=== PATIENT | female | born 1940 | race American Indian/Alaskan Native ===

== ENCOUNTER 2017-04-12 10:16 | Inpatient (IN) | payer MEDICARE, OTHER ==
[2017-04-12 10:16] VITALS: BMI 30.4
--- NOTE | 2017-04-12 10:47 | ED PDOC ---
Arrival/HPI - General Historian: Patient - General Chief Complaint: Abnormal Skin Integrity Time Seen by Provider: 04/12/17 10:29 - History of Present Illness Narrative History of Present Illness (Text): 04/12/17 10:42 77yo female with PMHx of hypertension, hyperlipdemia and Psoriasis who present with worsening left lower leg pain. She notes that her psoriasis has been worse over the past few weeks. Notes purulent discharge from the wound. States pain is throbbing in nature. she denies fever, chills, any other complaint. she is currently under a care of a General Studies Program Chair and applies topical cream to the area. (Janet Dugan A) Past Medical History - Provider Review Nursing Documentation Reviewed: Yes - Infectious Disease Hx of Infectious Diseases: None - Cardiac Hx Cardiac Disorders: Yes Hx Hypertension: Yes - Pulmonary Hx Respiratory Disorders: No - Neurological Hx Neurological Disorder: No - HEENT Hx HEENT Disorder: No - Renal Hx Renal Disorder: No - Endocrine/Metabolic Hx Endocrine Disorders: No - Hematological/Oncological Hx Blood Disorders: No - Integumentary Hx Dermatological Disorder: Yes Hx Psoriasis: Yes - Musculoskeletal/Rheumatological Hx Musculoskeletal Disorders: No Hx Falls: No - Gastrointestinal Hx Gastrointestinal Disorders: Yes Hx Gastroesophageal Reflux: Yes - Genitourinary/Gynecological Hx Genitourinary Disorders: No - Psychiatric Hx Psychophysiologic Disorder: No Hx Substance Use: No - Surgical History Hx Cardiac Catheterization: Yes (x1 with insertion of 1 stint) Hx Cholecystectomy: Yes - Anesthesia Hx Anesthesia Reactions: No Hx Malignant Hyperthermia: No Family/Social History - Physician Review Nursing Documentation Reviewed: Yes Family/Social History: Unknown Family HX Smoking Status: Former Smoker Hx Alcohol Use: Yes (beer occassionally) Hx Substance Use: No Allergies/Home Meds Allergies/Adverse Reactions: Allergies No Known Allergies Allergy (Verified 04/12/17 10:36) Home Medications: Home Meds Medication Instructions Recorded Confirmed Clotrimazole/Betamethasone 1 applic TOP BID 04/23/16 04/12/17 [Lotrisone] Budesonide/Formoterol Fumarate 1 aer IH DAILY 04/12/17 04/12/17 [Symbicort] Tiotropium [place] Inhaler 0 inhaler 04/12/17 [Spiriva Inhalation Handihaler Device] Review of Systems - Physician Review All systems were reviewed & negative as marked: Yes - Review of Systems Constitutional: Normal Eyes: Normal ENT: Normal Respiratory: Normal Cardiovascular: Normal Gastrointestinal: Normal Genitourinary Female: Normal Musculoskeletal: Arthralgias (Left leg pain) Skin: Normal Neurological: Normal Endocrine: Normal Hemo/Lymphatic: Normal Psychiatric: Normal Physical Exam Vital Signs Reviewed: Yes Temperature: Afebrile Blood Pressure: Normal Pulse: Regular Respiratory Rate: Normal Appearance: Positive for: Well-Appearing, Non-Toxic, Comfortable Pain Distress: None Mental Status: Positive for: Alert and Oriented X 3 - Systems Exam Head: Present: Atraumatic, Normocephalic Pupils: Present: PERRL Extroacular Muscles: Present: EOMI Conjunctiva: Present: Normal Mouth: Present: Moist Mucous Membranes Neck: Present: Normal Range of Motion Respiratory/Chest: Present: Clear to Auscultation, Good Air Exchange. No: Respiratory Distress, Accessory Muscle Use Cardiovascular: Present: Regular Rate and Rhythm, Normal S1, S2. No: Murmurs Abdomen: Present: Normal Bowel Sounds. No: Tenderness, Distention, Peritoneal Signs Back: Present: Normal Inspection Upper Extremity: Present: Normal Inspection. No: Cyanosis, Edema Lower Extremity: Present: Normal Inspection, NORMAL PULSES, Tenderness (Left lower leg), Swelling (Left lower leg), Erythema (Bright red beefy erythema of left lower anterior leg with overlaying scabs noted), Temperature Abnormalties ( Warm to touch), Neurovascularly Intact. No: Edema, CALF TENDERNESS Neurological: Present: GCS=15, CN II-XII Intact, Speech Normal Skin: Present: Warm, Dry, Normal Color. No: Rashes Psychiatric: Present: Alert, Oriented x 3, Normal Insight, Normal Concentration Vital Signs Temp Pulse Resp BP Pulse Ox 04/12/17 11:34 98 H 18 144/84 98 04/12/17 10:31 98.6 F 106 H 20 144/84 100 Medical Decision Making ED Course and Treatment: I was available for consultation during PA evaluation. The chart was reviewed by me, and I agree with disposition. The documented history was done by the physician tree trimmer. The documented physical exam was done by the physician tree trimmer. The documented procedures were done by the physician tree trimmer. (Hemal Singh) 04/12/17 11:21 PT with multiple comorbitiies in ED for worsening left lower leg wound. She was afebrile in ED and have no leukocytosis. Wound however appeared beefy red with scabs. Purulent discharge was also noted from her umbilicus. She definitely needs admission for IV abx. PT was also seen in ED by Dr. Harris and he agrees with the plan. Plan was DW the pt and she agreed. Vanco and Rocephin ordered. (Ritchie,Happiness A) - Medication Orders Current Medication Orders: Sodium Chloride (Sodium Chloride 0.45%) 1,000 mls @ 30 mls/hr IV .Q24H [facility] Ceftriaxone Sodium (Rocephin 1 Gram Ivpb) 1 gm in 100 mls @ 200 mls/hr IVPB STAT STA PRN Reason: Protocol Stop: 04/12/17 12:10 Vancomycin HCl (Vancomycin 1gm) 1 gm in 250 mls @ 167 mls/hr IVPB STAT STA PRN Reason: Protocol Stop: 04/12/17 13:09 Tiotropium [place] (Spiriva) 18 mcg IH DAILY HEBER Disposition/Present on Arrival - Present on Arrival Any Indicators Present on Arrival: No History of DVT/PE: No History of Uncontrolled Diabetes: No Urinary Catheter: No History of Decub. Ulcer: No History Surgical Site Infection Following: None - Disposition Have Diagnosis and Disposition been Completed?: Yes Disposition Time: 11:25 - Disposition Diagnosis: Cellulitis Disposition: HOSPITALIZED Patient Problems: Current Active Problems Problem Status Onset Cellulitis Acute Condition: FAIR
--- NOTE | 2017-04-12 11:33 | CP.PCM.HP ---
History of Present Illness - History of Present Illness History of Present Illness: 77 y/o aaf w/ hx of worsening skin redness on both lower extrmities and belly button w/ oozing and w/ an odor and outpatient meds not helping and getting worse Present on Admission - Present on Admission Any Indicators Present on Admission: Yes History of DVT/PE: No History of Uncontrolled Diabetes: No Urinary Catheter: No Decubitus Ulcer Present: Yes Decubitus Ulcer Stage: II Review of Systems - Integumentary Integumentary: Erythema, New Lesions, Rash, Skin Ulcer, Wounds Additional comments: severe psoriasis into a cellulitis w/ ulcers and oozing and odor Past Patient History - Infectious Disease Hx of Infectious Diseases: None - Past Social History Smoking Status: Former Smoker - CARDIAC Hx Cardiac Disorders: Yes Hx Hypertension: Yes - PULMONARY Hx Respiratory Disorders: No - NEUROLOGICAL Hx Neurological Disorder: No - HEENT Hx HEENT Problems: No - RENAL Hx Chronic Kidney Disease: No - ENDOCRINE/METABOLIC Hx Endocrine Disorders: No - HEMATOLOGICAL/ONCOLOGICAL Hx Blood Disorders: No - INTEGUMENTARY Hx Dermatological Problems: Yes Hx Psoriasis: Yes Other/Comment: psoriais - MUSCULOSKELETAL/RHEUMATOLOGICAL Hx Musculoskeletal Disorders: No Hx Falls: No - GASTROINTESTINAL Hx Gastrointestinal Disorders: Yes Hx Gastroesophageal Reflux: Yes - GENITOURINARY/GYNECOLOGICAL Hx Genitourinary Disorders: No - PSYCHIATRIC Hx Psychophysiologic Disorder: No Hx Substance Use: No - SURGICAL HISTORY Hx Cardiac Catheterization: Yes (x1 with insertion of 1 stint) Hx Cholecystectomy: Yes - ANESTHESIA Hx Anesthesia Reactions: No Hx Malignant Hyperthermia: No Meds Allergies/Adverse Reactions: Allergies Allergy/AdvReac Type Severity Reaction Status Date / Time No Known Allergies Allergy Verified 04/12/17 10:36 Physical Exam - Constitutional Appears: No Acute Distress, Chronically Ill - Head Exam Head Exam: ATRAUMATIC, NORMAL INSPECTION, NORMOCEPHALIC - Eye Exam Eye Exam: EOMI - ENT Exam ENT Exam: Mucous Membranes Moist - Neck Exam Neck exam: Positive for: Normal Inspection - Respiratory Exam Respiratory Exam: Clear to Auscultation Bilateral, NORMAL BREATHING PATTERN - Cardiovascular Exam Cardiovascular Exam: REGULAR RHYTHM - GI/Abdominal Exam GI & Abdominal Exam: Normal Bowel Sounds, Soft - Extremities Exam Extremities exam: Positive for: pedal edema - Back Exam Back exam: NORMAL INSPECTION - Neurological Exam Neurological exam: Alert, CN II-XII Intact, Oriented x3 - Psychiatric Exam Psychiatric exam: Normal Affect, Normal Mood - Skin Additional comments: severe psoriasis w/ ulcers cellulitis oozing and odor Results - Vital Signs Recent Vital Signs: Last Vital Signs Temp 98.6 F 04/12/17 10:31 Pulse 106 H 04/12/17 10:31 Resp 20 04/12/17 10:31 BP 144/84 04/12/17 10:31 Pulse Ox 100 04/12/17 10:31 Assessment & Plan - Assessment and Plan (Free Text) Assessment: acute cellulitis legs umbilicus oozing odor severe psoriasis Plan: iv abs skin care id eval pod eval surgery eval iv fluids checking labs - Date & Time Date: 04/12/17 Time: 11:00
[2017-04-12 11:37] LABS: BASO # 0.01 K/mm3 (0.0-2.0); BASO % 0.1 % (0.0-3.0); EOS % 0.4 % (1.5-5.0); GRAN % 77.9 % (50.0-68.0); HEMOGLOBIN 13.7 gm/dL (12.0-16.0); LYMPH # 1.3 (1.2-3.4); LYMPH % 13.9 % (22.0-35.0); MEAN CELL VOLUME 89.8 fL (80.0-105.0); MEAN CORPUSCULAR HEMOGLOBIN 30.4 pg (25.0-35.0); MEAN CORPUSCULAR HGB CONC 33.8 g/dl (31.0-37.0); MEAN PLATELET VOLUME 9.4 fl (7.0-11.0); MONO # 0.7 (0.1-0.6); MONO % 7.7 % (1.0-6.0); PLATELET COUNT 321 10^3/uL (120.0-450.0); RBC 4.51 10^6/uL (3.5-6.1); RED CELL DISTRIBUTION WIDTH 14.3 % (11.5-14.5); WHITE BLOOD COUNT 9.3 10^3/ul (4.5-11.0)
[2017-04-12] MEDS ORDERED: Vancomycin 1gm in NS 250ml 1 GM/250 ML BAG IVPB STA (11:40)
[2017-04-12] MEDS ORDERED: cefTRIAXone 1 gm 1 GM/100 ML BAG IVPB STA (11:41)
[2017-04-12] MEDS: Sodium Chloride 0.45% 1,000 ML IV SCH (11:50)
[2017-04-12 12:00] LABS: ALB/GLOB RATIO 0.9 (1.1-1.8); ALBUMIN 4.4 g/dL (3.0-4.8); ALT/SGPT 29 U/L (7-56); AST/SGOT 28 U/L (15-39); BLOOD UREA NITROGEN 14 mg/dL (7-21); CALCIUM 10.1 mg/dL (8.4-10.5); GFR AFRICAN-AMERICAN > 60; GFR NON-AFRICAN AMERICAN 54
[2017-04-12] MEDS ORDERED: Silver Sulfadiazine 1% Cream (20 gm) TOP STA (12:10)
--- NOTE | 2017-04-12 15:35 | CP.PCM.CON ---
History of Present Illness - History of Present Illness History of Present Illness: 77 F with a h/o psoriasis, presents to ED for worsening of skin redness on lower extremities. and drainage from umbilicus, which occurred a couple of days prior to presenting to the ED. Patient states the drainage coming from her left leg started over the weekend and she decided to come to the ED because it had gotten worse. Patient admits to scratching her umbilical region prior to the formation of drainage which had stopped prior to arrive to ED. Review of Systems - Constitutional Constitutional: As Per HPI - Cardiovascular Cardiovascular: As Per HPI, Leg Edema. absent: Leg Ulcers Additional comments: excoriations on legs bilaterally on examination. psoriatic plaques visualized up to the knees bilaterally - Integumentary Integumentary: Lesions, New Lesions, Pruritus, Skin Pain, Wounds Additional comments: tenderness to palpation Past Patient History - Infectious Disease Hx of Infectious Diseases: None - Past Medical History & Family History Past Medical History?: Yes Past Family History: Reviewed and not pertinent - Past Social History Smoking Status: Former Smoker - CARDIAC Hx Cardiac Disorders: Yes Hx Hypertension: Yes - PULMONARY Hx Respiratory Disorders: No - NEUROLOGICAL Hx Neurological Disorder: No - HEENT Hx HEENT Problems: No - RENAL Hx Chronic Kidney Disease: No - ENDOCRINE/METABOLIC Hx Endocrine Disorders: No - HEMATOLOGICAL/ONCOLOGICAL Hx Blood Disorders: No - INTEGUMENTARY Hx Dermatological Problems: Yes Hx Psoriasis: Yes - MUSCULOSKELETAL/RHEUMATOLOGICAL Hx Musculoskeletal Disorders: No Hx Falls: No - GASTROINTESTINAL Hx Gastrointestinal Disorders: Yes Hx Gastroesophageal Reflux: Yes - GENITOURINARY/GYNECOLOGICAL Hx Genitourinary Disorders: No - PSYCHIATRIC Hx Psychophysiologic Disorder: No Hx Substance Use: No - SURGICAL HISTORY Hx Cardiac Catheterization: Yes (x1 with insertion of 1 stint) Hx Cholecystectomy: Yes - ANESTHESIA Hx Anesthesia Reactions: No Hx Malignant Hyperthermia: No Meds Allergies/Adverse Reactions: Allergies Allergy/AdvReac Type Severity Reaction Status Date / Time No Known Allergies Allergy Verified 04/12/17 14:52 - Medications Medications: Current Medications Sodium Chloride (Sodium Chloride 0.45%) 1,000 mls @ 30 mls/hr IV .Q24H [facility] Last Admin: 04/12/17 11:50 Dose: 30 mls/hr Ceftaroline Fosamil 400 mg/ (Sodium Chloride) 100 mls @ 100 mls/hr IVPB Q12 [facility]BER PRN Reason: Protocol Stop: 04/19/17 22:01 Tiotropium [place] (Spiriva) 18 mcg IH DAILY HEBER Physical Exam - Head Exam Head Exam: NORMAL INSPECTION - Eye Exam Eye Exam: EOMI, Normal appearance - ENT Exam ENT Exam: Mucous Membranes Moist - Neck Exam Neck exam: Positive for: Full Rom, Normal Inspection - Cardiovascular Exam Cardiovascular Exam: REGULAR RHYTHM. absent: Bradycardia, Tachycardia - GI/Abdominal Exam GI & Abdominal Exam: Distended. absent: Firm, Guarding, Mass, Pulsatile Mass - Extremities Exam Extremities exam: Positive for: normal capillary refill, tenderness, pedal pulses present. Negative for: normal inspection Additional comments: tenderness to palpation - Skin Skin Exam: Dry, Intact, Normal Color, Warm Results - Vital Signs Recent Vital Signs: Last Vital Signs Temp 98 F 04/12/17 13:00 Pulse 75 04/12/17 13:00 Resp 20 04/12/17 13:00 BP 130/76 04/12/17 13:00 Pulse Ox 98 04/12/17 13:00 - Labs Result Diagrams: 04/12/17 11:25 04/12/17 11:25 Labs: Laboratory Results - last 24 hr 04/12/17 04/12/17 04/12/17 11:25 11:25 12:20 WBC 9.3 D RBC 4.51 Hgb 13.7 Hct 40.5 MCV 89.8 MCH 30.4 MCHC 33.8 RDW 14.3 Plt Count 321 MPV 9.4 Gran % 77.9 H Lymph % (Auto) 13.9 L Lamar % (Auto) 7.7 H Eos % (Auto) 0.4 L Baso % (Auto) 0.1 Gran # 7.20 H Lymph # 1.3 Lamar # 0.7 H Eos # 0.0 Baso # 0.01 ESR 13 Sodium 139 Potassium 4.6 Chloride 103 Carbon Dioxide 24 Anion Gap 17 BUN 14 Creatinine 1.0 Est GFR ( Amer) > 60 Est GFR (Non-Af Amer) 54 Random Glucose 106 Calcium 10.1 Total Bilirubin 1.0 AST 28 ALT 29 Alkaline Phosphatase 90 C-React Prot High Sens Total Protein 9.1 H Albumin 4.4 Globulin 4.7 Albumin/Globulin Ratio 0.9 L 04/12/17 12:20 WBC RBC Hgb Hct MCV MCH MCHC RDW Plt Count MPV Gran % Lymph % (Auto) Lamar % (Auto) Eos % (Auto) Baso % (Auto) Gran # Lymph # Lamar # Eos # Baso # ESR Sodium Potassium Chloride Carbon Dioxide Anion Gap BUN Creatinine Est GFR ( Amer) Est GFR (Non-Af Amer) Random Glucose Calcium Total Bilirubin AST ALT Alkaline Phosphatase C-React Prot High Sens > 15.00 H Total Protein Albumin Globulin Albumin/Globulin Ratio
[2017-04-12] MEDS ORDERED: Pneumococcal 23-Valent Vaccine IM ONE (16:57)
[2017-04-13] MEDS ORDERED: Oxycodone/Acetaminophen 10/325 mg Tab PO STA (00:16)
--- NOTE | 2017-04-13 00:17 | CP.PCM.PN ---
Subjective - Date & Time of Evaluation Date of Evaluation: 04/13/17 Time of Evaluation: 00:17 - Subjective Subjective: S: Patient was seen at bedside for leg pains. Has no other complaints. Pertinent medical record was reviewed. O: Last Vital Signs 3 Temp 98 F 04/12/17 16:25 Pulse 75 04/12/17 16:25 Resp 20 04/12/17 16:25 BP 130/76 04/12/17 16:25 Pulse Ox 100 04/12/17 16:00 Awake, alert , not in distress. LUNGS: Normal breathing pattern. EXT: Both lower extremities red, swollen, tender. A:Legs cellulitis. P:Percocet 10/325 i po stat/ Objective - Vital Signs/Intake and Output Vital Signs (last 24 hours): Temp Pulse Resp BP Pulse Ox 98 F 75 20 130/76 100 04/12/17 16:25 04/12/17 16:25 04/12/17 16:25 04/12/17 16:25 04/12/17 16:00 Intake and Output: 04/12/17 04/13/17 18:59 06:59 Intake Total 240 Balance 240 - Medications Medications: Current Medications Sodium Chloride (Sodium Chloride 0.45%) 1,000 mls @ 30 mls/hr IV .Q24H HEBER Last Admin: 04/12/17 11:50 Dose: 30 mls/hr Ceftaroline Fosamil 400 mg/ (Sodium Chloride) 100 mls @ 100 mls/hr IVPB Q12 HEBER PRN Reason: Protocol Stop: 04/19/17 22:01 Last Admin: 04/12/17 21:18 Dose: 100 mls/hr Tiotropium [place] (Spiriva) 18 mcg IH DAILY HEBER - Labs Labs: 04/12/17 11:25 04/12/17 11:25
[2017-04-13 07:26] LABS: ALBUMIN 3.6 g/dL (3.0-4.8); ALT/SGPT 30 U/L (7-56); AST/SGOT 33 U/L (15-39); BLOOD UREA NITROGEN 14 mg/dL (7-21); GFR AFRICAN-AMERICAN > 60; GFR NON-AFRICAN AMERICAN > 60
--- NOTE | 2017-04-13 08:47 | CP.PCM.PN ---
Subjective - Date & Time of Evaluation Date of Evaluation: 04/13/17 Time of Evaluation: 08:39 - Subjective Subjective: General Surgery PGY [address] Montes Patient seen and examined at bedside this morning. No acute events over night. Patient states that she is still scratching and is now feeling itchy around her chest in addition to her legs b/l. She noticed a rash beginning to form on her chest upon waking this morning. Objective - Vital Signs/Intake and Output Vital Signs (last 24 hours): Temp Pulse Resp BP Pulse Ox 98 F 75 20 130/76 100 04/12/17 16:25 04/12/17 16:25 04/12/17 16:25 04/12/17 16:25 04/12/17 16:00 Intake and Output: 04/13/17 04/13/17 06:59 18:59 Intake Total 240 Balance 240 - Medications Medications: Current Medications Sodium Chloride (Sodium Chloride 0.45%) 1,000 mls @ 30 mls/hr IV .Q24H HEBER Last Admin: 04/12/17 11:50 Dose: 30 mls/hr Ceftaroline Fosamil 400 mg/ (Sodium Chloride) 100 mls @ 100 mls/hr IVPB Q12 HEBER PRN Reason: Protocol Stop: 04/19/17 22:01 Last Admin: 04/12/17 21:18 Dose: 100 mls/hr Tiotropium [place] (Spiriva) 18 mcg IH DAILY HEBER - Labs Labs: 04/12/17 11:25 04/13/17 06:50 - Constitutional Appears: No Acute Distress - Head Exam Head Exam: ATRAUMATIC, NORMOCEPHALIC - Eye Exam Eye Exam: EOMI - ENT Exam ENT Exam: Mucous Membranes Moist - Respiratory Exam Respiratory Exam: NORMAL BREATHING PATTERN. absent: Respiratory Distress - Extremities Exam Extremities Exam: Pedal Edema Additional comments: Psoriasis plaques present on LE b/l. Excoriations are present throughout. - Neurological Exam Neurological Exam: Alert, Awake - Skin Skin Exam: Rash Additional comments: Psoriasis plaques with excoriations present on LE b/l. Rash beginning to form on chest. Redness present, consistent with patient scratching. Assessment and Plan - Assessment and Plan (Free Text) Assessment: 77 year old F with Psoriasis plaques and RLE wound. Plan: Continue Silvadene Cream application to RLE wound. Monitor for signs of infection, cellulitis and/or drainage Will give Benadryl to help with pruritus and rash formation on chest. Alexx Katz PGY 1
[2017-04-13 09:05] LABS: HEMOGLOBIN 12.2 gm/dL (12.0-16.0); MEAN CELL VOLUME 89.9 fL (80.0-105.0); MEAN CORPUSCULAR HEMOGLOBIN 29.3 pg (25.0-35.0); MEAN CORPUSCULAR HGB CONC 32.5 g/dl (31.0-37.0); RBC 4.17 10^6/uL (3.5-6.1); WHITE BLOOD COUNT 6.4 10^3/ul (4.5-11.0)
[2017-04-13 09:06] LABS: MEAN PLATELET VOLUME 9.4 fl (7.0-11.0); RED CELL DISTRIBUTION WIDTH 14.7 % (11.5-14.5)
--- NOTE | 2017-04-13 09:17 | CP.PCM.PN ---
Subjective - Date & Time of Evaluation Date of Evaluation: 04/13/17 Time of Evaluation: 08:00 - Subjective Subjective: seen in bed occ discomfort but improving less aggressive red less amount and starting to feel a bit better eats ok comfortable at this time Objective - Vital Signs/Intake and Output Vital Signs (last 24 hours): Temp Pulse Resp BP Pulse Ox 98 F 75 20 130/76 100 04/12/17 16:25 04/12/17 16:25 04/12/17 16:25 04/12/17 16:25 04/12/17 16:00 Intake and Output: 04/13/17 04/13/17 06:59 18:59 Intake Total 240 Balance 240 - Medications Medications: Current Medications Sodium Chloride (Sodium Chloride 0.45%) 1,000 mls @ 30 mls/hr IV .Q24H HEBER Last Admin: 04/12/17 11:50 Dose: 30 mls/hr Ceftaroline Fosamil 400 mg/ (Sodium Chloride) 100 mls @ 100 mls/hr IVPB Q12 HEBER PRN Reason: Protocol Stop: 04/19/17 22:01 Last Admin: 04/12/17 21:18 Dose: 100 mls/hr Tiotropium [place] (Spiriva) 18 mcg IH DAILY HEBER - Labs Labs: 04/13/17 08:30 04/13/17 06:50 - Constitutional Appears: No Acute Distress - Head Exam Head Exam: ATRAUMATIC, NORMAL INSPECTION, NORMOCEPHALIC - Eye Exam Eye Exam: Normal appearance - ENT Exam ENT Exam: Mucous Membranes Moist - Respiratory Exam Respiratory Exam: Clear to Ausculation Bilateral, NORMAL BREATHING PATTERN - Cardiovascular Exam Cardiovascular Exam: REGULAR RHYTHM - GI/Abdominal Exam GI & Abdominal Exam: Soft, Normal Bowel Sounds - Extremities Exam Extremities Exam: Normal Inspection - Neurological Exam Neurological Exam: Alert, CN II-XII Intact, Oriented x3 - Psychiatric Exam Psychiatric exam: Normal Affect - Skin Skin Exam: Warm Additional comments: severe redness cellulitis psoriasis all over body starting to be less aggressive w/ mild fading of severe red to a lesser aggressive red color Assessment and Plan - Assessment and Plan (Free Text) Assessment: severe cellulitesmild start w/ improving psoriasis htn hi chol feet ulcer Plan: cont w/ iv abs starting to improve checking labs as per id surgery and pod
[2017-04-13] MEDS: Tiotropium 18 mcg Cap For Inhalation IH SCH (10:53)
--- NOTE | 2017-04-13 11:54 | CP.PCM.CON ---
History of Present Illness - History of Present Illness History of Present Illness: 77 year old female with PMH of psoriasis, HTN, CAD S/P PCI, S/P cholecystectomy , GERD was brought in to [facility] because of worsening lower extremity swelling as well as a draining lesion on the umiblicus associated with psoriasis plaques. The patient states it started out itchy then started scratching it. She denies fever or chills, no animal contacts, no insect bites, no headache or dizziness, no chest pain, no SOB, no abdominal pain, no diarrhea , no dysuria. Infectious Diseases consult is requested to further evaluate and manage. Review of Systems - Review of Systems All systems: reviewed and no additional remarkable complaints except (as per HPI ) Past Patient History - Infectious Disease Hx of Infectious Diseases: None - Past Medical History & Family History Past Medical History?: Yes Past Family History: Reviewed and not pertinent - Past Social History Smoking Status: Current Some Days Smoker - CARDIAC Hx Cardiac Disorders: Yes Hx Hypertension: Yes - PULMONARY Hx Respiratory Disorders: Yes (smoked cigarettes) - NEUROLOGICAL Hx Neurological Disorder: No - HEENT Hx HEENT Problems: No - RENAL Hx Chronic Kidney Disease: No - ENDOCRINE/METABOLIC Hx Endocrine Disorders: No - HEMATOLOGICAL/ONCOLOGICAL Hx Blood Disorders: No - INTEGUMENTARY Hx Dermatological Problems: Yes Hx Psoriasis: Yes - MUSCULOSKELETAL/RHEUMATOLOGICAL Hx Musculoskeletal Disorders: No Hx Falls: No - GASTROINTESTINAL Hx Gastrointestinal Disorders: Yes Hx Gastroesophageal Reflux: Yes - GENITOURINARY/GYNECOLOGICAL Hx Genitourinary Disorders: No - PSYCHIATRIC Hx Psychophysiologic Disorder: No Hx Substance Use: No - SURGICAL HISTORY Hx Surgeries: Yes (cardiac stent x 1) Hx Cardiac Catheterization: Yes (x1 with insertion of 1 stent) Hx Cholecystectomy: Yes - ANESTHESIA Hx Anesthesia Reactions: No Hx Malignant Hyperthermia: No Meds Allergies/Adverse Reactions: Allergies Allergy/AdvReac Type Severity Reaction Status Date / Time No Known Allergies Allergy Verified 04/12/17 14:52 - Medications Medications: Current Medications Diphenhydramine HCl (Benadryl) 25 mg PO Q8H PRN PRN Reason: Itching / Pruritus Sodium Chloride (Sodium Chloride 0.45%) 1,000 mls @ 30 mls/hr IV .Q24H HEBER Last Admin: 04/12/17 11:50 Dose: 30 mls/hr Ceftaroline Fosamil 400 mg/ (Sodium Chloride) 100 mls @ 100 mls/hr IVPB Q12 HEBER PRN Reason: Protocol Stop: 04/19/17 22:01 Last Admin: 04/13/17 10:52 Dose: 100 mls/hr Mupirocin (Bactroban Ointment) 0 gm TOP BID HEBER Tiotropium [place] (Spiriva) 18 mcg IH DAILY HEBER Last Admin: 04/13/17 10:53 Dose: 18 mcg Physical Exam - Constitutional Appears: Non-toxic, No Acute Distress - Head Exam Head Exam: NORMAL INSPECTION - Neck Exam Neck exam: Negative for: Meningismus - Respiratory Exam Respiratory Exam: Decreased Breath Sounds - Cardiovascular Exam Cardiovascular Exam: +S1, +S2 - GI/Abdominal Exam GI & Abdominal Exam: Soft. absent: Tenderness - Extremities Exam Additional comments: psoriasis plaques all over the anterior and posterior trunk and plaque noted on the umbilicus area with some crusting noted Results - Vital Signs Recent Vital Signs: Last Vital Signs Temp 98 F 04/12/17 16:25 Pulse 75 04/12/17 16:25 Resp 20 04/12/17 16:25 BP 130/76 04/12/17 16:25 Pulse Ox 100 04/12/17 16:00 - Labs Result Diagrams: 04/13/17 08:30 04/13/17 06:50 Labs: Laboratory Results - last 24 hr 04/12/17 04/12/17 04/12/17 11:25 12:20 12:20 WBC RBC Hgb Hct MCV MCH MCHC RDW Plt Count MPV ESR 13 Sodium 139 Potassium 4.6 Chloride 103 Carbon Dioxide 24 Anion Gap 17 BUN 14 Creatinine 1.0 Est GFR ( Amer) > 60 Est GFR (Non-Af Amer) 54 Random Glucose 106 Calcium 10.1 Total Bilirubin 1.0 AST 28 ALT 29 Alkaline Phosphatase 90 C-React Prot High Sens > 15.00 H Total Protein 9.1 H Albumin 4.4 Globulin 4.7 Albumin/Globulin Ratio 0.9 L 04/13/17 04/13/17 06:50 08:30 WBC 6.4 D RBC 4.17 Hgb 12.2 Hct 37.5 MCV 89.9 MCH 29.3 MCHC 32.5 RDW 14.7 H Plt Count 288 MPV 9.4 ESR Sodium 134 Potassium 4.2 Chloride 105 Carbon Dioxide 25 Anion Gap 8 L BUN 14 Creatinine 0.9 Est GFR ( Amer) > 60 Est GFR (Non-Af Amer) > 60 Random Glucose 93 Calcium 9.0 Total Bilirubin 0.7 AST 33 ALT 30 Alkaline Phosphatase 71 C-React Prot High Sens Total Protein 7.3 Albumin 3.6 Globulin 3.7 Albumin/Globulin Ratio 1.0 L Assessment & Plan - Assessment and Plan (Free Text) Plan: Assessment Consider umbilicus area skin and skin structure infection with associated psoriasis plaques psoriasis HTN CAD S/P PCI S/P cholecystectomy GERD Plan Started patient on Teflaro pending blood and wound cx; will also order Bactroban ointment will follow clinical response
--- NOTE | 2017-04-13 12:05 | CP.PCM.CON ---
<Lorenzo Brown - Last Filed: 04/13/17 12:09> History of Present Illness - History of Present Illness History of Present Illness: Patient is a 77 year old female with PMH of HTN, HLD and psoriasis who presented to the ED yesterday with oozing b/l LE wounds secondary to chronic psoriasis. Patient states that these wounds have been present for one or two weeks and began to ooze fluid with a thick, white consistency a few days ago prompting her to visit the ED. Patient states that she has had similar wounds in the past that she sought treatment for in the hospital and they healed up nicely. Patient states that Silvadene cream was placed on her wounds at last dressing change. Patient also complains of oozing discharge from her umbilicus. Patient denies any acute overnight events. Patient denies any further pedal complaints at this time. Patient denies N/V/F/C/CP/SOB at this time. Review of Systems - Review of Systems Review of Systems: Review of systems unremarkable outside of HPI Past Patient History - Infectious Disease Hx of Infectious Diseases: None - Past Medical History & Family History Past Medical History?: Yes Past Family History: Reviewed and not pertinent - Past Social History Smoking Status: Current Some Days Smoker - CARDIAC Hx Cardiac Disorders: Yes Hx Hypertension: Yes - PULMONARY Hx Respiratory Disorders: Yes (smoked cigarettes) - NEUROLOGICAL Hx Neurological Disorder: No - HEENT Hx HEENT Problems: No - RENAL Hx Chronic Kidney Disease: No - ENDOCRINE/METABOLIC Hx Endocrine Disorders: No - HEMATOLOGICAL/ONCOLOGICAL Hx Blood Disorders: No - INTEGUMENTARY Hx Dermatological Problems: Yes Hx Psoriasis: Yes - MUSCULOSKELETAL/RHEUMATOLOGICAL Hx Musculoskeletal Disorders: No Hx Falls: No - GASTROINTESTINAL Hx Gastrointestinal Disorders: Yes Hx Gastroesophageal Reflux: Yes - GENITOURINARY/GYNECOLOGICAL Hx Genitourinary Disorders: No - PSYCHIATRIC Hx Psychophysiologic Disorder: No Hx Substance Use: No - SURGICAL HISTORY Hx Surgeries: Yes (cardiac stent x 1) Hx Cardiac Catheterization: Yes (x1 with insertion of 1 stent) Hx Cholecystectomy: Yes - ANESTHESIA Hx Anesthesia Reactions: No Hx Malignant Hyperthermia: No Meds Allergies/Adverse Reactions: Allergies Allergy/AdvReac Type Severity Reaction Status Date / Time No Known Allergies Allergy Verified 04/12/17 14:52 - Medications Medications: Current Medications Collagenase (Santyl) 0 gm TOP DAILY [facility] Diphenhydramine HCl (Benadryl) 25 mg PO Q8H PRN PRN Reason: Itching / Pruritus Sodium Chloride (Sodium Chloride 0.45%) 1,000 mls @ 30 mls/hr IV .Q24H [facility] Last Admin: 04/12/17 11:50 Dose: 30 mls/hr Ceftaroline Fosamil 400 mg/ (Sodium Chloride) 100 mls @ 100 mls/hr IVPB Q12 [facility] PRN Reason: Protocol Stop: 04/19/17 22:01 Last Admin: 04/13/17 10:52 Dose: 100 mls/hr Mupirocin (Bactroban Ointment) 0 gm TOP BID [facility] Tiotropium [place] (Spiriva) 18 mcg IH DAILY [facility] Last Admin: 04/13/17 10:53 Dose: 18 mcg Physical Exam - Constitutional Appears: Well, Non-toxic, No Acute Distress - Extremities Exam Additional comments: Lower extremity focused exam Vasc: DP/PT pulses palpable 1/4 b/l. CFT < 3 seconds to all ten digits. Skin temperature warm to warm from proximal to distal Neuro: Epicritic and protective sensation grossly intact Derm: Multiple, extensive psoriatic plaques noted to b/l legs and feet. Crust from dried purulent drainage noted to b/l legs. Superficial removal of epidermis noted to multiple parts of legs with serrous drainage present secondary to plaque removal. MSK: Mid POP noted to psoriatic plaques - Neurological Exam Neurological exam: Alert, Oriented x3 - Psychiatric Exam Psychiatric exam: Normal Affect, Normal Mood Results - Vital Signs Recent Vital Signs: Last Vital Signs Temp 98 F 04/12/17 16:25 Pulse 75 04/12/17 16:25 Resp 20 04/12/17 16:25 BP 130/76 04/12/17 16:25 Pulse Ox 100 04/12/17 16:00 - Labs Result Diagrams: 04/13/17 08:30 04/13/17 06:50 Labs: Laboratory Results - last 24 hr 04/12/17 04/12/17 04/13/17 12:20 12:20 06:50 WBC RBC Hgb Hct MCV MCH MCHC RDW Plt Count MPV ESR 13 Sodium 134 Potassium 4.2 Chloride 105 Carbon Dioxide 25 Anion Gap 8 L BUN 14 Creatinine 0.9 Est GFR ( Amer) > 60 Est GFR (Non-Af Amer) > 60 Random Glucose 93 Calcium 9.0 Total Bilirubin 0.7 AST 33 ALT 30 Alkaline Phosphatase 71 C-React Prot High Sens > 15.00 H Total Protein 7.3 Albumin 3.6 Globulin 3.7 Albumin/Globulin Ratio 1.0 L 04/13/17 08:30 WBC 6.4 D RBC 4.17 Hgb 12.2 Hct 37.5 MCV 89.9 MCH 29.3 MCHC 32.5 RDW 14.7 H Plt Count 288 MPV 9.4 ESR Sodium Potassium Chloride Carbon Dioxide Anion Gap BUN Creatinine Est GFR ( Amer) Est GFR (Non-Af Amer) Random Glucose Calcium Total Bilirubin AST ALT Alkaline Phosphatase C-React Prot High Sens Total Protein Albumin Globulin Albumin/Globulin Ratio Assessment & Plan - Assessment and Plan (Free Text) Assessment: 77 year old female seen with multiple wounds on her legs and feet b/l secondary to psoriasis Plan: Patient seen and evaluated Labs, chart and vitals reviewed Plan discussed with Dr. Samson Wound culture taken of serrous drainage from left leg B/L lower extremities dressed with xeroform, gauze and kirlix Orders placed for Santyl, b/l foot films and ORLIN Continue with abx per [facility] Podiatry to continue following while in house Thank you for this consult, please consult again as needed in future - Date & Time Date: 04/13/17 Time: 12:22 <Cherise Samson - Last Filed: 04/13/17 19:55> Meds - Medications Medications: Current Medications Collagenase (Santyl) 0 gm TOP DAILY [facility] Diphenhydramine HCl (Benadryl) 25 mg PO Q8H PRN PRN Reason: Itching / Pruritus Sodium Chloride (Sodium Chloride 0.45%) 1,000 mls @ 30 mls/hr IV .Q24H [facility] Last Admin: 04/12/17 11:50 Dose: 30 mls/hr Ceftaroline Fosamil 400 mg/ (Sodium Chloride) 100 mls @ 100 mls/hr IVPB Q12 [facility] PRN Reason: Protocol Stop: 04/19/17 22:01 Last Admin: 04/13/17 10:52 Dose: 100 mls/hr Mupirocin (Bactroban Ointment) 0 gm TOP BID [facility] Tiotropium [place] (Spiriva) 18 mcg IH DAILY [facility] Last Admin: 04/13/17 10:53 Dose: 18 mcg Results - Vital Signs Recent Vital Signs: Last Vital Signs Temp 98.3 F 04/13/17 17:15 Pulse 77 04/13/17 17:15 Resp 16 04/13/17 17:15 BP 170/73 H 04/13/17 17:15 Pulse Ox 98 04/13/17 17:15 - Labs Result Diagrams: 04/13/17 08:30 04/13/17 06:50 Labs: Laboratory Results - last 24 hr 04/13/17 04/13/17 06:50 08:30 WBC 6.4 D RBC 4.17 Hgb 12.2 Hct 37.5 MCV 89.9 MCH 29.3 MCHC 32.5 RDW 14.7 H Plt Count 288 MPV 9.4 Sodium 134 Potassium 4.2 Chloride 105 Carbon Dioxide 25 Anion Gap 8 L BUN 14 Creatinine 0.9 Est GFR ( Amer) > 60 Est GFR (Non-Af Amer) > 60 Random Glucose 93 Calcium 9.0 Total Bilirubin 0.7 AST 33 ALT 30 Alkaline Phosphatase 71 Total Protein 7.3 Albumin 3.6 Globulin 3.7 Albumin/Globulin Ratio 1.0 L Attending/Attestation - Attestation I have personally seen and examined this patient.: No I have fully participated in the care of the patient.: Yes I have reviewed all pertinent clinical information: Yes Notes (Text): 04/13/17 19:55 I have been in contact with the resident during the treatment and have formulated the treatment plan
--- NOTE | 2017-04-13 13:03 | RAD ---
PROCEDURE: Bilateral Feet Radiographs. HISTORY: B/l lower extremity wounds COMPARISON: None. FINDINGS: BONES: Right Foot: Normal. No fracture. Left Foot: Normal. No fracture. JOINTS: Right Foot: Normal. No osteoarthritis. Left Foot: Normal. No osteoarthritis. SOFT TISSUES: Right Foot: Normal. Left Foot: Normal. OTHER FINDINGS: None. IMPRESSION: Normal radiographs of the feet.
[2017-04-13 14:16] VITALS: O2SAT 98
[2017-04-13] MEDS: Collagenase 250 Units/gm Ointment(30 gm) TOP SCH (20:12)
[2017-04-13] MEDS: Sodium Chloride 0.45% 1,000 ML IV SCH (22:12)
[2017-04-14 07:02] LABS: HEMOGLOBIN 11.7 gm/dL (12.0-16.0); MEAN CELL VOLUME 89.6 fL (80.0-105.0); MEAN CORPUSCULAR HEMOGLOBIN 29.6 pg (25.0-35.0); MEAN CORPUSCULAR HGB CONC 33.1 g/dl (31.0-37.0); MEAN PLATELET VOLUME 9.2 fl (7.0-11.0); RBC 3.95 10^6/uL (3.5-6.1); RED CELL DISTRIBUTION WIDTH 14.2 % (11.5-14.5); WHITE BLOOD COUNT 6.1 10^3/ul (4.5-11.0)
[2017-04-14 07:29] LABS: ALB/GLOB RATIO 0.9 (1.1-1.8); ALBUMIN 3.5 g/dL (3.0-4.8); ALT/SGPT 26 U/L (7-56); AST/SGOT 31 U/L (15-39); BLOOD UREA NITROGEN 10 mg/dL (7-21); CALCIUM 9.2 mg/dL (8.4-10.5); GFR AFRICAN-AMERICAN > 60; GFR NON-AFRICAN AMERICAN 54
[2017-04-14 07:41] VITALS: BP 146/83; PULSE 92; RESP 22; TEMP 98.7
--- NOTE | 2017-04-14 07:45 | CP.PCM.PN ---
Subjective - Date & Time of Evaluation Date of Evaluation: 04/14/17 Time of Evaluation: 07:00 - Subjective Subjective: seen in bed slept well eats well still w/ cellulitis rash over most of body slowly improving oozing belly button no pain Objective - Vital Signs/Intake and Output Vital Signs (last 24 hours): Temp Pulse Resp BP Pulse Ox 98.7 F 92 H 22 146/83 98 04/14/17 07:40 04/14/17 07:40 04/14/17 07:40 04/14/17 07:40 04/14/17 07:40 Intake and Output: 04/14/17 04/14/17 06:59 18:59 Intake Total 120 Balance 120 - Medications Medications: Current Medications Collagenase (Santyl) 0 gm TOP DAILY [facility] Last Admin: 04/13/17 20:12 Dose: 1 applic Diphenhydramine HCl (Benadryl) 25 mg PO Q8H PRN PRN Reason: Itching / Pruritus Sodium Chloride (Sodium Chloride 0.45%) 1,000 mls @ 30 mls/hr IV .Q24H [facility] Last Admin: 04/13/17 22:12 Dose: 30 mls/hr Ceftaroline Fosamil 400 mg/ (Sodium Chloride) 100 mls @ 100 mls/hr IVPB Q12 [facility] PRN Reason: Protocol Stop: 04/19/17 22:01 Last Admin: 04/13/17 22:10 Dose: 100 mls/hr Mupirocin (Bactroban Ointment) 0 gm TOP BID [facility] Last Admin: 04/13/17 20:13 Dose: Not Given Tiotropium [place] (Spiriva) 18 mcg IH DAILY [facility] Last Admin: 04/13/17 10:53 Dose: 18 mcg - Labs Labs: 04/14/17 06:25 04/14/17 06:25 - Constitutional Appears: No Acute Distress - Head Exam Head Exam: ATRAUMATIC, NORMAL INSPECTION, NORMOCEPHALIC - Eye Exam Eye Exam: Normal appearance - ENT Exam ENT Exam: Mucous Membranes Moist - Respiratory Exam Respiratory Exam: Clear to Ausculation Bilateral - Cardiovascular Exam Cardiovascular Exam: REGULAR RHYTHM - GI/Abdominal Exam GI & Abdominal Exam: Soft, Normal Bowel Sounds - Extremities Exam Extremities Exam: Normal Inspection - Neurological Exam Neurological Exam: Alert, CN II-XII Intact, Oriented x3 - Psychiatric Exam Psychiatric exam: Normal Affect, Normal Mood - Skin Skin Exam: Warm Additional comments: red rash psoriasis w/ cellulitis over most of body w/ oozing from belly button and ulcer on feet Assessment and Plan - Assessment and Plan (Free Text) Assessment: cellulitis foot ulcer belly button oozing htn hi chol Plan: iv abs as per id skin and foot care as per pod checking labs cont w/ tmt and care
[2017-04-14] MEDS: Collagenase 250 Units/gm Ointment(30 gm) TOP SCH (10:12)
[2017-04-14] MEDS: Tiotropium 18 mcg Cap For Inhalation IH SCH (10:13)
--- NOTE | 2017-04-14 10:14 | CP.PCM.PN ---
Subjective - Date & Time of Evaluation Date of Evaluation: 04/14/17 Time of Evaluation: 10:11 - Subjective Subjective: General Surgery Progress note Dr. Montes PT S&E at bedside [place]. some drainage from umbilical site of psoriasis wound. Dressings changed at bedside. Patient denies F/C, N/V, C/D. Objective - Vital Signs/Intake and Output Vital Signs (last 24 hours): Temp Pulse Resp BP Pulse Ox 98.7 F 92 H 22 146/83 98 04/14/17 07:40 04/14/17 07:40 04/14/17 07:40 04/14/17 07:40 04/14/17 07:40 Intake and Output: 04/14/17 04/14/17 06:59 18:59 Intake Total 120 Balance 120 - Medications Medications: Current Medications Collagenase (Santyl) 0 gm TOP DAILY [facility] Last Admin: 04/13/17 20:12 Dose: 1 applic Diphenhydramine HCl (Benadryl) 25 mg PO Q8H PRN PRN Reason: Itching / Pruritus Sodium Chloride (Sodium Chloride 0.45%) 1,000 mls @ 30 mls/hr IV .Q24H [facility] Last Admin: 04/13/17 22:12 Dose: 30 mls/hr Ceftaroline Fosamil 400 mg/ (Sodium Chloride) 100 mls @ 100 mls/hr IVPB Q12 [facility] PRN Reason: Protocol Stop: 04/19/17 22:01 Last Admin: 04/13/17 22:10 Dose: 100 mls/hr Mupirocin (Bactroban Ointment) 0 gm TOP BID [facility] Last Admin: 04/13/17 20:13 Dose: Not Given Tiotropium [place] (Spiriva) 18 mcg IH DAILY [facility] Last Admin: 04/13/17 10:53 Dose: 18 mcg - Labs Labs: 04/14/17 06:25 04/14/17 06:25 - Constitutional Appears: Well - Head Exam Head Exam: NORMAL INSPECTION - Eye Exam Eye Exam: EOMI, Normal appearance - ENT Exam ENT Exam: Mucous Membranes Moist - Neck Exam Neck Exam: Full ROM, Normal Inspection - Respiratory Exam Respiratory Exam: Clear to Ausculation Bilateral, NORMAL BREATHING PATTERN. absent: Accessory Muscle Use, Wheezes, Respiratory Distress - GI/Abdominal Exam GI & Abdominal Exam: Distended. absent: Firm, Guarding - Extremities Exam Extremities Exam: Full ROM, Normal Inspection. absent: Pedal Edema - Neurological Exam Neurological Exam: Alert, Awake, Normal Gait, Oriented x3 - Skin Skin Exam: Dry. absent: Intact, Normal Color Additional comments: Bilateral Wounds with psoriasis. Drainage from left leg wound at lateral calf region. c/w current would care management c/w medical management of psoriasis Kandi Richards, PGY1
--- NOTE | 2017-04-14 11:29 | CP.PCM.PN ---
<Sakina Do - Last Filed: 04/14/17 11:24> Subjective - Date & Time of Evaluation Date of Evaluation: 04/14/17 Time of Evaluation: 11:24 - Subjective Subjective: 77 year old female was seen at bedside with attending, Dr. Samson with b/l LE wounds secondary to chronic psoriasis. Patient is in NAD. Dressing to b/l LE c/d /i. Denies n/v/f/c/sob/cp. Objective - Vital Signs/Intake and Output Vital Signs (last 24 hours): Temp Pulse Resp BP Pulse Ox 98.7 F 92 H 22 146/83 98 04/14/17 07:40 04/14/17 07:40 04/14/17 07:40 04/14/17 07:40 04/14/17 07:40 Intake and Output: 04/14/17 04/14/17 06:59 18:59 Intake Total 120 Balance 120 - Medications Medications: Current Medications Collagenase (Santyl) 0 gm TOP DAILY [facility] Last Admin: 04/14/17 10:12 Dose: 1 applic Diphenhydramine HCl (Benadryl) 25 mg PO Q8H PRN PRN Reason: Itching / Pruritus Sodium Chloride (Sodium Chloride 0.45%) 1,000 mls @ 30 mls/hr IV .Q24H [facility] Last Admin: 04/13/17 22:12 Dose: 30 mls/hr Ceftaroline Fosamil 400 mg/ (Sodium Chloride) 100 mls @ 100 mls/hr IVPB Q12 [facility] PRN Reason: Protocol Stop: 04/19/17 22:01 Last Admin: 04/14/17 10:13 Dose: 100 mls/hr Mupirocin (Bactroban Ointment) 0 gm TOP BID [facility] Last Admin: 04/14/17 10:12 Dose: 1 appl Tiotropium [place] (Spiriva) 18 mcg IH DAILY [facility] Last Admin: 04/14/17 10:13 Dose: 18 mcg - Labs Labs: 04/14/17 06:25 04/14/17 06:25 - Constitutional Appears: Non-toxic, No Acute Distress - Extremities Exam Additional comments: Lower extremity focused exam Vasc: DP pulses palpable 1/4 on the left, DP pulse non-palpable on the right, PT pulses non-palpable b/l. CFT < 3 seconds to all ten digits. Skin temperature warm to warm from proximal to distal Neuro: Epicritic and protective sensation grossly intact Derm: Multiple, extensive psoriatic plaques noted to b/l legs and feet. Plaques are lifting from the anterior aspect of the shins with mild amount of serous drainage b/l. Nails are thickened, and discolored 1-5 b/l. Ortho: Tenderness to posterior wounds on the left leg - Neurological Exam Neurological Exam: Alert, Awake, Oriented x3 - Psychiatric Exam Psychiatric exam: Normal Affect, Normal Mood Assessment and Plan - Assessment and Plan (Free Text) Assessment: 77 year old female seen with multiple plaques and wounds on her legs and feet b/ l secondary to psoriasis Plan: Patient examined and evaluated with attending, Dr. Samson Labs, chart and vitals reviewed radiographs impression: normal radiographs of the foot ORLIN ordered B/L lower extremities dressed with silvadene, non-adherent gauze, and kerlix lotrisone ordered for LE b/l continue IV abx per ID Podiatry to continue following while in house <Cherise Samson - Last Filed: 04/20/17 17:17> Objective - Vital Signs/Intake and Output Vital Signs (last 24 hours): Temp Pulse Resp BP Pulse Ox 98.7 F 92 H 22 146/83 98 04/14/17 07:40 04/14/17 07:40 04/14/17 07:40 04/14/17 07:40 04/14/17 07:40 - Labs Labs: 04/14/17 06:25 04/14/17 06:25 Attending/Attestation - Attestation I have personally seen and examined this patient.: Yes I have fully participated in the care of the patient.: Yes I have reviewed all pertinent clinical information, including history, physical exam and plan: Yes
--- NOTE | 2017-04-14 11:34 | CP.PCM.PN ---
Subjective - Date & Time of Evaluation Date of Evaluation: 04/14/17 Time of Evaluation: 10:40 - Subjective Subjective: Comfortable in bed, not in distress, afebrile, less discomfort in the right leg and umbilical area. Objective - Vital Signs/Intake and Output Vital Signs (last 24 hours): Temp Pulse Resp BP Pulse Ox 98.7 F 92 H 22 146/83 98 04/14/17 07:40 04/14/17 07:40 04/14/17 07:40 04/14/17 07:40 04/14/17 07:40 Intake and Output: 04/14/17 04/14/17 06:59 18:59 Intake Total 120 Balance 120 - Medications Medications: Current Medications Collagenase (Santyl) 0 gm TOP DAILY [facility] Last Admin: 04/13/17 20:12 Dose: 1 applic Diphenhydramine HCl (Benadryl) 25 mg PO Q8H PRN PRN Reason: Itching / Pruritus Sodium Chloride (Sodium Chloride 0.45%) 1,000 mls @ 30 mls/hr IV .Q24H [facility] Last Admin: 04/13/17 22:12 Dose: 30 mls/hr Ceftaroline Fosamil 400 mg/ (Sodium Chloride) 100 mls @ 100 mls/hr IVPB Q12 [facility] PRN Reason: Protocol Stop: 04/19/17 22:01 Last Admin: 04/13/17 22:10 Dose: 100 mls/hr Mupirocin (Bactroban Ointment) 0 gm TOP BID [facility] Last Admin: 04/13/17 20:13 Dose: Not Given Tiotropium [place] (Spiriva) 18 mcg IH DAILY [facility] Last Admin: 04/13/17 10:53 Dose: 18 mcg - Labs Labs: 04/14/17 06:25 04/14/17 06:25 - Constitutional Appears: Non-toxic, No Acute Distress - Head Exam Head Exam: NORMAL INSPECTION - ENT Exam ENT Exam: Mucous Membranes Moist - Neck Exam Neck Exam: absent: Meningismus - Respiratory Exam Respiratory Exam: Decreased Breath Sounds - Cardiovascular Exam Cardiovascular Exam: +S1, +S2 - GI/Abdominal Exam GI & Abdominal Exam: Soft. absent: Tenderness Additional comments: umbilical area with drying up plaque - Extremities Exam Additional comments: right leg with dressings in place Assessment and Plan - Assessment and Plan (Free Text) Plan: Assessment Consider umbilicus area skin and skin structure infection with associated psoriasis plaques as well right leg skin and skin structure infection psoriasis HTN CAD S/P PCI S/P cholecystectomy GERD Plan continue Teflaro day 2 pending final blood and wound cx results; continue Bactroban ointment as well will continue to follow clinical response
--- NOTE | 2017-04-14 13:34 | US ---
PROCEDURE: Lower extremity ORLIN exam HISTORY: Peripheral vascular disease with pain and claudication. Previous smoker PHYSICIAN(S): Nestor Cho MD. FINDINGS: The resting ORLIN's are moderately to severely abnormal: Right, 0.50 and left, 0.45 The brachial systolic pressures are symmetric. Approximately 30 mm gradients are seen between the arm and high thigh pressures. The right high thigh PVR waveform is relatively normal. The left high thigh PVR waveform is mildly blunted. This could represent aortoiliac disease. The calf PVR waveforms blunted bilaterally. This is consistent with bilateral SFA disease. There is a 55 mm gradient across the left thigh. There is a 33 mm gradient across the right knee. The ankle and metatarsal waveforms are moderately blunted but pulsatile and symmetric. Pressure gradients are demonstrated suggestive of bilateral tibial disease. IMPRESSION: 1. Moderately to severely abnormal ABIs at rest. 2. Left SFA occlusive disease. 3. Distal right SFA, popliteal, and/ or tibial disease. 4. Bilateral tibial disease. 5. If clinically indicated additional imaging with a CTA runoff, MRA with gadolinium runoff, or conventional arteriogram can be performed
[2017-04-14] MEDS ORDERED: Clotrimazole/Betamethasone Cream(15 gm) TOP SCH (18:00)
[2017-04-14] MEDS ORDERED: Amoxicillin-Clav 875-125 mg Tab PO SCH (22:00)
== END 2017-04-14 16:15 | disposition home health service (06) | DRG 596 ==
LOC: ED 10:16 → ERH 11:05 → 5RNO 13:07
PROVIDERS: ADMIT Family Medicine; ATTEND Family Medicine
DX: L40.0 Psoriasis vulgaris (principal); L97.509 Non-pressure chronic ulcer of other part of unspecified foot with unspecified severity; L03.115 Cellulitis of right lower limb; L03.116 Cellulitis of left lower limb; I10 Essential (primary) hypertension; E78.5 Hyperlipidemia, unspecified; K21.9 Gastro-esophageal reflux disease without esophagitis; I25.10 Atherosclerotic heart disease of native coronary artery without angina pectoris; M79.662 Pain in left lower leg; J45.909 Unspecified asthma, uncomplicated; Z95.5 Presence of coronary angioplasty implant and graft; Z90.49 Acquired absence of other specified parts of digestive tract; Z87.891 Personal history of nicotine dependence

== ENCOUNTER 2017-10-04 15:31 | Inpatient (IN) | payer MEDICARE, OTHER ==
[2017-10-04 15:33] VITALS: BMI 30.4
[2017-10-04] MEDS ORDERED: Vancomycin 500 mg Inj IVPB STA (15:57)
--- NOTE | 2017-10-04 16:03 | ED PDOC ---
Arrival/HPI - General Chief Complaint: Abnormal Skin Integrity Time Seen by Provider: 10/04/17 15:50 - History of Present Illness Narrative History of Present Illness (Text): 77F c/o pain and swelling in both legs worsening for the last 2 months since she started taking otezla for her psoriasis. she says today as she was coming out of the shower her legs "gave out" and she fell. her was there and they deny any head trauma. Past Medical History - Infectious Disease Hx of Infectious Diseases: None - Cardiac Hx Cardiac Disorders: Yes Hx Hypertension: Yes - Pulmonary Hx Respiratory Disorders: Yes (smoked cigarettes) - Neurological Hx Neurological Disorder: No - HEENT Hx HEENT Disorder: No - Renal Hx Renal Disorder: No - Endocrine/Metabolic Hx Endocrine Disorders: No - Hematological/Oncological Hx Blood Disorders: No - Integumentary Hx Dermatological Disorder: Yes Hx Psoriasis: Yes - Musculoskeletal/Rheumatological Hx Musculoskeletal Disorders: No Hx Falls: No - Gastrointestinal Hx Gastrointestinal Disorders: Yes Hx Gastroesophageal Reflux: Yes - Genitourinary/Gynecological Hx Genitourinary Disorders: No - Psychiatric Hx Psychophysiologic Disorder: No Hx Substance Use: No - Surgical History Hx Cardiac Catheterization: Yes (x1 with insertion of 1 stent) Hx Cholecystectomy: Yes - Anesthesia Hx Anesthesia Reactions: No Hx Malignant Hyperthermia: No Family/Social History Family/Social History: Other (nc) Smoking Status: Current Some Days Smoker Hx Alcohol Use: Yes (OCCASIONAL BEER) Hx Substance Use: No Allergies/Home Meds Allergies/Adverse Reactions: Allergies No Known Allergies Allergy (Verified 10/08/17 22:56) Home Medications: Home Meds Medication Instructions Recorded Confirmed Apremilast [Otezla] 1 tab PO BID 10/04/17 10/08/17 Calcipotriene [Dovonex] 120 gm TP DAILY 10/04/17 10/08/17 Review of Systems - Physician Review All systems were reviewed & negative as marked: Yes - Review of Systems Constitutional: Fatigue. absent: Fevers Eyes: absent: Vision Changes Respiratory: absent: SOB Cardiovascular: absent: Chest Pain Gastrointestinal: absent: Nausea, Vomiting Skin: Rash, Skin Lesions Neurological: absent: Headache Physical Exam Vital Signs Reviewed: Yes Vital Signs Temp Pulse Resp BP Pulse Ox 10/04/17 19:00 98.7 F 132 H 19 129/75 98 10/04/17 18:25 98.7 F 10/04/17 17:59 98 F 131 H 75 H 132/72 98 10/04/17 15:45 98.4 F 138 H 20 136/79 93 L Appearance: Positive for: Well-Appearing, Non-Toxic, Comfortable Pain Distress: None Mental Status: Positive for: Alert and Oriented X 3 - Systems Exam Head: Present: Atraumatic Pupils: Present: PERRL Mouth: Present: Moist Mucous Membranes Nose (Internal): No: Epistaxis Neck: Present: Normal Range of Motion Respiratory/Chest: Present: Clear to Auscultation. No: Accessory Muscle Use Cardiovascular: Present: Tachycardic Abdomen: No: Tenderness Upper Extremity: Present: NORMAL PULSES Lower Extremity: Present: Edema, Tenderness, Swelling Neurological: Present: GCS=15, Other (no focal deficits) Skin: Present: Other (diffuse psoriasis. over both lower legs there is diffuse skin break down, erythema, swelling, and ss drainage. pulses are diminshed but there is 2+ pitting edema in the feet. there is a 10cm ulcer left posterior lower calf. ) Medical Decision Making - Lab Interpretations Microbiology Results: Microbiology Results 10/04/17 17:30 Blood-Venous Blood Culture - Final NO GROWTH AFTER 5 DAYS 10/04/17 17:30 Blood-Venous Gram Stain - Final TEST NOT PERFORMED 10/04/17 17:15 Blood-Venous Blood Culture - Final NO GROWTH AFTER 5 DAYS 10/04/17 17:15 Blood-Venous Gram Stain - Final TEST NOT PERFORMED Lab Results: 10/04/17 17:15 10/04/17 17:20 Lab Results 10/04/17 17:20: Sodium 141, Chloride 109 H, Potassium 4.1, Carbon Dioxide 17 L, Anion Gap 19, BUN 11, Creatinine 0.9, Est GFR ( Amer) > 60, Est GFR (Non- Af Amer) > 60, Random Glucose 103, Calcium 9.7, Total Bilirubin 0.7, AST 30, ALT 15, Alkaline Phosphatase 134 H, Total Protein 8.2, Albumin 3.2, Globulin 5.1 , Albumin/Globulin Ratio 0.6 L 10/04/17 17:20: pO2 145 H, VBG pH 7.30 L, VBG pCO2 43.0, VBG HCO3 21.2, VBG Total CO2 22.5, VBG O2 Sat (Calc) 99.8 H, VBG Base Excess -5.1 L, VBG Potassium 5.5 H, Sodium 140.0, Chloride 108.0 H, Glucose 102, Lactate 3.9 H, FiO2 21.0, Venous Blood Potassium 5.5 H 10/04/17 17:15: WBC 13.2 H D, RBC 3.80, Hgb 10.1 L, Hct 31.4 L, MCV 82.6, MCH 26.6, MCHC 32.2, RDW 15.1 H, Plt Count 434, MPV 9.6, Gran % 88.7 H, Lymph % ( Auto) 4.8 L, [place] % (Auto) 6.1 H, Eos % (Auto) 0.2 L, Baso % (Auto) 0.2, Gran # 11.69 H, Lymph # 0.6 L, [place] # 0.8 H, Eos # 0.0, Baso # 0.03, Neutrophils % ( Manual) 91 H, Lymphocytes % (Manual) 6 L, Monocytes % (Manual) 3, Platelet Evaluation High - Medication Orders Current Medication Orders: Discontinued Medications Acetaminophen (Tylenol 325mg Tab) 650 mg PO Q4H PRN PRN Reason: Temperature Last Admin: 10/07/17 23:44 Dose: 650 mg [facility] Pain/Vitals Document 10/07/17 23:44 ST (Rec: 10/07/17 23:45 ST [id number]) Vitals Temperature (97.6 F-99.6 F) 100.4 F Temperature Source Oral Re-Assess: MAR Pain/Vitals Document 10/08/17 00:44 ST (Rec: 10/08/17 01:23 ST [id number]) Vitals Temperature (97.6 F-99.6 F) 98.6 F Temperature Source Oral Albuterol/Ipratropium (Duoneb 3 Mg/0.5 Mg (3 Ml) Ud) 3 ml IH TIDRESP [facility] Last Admin: 10/08/17 19:25 Dose: 3 ml Betamethasone/Clotrimazole (Lotrisone) 0 gm TOP BID [facility] Last Admin: 10/08/17 18:47 Dose: 6 applic Diphenhydramine HCl (Benadryl) 25 mg IVP STAT STA Stop: 10/04/17 18:19 Last Admin: 10/04/17 18:35 Dose: 25 mg IVP Administration Document 10/04/17 18:35 GMI (Rec: 10/04/17 18:35 GMI [id number]) Charges for Administration # of IVP Administrations 1 Diphenhydramine HCl (Benadryl) 25 mg IVP ONCE ONE Stop: 10/04/17 21:52 Last Admin: 10/04/17 22:18 Dose: 25 mg IVP Administration Document 10/04/17 22:18 CO (Rec: 10/04/17 22:18 CO [id number]) Charges for Administration # of IVP Administrations 1 Emollient Ointment (Vaseline Oint) 5 gm TOP Q6H PRN PRN Reason: Dry skin Last Admin: 10/08/17 01:26 Dose: 5 gm Furosemide (Lasix) 40 mg IVP ONCE ONE Stop: 10/07/17 07:55 Last Admin: 10/07/17 08:42 Dose: 40 mg MAR Blood Pressure Document 10/07/17 08:42 KMS (Rec: 10/07/17 08:42 KMS [id number] [id number]) Blood Pressure Blood Pressure (100/60-150/90) 114/65 IVP Administration Document 10/07/17 08:42 KMS (Rec: 10/07/17 08:42 KMS [id number]) Charges for Administration # of IVP Administrations 1 Heparin Sodium (Porcine) (Heparin) 5,000 units SC Q12 HEBER PRN Reason: Protocol Last Admin: 10/08/17 11:08 Dose: 5,000 units Subcutaneous Administrations Document 10/08/17 11:08 KL (Rec: 10/08/17 11:09 KL [id number]) Injection Site MAR Injection Site Right Abdomen Charges for Administration # of Subcutaneous Administrations 1 Hydroxyzine Pamoate (Vistaril) 25 mg PO ONCE ONE PRN Reason: Protocol Stop: 10/04/17 23:42 Last Admin: 10/05/17 00:16 Dose: 25 mg Re-Assess: Reassess Psych Meds Document 10/05/17 01:16 CO (Rec: 10/05/17 02:55 CO [id number]) Reassess Psych Med Effective Hydroxyzine Pamoate (Vistaril) 25 mg PO ONCE ONE PRN Reason: Protocol Stop: 10/05/17 02:53 Last Admin: 10/05/17 03:01 Dose: 25 mg Re-Assess: Reassess Psych Meds Document 10/05/17 04:01 CO (Rec: 10/05/17 04:25 CO [facility] [id number]) Reassess Psych Med Effective Lactated Ringer's (Lactated Ringer's) 1,000 mls @ 999 mls/hr IV .Q1H1M HEBER Last Admin: 10/04/17 19:07 Dose: Ampicillin Sodium/Sulbactam (Sodium 3 gm/ Sodium Chloride) 100 mls @ 100 mls/ hr IVPB STAT STA PRN Reason: Protocol Stop: 10/04/17 16:56 Last Admin: 10/04/17 16:14 Dose: 100 mls/hr eMAR Start Stop Document 10/04/17 16:14 GMI (Rec: 10/04/17 17:15 GMI [id number]) Intravenous Solution Start Date 10/04/17 Start Time 16:15 End Date 10/04/17 End time 17:15 Total Infusion Time 60 Vancomycin HCl (Vancomycin 1gm) 1 gm in 250 mls @ 167 mls/hr IVPB STAT STA Stop: 10/04/17 17:35 Last Admin: 10/04/17 18:02 Dose: 167 mls/hr eMAR Start Stop Document 10/04/17 18:02 GMI (Rec: 10/04/17 18:02 GMI [id number]) Intravenous Solution Start Date 10/04/17 Start Time 18:02 Sodium Chloride (Sodium Chloride 0.9%) 1,000 mls @ 999 mls/hr IV .Q1H1M STA Stop: 10/04/17 18:58 Last Admin: 10/04/17 18:35 Dose: 999 mls/hr eMAR Start Stop Document 10/04/17 18:35 GMI (Rec: 10/04/17 18:35 GMI [id number]) Intravenous Solution Start Date 10/04/17 Start Time 18:35 Vancomycin HCl (Vancomycin 1gm) 1 gm in 250 mls @ 167 mls/hr IVPB STAT STA PRN Reason: Protocol Stop: 10/05/17 10:35 Last Admin: 10/05/17 10:48 Dose: 167 mls/hr eMAR Start Stop Document 10/05/17 10:48 VM (Rec: 10/05/17 10:49 VM [id number]) Intravenous Solution Start Date 10/05/17 Start Time 10:49 End Date 10/05/17 End time 12:19 Total Infusion Time 90 Piperacillin Sod/Tazobactam Sod (Zosyn 4.5 Gm In Ns 100ml) 4.5 gm in 100 mls @ 200 mls/hr IVPB STAT STA PRN Reason: Protocol Stop: 10/05/17 09:35 Last Admin: 10/05/17 10:03 Dose: 200 mls/hr eMAR Start Stop Document 10/05/17 10:03 VM (Rec: 10/05/17 10:03 [id number]) Intravenous Solution Start Date 10/05/17 Start Time 10:03 End Date 10/05/17 End time 10:33 Total Infusion Time 30 Lactated Ringer's (Lactated Ringer's) 1,000 mls @ 999 mls/hr IV .Q1H1M HEBER Stop: 10/05/17 13:45 Last Admin: 10/05/17 13:35 Dose: 999 mls/hr eMAR Start Stop Document 10/05/17 13:35 VM (Rec: 10/05/17 13:35 [id number]) Intravenous Solution Start Date 10/05/17 Start Time 13:35 End Date 10/05/17 End time 14:35 Total Infusion Time 60 Lactated Ringer's (Lactated Ringer's) 1,000 mls @ 999 mls/hr IV .Q1H1M HEBER Stop: 10/05/17 14:10 Last Admin: 10/05/17 16:39 Dose: 999 mls/hr eMAR Start Stop Document 10/05/17 16:39 VM (Rec: 10/05/17 16:40 [id number]) Intravenous Solution Start Date 10/05/17 Start Time 15:35 End Date 10/05/17 End time 16:35 Total Infusion Time 60 Sodium Chloride (Sodium Chloride 0.9%) 1,000 mls @ 100 mls/hr IV .Q10H HEBER Last Admin: 10/07/17 06:05 Dose: Meropenem 1 gm/ Sodium (Chloride) 100 mls @ 100 mls/hr IVPB Q8 HEBER PRN Reason: Protocol Stop: 10/14/17 14:01 Last Admin: 10/08/17 05:21 Dose: 100 mls/hr eMAR Start Stop Document 10/08/17 05:21 ST (Rec: 10/08/17 05:21 ST [id number]) Intravenous Solution Start Date 10/08/17 Start Time 05:21 End Date 10/08/17 Vancomycin HCl (Vancomycin 1gm) 1 gm in 250 mls @ 167 mls/hr IVPB Q12H HEBER PRN Reason: Protocol Last Admin: 10/06/17 06:27 Dose: Vancomycin HCl (Vancomycin 1gm) 1 gm in 250 mls @ 167 mls/hr IVPB Q12 HEBER PRN Reason: Protocol Last Admin: 10/08/17 11:09 Dose: 167 mls/hr eMAR Start Stop Document 10/08/17 11:09 KL (Rec: 10/08/17 11:10 KL [id number]) Intravenous Solution Start Date 10/08/17 Start Time 11:10 Sodium Chloride (Sodium Chloride 0.45%) 1,000 mls @ 60 mls/hr IV .[id number] [facility] Last Admin: 10/08/17 18:11 Dose: Meropenem 1 gm/ Sodium (Chloride) 50 mls @ 100 mls/hr IVPB Q8 HEBER PRN Reason: Protocol Stop: 10/14/17 14:01 Last Admin: 10/08/17 16:44 Dose: 100 mls/hr eMAR Start Stop Document 10/08/17 16:44 KL (Rec: 10/08/17 16:44 KL [id number]) Intravenous Solution Start Date 10/08/17 Start Time 16:44 Mupirocin (Bactroban Ointment) 0 gm TOP BID [facility] Last Admin: 10/08/17 18:46 Dose: 6 applic Home Med - Calcipotriene [ Dovonex] 120 Gm 120 gm TP DAILY [facility] Last Admin: 10/08/17 11:08 Dose: Pantoprazole Sodium (Protonix Ec Tab) 40 mg PO 0600 [facility] Last Admin: 10/08/17 05:21 Dose: 40 mg Potassium Chloride (K-Dur 20 Meq Er Tab) 40 meq PO STAT STA Stop: 10/06/17 09:11 Last Admin: 10/06/17 10:11 Dose: 40 meq Disposition/Present on Arrival - Present on Arrival Any Indicators Present on Arrival: No History of DVT/PE: No History of Uncontrolled Diabetes: No Urinary Catheter: No History of Decub. Ulcer: No History Surgical Site Infection Following: None - Disposition Have Diagnosis and Disposition been Completed?: Yes Diagnosis: Cellulitis of both lower extremities, Sepsis Disposition: HOSPITALIZED Disposition Time: 18:16 Condition: GUARDED
[2017-10-04] MEDS ORDERED: Vancomycin 1gm in NS 250ml 1 GM/250 ML BAG IVPB STA (16:06)
[2017-10-04] MEDS: Lactated Ringer's 1,000 ML IV SCH ×4 (17:10→19:07)
[2017-10-04 17:40] LABS: BASO # 0.03 K/mm3 (0.0-2.0); BASO % 0.2 % (0.0-3.0); EOS % 0.2 % (1.5-5.0); GRAN # 11.69 (1.4-6.5); GRAN % 88.7 % (50.0-68.0); HEMOGLOBIN 10.1 g/dL (12.0-16.0); LYMPH # 0.6 (1.2-3.4); LYMPH % 4.8 % (22.0-35.0); MEAN CELL VOLUME 82.6 fl (80.0-105.0); MEAN CORPUSCULAR HEMOGLOBIN 26.6 pg (25.0-35.0); MEAN CORPUSCULAR HGB CONC 32.2 g/dl (31.0-37.0); MEAN PLATELET VOLUME 9.6 fl (7.0-11.0); MONO # 0.8 (0.1-0.6); MONO % 6.1 % (1.0-6.0); PLATELET COUNT 434 10^3/uL (120.0-450.0); RED CELL DISTRIBUTION WIDTH 15.1 % (11.5-14.5); WHITE BLOOD COUNT 13.2 10^3/ul (4.5-11.0)
[2017-10-04 17:47] LABS: VENOUS BLOOD GAS BASE EXCESS -5.1 mmol/L (0.0-2.0); VENOUS BLOOD GAS PO2 145 mm/Hg (30-55)
[2017-10-04 17:55] LABS: ALB/GLOB RATIO 0.6 (1.1-1.8); ALBUMIN 3.2 g/dL (3.0-4.8); ALT/SGPT 15 U/L (7-56); AST/SGOT 30 U/L (14-36); BLOOD UREA NITROGEN 11 mg/dL (7-21); CALCIUM 9.7 mg/dL (8.4-10.5); GFR AFRICAN-AMERICAN > 60; GFR NON-AFRICAN AMERICAN > 60
[2017-10-04] MEDS ORDERED: Sodium Chloride 0.9% 1,000 ML IV STA (17:58)
[2017-10-04] MEDS ORDERED: DiphenhydrAMINE 50 mg/ml Inj IVP STA (18:18)
[2017-10-04 18:19] LABS: LYMPHOCYTE 6 % (22.0-35.0); MONOCYTE 3 % (1.0-6.0); NEUTROPHIL 91 % (50.0-70.0)
[2017-10-04 18:20] LABS: PLATELET ESTIMATE HIGH (NORMAL)
[2017-10-04 21:29] LABS: VENOUS BLOOD GAS BASE EXCESS -3.8 mmol/L (0.0-2.0); VENOUS BLOOD GAS PO2 28 mm/Hg (30-55); VENOUS BLOOD PH 7.38 (7.32-7.43)
[2017-10-04] MEDS ORDERED: DiphenhydrAMINE 50 mg/ml Inj IVP ONE (21:51)
[2017-10-05 07:53] LABS: HEMOGLOBIN 8.7 g/dL (12.0-16.0); MEAN CELL VOLUME 80.8 fl (80.0-105.0); MEAN CORPUSCULAR HEMOGLOBIN 25.7 pg (25.0-35.0); MEAN CORPUSCULAR HGB CONC 31.9 g/dl (31.0-37.0); MEAN PLATELET VOLUME 8.6 fl (7.0-11.0); RBC 3.38 10^6/uL (3.5-6.1); RED CELL DISTRIBUTION WIDTH 14.8 % (11.5-14.5); WHITE BLOOD COUNT 17.2 10^3/ul (4.5-11.0)
[2017-10-05] MEDS ORDERED: Vancomycin 1gm in NS 250ml 1 GM/250 ML BAG IVPB STA (09:06)
[2017-10-05] MEDS ORDERED: Piperacill/Tazo 4.5gm in NS 4.5 GM/100 ML BAG IVPB STA (09:06)
--- NOTE | 2017-10-05 09:38 | CP.PCM.CON ---
History of Present Illness - History of Present Illness History of Present Illness: General Surgery Consult Note for Dr. Montes Reason for consult: bilateral upper/lower extremity wounds with overlying cellulitis 77 F with PMH of MSSA cellulitis, psoriasis, CAD with stent, GERD, HTN, HLD admitted to [facility] for sepsis due to cellulitis in bilateral lower extremities. Surgery was consulted for bilateral upper/lower extremity wounds. Patient states that she has had these wounds for about 1 month now. She initially saw a carton filling machine operator who prescribed her multiple medications in order to treat psoriasis/wounds. Patient states that despite the medication they have been getting worse. Patient has not followed up since last visit and was suppose to at begining of new year. In 04/2017, patient was admitted for cellulittis and podiatry was following at that time. She was treated with silavdene and DSD which showed improvement. After discharge, patient never followed up in wound care center. Patient currently denies any pain. She denies alleviating or exacerbating factors. Admits to chills and urinary retention. Denies fever, chest pain, SOB, palpitations abdominal pain, nausea/vomiting, diarrhea, constipation, incontinence, or pruritus. PMD: Dr. Harris PMH: history of MSSA cellulitis, psoriasis, CAD with stent, GERD, HTN, HLD Meds: As per EMR Alergy: NKDA PSH: Cholecystectomy, prior skin biopsies, cardiac cath with stent placement FH: Brain aneurysm Social: former smoker - 1 pack/day for 30 years (quit 13 years ago), social drinker, denies illicit drug use, retired, lives with , ambulates without assistance Review of Systems - Review of Systems All systems: reviewed and no additional remarkable complaints except (as per HPI ) Past Patient History - Infectious Disease Hx of Infectious Diseases: None - Past Medical History & Family History Past Medical History?: Yes - Past Social History Smoking Status: Former Smoker - CARDIAC Hx Cardiac Disorders: Yes Hx Hypertension: Yes - PULMONARY Hx Respiratory Disorders: Yes (smoked cigarettes) - NEUROLOGICAL Hx Neurological Disorder: No - HEENT Hx HEENT Problems: No - RENAL Hx Chronic Kidney Disease: No - ENDOCRINE/METABOLIC Hx Endocrine Disorders: No - HEMATOLOGICAL/ONCOLOGICAL Hx Blood Disorders: No - INTEGUMENTARY Hx Dermatological Problems: Yes Hx Psoriasis: Yes - MUSCULOSKELETAL/RHEUMATOLOGICAL Hx Falls: No - GASTROINTESTINAL Hx Gastrointestinal Disorders: Yes Hx Gastroesophageal Reflux: Yes - GENITOURINARY/GYNECOLOGICAL Hx Genitourinary Disorders: No - PSYCHIATRIC Hx Psychophysiologic Disorder: No - SURGICAL HISTORY Hx Cardiac Catheterization: Yes (x1 with insertion of 1 stent) Hx Cholecystectomy: Yes - ANESTHESIA Hx Anesthesia Reactions: No Hx Malignant Hyperthermia: No Meds Allergies/Adverse Reactions: Allergies Allergy/AdvReac Type Severity Reaction Status Date / Time No Known Allergies Allergy Verified 10/04/17 15:38 - Medications Medications: Current Medications Acetaminophen (Tylenol 325mg Tab) 650 mg PO Q4H PRN PRN Reason: Temperature Last Admin: 10/05/17 03:03 Dose: 650 mg Lactated Ringer's (Lactated Ringer's) 1,000 mls @ 999 mls/hr IV .Q1H1M [facility] Last Admin: 10/04/17 19:07 Dose: Not Given Vancomycin HCl (Vancomycin 1gm) 1 gm in 250 mls @ 167 mls/hr IVPB STAT STA PRN Reason: Protocol Stop: 10/05/17 10:35 Physical Exam - Constitutional Appears: No Acute Distress - Head Exam Head Exam: ATRAUMATIC, NORMOCEPHALIC - Eye Exam Eye Exam: EOMI, Normal appearance Pupil Exam: PERRL - ENT Exam ENT Exam: Mucous Membranes Dry - Neck Exam Neck exam: Positive for: Full Rom - Respiratory Exam Respiratory Exam: NORMAL BREATHING PATTERN - Cardiovascular Exam Cardiovascular Exam: Tachycardia - GI/Abdominal Exam GI & Abdominal Exam: Normal Bowel Sounds, Soft. absent: Distended, Firm, Guarding, Rebound, Rigid, Tenderness - Extremities Exam Extremities exam: Positive for: tenderness (wound on left lower extremity) Additional comments: Upper extremities: warm, erythematous, edematous, neurovascularly intact, Numerous psoriatic plaques Lower extremities: DP and PT pulses non-palpable - found via doppler bilaterally , warm, erythematous, edematous, neurovascularly intact, Numerous psoriatic plaques with some serous drainage, ulceration on posterior aspect of LLE - achillis tendon exposed with some necrosis, foul odor, with no active drainage - Back Exam Back exam: absent: CVA tenderness (L), CVA tenderness (R) - Neurological Exam Neurological exam: Alert, CN II-XII Intact, Oriented x3 - Psychiatric Exam Psychiatric exam: Normal Affect, Normal Mood - Skin Skin Exam: Erythema, Warm Additional comments: Upper extremities: warm, erythematous, edematous, neurovascularly intact, Numerous psoriatic plaques Lower extremities: warm, erythematous, edematous, neurovascularly intact, Numerous psoriatic plaques with some serous drainage, ulceration on posterior aspect of LLE - achillis tendon exposed with some necrosis, foul odor, with no active drainage Results - Vital Signs Recent Vital Signs: Last Vital Signs Temp 99.4 F 10/05/17 06:00 Pulse 120 H 10/05/17 06:00 Resp 20 10/05/17 06:00 BP 127/71 10/05/17 06:00 Pulse Ox 100 10/05/17 06:00 - Labs Result Diagrams: 10/05/17 06:30 10/04/17 17:20 Labs: Laboratory Results - last 24 hr 10/04/17 10/05/17 21:10 06:30 WBC 17.2 H D RBC 3.38 L Hgb 8.7 L Hct 27.3 L MCV 80.8 MCH 25.7 MCHC 31.9 RDW 14.8 H Plt Count 424 MPV 8.6 pO2 28 L VBG pH 7.38 VBG pCO2 35.0 L VBG HCO3 20.7 L VBG Total CO2 21.8 L VBG O2 Sat (Calc) 59.7 VBG Base Excess -3.8 L VBG Potassium 4.1 Sodium 141.0 Chloride 109.0 H Glucose 107 H Lactate 2.9 H FiO2 21.0 Venous Blood Potassium 4.1 Assessment & Plan - Assessment and Plan (Free Text) Plan: 77 F with PMH of MSSA cellulitis, psoriasis admitted to [facility] for sepsis due to cellulitis/wounds in bilateral lower extremities. (Code sepsis) -Local wound care -Blood, Wound, and urine cultures -UA -IV antibiotics -IV fluids -Analgesics PRN -f/u ID recommendations -f/u Podiatry recommendations -Possible debridement of LLE wound -Will discuss with Dr. Simon Goodwin PGY1
--- NOTE | 2017-10-05 09:51 | CP.PCM.HP ---
History of Present Illness - History of Present Illness History of Present Illness: Lorenzo Rodrick PGY1 IM H&P Note for Dr. May for Dr. Harris Service CC: R leg gave out and b/l leg ulcers Ms. Pereira is a 77 year old female with PMH of MSSA cellulitis, CAD s/p 1 stent , HTN, HLD, GERD and psoriasis who presents to ED for worsening pain and swelling in b/l legs for the last 2 months. Patient states that she was started on a new medication for her psoriasis and has been experiencing the pain since then. she states that the flares are intermittent, and have been this bad before. The patient denies weakness in the legs, numbness/tingling, fevers, chest pain, sob, n/v/d, urinary/bowel habit changes. she does complain of chills at home. Patient states that she has seen Dr. Samson before while hospitalized but does not follow up with her as outpatient. 12-pt ROS was reviewed and is otherwise unremarkable. In ED, pt was given Vanc and Unasyn x1 and 2 L bolus. No code sepsis was called. Chart review showed past biopsies done that were compatible with psoriasis; no evidence of dysplasia/neoplastic process was identified. PMD: Dr. Harris PMH: as above PSH: prior skin biopsies Meds: as per MAR NKDA SHx: retired, 30pkyr tobacco hx (quit 15 yrs ago), occasional beer, denies any drug/substance abuse Present on Admission - Present on Admission Any Indicators Present on Admission: No Review of Systems - Review of Systems All systems: reviewed and no additional remarkable complaints except (as per HPI ) Past Patient History - Infectious Disease Hx of Infectious Diseases: None - Past Medical History & Family History Past Medical History?: Yes - Past Social History Smoking Status: Former Smoker Alcohol: Occasional (beer) Drugs: Denies Home Situation {Lives}: With Family () - CARDIAC Hx Cardiac Disorders: Yes Hx Hypercholesterolemia: Yes Hx Hypertension: Yes Other/Comment: CAD s/p 1 stent - PULMONARY Hx Respiratory Disorders: No - NEUROLOGICAL Hx Neurological Disorder: No - HEENT Hx HEENT Problems: No - RENAL Hx Chronic Kidney Disease: No - ENDOCRINE/METABOLIC Hx Endocrine Disorders: No - HEMATOLOGICAL/ONCOLOGICAL Hx Blood Disorders: No - INTEGUMENTARY Hx Dermatological Problems: Yes Hx Cellulitis: Yes (MSSA ) Hx Psoriasis: Yes - MUSCULOSKELETAL/RHEUMATOLOGICAL Hx Musculoskeletal Disorders: No Hx Falls: No - GASTROINTESTINAL Hx Gastrointestinal Disorders: Yes Hx Gastroesophageal Reflux: Yes - GENITOURINARY/GYNECOLOGICAL Hx Genitourinary Disorders: No - PSYCHIATRIC Hx Psychophysiologic Disorder: No - SURGICAL HISTORY Hx Cardiac Catheterization: Yes (x1 with insertion of 1 stent) Hx Cholecystectomy: Yes - ANESTHESIA Hx Anesthesia Reactions: No Hx Malignant Hyperthermia: No Meds Allergies/Adverse Reactions: Allergies Allergy/AdvReac Type Severity Reaction Status Date / Time No Known Allergies Allergy Verified 10/04/17 15:38 Physical Exam - Constitutional Appears: Well, Non-toxic, No Acute Distress - Head Exam Head Exam: ATRAUMATIC, NORMOCEPHALIC - Eye Exam Eye Exam: EOMI, Normal appearance, PERRL - ENT Exam ENT Exam: Mucous Membranes Moist, Normal Exam - Neck Exam Neck exam: Positive for: Normal Inspection - Respiratory Exam Respiratory Exam: Clear to Auscultation Bilateral, NORMAL BREATHING PATTERN. absent: Rales, Rhonchi, Wheezes - Cardiovascular Exam Cardiovascular Exam: Tachycardia, +S1, +S2 - GI/Abdominal Exam GI & Abdominal Exam: Normal Bowel Sounds, Soft. absent: Distended, Guarding, Tenderness - Extremities Exam Extremities exam: Positive for: pedal pulses present (b/l, by doppler). Negative for: pedal edema Additional comments: b/l UE psoriatic lesions b/l LE knee down psoriatic lesions with erythema and weeping; no pus noted diffuse hardened skin on LE pulses were difficult to assess by hand, however, present pedal pulses b/l by doppler - Back Exam Back exam: NORMAL INSPECTION - Neurological Exam Neurological exam: Alert, Oriented x3 - Psychiatric Exam Psychiatric exam: Normal Affect, Normal Mood - Skin Skin Exam: Dry, Erythema, Warm Results - Vital Signs Recent Vital Signs: Last Vital Signs Temp 99.4 F 10/05/17 06:00 Pulse 120 H 10/05/17 06:00 Resp 20 10/05/17 06:00 BP 127/71 10/05/17 06:00 Pulse Ox 100 10/05/17 06:00 - Labs Result Diagrams: 10/05/17 10:30 10/05/17 10:30 Labs: Laboratory Results - last 24 hr 10/04/17 10/05/17 21:10 06:30 WBC 17.2 H D RBC 3.38 L Hgb 8.7 L Hct 27.3 L MCV 80.8 MCH 25.7 MCHC 31.9 RDW 14.8 H Plt Count 424 MPV 8.6 pO2 28 L VBG pH 7.38 VBG pCO2 35.0 L VBG HCO3 20.7 L VBG Total CO2 21.8 L VBG O2 Sat (Calc) 59.7 VBG Base Excess -3.8 L VBG Potassium 4.1 Sodium 141.0 Chloride 109.0 H Glucose 107 H Lactate 2.9 H FiO2 21.0 Venous Blood Potassium 4.1 Assessment & Plan - Assessment and Plan (Free Text) Assessment: 77yo F with a PMH of MSSA cellulitis, CAD s/p 1 stent, HTN, HLD, GERD and psoriasis presenting in sepsis 2/2 cellulitis. Code sepsis was called due to elevated lactate level, WBC count, tachycardia, and fevers on admission. Per nurse, patient has urinary retention on bladder scan. Plan: 1. sepsis 2/2 cellulitis - code sepsis was called; f/u note will be done - BP stable s/p 1L NS boluses; continuing LR 2L bolus then NS 100cc/hr - Vanc and Zosyn started - procal ordered - lactate trending down - wound cxs, blood cx, urine cx ordered - VBG ordered - VS Q15m - ID consulted, recs appreciated - Podiatry consulted, recs appreciated - Surgery consulted, recs appreciated 2. Urinary retention - UA ordered - urine cxs pending - morgan placed 3. Anemia - work up ordered Patient was seen, examined and discussed with attending, Dr. Yadira Mensah PGY1
--- NOTE | 2017-10-05 10:49 | CP.PCM.CON ---
<Gareth Lyles - Last Filed: 10/05/17 16:49> History of Present Illness - History of Present Illness History of Present Illness: Podiatry Consult Note- Dr. Samson 77 y.o f with PMH of HTN, HLD, and psoriasis seen and evaluated at bedside for bilateral lower extremity ulcerations secondary to psoriasis. Patient is known to podiatry service. Patient was seen on 04/13/17 for multiple wounds to lower extremity secondary to psoriasis in which podiatry provided wound care treatment , silvadene and dsd with improvements. Patient reports that her lower extremity became more swollen and itchy about 1-2 months ago. She reports that during that time she was given a new medication to take by her transmitter operator for psoriasis. She has not seen Dr. Samson since her last admission in March. Patient reports she has not tried anything to her lower extremities to try to make them better. Patient reports that she was given a cream to apply to her legs but has not used them. Patient reports chills. She denies n/v/sob/cp/f or d. PMH: psoriasis, HTN, HLD PSH: gallbladder removed, stent placement MEDS: see medication list ALL: NKDA FH: father- none, mother-brain aneurysm SH: former smoker, 30 year smoker- 1 ppd, socially drinks beer, denies illicit drug use Review of Systems - Constitutional Constitutional: As Per HPI Past Patient History - Infectious Disease Hx of Infectious Diseases: None - Past Medical History & Family History Past Medical History?: Yes - Past Social History Smoking Status: Former Smoker Alcohol: Occasional (beer) Drugs: Denies Home Situation {Lives}: With Family () - CARDIAC Hx Cardiac Disorders: Yes Hx Hypercholesterolemia: Yes Hx Hypertension: Yes Other/Comment: CAD s/p 1 stent - PULMONARY Hx Respiratory Disorders: No - NEUROLOGICAL Hx Neurological Disorder: No - HEENT Hx HEENT Problems: No - RENAL Hx Chronic Kidney Disease: No - ENDOCRINE/METABOLIC Hx Endocrine Disorders: No - HEMATOLOGICAL/ONCOLOGICAL Hx Blood Disorders: No - INTEGUMENTARY Hx Dermatological Problems: Yes Hx Cellulitis: Yes (MSSA ) Hx Psoriasis: Yes - MUSCULOSKELETAL/RHEUMATOLOGICAL Hx Musculoskeletal Disorders: No Hx Falls: No - GASTROINTESTINAL Hx Gastrointestinal Disorders: Yes Hx Gastroesophageal Reflux: Yes - GENITOURINARY/GYNECOLOGICAL Hx Genitourinary Disorders: No - PSYCHIATRIC Hx Psychophysiologic Disorder: No - SURGICAL HISTORY Hx Cardiac Catheterization: Yes (x1 with insertion of 1 stent) Hx Cholecystectomy: Yes - ANESTHESIA Hx Anesthesia Reactions: No Hx Malignant Hyperthermia: No Meds Allergies/Adverse Reactions: Allergies Allergy/AdvReac Type Severity Reaction Status Date / Time No Known Allergies Allergy Verified 10/08/17 22:56 - Medications Medications: Current Medications Acetaminophen (Tylenol 325mg Tab) 650 mg PO Q4H PRN PRN Reason: Temperature Last Admin: 10/05/17 03:03 Dose: 650 mg Lactated Ringer's (Lactated Ringer's) 1,000 mls @ 999 mls/hr IV .Q1H1M [facility] Last Admin: 10/04/17 19:07 Dose: Not Given Physical Exam - Constitutional Appears: Well, Non-toxic, No Acute Distress - Extremities Exam Additional comments: Lower extremity focused exam Vasc: DP and PT pulses are unpalable, likely to LE edema, CFT < 3 seconds to all ten digits. Skin temperature warm to warm from proximal to distal, edema noted to the LE bilaterally, increase edema noted to the dorsum of the left foot Neuro: Gross and protective sensation intact Derm: Multiple, extensive psoriatic plaques noted to b/l legs and feet. Plaques are lifting from the anterior aspect of the shins with mild amount of serous drainage b/l. Nails are thickened, and discolored 1-5 b/l. Large ulceration noted to the posterior aspect of the left lower extremity measuring approximately 8 cm x 6 cm x .3 with Achilles tendon visible. Wound base is 85% fibrotic, 5% necrotic, and 10% granular. Necrotic discoloration noted mainly to the exposed achilles tendon. Undermining noted to the superior portion of the wound, odorous, erythematous, periwound is intact and hyperkeratotic, no tunneling noted, no abscess, no active drainage noted during the visitation but drainage can be seen on patient's latasha. Ortho: Tenderness to posterior wounds on the left leg - Neurological Exam Neurological exam: Alert, Oriented x3 - Psychiatric Exam Psychiatric exam: Normal Affect, Normal Mood Results - Vital Signs Recent Vital Signs: Last Vital Signs Temp 99.4 F 10/05/17 06:00 Pulse 120 H 10/05/17 06:00 Resp 20 10/05/17 06:00 BP 127/71 10/05/17 06:00 Pulse Ox 100 10/05/17 06:00 - Labs Result Diagrams: 10/05/17 10:30 10/05/17 10:30 Labs: Laboratory Results - last 24 hr 10/04/17 10/05/17 21:10 06:30 WBC 17.2 H D RBC 3.38 L Hgb 8.7 L Hct 27.3 L MCV 80.8 MCH 25.7 MCHC 31.9 RDW 14.8 H Plt Count 424 MPV 8.6 pO2 28 L VBG pH 7.38 VBG pCO2 35.0 L VBG HCO3 20.7 L VBG Total CO2 21.8 L VBG O2 Sat (Calc) 59.7 VBG Base Excess -3.8 L VBG Potassium 4.1 Sodium 141.0 Chloride 109.0 H Glucose 107 H Lactate 2.9 H FiO2 21.0 Venous Blood Potassium 4.1 Assessment & Plan - Assessment and Plan (Free Text) Assessment: 77 year old female with PMH of HLD, HTN, psoriasis with multiple plaques and wounds to bilateral lower extremity secondary to psoriasis Plan: Patient examined and evaluated at bedside Labs, charts, vitals reviewed (WBC=20.1 leukocytosis, trending up, afebrile) Discussed plan in detail with attending Dr. Samson Ordered MRI of left lower extremity- to r/o OM Ordered ORLIN's of lower extremity bilaterally Ordered multipodus boots- to be applied at all times while in bed Lower extremities cleansed with saline solution, dressed with xeroform, dsd, abd , and kerlix C/w abx per ID Ultrasound results- No DVT Wound culture was ordered Podiatry will continue to follow while in house Thank you for the consult <Cherise Samson - Last Filed: 10/09/17 14:23> Results - Vital Signs Recent Vital Signs: Last Vital Signs Temp 102.5 F H 10/08/17 16:00 Pulse 113 H 10/08/17 18:00 Resp 20 10/08/17 16:00 BP 145/79 10/08/17 16:00 Pulse Ox 100 10/08/17 16:00 - Labs Result Diagrams: 10/08/17 06:30 10/08/17 06:30 Labs: Laboratory Results - last 24 hr 12/31/17 01/02/18 01/03/18 10:30 08:45 07:46 POC Glucose (mg/dL) 68 RBC Folate 840 Crossmatch See Detail 10/08/17 10/08/17 10/08/17 11:27 16:13 21:16 POC Glucose (mg/dL) 111 H 86 90 RBC Folate Crossmatch Attending/Attestation - Attestation I have personally seen and examined this patient.: Yes I have fully participated in the care of the patient.: Yes I have reviewed all pertinent clinical information: Yes
[2017-10-05 11:08] LABS: BASO # 0.02 K/mm3 (0.0-2.0); BASO % 0.1 % (0.0-3.0); GRAN # 18.19 (1.4-6.5); GRAN % 90.7 % (50.0-68.0); LYMPH # 0.8 (1.2-3.4); LYMPH % 3.7 % (22.0-35.0); MEAN CELL VOLUME 81.5 fl (80.0-105.0); MEAN CORPUSCULAR HEMOGLOBIN 26.8 pg (25.0-35.0); MEAN CORPUSCULAR HGB CONC 32.8 g/dl (31.0-37.0); MEAN PLATELET VOLUME 8.2 fl (7.0-11.0); MONO # 1.1 (0.1-0.6); MONO % 5.5 % (1.0-6.0); RBC 3.36 10^6/uL (3.5-6.1); RED CELL DISTRIBUTION WIDTH 14.7 % (11.5-14.5); WHITE BLOOD COUNT 20.1 10^3/ul (4.5-11.0)
[2017-10-05 11:13] LABS: VENOUS BLOOD GAS BASE EXCESS -3.3 mmol/L (0.0-2.0); VENOUS BLOOD GAS PO2 61 mm/Hg (30-55); VENOUS BLOOD PH 7.38 (7.32-7.43)
[2017-10-05 11:19] LABS: INR 1.72 (0.93-1.08); PARTIAL THROMBOPLASTIN TIME 28.5 Seconds (25.1-36.5); PROTHROMBIN TIME 19.1 SECONDS (9.4-12.5)
[2017-10-05 11:32] LABS: ALB/GLOB RATIO 0.6 (1.1-1.8); ALBUMIN 2.6 g/dL (3.0-4.8); ALT/SGPT 27 U/L (7-56); AST/SGOT 41 U/L (14-36); BLOOD UREA NITROGEN 7 mg/dL (7-21); CALCIUM 8.7 mg/dL (8.4-10.5); GFR AFRICAN-AMERICAN > 60; GFR NON-AFRICAN AMERICAN > 60; MAGNESIUM 1.8 mg/dL (1.7-2.2)
[2017-10-05 11:47] LABS: IRON 12 ug/dL (45-180)
[2017-10-05 11:58] LABS: TOTAL IRON BINDING CAPACITY 147 ug/dL (265-497)
[2017-10-05 11:59] LABS: % IRON SATURATION 8 % (20-55)
[2017-10-05] MEDS ORDERED: Lactated Ringer's 1,000 ML IV SCH ×2 (12:45→13:10)
[2017-10-05] MEDS ORDERED: Vancomycin 1gm in NS 250ml 1 GM/250 ML BAG IVPB SCH ×2 (13:15→23:00)
[2017-10-05 13:26] LABS: URINE BILIRUBIN NEGATIVE (NEGATIVE); URINE BLOOD MODERATE (NEGATIVE); URINE GLUCOSE (UA) NEGATIVE (NEGATIVE); URINE LEUKOCYTE ESTERASE NEGATIVE Leu/uL (NEGATIVE); URINE NITRATE NEGATIVE (NEGATIVE); URINE PROTEIN TRACE mg/dL (<30 mg/dL); URINE UROBILINOGEN 0.2 E.U./dL (<1 E.U./dL)
[2017-10-05 13:29] LABS: URINE APPEARANCE SL CLOUDY (CLEAR); URINE COLOR YELLOW (YELLOW)
[2017-10-05 13:33] LABS: URINE BACTERIA MOD (NEG)
--- NOTE | 2017-10-05 15:48 | PCM.SEPTIC ---
Sepsis Progress Note - Reassessment Type Date of Evaluation: 10/05/17 Time of Evaluation: 14:00 Reassessment Type: Non-invasive reassessment - Non Invasive Reassessment Were the most recent vital sign reviewed: Yes Vital Sign (Latest): Temp Pulse Resp BP Pulse Ox 98.3 F 99 H 18 137/77 100 10/05/17 12:00 10/05/17 12:00 10/05/17 12:00 10/05/17 12:00 10/05/17 06:00 Cardiovascular: Yes: Tachycardia Respiratory: Yes: Normal Breath Sounds. No: Crackles Capillary Refill: Normal (Less than 2 sec) Pulses: Normal Radial, Normal Dorsalis Pedis Skin: Dry, Other (multiple erythematous weeping wounds severe LE b/l > UE b/l) - Invasive Reassessment (complete 2 of 4) Was a Central Venous Pressure Measurement obtained within 6 Hours after the presentation of septic shock: No Was a central venous oxygen measurement obtained within 6 hours after the presentation of septic shock: No Was a bedside cardiovascular ultrasound performed within 6 hours after the presentation of septic shock: No Was a passive leg raise performed or was a fluid challenge performed within 6 hrs of the initial fluid bolus: No
--- NOTE | 2017-10-05 16:16 | US ---
HISTORY: Leg pain and swelling. Evaluate for DVT PHYSICIAN(S): Nestor Cho MD. TECHNIQUE: Duplex sonography and color-flow Doppler with graded compression were used to evaluate the deep venous systems of both lower extremities. FINDINGS: The visualized deep venous systems of both lower extremities are sonographically normal and compressible. Normal wave forms and augmentation are seen. There is no sonographic evidence for deep venous thrombosis in the visualized segments of both lower extremities. IMPRESSION: No sonographic evidence for deep venous thrombosis in the visualized segments of both lower extremities.
--- NOTE | 2017-10-05 16:17 | RAD ---
HISTORY: MD ordered, Elevated WBC COMPARISON: Comparison chest 04/18/[address] scan chest dated 09/10/2017. . FINDINGS: LUNGS: Suspect minor bibasilar atelectasis. . Re- demonstrated is an elliptical shaped calcified granuloma right lower lung field unchanged. PLEURA: No significant pleural effusion identified, no pneumothorax apparent. CARDIOVASCULAR: Heart size is within range of normal. Aorta is slightly ectatic and uncoiled. Calcification aortic knob. Mild biapical pleural thickening felt be present. OSSEOUS STRUCTURES: No significant abnormalities. VISUALIZED UPPER ABDOMEN: Normal. OTHER FINDINGS: None. IMPRESSION: Suspect minor bibasilar atelectasis. No change calcified granuloma right lower lung field.
--- NOTE | 2017-10-05 16:52 | CARD ---
APPROVED REPORT EKG Measurement Heart [id number] <Conclusion> Sinus tachycardia Possible Left atrial enlargement Septal infarct, age undetermined Abnormal ECG
[2017-10-05] MEDS: Meropenem 1 GM in Sodium Chloride 0.9% 100 ML IVPB SCH ×2 (17:43→22:03)
[2017-10-05] MEDS: Sodium Chloride 0.9% 1,000 ML IV SCH (17:43)
--- NOTE | 2017-10-05 18:12 | US ---
HISTORY: fever size of CBD COMPARISON: None. TECHNIQUE: Sonographic evaluation of the abdomen. FINDINGS: LIVER: The liver exhibits normal size measuring approximately 16.25 cm greatest dimension. Liver demonstrates smooth contour and normal echotexture. No obvious hepatic mass or collection seen on images presented. No gross intrahepatic biliary ductal dilatation. No evidence of ascites. GALLBLADDER: Status post cholecystectomy. . COMMON BILE DUCT: Measures 5.3-5.7 mm. No stones. No dilatation. PANCREAS: Unremarkable as visualized. No mass. No ductal dilatation. RIGHT KIDNEY: Right kidney measures approximately 11 cm x 4.7 cm x 4.6 cmcm. Normal echogenicity. No calculus, mass, or hydronephrosis. LEFT KIDNEY: Left kidney measures approximately 9.4 x 5.0 x 4.1cm. . Small lateral lower pole cyst measuring approximately 1.3 cm in greatest dimension. Normal echogenicity. No calculus, mass, or hydronephrosis. SPLEEN: Normal in size and contour. No mass. AORTA: No aneurysmal dilatation. IVC: Unremarkable. OTHER FINDINGS: None. IMPRESSION: Status post cholecystectomy. Small cyst left kidney as described.
[2017-10-05] MEDS: Vancomycin 1gm in NS 250ml 1 GM/250 ML BAG IVPB SCH (23:17)
--- NOTE | 2017-10-06 00:43 | CON ---
DATE: 10/05/2017 LOCATION: The patient is in room 377, bed 1. CHIEF COMPLAINT: Fever of 102 times one day duration. HISTORY OF PRESENT ILLNESS: This is 77-year-old female with a history of severe psoriasis on Otezla, history of coronary artery disease, hypertension, high cholesterol, GERD, history of leg cellulitis, and history of cardiac stent placement, and cholecystectomy, has no known allergies, admitted with a diagnosis of cellulitis of the lower extremities. The patient had a temperature of 102. A code sepsis was called and infectious disease consultation requested. REVIEW OF SYSTEMS: Reveals the patient was admitted yesterday. She has been admitted with a diagnosis of cellulitis. Review of systems reveals the patient has no chest pain, shortness of breath, or cough. No abdominal pain, diarrhea, or constipation. No dysuria. She did have urinary retention and now she has a Blackmon catheter. PAST MEDICAL HISTORY: Significant for psoriasis, coronary artery disease, hypertension, high cholesterol, GERD, and right leg cellulitis. PAST SURGICAL HISTORY: Significant for cardiac catheterization with stent placement and cholecystectomy. ALLERGIES: THE PATIENT HAS KNOWN NO ALLERGIES. MEDICATION: At home are noted to be Otezla which is apremilast and Dovonex. PHYSICAL EXAMINATION: GENERAL: The patient is in bed, awake and alert. VITAL SIGNS: Temperature of 102.3, heart rate of 126, and respiratory rate of 20. HEENT: Unremarkable. NECK: Supple. LUNGS: Have decreased breath sounds. HEART: Normal S1 and S2. ABDOMEN: Soft and nontender. EXTREMITIES: Examination of lower extremity reveals chronic psoriatic changes and minimal erythema and discharge. LABORATORY DATA: Reveals the patient's white count to be 20,000, hemoglobin of 9, and platelets of 436. Coagulation is noted. The patient's INR is 1.1. and are noted. The chemistry reveals BUN of 11 and creatinine of 0.9 and alk phos is 132. Microbiology reveals the patient did have a sensitive Staph aureus in April of 2017 from her left leg. The patient had a chest x-ray which is not available. Urinalysis is not available. ASSESSMENT AND PLAN: This is a 77-year-old female with psoriasis, coronary artery disease, hypertension, high cholesterol, gastroesophageal reflux disease, and now with temperature of 102.3, tachycardia with sepsis, bilateral lower extremity cellulitis, left greater than right. However, I am concerned more of gastrointestinal versus genitourinary as a source. We will order urinalysis and urine culture, blood cultures, abdominal ultrasound. Start the patient on vancomycin and meropenem, pending wound cultures, blood cultures, urine cultures, urinalysis, and a chest x-ray resultant abdominal ultrasound to rule out common bile duct and biliary tree as the cause of the sepsis. We will follow closely with you. The patient also scheduled for Doppler of the lower extremities to rule out a deep venous thrombosis. Case discussed with Dr. Brennen Cordova. Valente Oshea MD
[2017-10-06] MEDS: Meropenem 1 GM in Sodium Chloride 0.9% 100 ML IVPB SCH ×3 (06:37→21:27)
[2017-10-06] MEDS: Sodium Chloride 0.9% 1,000 ML IV SCH ×3 (06:42→21:28)
[2017-10-06 07:57] LABS: BASO # 0.01 K/mm3 (0.0-2.0); BASO % 0.1 % (0.0-3.0); EOS % 0.3 % (1.5-5.0); GRAN # 11.33 (1.4-6.5); HEMOGLOBIN 8.1 g/dL (12.0-16.0); LYMPH # 0.9 (1.2-3.4); LYMPH % 7.1 % (22.0-35.0); MEAN CELL VOLUME 80.3 fl (80.0-105.0); MEAN CORPUSCULAR HEMOGLOBIN 26.1 pg (25.0-35.0); MEAN CORPUSCULAR HGB CONC 32.5 g/dl (31.0-37.0); MEAN PLATELET VOLUME 8.1 fl (7.0-11.0); MONO # 0.9 (0.1-0.6); MONO % 6.5 % (1.0-6.0); RBC 3.1 10^6/uL (3.5-6.1); RED CELL DISTRIBUTION WIDTH 14.7 % (11.5-14.5); WHITE BLOOD COUNT 13.2 10^3/ul (4.5-11.0)
[2017-10-06 08:12] LABS: ALB/GLOB RATIO 0.6 (1.1-1.8); ALBUMIN 2.3 g/dL (3.0-4.8); ALT/SGPT 30 U/L (7-56); AST/SGOT 54 U/L (14-36); BLOOD UREA NITROGEN 9 mg/dL (7-21); CALCIUM 8.3 mg/dL (8.4-10.5); GFR AFRICAN-AMERICAN > 60; GFR NON-AFRICAN AMERICAN > 60
--- NOTE | 2017-10-06 09:00 | CP.PCM.PN ---
Subjective - Date & Time of Evaluation Date of Evaluation: 10/06/17 Time of Evaluation: 08:10 - Subjective Subjective: Lorenzo Mensah PGY1 IM Progress Note for Dr. May covering for Dr. Harris Service Patient was seen and examined bedside. states that she is feeling better overall but is requesting cream for her psoriasis as they are becoming itchy. the patient states that the cream that was provided to her by her cue selector was working well and would like it to be started. denies other cp, fevers/chills , abdominal pain, numbness/tingling, headaches or urinary/bowel changes. Objective - Vital Signs/Intake and Output Vital Signs (last 24 hours): Temp Pulse Resp BP Pulse Ox 98.8 F 96 H 19 121/67 99 10/06/17 06:00 10/06/17 06:00 10/06/17 06:00 10/06/17 06:00 10/06/17 06:00 Intake and Output: 10/06/17 10/06/17 06:59 18:59 Intake Total 480 Output Total 1000 Balance -520 - Medications Medications: Current Medications Acetaminophen (Tylenol 325mg Tab) 650 mg PO Q4H PRN PRN Reason: Temperature Last Admin: 10/05/17 03:03 Dose: 650 mg Emollient Ointment (Vaseline Oint) 5 gm TOP PRN PRN PRN Reason: Dry skin Lactated Ringer's (Lactated Ringer's) 1,000 mls @ 999 mls/hr IV .Q1H1M [facility] Last Admin: 10/04/17 19:07 Dose: Not Given Sodium Chloride (Sodium Chloride 0.9%) 1,000 mls @ 100 mls/hr IV .Q10H [facility] Last Admin: 10/06/17 06:42 Dose: Not Given Meropenem 1 gm/ Sodium (Chloride) 100 mls @ 100 mls/hr IVPB Q8 [facility] PRN Reason: Protocol Stop: 10/14/17 14:01 Last Admin: 10/06/17 06:37 Dose: 100 mls/hr Vancomycin HCl (Vancomycin 1gm) 1 gm in 250 mls @ 167 mls/hr IVPB Q12 [facility] PRN Reason: Protocol Last Admin: 10/05/17 23:17 Dose: 167 mls/hr Non-Formulary Medication (Calcipotriene [Dovonex]) 120 gm TP DAILY [facility] - Labs Labs: 10/06/17 07:40 10/06/17 07:40 PT 19.1 SECONDS (9.4-12.5) H 10/05/17 10:30 INR 1.72 (0.93-1.08) H 10/05/17 10:30 APTT 28.5 Seconds (25.1-36.5) 10/05/17 10:30 - Additional Findings Additional findings: - Constitutional Appears: Well, Non-toxic, No Acute Distress - Head Exam Head Exam: ATRAUMATIC, NORMOCEPHALIC - Eye Exam Eye Exam: EOMI, Normal appearance, PERRL - ENT Exam ENT Exam: Mucous Membranes Moist, Normal Exam - Neck Exam Neck exam: Positive for: Normal Inspection - Respiratory Exam Respiratory Exam: Clear to Auscultation Bilateral, NORMAL BREATHING PATTERN. absent: Rales, Rhonchi, Wheezes - Cardiovascular Exam Cardiovascular Exam: Tachycardia, +S1, +S2 - GI/Abdominal Exam GI & Abdominal Exam: Normal Bowel Sounds, Soft. absent: Distended, Guarding, Tenderness - Extremities Exam Extremities exam: Positive for: pedal pulses present (b/l, by doppler). Negative for: pedal edema Additional comments: b/l UE psoriatic lesions b/l LE knee down psoriatic lesions with erythema and weeping; no pus noted; includ extensor surfaces of elbows, wrists, ankles and knees diffuse hardened skin on LE pulses were difficult to assess by hand, however, present pedal pulses b/l by doppler - Back Exam Back exam: NORMAL INSPECTION - Neurological Exam Neurological exam: Alert, Oriented x3 - Psychiatric Exam Psychiatric exam: Normal Affect, Normal Mood - Skin Skin Exam: Dry, Erythema, Warm Assessment and Plan - Assessment and Plan (Free Text) Assessment: 77yo F with a PMH of MSSA cellulitis, CAD s/p 1 stent, HTN, HLD, GERD and psoriasis presenting in sepsis 2/2 cellulitis. Code sepsis was called due to elevated lactate level, WBC count, tachycardia, and fevers on admission. Per nurse, patient has urinary retention on bladder scan. Plan: 1. sepsis 2/2 cellulitis - LE MRI: soft tissue cellulitis is present. Apparent soft tissue defect just above the heel, versus artifact. No evidence of abscess. No signs of tenosynovitis or significant tendon abnormalities. No bony lesions or occult fractures. - Abd US: Status post cholecystectomy. Small cyst left kidney as described. - LE US: No sonographic evidence for deep venous thrombosis in the visualized segments of both lower extremities. - BP stable s/p 1L NS boluses; continuing LR 2L bolus then NS 100cc/hr - cont Vanc and Meropenem, per ID recs - SIRS criteria still met (tachy and WBC), however, pt remains afebrile - procal elevated at 11.48 - lactate trending down - wound cxs, blood cx, urine cx (negative after 24hrs) - VS Q15m - ID consulted, rec Vanc and Meropenem and ordered abd US to r/o abdominal/ biliary causes of sepsis as AST elevated - Podiatry consulted, recs appreciated - Surgery consulted, recs appreciated 2. Urinary retention - UA ordered - urine cxs negative so far - morgan placed 3. Anemia - low iron and low TIBC; ferritin normal - pending transferrin - smear ordered 4. Hypokalemia - repleted - will follow up BMP PTX/Heparin HHD Patient was seen, examined and discussed with attending, Dr. Yadira Mensah PGY1
[2017-10-06] MEDS ORDERED: Potassium Chloride 20 mEq ER Tab PO STA (09:10)
--- NOTE | 2017-10-06 09:30 | CP.PCM.PN ---
Subjective - Date & Time of Evaluation Date of Evaluation: 10/06/17 Time of Evaluation: 06:50 - Subjective Subjective: General Surgery- Dr. Montes Patient seen and examined at bedside this AM. No acute events overnight. Bilateral wound dressing C/D/I. denies fevers, chills, chest pain, shortness of breath, nausea, vomiting, diarrhea. Objective - Vital Signs/Intake and Output Vital Signs (last 24 hours): Temp Pulse Resp BP Pulse Ox 98.8 F 96 H 19 121/67 99 10/06/17 06:00 10/06/17 06:00 10/06/17 06:00 10/06/17 06:00 10/06/17 06:00 Intake and Output: 10/06/17 10/06/17 06:59 18:59 Intake Total 480 Output Total 1000 Balance -520 - Medications Medications: Current Medications Acetaminophen (Tylenol 325mg Tab) 650 mg PO Q4H PRN PRN Reason: Temperature Last Admin: 10/05/17 03:03 Dose: 650 mg Emollient Ointment (Vaseline Oint) 5 gm TOP Q6H PRN PRN Reason: Dry skin Lactated Ringer's (Lactated Ringer's) 1,000 mls @ 999 mls/hr IV .Q1H1M [facility] Last Admin: 10/04/17 19:07 Dose: Not Given Sodium Chloride (Sodium Chloride 0.9%) 1,000 mls @ 100 mls/hr IV .Q10H [facility] Last Admin: 10/06/17 06:42 Dose: Not Given Meropenem 1 gm/ Sodium (Chloride) 100 mls @ 100 mls/hr IVPB Q8 [facility] PRN Reason: Protocol Stop: 10/14/17 14:01 Last Admin: 10/06/17 06:37 Dose: 100 mls/hr Vancomycin HCl (Vancomycin 1gm) 1 gm in 250 mls @ 167 mls/hr IVPB Q12 [facility] PRN Reason: Protocol Last Admin: 10/05/17 23:17 Dose: 167 mls/hr Home Med - Calcipotriene [ Dovonex] 120 Gm 120 gm TP DAILY [facility] - Labs Labs: 10/06/17 07:40 10/06/17 07:40 PT 19.1 SECONDS (9.4-12.5) H 10/05/17 10:30 INR 1.72 (0.93-1.08) H 10/05/17 10:30 APTT 28.5 Seconds (25.1-36.5) 10/05/17 10:30 - Constitutional Appears: Non-toxic, No Acute Distress - Eye Exam Eye Exam: EOMI. absent: Scleral icterus - ENT Exam ENT Exam: Mucous Membranes Moist - Respiratory Exam Respiratory Exam: NORMAL BREATHING PATTERN. absent: Accessory Muscle Use, Respiratory Distress - Cardiovascular Exam Cardiovascular Exam: +S1, +S2. absent: Bradycardia, Tachycardia - GI/Abdominal Exam GI & Abdominal Exam: Soft. absent: Distended, Guarding, Rigid, Tenderness - Extremities Exam Additional comments: bilateral LE dressing C/D/I no strike through - Neurological Exam Neurological Exam: Alert, Awake, Oriented x3 - Skin Additional comments: psoriasis on multiple areas Assessment and Plan - Assessment and Plan (Free Text) Assessment: 77F bilateral LE cellulitis and psoriasis Plan: - LE and wound care w/ debridement by podiatry. c/w Podiatry recs - medical management per primary team - abx - no acute surgical intervention at this time - please re-consult as needed. thank you for allowing us to participate in this patients care - discussed w/ Dr. Montes Surgical attending Tulio Oliver PGY1
[2017-10-06] MEDS: CALCIPOTRIENE 120 GM TP SCH (10:11)
[2017-10-06] MEDS: Vancomycin 1gm in NS 250ml 1 GM/250 ML BAG IVPB SCH ×2 (10:12→21:27)
--- NOTE | 2017-10-06 11:30 | RAD ---
HISTORY: f/u COMPARISON: Comparison chest 10/04/2017 FINDINGS: LUNGS: Mild bibasilar atelectasis right greater than left. Persistent but further elevation of the right hemidiaphragm could be due to eventration. PLEURA: No significant pleural effusion identified, no pneumothorax apparent. CARDIOVASCULAR: Normal. OSSEOUS STRUCTURES: No significant abnormalities. VISUALIZED UPPER ABDOMEN: Normal. OTHER FINDINGS: None. IMPRESSION: Mild bibasilar atelectasis right greater than left. . Persistent but although further elevation right hemidiaphragm could be due to eventration the
--- NOTE | 2017-10-06 12:04 | PN ---
DATE: 10/06/2017 SUBJECTIVE: The patient is in bed, in no acute distress. PHYSICAL EXAMINATION: VITAL SIGNS: Temperature is 98, blood pressure is 121/60, respiratory rate of 19, heart rate of 96. HEENT: Unremarkable. NECK: Supple. Lungs: Have decreased breath sounds. HEART: Normal S1, S2. ABDOMEN: Soft, nontender. LABORATORY EXAMINATION: Reveals a white count of 13,000 and hemoglobin of 8. Chemistries are noted. Procalcitonin is 11.48. Urinalysis is noted. Microbiology reveals the blood cultures are no growth. The right leg culture is pending, and the patient's chest x-ray is pending. MRI of the lower extremity is pending. The patient did have an earlier chest x-ray. ASSESSMENT AND PLAN: A 77-year-old female with psoriasis, coronary artery disease, hypertension, high cholesterol, gastroesophageal reflux disease with a temperature of 102, tachycardia, sepsis with bilateral lower extremity cellulitis, waiting for identification and sensitivity, and currently on vancomycin and meropenem. Pending panculture results, MRI of the leg, culture of the leg. The patient also had Dopplers of the lower extremities and echocardiogram and had an ultrasound of the abdomen, that was read by Dr. Bayron Chery. The patient with a history of cholecystectomy and a common bile duct measuring 5-5 mm with no dilatation. We will check on the panculture results. Valente Oshea MD
--- NOTE | 2017-10-06 12:43 | PN ---
DATE: Meche Pereira is seen on the floor. She has extensive skin lesions related to psoriasis and treatment. Dr. Samson is taking care of the lower legs. The wounds, on the arms, legs, back, and chest are intact, scaly and no surgical intervention is planned. Randall Montes MD
--- NOTE | 2017-10-06 13:26 | CP.PCM.PN ---
<Gareth Lyles - Last Filed: 10/06/17 13:11> Subjective - Date & Time of Evaluation Date of Evaluation: 10/06/17 Time of Evaluation: 13:11 - Subjective Subjective: Podiatry Consult Note- Dr. Samson 77 y.o f with PMH of HTN, HLD, and psoriasis seen and evaluated at bedside for bilateral lower extremity ulcerations secondary to psoriasis. Patient is seen resting comfortably in bed, in NAD, and AA0x3. Patient denies acute overnight events. Dressing to the LE is clean, dry, and intact with no strikethrough noted. Patient reports LE tenderness and pain with palpation. Patient reports no chills today. Patient denies n/v/sob/cp/chills/f or d. Objective - Vital Signs/Intake and Output Vital Signs (last 24 hours): Temp Pulse Resp BP Pulse Ox 98.8 F 129 H 19 121/67 99 10/06/17 06:00 10/06/17 10:00 10/06/17 06:00 10/06/17 06:00 10/06/17 06:00 Intake and Output: 10/06/17 10/06/17 06:59 18:59 Intake Total 480 Output Total 1000 Balance -520 - Medications Medications: Current Medications Acetaminophen (Tylenol 325mg Tab) 650 mg PO Q4H PRN PRN Reason: Temperature Last Admin: 10/05/17 03:03 Dose: 650 mg Emollient Ointment (Vaseline Oint) 5 gm TOP Q6H PRN PRN Reason: Dry skin Heparin Sodium (Porcine) (Heparin) 5,000 units SC Q12 [facility] PRN Reason: Protocol Lactated Ringer's (Lactated Ringer's) 1,000 mls @ 999 mls/hr IV .Q1H1M [facility] Last Admin: 10/04/17 19:07 Dose: Not Given Sodium Chloride (Sodium Chloride 0.9%) 1,000 mls @ 100 mls/hr IV .Q10H [facility] Last Admin: 10/06/17 10:19 Dose: 100 mls/hr Meropenem 1 gm/ Sodium (Chloride) 100 mls @ 100 mls/hr IVPB Q8 [facility] PRN Reason: Protocol Stop: 10/14/17 14:01 Last Admin: 10/06/17 06:37 Dose: 100 mls/hr Vancomycin HCl (Vancomycin 1gm) 1 gm in 250 mls @ 167 mls/hr IVPB Q12 [facility] PRN Reason: Protocol Last Admin: 10/06/17 10:12 Dose: 167 mls/hr Home Med - Calcipotriene [ Dovonex] 120 Gm 120 gm TP DAILY [facility] Last Admin: 10/06/17 10:11 Dose: Not Given Pantoprazole Sodium (Protonix Ec Tab) 40 mg PO 0600 [facility] - Labs Labs: 10/06/17 07:40 10/06/17 07:40 PT 19.1 SECONDS (9.4-12.5) H 10/05/17 10:30 INR 1.72 (0.93-1.08) H 10/05/17 10:30 APTT 28.5 Seconds (25.1-36.5) 10/05/17 10:30 - Constitutional Appears: Well, Non-toxic, No Acute Distress - Extremities Exam Additional comments: Lower extremity focused exam Vasc: DP and PT pulses are unpalable, likely to LE edema, CFT < 3 seconds to all ten digits. Skin temperature warm to warm from proximal to distal, edema noted to the LE bilaterally, increase edema noted to the dorsum of the left foot Neuro: Gross and protective sensation intact Derm: Multiple, extensive psoriatic plaques noted to b/l legs and feet. Plaques are lifting from the anterior aspect of the shins with mild amount of serous drainage b/l. Nails are thickened, and discolored 1-5 b/l. Large ulceration noted to the posterior aspect of the left lower extremity measuring approximately 8 cm x 6 cm x .3 with Achilles tendon visible. Wound base is 85% fibrotic, 5% necrotic, and 10% granular. Necrotic discoloration noted mainly to the exposed achilles tendon. Undermining noted to the superior portion of the wound, odorous, erythematous, periwound is intact and hyperkeratotic, no tunneling noted, no abscess, no active drainage noted during the visitation but mild drainage can be seen on patient's latasah Ortho: Tenderness to the LE, pain > to posterior wounds on the left leg - Neurological Exam Neurological Exam: Alert, Awake, Oriented x3 - Psychiatric Exam Psychiatric exam: Normal Affect, Normal Mood Assessment and Plan - Assessment and Plan (Free Text) Assessment: 77 year old female with PMH of HLD, HTN, psoriasis with multiple plaques and wounds to bilateral lower extremity secondary to psoriasis Plan: atient examined and evaluated at bedside Labs, charts, vitals reviewed (WBC= 13.2, decreased from 20.1 yesterday, afebrile) Discussed plan in detail with attending Dr. Samson MRI of left lower extremity- to r/o OM - taken- pending final results Ordered ORLIN's of lower extremity bilaterally Ordered multipodus boots- to be applied at all times while in bed Lower extremities cleansed with saline solution, dressed with xeroform, dsd, abd , and kerlix C/w abx per ID Ultrasound results- No DVT Wound culture was ordered and collected- pending results Podiatry will continue to follow while in house Thank you for the consult <Cherise Samson - Last Filed: 10/09/17 14:24> Objective - Vital Signs/Intake and Output Vital Signs (last 24 hours): Temp Pulse Resp BP Pulse Ox 102.5 F H 113 H 20 145/79 100 10/08/17 16:00 10/08/17 18:00 10/08/17 16:00 10/08/17 16:00 10/08/17 16:00 - Labs Labs: 10/08/17 06:30 10/08/17 06:30 PT 19.1 SECONDS (9.4-12.5) H 10/05/17 10:30 INR 1.72 (0.93-1.08) H 10/05/17 10:30 APTT 28.5 Seconds (25.1-36.5) 10/05/17 10:30 Attending/Attestation - Attestation I have personally seen and examined this patient.: Yes I have fully participated in the care of the patient.: Yes I have reviewed all pertinent clinical information, including history, physical exam and plan: Yes
[2017-10-06] MEDS: Petrolatum Oint Foilpak (5 gm) TOP PRN (17:37)
[2017-10-07] MEDS: Meropenem 1 GM in Sodium Chloride 0.9% 100 ML IVPB SCH ×3 (05:57→22:20)
[2017-10-07] MEDS: Pantoprazole 40 mg EC Tab PO SCH (06:03)
[2017-10-07] MEDS: Sodium Chloride 0.9% 1,000 ML IV SCH (06:05)
[2017-10-07 07:19] LABS: BASO # 0.02 K/mm3 (0.0-2.0); BASO % 0.2 % (0.0-3.0); EOS # 0.1 (0.0-0.7); EOS % 0.8 % (1.5-5.0); GRAN # 7.08 (1.4-6.5); GRAN % 81.8 % (50.0-68.0); LYMPH % 11.3 % (22.0-35.0); MEAN CELL VOLUME 80.6 fl (80.0-105.0); MEAN CORPUSCULAR HEMOGLOBIN 26.3 pg (25.0-35.0); MEAN CORPUSCULAR HGB CONC 32.6 g/dl (31.0-37.0); MEAN PLATELET VOLUME 8.2 fl (7.0-11.0); MONO # 0.5 (0.1-0.6); MONO % 5.9 % (1.0-6.0); RBC 2.89 10^6/uL (3.5-6.1); RED CELL DISTRIBUTION WIDTH 14.8 % (11.5-14.5); WHITE BLOOD COUNT 8.7 10^3/ul (4.5-11.0)
[2017-10-07 07:25] LABS: HEMOGLOBIN 7.6 g/dL (12.0-16.0)
[2017-10-07 07:38] LABS: PH,URINE 5.5 (4.7-8.0); URINE BILIRUBIN NEGATIVE (NEGATIVE); URINE BLOOD SMALL (NEGATIVE); URINE GLUCOSE (UA) NEGATIVE (NEGATIVE); URINE LEUKOCYTE ESTERASE NEGATIVE Leu/uL (NEGATIVE); URINE NITRATE NEGATIVE (NEGATIVE); URINE PROTEIN TRACE mg/dL (<30 mg/dL); URINE UROBILINOGEN 0.2 E.U./dL (<1 E.U./dL)
[2017-10-07 07:39] LABS: URINE APPEARANCE CLEAR (CLEAR); URINE COLOR YELLOW (YELLOW)
[2017-10-07 07:48] LABS: ALB/GLOB RATIO 0.6 (1.1-1.8); ALBUMIN 2.2 g/dL (3.0-4.8); ALT/SGPT 30 U/L (7-56); AST/SGOT 49 U/L (14-36); BLOOD UREA NITROGEN 6 mg/dL (7-21); CALCIUM 7.7 mg/dL (8.4-10.5); GFR AFRICAN-AMERICAN > 60; GFR NON-AFRICAN AMERICAN > 60
[2017-10-07 07:54] LABS: URINE BACTERIA SMALL (NEG); URINE EPITHELIAL CELLS 0 - 2 /hpf (0-5); URINE RBC 0 - 2 /hpf (0-2); URINE WBC 0 - 2 /hpf (0-6)
[2017-10-07] MEDS: Sodium Chloride 0.45% 1,000 ML IV SCH (08:41)
--- NOTE | 2017-10-07 09:14 | MRI ---
PROCEDURE: MRI of the left ankle without contrast HISTORY: r/o OM of calcaneus, distal tibial/fib COMPARISON: TECHNIQUE: MRI of the left ankle was performed in multiple planes using multiple pulse sequences. FINDINGS: The bone marrow signal intensity is normal with no evidence of osteomyelitis. The Achilles tendon and the medial and lateral ankle tendons are normal. There is a skin defect on the medial side of the ankle consistent with a soft tissue ulcer. This could be an artifact. There is no evidence of abscess or significant cellulitis. The report concurs with the preliminary [facility] report IMPRESSION: No evidence of osteomyelitis
--- NOTE | 2017-10-07 09:34 | PN ---
DATE: 10/07/2017 SUBJECTIVE: I saw Meche resting comfortably in bed. She slept fairly well. Her leg is bandaged and she is kind of weak and not that hungry. MEDICATIONS: She is on heparin, Lovenox, Lactated Ringer's, I switched her to 0.5 normal saline, Merrem IV, Protonix, Tylenol, vancomycin, and Vaseline. PHYSICAL EXAMINATION: VITAL SIGNS: 100.5 temperature, 106 pulse, 123/57 blood pressure, 20 respiratory rate, and 100% O2 saturation on room air. HEENT: Head is atraumatic and normocephalic. HEART: Regular rate. LUNGS: Decreased breath sounds, but clear. ABDOMEN: Soft and nontender. Positive bowel sounds. EXTREMITIES: Bandaged and trace edema. She has skin issues on her arms and legs with and psoriasis that look cellulitic. LABORATORY DATA: She has a 136 sodium, potassium is 3.7, BUN is 6, and creatinine is 0.7. GFR is greater than 60. Blood sugar is 95 and calcium is 7.7. Total bilirubin is 0.2, AST is 49, ALT is 30, and alkaline phosphatase is 79. Total protein is 5.6. Procalcitonin is 11.48. She has an 8.7 white count which is better, but the hemoglobin dropped to 7.6, I am going to transfuse 2 units of packed red blood cells, hematocrit of 23.3, and platelets of 405. IMPRESSION AND PLAN: She is being seen by Surgery and Infectious Diseases. We will continue with aggressive treatment and care, skin care, intravenous antibiotics, transfused 2 units today. She might need to go to Subacute Rehab versus Transitional Care Unit, will going to get Physical Therapy to get their opinion. Trying to get out of bed to chair. Otis Harris DO MTD[facility]ero
[2017-10-07] MEDS: Vancomycin 1gm in NS 250ml 1 GM/250 ML BAG IVPB SCH ×2 (09:59→22:20)
[2017-10-07] MEDS: CALCIPOTRIENE 120 GM TP SCH (12:12)
--- NOTE | 2017-10-07 14:50 | CP.PCM.PN ---
<KevinLorenzo morris - Last Filed: 10/07/17 15:12> Subjective - Date & Time of Evaluation Date of Evaluation: 10/07/17 Time of Evaluation: 14:18 - Subjective Subjective: 77 y.o f with PMH of HTN, HLD, and psoriasis seen and evaluated at bedside for bilateral lower extremity ulcerations secondary to psoriasis. Patient is seen resting comfortably in bed, NAD, and AA0x3. Patient denies acute overnight events. Dressing to the LE is clean, dry, and intact with no strikethrough noted. Patient reports LE tenderness and pain with palpation. Patient reports no chills today. Patient denies n/v/sob/cp/chills/f or d. Objective - Vital Signs/Intake and Output Vital Signs (last 24 hours): Temp Pulse Resp BP Pulse Ox 99 F 95 H 20 104/57 L 100 10/07/17 12:00 10/07/17 12:00 10/07/17 12:00 10/07/17 12:00 10/07/17 06:00 Intake and Output: 10/07/17 10/07/17 06:59 18:59 Intake Total 480 Output Total 500 Balance -20 - Medications Medications: Current Medications Acetaminophen (Tylenol 325mg Tab) 650 mg PO Q4H PRN PRN Reason: Temperature Last Admin: 10/07/17 07:15 Dose: 650 mg Emollient Ointment (Vaseline Oint) 5 gm TOP Q6H PRN PRN Reason: Dry skin Last Admin: 10/06/17 17:37 Dose: 5 gm Heparin Sodium (Porcine) (Heparin) 5,000 units SC Q12 [facility] PRN Reason: Protocol Last Admin: 10/07/17 09:54 Dose: 5,000 units Meropenem 1 gm/ Sodium (Chloride) 100 mls @ 100 mls/hr IVPB Q8 [facility] PRN Reason: Protocol Stop: 10/14/17 14:01 Last Admin: 10/07/17 05:57 Dose: 100 mls/hr Vancomycin HCl (Vancomycin 1gm) 1 gm in 250 mls @ 167 mls/hr IVPB Q12 [facility] PRN Reason: Protocol Last Admin: 10/07/17 09:59 Dose: 167 mls/hr Sodium Chloride (Sodium Chloride 0.45%) 1,000 mls @ 60 mls/hr IV .[id number] [facility] Last Admin: 10/07/17 08:41 Dose: 60 mls/hr Home Med - Calcipotriene [ Dovonex] 120 Gm 120 gm TP DAILY [facility] Last Admin: 10/07/17 12:12 Dose: Not Given Pantoprazole Sodium (Protonix Ec Tab) 40 mg PO 0600 [facility] Last Admin: 10/07/17 06:03 Dose: 40 mg - Labs Labs: 10/07/17 06:30 10/07/17 06:30 PT 19.1 SECONDS (9.4-12.5) H 10/05/17 10:30 INR 1.72 (0.93-1.08) H 10/05/17 10:30 APTT 28.5 Seconds (25.1-36.5) 10/05/17 10:30 - Constitutional Appears: Well, Non-toxic, No Acute Distress - Extremities Exam Additional comments: Lower extremity focused exam Vasc: DP and PT pulses are unpalable, likely to LE edema, CFT < 3 seconds to all ten digits. Skin temperature warm to warm from proximal to distal, edema noted to the LE bilaterally, increase edema noted to the dorsum of the left foot , improving Neuro: Gross and protective sensation intact Derm: Multiple, extensive psoriatic plaques noted to b/l legs and feet. Plaques are lifting from the anterior aspect of the shins with mild amount of serous drainage b/l. Nails are thickened, and discolored 1-5 b/l. Large ulceration noted to the posterior aspect of the left lower extremity measuring approximately 8 cm x 6 cm x .3 with Achilles tendon visible. Wound base is 85% fibrotic, 5% necrotic, and 10% granular. Necrotic discoloration noted mainly to the exposed achilles tendon. Undermining noted to the superior portion of the wound, odorous, erythematous, periwound is intact and hyperkeratotic, no tunneling noted, no abscess, no active drainage noted during the visitation Ortho: Tenderness to the LE, pain > to posterior wounds on the left leg - Neurological Exam Neurological Exam: Alert, Awake, Oriented x3 - Psychiatric Exam Psychiatric exam: Normal Affect, Normal Mood Assessment and Plan - Assessment and Plan (Free Text) Assessment: 77 year old female with PMH of HLD, HTN, psoriasis with multiple plaques and wounds to bilateral lower extremity secondary to psoriasis as well as elongated , painful toenails Plan: Patient seen and evaluated at bedside with attending Dr. Diaz Afebrile, absent leukocytosis Wound cx left leg: GNR, corynebacterium species 10/05 LE US- No evidence of DVT 10/05 LE MRI- No evidence of OM Continue IV abx per ID Wounds cleansed with saline and dressed with xeroform, gauze, ABD, kirlix Podiatry will continue to follow while patient in house <Yo Diaz - Last Filed: 10/07/17 15:54> Objective - Vital Signs/Intake and Output Vital Signs (last 24 hours): Temp Pulse Resp BP Pulse Ox 99.3 F 102 H 18 128/70 96 10/07/17 15:37 10/07/17 15:37 10/07/17 15:37 10/07/17 15:37 10/07/17 09:00 Intake and Output: 10/07/17 10/07/17 06:59 18:59 Intake Total 480 Output Total 500 Balance -20 - Medications Medications: Current Medications Acetaminophen (Tylenol 325mg Tab) 650 mg PO Q4H PRN PRN Reason: Temperature Last Admin: 10/07/17 07:15 Dose: 650 mg Emollient Ointment (Vaseline Oint) 5 gm TOP Q6H PRN PRN Reason: Dry skin Last Admin: 10/06/17 17:37 Dose: 5 gm Heparin Sodium (Porcine) (Heparin) 5,000 units SC Q12 [facility] PRN Reason: Protocol Last Admin: 10/07/17 09:54 Dose: 5,000 units Meropenem 1 gm/ Sodium (Chloride) 100 mls @ 100 mls/hr IVPB Q8 [facility] PRN Reason: Protocol Stop: 10/14/17 14:01 Last Admin: 10/07/17 15:26 Dose: 100 mls/hr Vancomycin HCl (Vancomycin 1gm) 1 gm in 250 mls @ 167 mls/hr IVPB Q12 [facility] PRN Reason: Protocol Last Admin: 10/07/17 09:59 Dose: 167 mls/hr Sodium Chloride (Sodium Chloride 0.45%) 1,000 mls @ 60 mls/hr IV .[id number] [facility] Last Admin: 10/07/17 08:41 Dose: 60 mls/hr Home Med - Calcipotriene [ Dovonex] 120 Gm 120 gm TP DAILY [facility] Last Admin: 10/07/17 12:12 Dose: Not Given Pantoprazole Sodium (Protonix Ec Tab) 40 mg PO 0600 [facility] Last Admin: 10/07/17 06:03 Dose: 40 mg - Labs Labs: 10/07/17 06:30 10/07/17 06:30 PT 19.1 SECONDS (9.4-12.5) H 10/05/17 10:30 INR 1.72 (0.93-1.08) H 10/05/17 10:30 APTT 28.5 Seconds (25.1-36.5) 10/05/17 10:30 Attending/Attestation - Attestation I have personally seen and examined this patient.: Yes I have fully participated in the care of the patient.: Yes I have reviewed all pertinent clinical information, including history, physical exam and plan: Yes
--- NOTE | 2017-10-07 18:34 | US ---
PROCEDURE: Lower extremity ORLIN exam HISTORY: Peripheral vascular disease with pain and claudication. PHYSICIAN(S): Nestor Cho MD. FINDINGS: The resting ORLIN's are severely abnormal: right, 0.48and left, 0.42. The brachial systolic pressures are symmetric. The low thigh pressures and waveforms are relatively normal. The calf PVR waveforms moderately blunted and do not augment. This is consistent with bilateral SFA disease. The ankle and metatarsal waveforms are severely blunted bilaterally. This is consistent with bilateral tibial and pedal occlusive disease IMPRESSION: 1. Severely abnormal ABIs at rest 2. Bilateral SFA disease. 3. Bilateral tibial disease.
--- NOTE | 2017-10-07 18:52 | CARD ---
APPROVED REPORT EXAM: Two-dimensional and M-mode echocardiogram with Doppler and color Doppler. INDICATION Infection:Rule out subacute bacterial endocarditis LV Function:SystolicDiastolic 2D DIMENSIONS Left Atrium (2D)3.0 (1.6-4.0cm)IVSd1.1 (0.7-1.1cm) LVDd3.8 (3.9-5.9cm)PWd1.0 (0.7-1.1cm) LVDs2.6 (2.5-4.0cm)FS (%) 32.1 % LVEF (%)61.0 (>50%) M-Mode DIMENSIONS Aortic Root2.50 (2.2-3.7cm)Aortic Cusp Exc.1.20 (1.5-2.0cm) Aortic Valve AoV Peak Vsxqmxkx715.0cm/Edwin Peak GR.19mmHg Mitral Valve MV E Pxmoytok13.3cm/sMV A Przyzolg98.1cm/sE/A ratio0.9 TDI E/Lateral E'0.0E/Medial E'0.0 Tricuspid Valve TR Peak [id number] [id number] Peak Gr.33mmHg [id number] LEFT VENTRICLE The left ventricle is normal size. There is normal left ventricular wall thickness. The left ventricular function is normal.EF-55-60% There is normal LV segmental wall motion. Transmitral Doppler flow pattern is Grade III-reversible restrictive diastolic dysfunction. No left ventricle thrombus noted on this study. There is no ventricular septal defect visualized. There is no left ventricular aneurysm. There is no mass noted in the left ventricle. RIGHT VENTRICLE The right ventricle is normal size. There is normal right ventricular wall thickness. The right ventricular systolic function is normal. ATRIA The left atrium size is normal. The right atrium size is normal. The interatrial septum is intact with no evidence for an atrial septal defect. AORTIC VALVE The aortic valve is moderately thickened but opens well. The aortic valve is moderately sclerotic. There is trace aortic regurgitation. Aortic Sclerosis Vs Mild There is no aortic valvular vegetation. MITRAL VALVE The mitral valve is thickened but opens well. Mitral annular calcification is moderate. Mitral regurgitation is trace to mild. There is no mitral valve stenosis. There is no evidence of mitral valve prolapse. TRICUSPID VALVE The tricuspid valve leaflets are thickened , but open well. There is mild to moderate tricuspid regurgitation.RBVSP-43 mmof hg. There is no tricuspid valve stenosis. There is no tricuspid valve prolapse or vegetation. PULMONIC VALVE The pulmonic valve is mildly to moderately thickened. There is no pulmonic valvular regurgitation. There is no pulmonic valvular stenosis. GREAT VESSELS The aortic root is normal in size. The ascending aorta is normal in size. The pulmonary artery is normal. The IVC is normal in size and collapses >50% with inspiration. PERICARDIAL EFFUSION There is no pleural effusion. There is no pericardial effusion. <Conclusion> The left ventricle is normal size. There is normal left ventricular wall thickness. The left ventricular function is normal.EF-55-60% There is trace aortic regurgitation. Mitral regurgitation is trace to mild. There is mild to moderate tricuspid regurgitation.RBVSP-43 mmof hg. The IVC is normal in size and collapses >50% with inspiration. There is no pericardial effusion. No Vegetation or thrombus noted.
--- NOTE | 2017-10-07 19:05 | CP.PCM.PN ---
Subjective - Date & Time of Evaluation Date of Evaluation: 10/07/17 Time of Evaluation: 11:25 - Subjective Subjective: Comfortable, no fevers. Objective - Vital Signs/Intake and Output Vital Signs (last 24 hours): Temp Pulse Resp BP Pulse Ox 99.2 F 103 H 20 137/72 99 10/07/17 18:00 10/07/17 18:00 10/07/17 18:00 10/07/17 18:00 10/07/17 18:00 Intake and Output: 10/07/17 10/07/17 06:59 18:59 Intake Total 900 Output Total 2300 Balance -1400 - Medications Medications: Current Medications Acetaminophen (Tylenol 325mg Tab) 650 mg PO Q4H PRN PRN Reason: Temperature Last Admin: 10/07/17 15:25 Dose: 650 mg Emollient Ointment (Vaseline Oint) 5 gm TOP Q6H PRN PRN Reason: Dry skin Last Admin: 10/06/17 17:37 Dose: 5 gm Heparin Sodium (Porcine) (Heparin) 5,000 units SC Q12 [facility] PRN Reason: Protocol Last Admin: 10/07/17 09:54 Dose: 5,000 units Meropenem 1 gm/ Sodium (Chloride) 100 mls @ 100 mls/hr IVPB Q8 [facility] PRN Reason: Protocol Stop: 10/14/17 14:01 Last Admin: 10/07/17 15:26 Dose: 100 mls/hr Vancomycin HCl (Vancomycin 1gm) 1 gm in 250 mls @ 167 mls/hr IVPB Q12 [facility] PRN Reason: Protocol Last Admin: 10/07/17 09:59 Dose: 167 mls/hr Sodium Chloride (Sodium Chloride 0.45%) 1,000 mls @ 60 mls/hr IV .[id number] [facility] Last Admin: 10/07/17 08:41 Dose: 60 mls/hr Home Med - Calcipotriene [ Dovonex] 120 Gm 120 gm TP DAILY [facility] Last Admin: 10/07/17 12:12 Dose: Not Given Pantoprazole Sodium (Protonix Ec Tab) 40 mg PO 0600 [facility] Last Admin: 10/07/17 06:03 Dose: 40 mg - Labs Labs: 10/07/17 06:30 10/07/17 06:30 PT 19.1 SECONDS (9.4-12.5) H 12/31/17 10:30 INR 1.72 (0.93-1.08) H 10/05/17 10:30 APTT 28.5 Seconds (25.1-36.5) 10/05/17 10:30 - Constitutional Appears: Non-toxic, Chronically Ill - Head Exam Head Exam: NORMAL INSPECTION - ENT Exam ENT Exam: Mucous Membranes Moist - Neck Exam Neck Exam: absent: Meningismus - Respiratory Exam Respiratory Exam: Decreased Breath Sounds - Cardiovascular Exam Cardiovascular Exam: +S1, +S2 - GI/Abdominal Exam GI & Abdominal Exam: Soft. absent: Tenderness Assessment and Plan - Assessment and Plan (Free Text) Plan: Assessment sepsis with bilateral lower extremity cellulitis with no evidence of osteomyelitis psoriasis GERD HTN dyslipidemia CAD Plan Continue Vancomycin and Merrem day 3 to complete 7-10 days of therapy
[2017-10-08] MEDS: Sodium Chloride 0.45% 1,000 ML IV SCH ×2 (01:04→18:11)
[2017-10-08] MEDS: Petrolatum Oint Foilpak (5 gm) TOP PRN (01:26)
[2017-10-08] MEDS: Meropenem 1 GM in Sodium Chloride 0.9% 100 ML IVPB SCH (05:21)
[2017-10-08] MEDS: Pantoprazole 40 mg EC Tab PO SCH (05:21)
[2017-10-08 07:10] LABS: BASO # 0.05 K/mm3 (0.0-2.0); BASO % 0.6 % (0.0-3.0); EOS # 0.1 (0.0-0.7); EOS % 1.1 % (1.5-5.0); GRAN # 6.56 (1.4-6.5); GRAN % 78.5 % (50.0-68.0); LYMPH % 12.1 % (22.0-35.0); MEAN CELL VOLUME 80.5 fl (80.0-105.0); MEAN CORPUSCULAR HEMOGLOBIN 26.8 pg (25.0-35.0); MEAN CORPUSCULAR HGB CONC 33.3 g/dl (31.0-37.0); MEAN PLATELET VOLUME 8.1 fl (7.0-11.0); MONO # 0.6 (0.1-0.6); MONO % 7.7 % (1.0-6.0); RBC 3.65 10^6/uL (3.5-6.1); RED CELL DISTRIBUTION WIDTH 14.5 % (11.5-14.5); WHITE BLOOD COUNT 8.4 10^3/ul (4.5-11.0)
[2017-10-08 07:33] LABS: HEMOGLOBIN 9.8 g/dL (12.0-16.0)
[2017-10-08 07:46] LABS: ALBUMIN 2.3 g/dL (3.0-4.8); ALT/SGPT 30 U/L (7-56); AST/SGOT 55 U/L (14-36); BLOOD UREA NITROGEN 7 mg/dL (7-21); CALCIUM 7.9 mg/dL (8.4-10.5); GFR AFRICAN-AMERICAN > 60; GFR NON-AFRICAN AMERICAN > 60
[2017-10-08 08:00] LABS: ALB/GLOB RATIO 0.6 (1.1-1.8)
--- NOTE | 2017-10-08 09:55 | CP.PCM.PN ---
<KevinLorenzo morris - Last Filed: 10/08/17 09:49> Subjective - Date & Time of Evaluation Date of Evaluation: 10/08/17 Time of Evaluation: 09:49 - Subjective Subjective: 77 y.o f with PMH of HTN, HLD, and psoriasis seen and evaluated at bedside for bilateral lower extremity ulcerations secondary to psoriasis. Patient is seen resting comfortably in bed, NAD, and AA0x3. Patient denies acute overnight events. Dressing to the LE is clean, dry, and intact with minimal serosanguinious strikethrough noted. Patient reports LE tenderness and pain with palpation. Patient denies n/v/sob/cp/chills/f or d. Objective - Vital Signs/Intake and Output Vital Signs (last 24 hours): Temp Pulse Resp BP Pulse Ox 99.1 F 104 H 20 147/77 99 10/08/17 06:00 10/08/17 06:00 10/08/17 06:00 10/08/17 06:00 10/08/17 06:00 Intake and Output: 10/08/17 10/08/17 06:59 18:59 Intake Total 1080 Output Total 1900 Balance -820 - Medications Medications: Current Medications Acetaminophen (Tylenol 325mg Tab) 650 mg PO Q4H PRN PRN Reason: Temperature Last Admin: 10/07/17 23:44 Dose: 650 mg Albuterol/Ipratropium (Duoneb 3 Mg/0.5 Mg (3 Ml) Ud) 3 ml IH TIDRESP [facility] Emollient Ointment (Vaseline Oint) 5 gm TOP Q6H PRN PRN Reason: Dry skin Last Admin: 10/08/17 01:26 Dose: 5 gm Heparin Sodium (Porcine) (Heparin) 5,000 units SC Q12 [facility] PRN Reason: Protocol Last Admin: 10/07/17 22:20 Dose: 5,000 units Meropenem 1 gm/ Sodium (Chloride) 100 mls @ 100 mls/hr IVPB Q8 [facility] PRN Reason: Protocol Stop: 10/14/17 14:01 Last Admin: 10/08/17 05:21 Dose: 100 mls/hr Vancomycin HCl (Vancomycin 1gm) 1 gm in 250 mls @ 167 mls/hr IVPB Q12 [facility] PRN Reason: Protocol Last Admin: 10/07/17 22:20 Dose: 167 mls/hr Sodium Chloride (Sodium Chloride 0.45%) 1,000 mls @ 60 mls/hr IV .[id number] [facility] Last Admin: 10/08/17 01:04 Dose: Not Given Home Med - Calcipotriene [ Dovonex] 120 Gm 120 gm TP DAILY [facility] Last Admin: 10/07/17 12:12 Dose: Not Given Pantoprazole Sodium (Protonix Ec Tab) 40 mg PO 0600 [facility] Last Admin: 10/08/17 05:21 Dose: 40 mg - Labs Labs: 10/08/17 06:30 10/08/17 06:30 PT 19.1 SECONDS (9.4-12.5) H 10/05/17 10:30 INR 1.72 (0.93-1.08) H 10/05/17 10:30 APTT 28.5 Seconds (25.1-36.5) 10/05/17 10:30 - Constitutional Appears: Well, Non-toxic, No Acute Distress - Extremities Exam Additional comments: Lower extremity focused exam Vasc: DP and PT pulses are unpalable, likely due to LE edema, CFT < 3 seconds to all ten digits. Skin temperature warm to warm from proximal to distal, edema noted to the LE bilaterally Neuro: Gross and protective sensation intact Derm: Multiple, diffuse psoriatic plaques noted to b/l legs and feet circumfrentially. Plaques are lifting from the anterior aspect of the shins with mild amount of serous drainage b/l. Large ulceration noted to the posterior aspect of the left lower extremity measuring approximately 8 cm x 6 cm x .3 with Achilles tendon visible. Wound base is approximately 85% fibrotic, 5% necrotic, and 10% granular. Necrotic discoloration noted mainly to the exposed achilles tendon. Undermining noted to the superior portion of the wound, odorous, erythematous, periwound is intact and hyperkeratotic, no tunneling noted, no abscess, no active drainage noted during the visitation. Second ulceration noted to posterior right calf measuring roughly 5 cm x 3 cm x 0.2 cm. Wound base is mix of fibrogranular tissue. Minimal serosanguinous drainage noted with associated malodor and minimal periwound erythema. No tracking, tunneling, undermining or probe to bone appreciated. Ortho: Tenderness to the LE, pain > to posterior wounds on the left leg - Neurological Exam Neurological Exam: Alert, Awake, Oriented x3 - Psychiatric Exam Psychiatric exam: Normal Affect, Normal Mood Assessment and Plan - Assessment and Plan (Free Text) Assessment: 77 year old female with PMH of HLD, HTN, psoriasis with multiple plaques and wounds to bilateral lower extremities secondary to psoriasis Plan: Patient seen and evaluated at bedside with attending Dr. Samson Afebrile, absent leukocytosis Wound cx 10/06/17 - Citrobacter Freundii 10/05 LE US- No evidence of DVT 10/05 LE MRI- No evidence of OM 10/05 LE arterial duplex - Severely abnormal ORLIN's at rest, bilateral SFA disease, bilateral tibial disease Dr. Cho consulted for further vascular workup Continue IV abx per ID Wounds dressed with Optifoam and Kirlix Lostrisone and Bactroban ordered to be applied tomorrow No plan for surgical intervention at this time Podiatry will continue to follow <Cherise Samson - Last Filed: 10/09/17 14:30> Objective - Vital Signs/Intake and Output Vital Signs (last 24 hours): Temp Pulse Resp BP Pulse Ox 102.5 F H 113 H 20 145/79 100 10/08/17 16:00 10/08/17 18:00 10/08/17 16:00 10/08/17 16:00 10/08/17 16:00 - Labs Labs: 10/08/17 06:30 10/08/17 06:30 PT 19.1 SECONDS (9.4-12.5) H 10/05/17 10:30 INR 1.72 (0.93-1.08) H 10/05/17 10:30 APTT 28.5 Seconds (25.1-36.5) 10/05/17 10:30 Attending/Attestation - Attestation I have personally seen and examined this patient.: Yes I have fully participated in the care of the patient.: Yes I have reviewed all pertinent clinical information, including history, physical exam and plan: Yes
[2017-10-08] MEDS: CALCIPOTRIENE 120 GM TP SCH (11:08)
[2017-10-08] MEDS: Vancomycin 1gm in NS 250ml 1 GM/250 ML BAG IVPB SCH (11:09)
--- NOTE | 2017-10-08 11:30 | PN ---
DATE: SUBJECTIVE: I saw her resting comfortably in bed. She slept fairly well. Her legs are very much bandaged. She is weak. She is also coughing, a little bit congested today. She is here for sepsis, bilateral lower extremity cellulitis, psoriasis, GERD, hypertension, high cholesterol, CAD. She is on Merrem and vancomycin. I am trying to get her to TCU to finish off the IV antibiotics and treatment. She has been coughing this morning. PHYSICAL EXAMINATION: VITAL SIGNS: 99.1 temp, 104 pulse, 147/77 blood pressure, 20 respiratory rate, 99% O2 sat on room air. HEENT: Head is atraumatic, normocephalic. Throat is moist. NECK: Supple. HEART: Regular rate. LUNGS: Have mild congestion. ABDOMEN: Soft, nontender. EXTREMITIES: Wrapped. She has a bad cellulitis in the extremities and arms of bullous pemphigus and psoriasis. MEDICATIONS: She is on heparin, Merrem, Protonix, IV fluids, Tylenol, vancomycin, and Vaseline. LABORATORY DATA: She has a 135 sodium, potassium 3.7, BUN of 7, creatinine 0.7, GFR is greater than 60, sugar is 74, calcium is 7.9, total bili is 0.3, AST is 55, ALT is 30, alk phos 82. White count is 8.4, hemoglobin is 9.8, hematocrit 29.4, platelets of 401. She had a chest x-ray on 10/06/2017, 2 days ago and there is some bilateral bibasilar mild atelectasis. ASSESSMENT AND PLAN: If she is still coughing, I am going to get Pulmonary's opinion. I am going to get consulted also. We will check her labs. Out of bed to chair. They will get her to Transitional Care Unit for intravenous antibiotics to finish up the course and physical therapy. Otis Harris DO MTD[facility]ero
[2017-10-08] MEDS: Albuterol-Ipratrop 3 mg / 0.5 (3 ml) UD IH SCH ×3 (11:47→19:25)
--- NOTE | 2017-10-08 14:02 | CON ---
DATE: 10/08/2017 PULMONARY CONSULTATION REASON FOR CONSULTATION: Congestion. REFERRING PHYSICIAN: Otis Harris DO HISTORY OF PRESENT ILLNESS: The patient is a 77-year-old female, with past medical history significant for advanced psoriasis, recurrent cellulitis of her legs, coronary artery disease, status post cardiac stent, questionable chronic obstructive pulmonary disease (positive former smoker), hypertension, and hyperlipidemia, who presented to [facility] - originally on 10/04/2017 - with worsening pain, redness, and swelling of lower extremities. In the Emergency Room, the patient was noted to have an acute cellulitis. She was thus admitted for additional evaluation. The patient denies shortness of breath at rest or dyspnea on exertion. She does state to an occasional cough with no sputum production. There is no history of chest pain, coughing up of blood, or chest pain - made worse with deep respirations. The patient did present to the hospital with fevers. No history of chills or infectious exposure. No history of night sweats, weight loss or appetite change prior to the above events. No history of calf pains. No history of syncope or diaphoresis. No history of recent travel or trauma. REVIEW OF SYSTEMS: No history of nausea, vomiting or diarrhea. No acute urinary symptoms. No new neurologic complaints. Rest of the review of systems negative. ALLERGIES: THERE ARE NO KNOWN ALLERGIES. SOCIAL HISTORY: Positive for extensive tobacco usage - stopped 10 years ago, no alcohol. FAMILY HISTORY: No inheritable diseases. MEDICATIONS: Home medications listed are Dovonex and Otezla. PHYSICAL EXAMINATION: GENERAL: The patient appears comfortable at rest. She is not short of breath. VITAL SIGNS: Temperature is 100.5, pulse on the monitor is 100, respiratory rate of 18/20, and blood pressure of 123/57. Oxygen saturation on room air is 100%. HEENT: Normocephalic and atraumatic. No JVD. CARDIOVASCULAR: Systolic ejection murmur at the lower left sternal border. No S3 gallop. LUNGS: Decreased breath sounds at the bases. Minimal rhonchi. No wheezing. EXTREMITIES: Both lower extremities are erythematous and with evidence of cellulitis. There is edema in both lower extremities. There is no cyanosis or clubbing. The calves are nontender to palpation. GASTROINTESTINAL: Abdomen is soft, nontender and nondistended. Bowel sounds are positive. SKIN: Reveals evidence of diffuse psoriasis especially on the extremities. NEUROLOGIC: Exam is limited at the present time. PERTINENT LABORATORY DATA Chest x-ray was done on 10/06/2017. There are minimal chronic appearing changes at the bases. There are no acute infiltrates. CBC: White count of 8.4, hemoglobin of 9.8, hematocrit of 29.4, and platelets of 401,000. IMPRESSION 1. Bilateral lower leg cellulitis. 2. Advanced psoriasis. 3. Probable chronic obstructive pulmonary disease. 4. Mild bronchospasm. 5. Mild anemia. PLAN: The patient presents to [facility] with worsening pain, edema, and erythema of her lower extremities. She does have a history of lower leg cellulitis. In the Emergency Room, the patient was febrile and with a leukocytosis. She was thus admitted for additional evaluation. I did discuss the patient's pulmonary history with her at length. Other than an occasional cough, she offers no other pulmonary complaints. On physical exam, there is only minimal bronchospasm noted. In addition, there is no significant alveolar-arterial gradient. Oxygen saturation on room air is 98% to 100%. The patient does have an extensive smoking history. I will start DuoNeb treatments this morning. I would continue with the antibiotic coverage as per infectious disease. Input by Dr. Velazquez is noted. I would continue with the Podiatry evaluation as noted. Clinical status of the patient is improved - compared to the initial presentation. I did discuss the above with Dr. Harris. Thank you very much for this pulmonary consultation. Darron Hays MD [facility]TD[facility]
--- NOTE | 2017-10-08 15:57 | CP.PCM.PN ---
Subjective - Date & Time of Evaluation Date of Evaluation: 10/08/17 Time of Evaluation: 11:50 - Subjective Subjective: Patient still having low grade fevers but not in distress. Objective - Vital Signs/Intake and Output Vital Signs (last 24 hours): Temp Pulse Resp BP Pulse Ox 99.1 F 104 H 20 147/77 99 10/08/17 06:00 10/08/17 06:00 10/08/17 06:00 10/08/17 06:00 10/08/17 06:00 Intake and Output: 10/08/17 10/08/17 06:59 18:59 Intake Total 1080 Output Total 1900 Balance -820 - Medications Medications: Current Medications Acetaminophen (Tylenol 325mg Tab) 650 mg PO Q4H PRN PRN Reason: Temperature Last Admin: 10/07/17 23:44 Dose: 650 mg Albuterol/Ipratropium (Duoneb 3 Mg/0.5 Mg (3 Ml) Ud) 3 ml IH TIDRESP [facility] Betamethasone/Clotrimazole (Lotrisone) 0 gm TOP BID [facility] Emollient Ointment (Vaseline Oint) 5 gm TOP Q6H PRN PRN Reason: Dry skin Last Admin: 10/08/17 01:26 Dose: 5 gm Heparin Sodium (Porcine) (Heparin) 5,000 units SC Q12 [facility] PRN Reason: Protocol Last Admin: 10/07/17 22:20 Dose: 5,000 units Meropenem 1 gm/ Sodium (Chloride) 100 mls @ 100 mls/hr IVPB Q8 [facility] PRN Reason: Protocol Stop: 10/14/17 14:01 Last Admin: 10/08/17 05:21 Dose: 100 mls/hr Vancomycin HCl (Vancomycin 1gm) 1 gm in 250 mls @ 167 mls/hr IVPB Q12 [facility] PRN Reason: Protocol Last Admin: 10/07/17 22:20 Dose: 167 mls/hr Sodium Chloride (Sodium Chloride 0.45%) 1,000 mls @ 60 mls/hr IV .[id number] [facility] Last Admin: 10/08/17 01:04 Dose: Not Given Mupirocin (Bactroban Ointment) 0 gm TOP BID [facility] Home Med - Calcipotriene [ Dovonex] 120 Gm 120 gm TP DAILY [facility] Last Admin: 10/07/17 12:12 Dose: Not Given Pantoprazole Sodium (Protonix Ec Tab) 40 mg PO 0600 [facility] Last Admin: 10/08/17 05:21 Dose: 40 mg - Labs Labs: 10/08/17 06:30 10/08/17 06:30 PT 19.1 SECONDS (9.4-12.5) H 10/05/17 10:30 INR 1.72 (0.93-1.08) H 10/05/17 10:30 APTT 28.5 Seconds (25.1-36.5) 10/05/17 10:30 - Constitutional Appears: Chronically Ill - Head Exam Head Exam: NORMAL INSPECTION - Respiratory Exam Respiratory Exam: Decreased Breath Sounds - Cardiovascular Exam Cardiovascular Exam: +S1, +S2 - GI/Abdominal Exam GI & Abdominal Exam: Soft. absent: Tenderness - Extremities Exam Additional comments: both lower extremities with dressings in place Assessment and Plan - Assessment and Plan (Free Text) Plan: Assessment sepsis with bilateral lower extremity cellulitis with no evidence of osteomyelitis, growing Citrobacter, Serratia and Group B Strep psoriasis GERD HTN dyslipidemia CAD Plan Continue Merrem day 4 to complete 7-10 days of therapy
[2017-10-08] MEDS ORDERED: Clotrimazole/Betamethasone Cream(15 gm) TOP SCH (18:00)
[2017-10-08 20:19] VITALS: BP 145/79; RESP 20; TEMP 102.5; O2SAT 100
[2017-10-08 21:30] VITALS: PULSE 113
== END 2017-10-08 21:54 | DRG 872 ==
LOC: ED 15:31 → ERH 18:16 → 3RSO 20:35
PROVIDERS: ADMIT Family Medicine; ATTEND Family Medicine
PROC: 3E0F7GC Introduction of Other Therapeutic Substance into Respiratory Tract, Via Natural or Artificial Opening (ICD-10-PCS; principal; 2017-10-08)
DX: A41.9 Sepsis, unspecified organism (principal); L03.115 Cellulitis of right lower limb; L03.116 Cellulitis of left lower limb; L97.919 Non-pressure chronic ulcer of unspecified part of right lower leg with unspecified severity; L97.929 Non-pressure chronic ulcer of unspecified part of left lower leg with unspecified severity; D64.9 Anemia, unspecified; L40.9 Psoriasis, unspecified; J98.01 Acute bronchospasm; E78.00 Pure hypercholesterolemia, unspecified; I10 Essential (primary) hypertension; I25.10 Atherosclerotic heart disease of native coronary artery without angina pectoris; R33.9 Retention of urine, unspecified; K21.9 Gastro-esophageal reflux disease without esophagitis; Z87.891 Personal history of nicotine dependence; Z95.5 Presence of coronary angioplasty implant and graft; Z90.49 Acquired absence of other specified parts of digestive tract

== ENCOUNTER 2017-10-08 22:27 | Inpatient (IN) | payer OTHER ==
[2017-10-08 22:56] VITALS: BMI 27.3
[2017-10-08] MEDS: Meropenem IV 1 gm in NS 50 ML IVPB SCH (23:54)
[2017-10-09] MEDS: Meropenem IV 1 gm in NS 50 ML IVPB SCH (05:49)
[2017-10-09] MEDS: Pantoprazole 40 mg EC Tab PO SCH (05:50)
[2017-10-09] MEDS ORDERED: Meropenem 1 GM in Dextrose 5% In Water 100 ML IVPB SCH (06:45)
[2017-10-09] MEDS: Albuterol-Ipratrop 3 mg / 0.5 (3 ml) UD IH SCH ×3 (07:03→21:08)
[2017-10-09 07:24] LABS: HEMOGLOBIN 9.9 g/dL (12.0-16.0); MEAN CELL VOLUME 80.5 fl (80.0-105.0); MEAN CORPUSCULAR HEMOGLOBIN 26.5 pg (25.0-35.0); MEAN CORPUSCULAR HGB CONC 32.9 g/dl (31.0-37.0); MEAN PLATELET VOLUME 8.6 fl (7.0-11.0); RBC 3.74 10^6/uL (3.5-6.1); RED CELL DISTRIBUTION WIDTH 14.7 % (11.5-14.5); WHITE BLOOD COUNT 6.2 10^3/ul (4.5-11.0)
[2017-10-09] MEDS ORDERED: Meropenem IV 1 gm in NS 50 ML IVPB SCH (07:33)
--- NOTE | 2017-10-09 07:51 | PN ---
DATE: 10/09/2017 PULMONARY NOTE SUBJECTIVE: The patient appears comfortable this morning. She is not short of breath at rest. PHYSICAL EXAMINATION: VITAL SIGNS: Temperature is 97.8, pulse 77, respirations 18/20, blood pressure 135/70. Oxygen saturation on nasal cannula is 98%. HEENT: Normocephalic, atraumatic. NECK: No JVD. CARDIOVASCULAR: Systolic ejection murmur at the lower left sternal border. No S3 gallop. LUNGS: Decreased breath sounds at the bases. Minimal/less rhonchi. No wheezing. EXTREMITIES: Both lower extremities are erythematous and with evidence of cellulitis. There is edema in both lower extremities. There is no clubbing or cyanosis. The calves are nontender to palpation. GI: Abdomen is soft, nontender and nondistended. Bowel sounds are positive. SKIN: Diffuse psoriatic changes. NEUROLOGIC: Exam limited at the present time. PERTINENT LABORATORY DATA: Chest x-ray was done this morning and reviewed. There are minimal changes noted at the bases(right more than left). Official results-pending. IMPRESSION: 1. Bilateral lower leg cellulitis. 2. Advanced psoriasis. 3. Chronic obstructive pulmonary disease. 4. Mild bronchospasm. 5. Mild anemia. PLAN: The patient appears comfortable this morning. She is not short of breath at rest. She states that her breathing is certainly better on the respiratory treatments. She states she is feeling much better overall. On physical exam, there is certainly less bronchospasm noted. In addition, the oxygen saturation on nasal cannula is 98%. I will continue with the current nebulizer treatments for now. The patient remains on antibiotic therapy. Input by Infectious Disease is noted. Inputs by Podiatry and Surgery are also noted. Clinical status of the patient is certainly improved overall. The patient is now on the Transitional Unit - where she will participate with physical therapy. I will discuss the above with Dr. Harris. Darron Hays MD MTDD
[2017-10-09 08:31] LABS: ALB/GLOB RATIO 0.6 (1.1-1.8); ALBUMIN 2.4 g/dL (3.0-4.8); ALT/SGPT 33 U/L (7-56); AST/SGOT 79 U/L (14-36); BLOOD UREA NITROGEN 6 mg/dL (7-21); CALCIUM 8.1 mg/dL (8.4-10.5); GFR AFRICAN-AMERICAN > 60; GFR NON-AFRICAN AMERICAN > 60
--- NOTE | 2017-10-09 10:00 | RAD ---
HISTORY: rule out pneumonia COMPARISON: 10/06/2017 FINDINGS: LUNGS: There is a patchy infiltrate at the right lung base PLEURA: No significant pleural effusion identified, no pneumothorax apparent. CARDIOVASCULAR: Normal. OSSEOUS STRUCTURES: No significant abnormalities. VISUALIZED UPPER ABDOMEN: Normal. OTHER FINDINGS: None. IMPRESSION: Patchy infiltrate at the right lung base
[2017-10-09] MEDS: Clotrimazole/Betamethasone Cream(15 gm) TOP SCH ×2 (10:25→18:22)
--- NOTE | 2017-10-09 12:43 | CP.PCM.CON ---
History of Present Illness - History of Present Illness History of Present Illness: 77 year old female with PMH of psoriasis, HTN, CAD S/P PCI, S/P cholecystectomy , GERD was initially admitted in [facility] because of bilateral lower extremity cellulitis and has been on antibiotics with some clinical improvement. She is now transferred to [facility] for continued medical therapy and physical rehab. While in [facility] the patient developed fever of 101 F. She does not have SOB, no cough, no dysuria or diarrhea. Infectious Diseases consult is requested to further evaluate and manage. Review of Systems - Review of Systems All systems: reviewed and no additional remarkable complaints except (as per HPI ) Past Patient History - Infectious Disease Hx of Infectious Diseases: None - Past Medical History & Family History Past Medical History?: Yes - Past Social History Smoking Status: Former Smoker - CARDIAC Hx Hypercholesterolemia: Yes Hx Hypertension: Yes - PULMONARY Hx Respiratory Disorders: Yes (smoked cigarettes) - NEUROLOGICAL Hx Neurological Disorder: No - HEENT Hx HEENT Problems: No - RENAL Hx Chronic Kidney Disease: No - ENDOCRINE/METABOLIC Hx Endocrine Disorders: No - HEMATOLOGICAL/ONCOLOGICAL Hx Blood Disorders: No - INTEGUMENTARY Hx Psoriasis: Yes - MUSCULOSKELETAL/RHEUMATOLOGICAL Hx Falls: No - GASTROINTESTINAL Hx Gastroesophageal Reflux: Yes - GENITOURINARY/GYNECOLOGICAL Hx Reproductive Disorders: No - PSYCHIATRIC Hx Substance Use: No - SURGICAL HISTORY Hx Cardiac Catheterization: Yes - ANESTHESIA Hx Anesthesia Reactions: No Hx Malignant Hyperthermia: No Meds Allergies/Adverse Reactions: Allergies Allergy/AdvReac Type Severity Reaction Status Date / Time No Known Allergies Allergy Verified 10/08/17 22:56 - Medications Medications: Current Medications Acetaminophen (Tylenol 325mg Tab) 650 mg PO Q4H PRN PRN Reason: Temperature Last Admin: 10/08/17 23:54 Dose: 650 mg Albuterol/Ipratropium (Duoneb 3 Mg/0.5 Mg (3 Ml) Ud) 3 ml IH TIDRESP [facility] Betamethasone/Clotrimazole (Lotrisone) 1 gm TOP BID [facility] Emollient Ointment (Vaseline Oint) 5 gm TOP Q6H PRN PRN Reason: Dry skin Heparin Sodium (Porcine) (Heparin) 5,000 units SC Q12 [facility] PRN Reason: Protocol Last Admin: 10/08/17 23:53 Dose: 5,000 units Sodium Chloride (Sodium Chloride 0.45%) 1,000 mls @ 60 mls/hr IV .[id number] [facility] Meropenem 1 gm/ Dextrose 100 mls @ 100 mls/hr IVPB Q8 [facility] PRN Reason: Protocol Stop: 10/16/17 06:46 Vancomycin HCl (Vancomycin 1gm) 1 gm in 250 mls @ 167 mls/hr IVPB Q12H [facility] PRN Reason: Protocol Mupirocin (Bactroban Ointment) 1 gm TOP BID [facility] Calcipotriene [ Dovonex] 120 Gm ( Home Med) 120 gm TP DAILY [facility] Pantoprazole Sodium (Protonix Ec Tab) 40 mg PO 0600 [facility] Last Admin: 10/09/17 05:50 Dose: 40 mg Physical Exam - Constitutional Appears: Chronically Ill - Head Exam Head Exam: NORMAL INSPECTION - Respiratory Exam Respiratory Exam: Decreased Breath Sounds - Cardiovascular Exam Cardiovascular Exam: +S1, +S2 - GI/Abdominal Exam GI & Abdominal Exam: Soft. absent: Tenderness - Extremities Exam Additional comments: both legs with dressings in place Results - Vital Signs Recent Vital Signs: Last Vital Signs Temp 97.8 F 10/09/17 06:00 Pulse 80 10/09/17 06:00 Resp 20 10/09/17 06:00 BP 135/70 10/09/17 06:00 Pulse Ox 98 10/09/17 06:00 - Labs Result Diagrams: 10/09/17 07:00 10/09/17 07:45 Assessment & Plan - Assessment and Plan (Free Text) Plan: Assessment new onset systemic inflammatory response syndrome, R/O new onset sepsis on top of sepsis with bilateral lower extremity cellulitis with no evidence of osteomyelitis, growing Citrobacter, Serratia and Group B Strep psoriasis GERD HTN dyslipidemia CAD Plan Continue Merrem day 5 and add Vancomycin and will repeat blood, urine cx, PCT, CXR and will monitor clinically and trend fever curve
--- NOTE | 2017-10-09 14:32 | HP ---
HISTORY OF PRESENT ILLNESS: She was in the hospital side and actually moved to the Transitional Care Unit. This is a 77-year-old female who had worsening of leg cellulitis and she was brought into the hospital for IV antibiotics. She is on the TCU now for IV antibiotics and also physical therapy. PAST MEDICAL HISTORY: MRSA cellulitis, CAD with a stent, hypertension, high cholesterol, GERD, psoriasis, edema, and massive cellulitis of the lower extremities on IV antibiotics. ALLERGIES: NO KNOWN DRUG ALLERGIES. SOCIAL HISTORY: She quit 15 years ago, but she smoked for 30 years. Occasional beers and alcohol. No substance abuse. REVIEW OF SYSTEMS: No acute vision or hearing changes. No sore throat. No neck pain. No chest pain or palpitations. No shortness of breath. No cough. No abdominal pain. No nausea, vomiting, constipation or diarrhea. Both lower extremities are red and inflamed. The arms are red and inflamed from psoriasis and bullous pemphigus symptoms. PHYSICAL EXAMINATION: VITAL SIGNS: She has 98.1 temperature, was 101, 80 pulse, 135/70 blood pressure, 20 respiratory rate and 90% O2 saturation on nasal cannula. HEENT: Head is atraumatic and normocephalic. Extraocular muscles are intact. Throat is moist. NECK: Supple. HEART: Regular rate. LUNGS: Decreased breath sounds. Clear to auscultation. ABDOMEN: Soft and nontender. Positive bowel sounds. EXTREMITIES: Trace edema, red and inflamed, that is bandaged, that look very cellulitic on extremities, upper and lower. NEUROLOGIC: Alert and oriented x3. Cranial nerves II through XII grossly intact. GCS is 15. LYMPH NODES: Thyroid is midline. No palpable appreciable lymphadenopathy. LABORATORY DATA: She has white count of 17,000 when she came into the hospital, now the white count is 6.2, hemoglobin 9.9, hematocrit 30.1, and platelets of 348. She has 136 sodium, potassium is 3.5, we replaced the potassium, BUN is 6, creatinine is 0.7, GFR is greater than 60, sugars are 81, and calcium is 8.3. Total bilirubin 0.3, AST is 79, ALT is 33, alkaline phosphatase is 83, total protein is 6.4, and albumin is 2.4. She was seen by Pulmonary today. Chest x-ray is pending. ASSESSMENT AND PLAN: She has multiple issues, sepsis secondary to cellulitis, urinary retention, anemia, advanced psoriasis, chronic obstructive pulmonary disease, and bronchospasm. We will continue with aggressive treatment and care. She has consults with Infectious Disease, Podiatry, Surgery, Vascular, and Pulmonology. We will check her labs tomorrow. Encouraged her to do physical therapy, take medications and hope she will improve shortly. Otis Harris DO
[2017-10-09] MEDS: Vancomycin 1gm in NS 250ml 1 GM/250 ML BAG IVPB SCH ×2 (18:21→18:54)
[2017-10-09] MEDS: CALCIPOTRIENE 120 GM TP SCH (18:22)
[2017-10-10] MEDS: Pantoprazole 40 mg EC Tab PO SCH (05:59)
[2017-10-10] MEDS: Vancomycin 1gm in NS 250ml 1 GM/250 ML BAG IVPB SCH ×2 (06:00→18:29)
[2017-10-10 06:44] LABS: HEMOGLOBIN 9.7 g/dL (12.0-16.0); MEAN CELL VOLUME 80.2 fl (80.0-105.0); MEAN CORPUSCULAR HEMOGLOBIN 26.7 pg (25.0-35.0); MEAN CORPUSCULAR HGB CONC 33.3 g/dl (31.0-37.0); MEAN PLATELET VOLUME 8.1 fl (7.0-11.0); RBC 3.63 10^6/uL (3.5-6.1); RED CELL DISTRIBUTION WIDTH 15.1 % (11.5-14.5); WHITE BLOOD COUNT 8.2 10^3/ul (4.5-11.0)
[2017-10-10] MEDS: Albuterol-Ipratrop 3 mg / 0.5 (3 ml) UD IH SCH ×3 (07:27→20:19)
[2017-10-10 07:43] LABS: ALB/GLOB RATIO 0.7 (1.1-1.8); ALBUMIN 2.5 g/dL (3.0-4.8); ALT/SGPT 41 U/L (7-56); AST/SGOT 105 U/L (14-36); BLOOD UREA NITROGEN 6 mg/dL (7-21); CALCIUM 7.9 mg/dL (8.4-10.5); GFR AFRICAN-AMERICAN > 60; GFR NON-AFRICAN AMERICAN > 60
--- NOTE | 2017-10-10 08:51 | PN ---
DATE: 10/10/2017 PULMONARY PROGRESS NOTE SUBJECTIVE: The patient appears very comfortable this morning. She is not short of breath at rest. PHYSICAL EXAMINATION: VITAL SIGNS: (Last noted in the computer): Temperature is 97.5, pulse is 77, respirations are 18/20, and blood pressure is 126/78. Oxygen saturation on nasal cannula is 98%. HEENT: Normocephalic and atraumatic. NECK: No JVD. CARDIOVASCULAR: Systolic ejection murmur at the lower left sternal border. No S3 gallop. LUNGS: Decreased breath sounds at the bases. Minimal bilateral rhonchi. No wheezing. EXTREMITIES: Both lower extremities are now wrapped. There is evidence of cellulitis in both lower extremities. There is less edema. There is no cyanosis or clubbing. Calves are nontender to palpation. GASTROINTESTINAL: Abdomen is soft, nontender and nondistended. Bowel sounds are positive. SKIN: Diffuse psoriatic changes. NEUROLOGIC: Exam is limited at the present time. PERTINENT LABORATORY DATA Pertinent Laboratory Data: CBC: White count of 8.2, hemoglobin of 9.7, hematocrit of 29.1, and platelets of 350,000. Procalcitonin was done yesterday. It is positive at 2.12. IMPRESSION: 1. Bilateral lower leg cellulitis. 2. Advanced psoriasis. 3. Right lower lobe pneumonia. 4. Chronic obstructive pulmonary disease. 5. Mild bronchospasm. 6. Mild anemia. PLAN: The patient appears comfortable this morning. She is not short of breath at rest. She does state to feeling better overall. On physical exam, there is less bronchospasm noted. In addition, the oxygen saturation on nasal cannula is 98%. I will continue the current nebulizer treatments for now. I did review the chest x-ray from yesterday, and the procalcitonin done. Findings are consistent with a new right lower lobe pneumonia. I would continue with the antibiotic coverage as per infectious disease. Input by Dr. Velazquez is noted. Temperatures are now resolving. Clinical status of the patient is improved - but remains guarded. I will discuss the above with Dr. Harris. Darron Hays MD [facility] # [id number] RD
--- NOTE | 2017-10-10 12:05 | PN ---
DATE: SUBJECTIVE: I saw Meche resting comfortably in bed. Apparently, her IV access fell out, we had to put a midline in now to continue with her IV antibiotics for the rest of the week. Also, she is on physical therapy. She is comfortable in bed. She is eating some. She is on Bactroban, Lovenox, DuoNeb, heparin, Lotrisone cream, Merrem IV, Protonix, IV fluid, Tylenol, vancomycin IV, and Vaseline. PHYSICAL EXAMINATION: VITAL SIGNS: She has a 97.5 temperature, 77 pulse, 126/78 blood pressure, 20 respiratory rate, 98% O2 sat on 2 L. HEENT: Head is atraumatic, normocephalic. HEART: Regular rate. LUNGS: Decreased breath sounds, but clear. ABDOMEN: Soft, nontender, positive bowel sounds. EXTREMITIES: They are inflamed, reddened. They are bandaged on the lower extremities from multiple cellulitis and bullous, pemphigus looking lesions. LABORATORY DATA: She has an 8.2 white count, 9.7 hemoglobin, 29.1 hematocrit with 350 platelets. She has a 135 sodium, potassium 3.7, BUN 6, creatinine 0.8, GFR is greater than 60, sugar is 81, calcium is 7.9, total bilirubin is 0.2, AST is 105, ALT is 41, alkaline phosphatase is 79. Total protein is 6.2. Procalcitonin is 2.12, still elevated. ASSESSMENT AND PLAN: She is being seen by Infectious Disease and Pulmonology. She has few things going on. She has psoriasis, cellulitis bilateral lower extremities, anemia, debility, right lower lobe pneumonia, chronic obstructive pulmonary disease. We will continue with aggressive treatment and care. She will need to have a midline placed with the IV access with IV fluid and IV antibiotics. She needs physical therapy daily, out of bed to chair. We will check her labs tomorrow. Otis Harris DO
--- NOTE | 2017-10-10 12:22 | CP.PCM.PN ---
Subjective - Date & Time of Evaluation Date of Evaluation: 10/10/17 Time of Evaluation: 12:05 - Subjective Subjective: Still having pain in the legs but a little less, no fevers overnight. No diarrhea, no nausea. Objective - Vital Signs/Intake and Output Vital Signs (last 24 hours): Temp Pulse Resp BP Pulse Ox 97.5 F L 77 20 126/78 98 10/09/17 10:00 10/09/17 10:00 10/09/17 10:00 10/09/17 10:00 10/09/17 10:00 Intake and Output: 10/10/17 10/10/17 06:59 18:59 Output Total 300 Balance -300 - Medications Medications: Current Medications Acetaminophen (Tylenol 325mg Tab) 650 mg PO Q4H PRN PRN Reason: Temperature Last Admin: 10/09/17 19:56 Dose: 650 mg Albuterol/Ipratropium (Duoneb 3 Mg/0.5 Mg (3 Ml) Ud) 3 ml IH TIDRESP [facility] Last Admin: 10/10/17 07:27 Dose: 3 ml Betamethasone/Clotrimazole (Lotrisone) 1 gm TOP BID [facility] Last Admin: 10/09/17 18:22 Dose: 1 applic Emollient Ointment (Vaseline Oint) 5 gm TOP Q6H PRN PRN Reason: Dry skin Heparin Sodium (Porcine) (Heparin) 5,000 units SC Q12 [facility] PRN Reason: Protocol Last Admin: 10/10/17 05:59 Dose: Not Given Sodium Chloride (Sodium Chloride 0.45%) 1,000 mls @ 60 mls/hr IV .[id number] [facility] Vancomycin HCl (Vancomycin 1gm) 1 gm in 250 mls @ 167 mls/hr IVPB Q12H [facility] PRN Reason: Protocol Last Admin: 10/10/17 06:00 Dose: 167 mls/hr Meropenem 1 gm/ Sodium (Chloride) 50 mls @ 100 mls/hr IVPB Q8 [facility] Stop: 10/14/17 22:01 Last Admin: 10/10/17 05:59 Dose: 100 mls/hr Mupirocin (Bactroban Ointment) 1 gm TOP BID [facility] Last Admin: 10/09/17 18:22 Dose: 1 applic Calcipotriene [ Dovonex] 120 Gm ( Home Med) 120 gm TP DAILY [facility] Last Admin: 10/09/17 18:22 Dose: Not Given Pantoprazole Sodium (Protonix Ec Tab) 40 mg PO 0600 [facility] Last Admin: 10/10/17 05:59 Dose: 40 mg - Labs Labs: 10/10/17 06:30 10/10/17 06:30 - Constitutional Appears: Chronically Ill - Head Exam Head Exam: NORMAL INSPECTION - ENT Exam ENT Exam: Mucous Membranes Moist - Neck Exam Neck Exam: absent: Meningismus - Respiratory Exam Respiratory Exam: Decreased Breath Sounds - Cardiovascular Exam Cardiovascular Exam: +S1, +S2 - GI/Abdominal Exam GI & Abdominal Exam: Soft. absent: Tenderness - Extremities Exam Additional comments: both lower extremities with dressings in place Assessment and Plan - Assessment and Plan (Free Text) Plan: Assessment new onset systemic inflammatory response syndrome, R/O new onset sepsis on top of sepsis with bilateral lower extremity cellulitis with no evidence of osteomyelitis, growing Citrobacter, Serratia and Group B Strep psoriasis GERD HTN dyslipidemia CAD Plan Continue Merrem day 6 and Vancomycin day 2 ; repeat blood cx negative so far, follow up urine cx, PCT; CXR does not shos infiltrates will continue to monitor clinically and trend fever curve
[2017-10-10] MEDS: Sodium Chloride 0.45% 1,000 ML IV SCH (16:15)
--- NOTE | 2017-10-10 16:36 | CP.PCM.PN ---
<Kevin,Mark - Last Filed: 10/10/17 16:31> Subjective - Date & Time of Evaluation Date of Evaluation: 10/10/17 Time of Evaluation: 16:31 - Subjective Subjective: 77 y.o f with PMH of HTN, HLD, and psoriasis seen and evaluated at bedside for bilateral lower extremity ulcerations secondary to psoriasis. Patient is seen resting comfortably in bed, NAD, and AA0x3. Patient denies acute overnight events. Dressing to the LE is clean, dry, and intact with minimal serosanguinious strikethrough noted. Patient reports LE tenderness and pain with palpation as well as severe itchiness to b/l LE. Patient denies n/v/sob/cp/ chills/f or d. Objective - Vital Signs/Intake and Output Vital Signs (last 24 hours): Temp Pulse Resp BP Pulse Ox 97.9 F 95 H 18 124/80 98 10/10/17 10:00 10/10/17 10:00 10/10/17 10:00 10/10/17 10:00 10/10/17 10:00 Intake and Output: 10/10/17 10/10/17 06:59 18:59 Output Total 300 250 Balance -300 -250 - Medications Medications: Current Medications Acetaminophen (Tylenol 325mg Tab) 650 mg PO Q4H PRN PRN Reason: Temperature Last Admin: 10/09/17 19:56 Dose: 650 mg Albuterol/Ipratropium (Duoneb 3 Mg/0.5 Mg (3 Ml) Ud) 3 ml IH TIDRESP [facility] Last Admin: 10/10/17 13:04 Dose: 3 ml Betamethasone/Clotrimazole (Lotrisone) 1 gm TOP BID [facility] Last Admin: 10/09/17 18:22 Dose: 1 applic Emollient Ointment (Vaseline Oint) 5 gm TOP Q6H PRN PRN Reason: Dry skin Heparin Sodium (Porcine) (Heparin) 5,000 units SC Q12 [facility] PRN Reason: Protocol Last Admin: 10/10/17 05:59 Dose: Not Given Sodium Chloride (Sodium Chloride 0.45%) 1,000 mls @ 60 mls/hr IV .[id number] [facility] Last Admin: 10/10/17 16:15 Dose: 60 mls/hr Vancomycin HCl (Vancomycin 1gm) 1 gm in 250 mls @ 167 mls/hr IVPB Q12H [facility] PRN Reason: Protocol Last Admin: 10/10/17 06:00 Dose: 167 mls/hr Meropenem 1 gm/ Sodium (Chloride) 50 mls @ 100 mls/hr IVPB Q8 [facility] Stop: 10/14/17 22:01 Last Admin: 10/10/17 16:22 Dose: 100 mls/hr Mupirocin (Bactroban Ointment) 1 gm TOP BID [facility] Last Admin: 10/09/17 18:22 Dose: 1 applic Calcipotriene [ Dovonex] 120 Gm ( Home Med) 120 gm TP DAILY [facility] Last Admin: 10/09/17 18:22 Dose: Not Given Pantoprazole Sodium (Protonix Ec Tab) 40 mg PO 0600 [facility] Last Admin: 10/10/17 05:59 Dose: 40 mg - Labs Labs: 10/10/17 06:30 10/10/17 06:30 - Constitutional Appears: Well, Non-toxic, No Acute Distress - Extremities Exam Additional comments: Lower extremity focused exam Derm: Diffuse psoriatic plaques and scaling seen to b/l LE. L leg posterior ulceration expaning from medial to lateral malleoli and from level of achilles insertion into calcaneus to mid calf appreciated. Achilles tendon exposed from just proximal to insertion site into calcaneus roughly 5 cm proximal. Rest of wound base is fibrogranula. No periwound erythema, minimal malodor, no purulence noted. No other clinical signs of infection noted R leg posterior wound measuring roughly 5 cm x 3 cm x 0.1 cm. No tunneling, tracking, undermining, or probe to bone. Some bleeding appreciated. No periwound erythema, malodor, purulent drainage or other clinical signs of infection appreciated Vasc: DP and PT pulses are unpalable, likely due to LE edema, CFT < 3 seconds to all ten digits. Skin temperature warm to warm from proximal to distal, edema noted to the LE bilaterally Neuro: Gross and protective sensation intact Ortho: Tenderness to the LE, pain > to posterior wounds on the left leg - Neurological Exam Neurological Exam: Alert, Awake, Oriented x3 - Psychiatric Exam Psychiatric exam: Normal Affect, Normal Mood Assessment and Plan - Assessment and Plan (Free Text) Assessment: 77 y.o f with PMH of HTN, HLD, and psoriasis seen and evaluated at bedside for bilateral lower extremity ulcerations secondary to psoriasis. Plan: Patient seen and evaluated at bedside Plan discussed with attending Dr. Diaz Afebrile, absent leukocytosis Wound cx left leg - Citrobacter Freundii Wound cx right leg - Serratia Species, Beta hemolytic Strep Group B 10/05 LE US- No evidence of DVT 10/05 LE MRI- No evidence of OM 10/05 LE arterial duplex - Severely abnormal ORLIN's at rest, bilateral SFA disease, bilateral tibial disease Continue IV abx per ID Vascular consult appreciated Bactroban applied to both leg wounds Lotrisone applied to psoriatic plaques Left leg wound dressed with adaptic, ABD, DSD Right leg wound dressed with optifoam, DSD No surgical intervention planned at this time Podiatry will continue to follow while patient in house <Yo Diaz - Last Filed: 10/11/17 08:55> Objective - Vital Signs/Intake and Output Vital Signs (last 24 hours): Temp Pulse Resp BP Pulse Ox 98.2 F 100 H 22 152/70 H 98 10/10/17 16:00 10/10/17 16:00 10/10/17 16:00 10/10/17 16:00 10/10/17 16:00 Intake and Output: 10/11/17 10/11/17 06:59 18:59 Intake Total 300 250 Output Total 200 725 Balance 100 -475 - Medications Medications: Current Medications Acetaminophen (Tylenol 325mg Tab) 650 mg PO Q4H PRN PRN Reason: Temperature Last Admin: 10/09/17 19:56 Dose: 650 mg Albuterol/Ipratropium (Duoneb 3 Mg/0.5 Mg (3 Ml) Ud) 3 ml TIDRESP [facility] Last Admin: 10/11/17 07:20 Dose: 3 ml Betamethasone/Clotrimazole (Lotrisone) 0 gm TOP DAILY [facility] Diphenhydramine HCl (Benadryl) 25 mg PO Q6 PRN; Protocol PRN Reason: pruritis Last Admin: 10/11/17 05:34 Dose: 25 mg Emollient Ointment (Vaseline Oint) 5 gm TOP Q6H PRN PRN Reason: Dry skin Heparin Sodium (Porcine) (Heparin) 5,000 units SC Q12 [facility] PRN Reason: Protocol Last Admin: 10/10/17 21:49 Dose: 5,000 units Sodium Chloride (Sodium Chloride 0.45%) 1,000 mls @ 60 mls/hr IV .[id number] [facility] Last Admin: 10/10/17 16:15 Dose: 60 mls/hr Vancomycin HCl (Vancomycin 1gm) 1 gm in 250 mls @ 167 mls/hr IVPB Q12H [facility] PRN Reason: Protocol Last Admin: 10/11/17 06:39 Dose: 167 mls/hr Meropenem (Merrem Iv 1 Gm Premix) 50 mls @ 100 mls/hr IVPB Q8 [facility] Stop: 10/14/17 22:01 Mupirocin (Bactroban Ointment) 1 gm TOP BID [facility] Last Admin: 10/10/17 18:29 Dose: 1 applic Calcipotriene [ Dovonex] 120 Gm ( Home Med) 120 gm TP DAILY [facility] Last Admin: 10/10/17 18:30 Dose: 120 gm Pantoprazole Sodium (Protonix Ec Tab) 40 mg PO 0600 [facility] Last Admin: 10/11/17 05:32 Dose: 40 mg - Labs Labs: 10/11/17 07:00 10/11/17 07:00 Attending/Attestation - Attestation I have personally seen and examined this patient.: Yes I have fully participated in the care of the patient.: Yes I have reviewed all pertinent clinical information, including history, physical exam and plan: Yes
[2017-10-10] MEDS: CALCIPOTRIENE 120 GM TP SCH (18:30)
[2017-10-11] MEDS: Pantoprazole 40 mg EC Tab PO SCH (05:32)
[2017-10-11] MEDS: Vancomycin 1gm in NS 250ml 1 GM/250 ML BAG IVPB SCH ×2 (06:39→17:50)
[2017-10-11] MEDS: Albuterol-Ipratrop 3 mg / 0.5 (3 ml) UD IH SCH ×3 (07:20→22:22)
[2017-10-11 07:42] LABS: ALBUMIN 2.4 g/dL (3.0-4.8); ALT/SGPT 39 U/L (7-56); AST/SGOT 121 U/L (14-36); BLOOD UREA NITROGEN 6 mg/dL (7-21); CALCIUM 7.8 mg/dL (8.4-10.5); GFR AFRICAN-AMERICAN > 60; GFR NON-AFRICAN AMERICAN > 60
[2017-10-11 07:54] LABS: ALB/GLOB RATIO 0.6 (1.1-1.8)
[2017-10-11 08:07] LABS: MEAN CELL VOLUME 80.6 fl (80.0-105.0); MEAN CORPUSCULAR HEMOGLOBIN 26.5 pg (25.0-35.0); MEAN CORPUSCULAR HGB CONC 32.8 g/dl (31.0-37.0); MEAN PLATELET VOLUME 8.7 fl (7.0-11.0); RBC 3.4 10^6/uL (3.5-6.1); RED CELL DISTRIBUTION WIDTH 15.2 % (11.5-14.5); WHITE BLOOD COUNT 7.3 10^3/ul (4.5-11.0)
[2017-10-11 08:21] LABS: URINE BILIRUBIN NEGATIVE (NEGATIVE); URINE BLOOD MODERATE (NEGATIVE); URINE GLUCOSE (UA) NEGATIVE (NEGATIVE); URINE LEUKOCYTE ESTERASE NEGATIVE Leu/uL (NEGATIVE); URINE NITRATE NEGATIVE (NEGATIVE); URINE PROTEIN TRACE mg/dL (<30 mg/dL); URINE UROBILINOGEN 0.2 E.U./dL (<1 E.U./dL)
[2017-10-11 08:30] LABS: URINE APPEARANCE CLEAR (CLEAR); URINE COLOR LIGHT YELLOW (YELLOW)
--- NOTE | 2017-10-11 08:36 | PN ---
DATE: 10/11/2017 PULMONARY PROGRESS NOTE SUBJECTIVE: The patient appears comfortable this morning. She is not short of breath at rest. PHYSICAL EXAMINATION: VITAL SIGNS: Last temperature recorded is 98.2, pulse this morning 88, respiratory rate is 18/20, and blood pressure is 152/70. Oxygen saturation on nasal cannula is 98%. HEENT: Normocephalic and atraumatic. NECK: No JVD. CARDIOVASCULAR: Systolic ejection murmur at the lower left sternal border. No S3 gallop. LUNGS: Decreased breath sounds at the bases. Very minimal/less rhonchi. No wheezing. EXTREMITIES: Both lower extremities remain wrapped. There is less edema. There is no cyanosis or clubbing. Calves are nontender to palpation. GASTROINTESTINAL: Abdomen is soft, nontender and nondistended. Bowel sounds are positive. SKIN: Reveals diffuse psoriatic changes. NEUROLOGIC: Exam is limited at the present time. IMPRESSION 1. Bilateral lower leg cellulitis. 2. Advanced psoriasis. 3. Right lower lobe pneumonia. 4. Chronic obstructive pulmonary disease. 5. Mild bronchospasm. 6. Mild anemia. PLAN: The patient appears comfortable this morning. She is not short of breath at rest. She does state to feeling much better overall. On physical exam, there is only minimal bronchospasm noted. In addition, there is no significant alveolar-arterial gradient. I will continue the current nebulizer treatments for now. I would continue with the antibiotic coverage as per infectious disease. Input by Dr. Velazquez is noted. The temperatures have now resolved. Clinical status of the patient is improved - but remains guarded overall. I will discuss the above with the attending physician.. Darron Hays MD [facility]
[2017-10-11 09:11] LABS: URINE BACTERIA SMALL (NEG); URINE RBC 0 - 2 /hpf (0-2); URINE WBC 0 - 2 /hpf (0-6)
[2017-10-11] MEDS ORDERED: Meropenem IV 1 gm in NS 50 ML IVPB SCH ×2 (10:00→14:00)
[2017-10-11] MEDS: CALCIPOTRIENE 120 GM TP SCH (10:29)
[2017-10-11] MEDS: Clotrimazole/Betamethasone Cream(15 gm) TOP SCH (10:30)
--- NOTE | 2017-10-11 12:36 | CP.PCM.PN ---
Subjective - Date & Time of Evaluation Date of Evaluation: 10/11/17 Time of Evaluation: 12:20 - Subjective Subjective: Resting comfortably in bed, no fevers overnight, not in distress, still with pain in the legs. Objective - Vital Signs/Intake and Output Vital Signs (last 24 hours): Temp Pulse Resp BP Pulse Ox 98.2 F 100 H 22 152/70 H 98 10/10/17 16:00 10/10/17 16:00 10/10/17 16:00 10/10/17 16:00 10/10/17 16:00 Intake and Output: 10/11/17 10/11/17 06:59 18:59 Intake Total 300 250 Output Total 200 725 Balance 100 -475 - Medications Medications: Current Medications Acetaminophen (Tylenol 325mg Tab) 650 mg PO Q4H PRN PRN Reason: Temperature Last Admin: 10/09/17 19:56 Dose: 650 mg Albuterol/Ipratropium (Duoneb 3 Mg/0.5 Mg (3 Ml) Ud) 3 ml IH TIDRESP [facility] Last Admin: 10/11/17 07:20 Dose: 3 ml Betamethasone/Clotrimazole (Lotrisone) 0 gm TOP DAILY [facility] Diphenhydramine HCl (Benadryl) 25 mg PO Q6 PRN; Protocol PRN Reason: pruritis Last Admin: 10/11/17 05:34 Dose: 25 mg Emollient Ointment (Vaseline Oint) 5 gm TOP Q6H PRN PRN Reason: Dry skin Heparin Sodium (Porcine) (Heparin) 5,000 units SC Q12 [facility] PRN Reason: Protocol Last Admin: 10/10/17 21:49 Dose: 5,000 units Sodium Chloride (Sodium Chloride 0.45%) 1,000 mls @ 60 mls/hr IV .[id number] [facility] Last Admin: 10/10/17 16:15 Dose: 60 mls/hr Vancomycin HCl (Vancomycin 1gm) 1 gm in 250 mls @ 167 mls/hr IVPB Q12H [facility] PRN Reason: Protocol Last Admin: 10/11/17 06:39 Dose: 167 mls/hr Meropenem (Merrem Iv 1 Gm Premix) 50 mls @ 100 mls/hr IVPB Q8 [facility] Stop: 10/14/17 22:01 Mupirocin (Bactroban Ointment) 1 gm TOP BID [facility] Last Admin: 10/10/17 18:29 Dose: 1 applic Calcipotriene [ Dovonex] 120 Gm ( Home Med) 120 gm TP DAILY [facility] Last Admin: 10/10/17 18:30 Dose: 120 gm Pantoprazole Sodium (Protonix Ec Tab) 40 mg PO 0600 [facility] Last Admin: 10/11/17 05:32 Dose: 40 mg - Labs Labs: 10/11/17 07:00 10/11/17 07:00 - Constitutional Appears: Chronically Ill - Head Exam Head Exam: NORMAL INSPECTION - Neck Exam Neck Exam: absent: Meningismus - Respiratory Exam Respiratory Exam: Decreased Breath Sounds - Cardiovascular Exam Cardiovascular Exam: +S1, +S2 - GI/Abdominal Exam GI & Abdominal Exam: Soft. absent: Tenderness - Extremities Exam Additional comments: both legs with dressings in place Assessment and Plan - Assessment and Plan (Free Text) Plan: Assessment sepsis with bilateral lower extremity cellulitis with no evidence of osteomyelitis, growing Citrobacter, Serratia and Group B Strep severe PVD psoriasis GERD HTN dyslipidemia CAD Plan Continue Merrem day 7 and Vancomycin day 3 ; repeat blood cx negative so far, follow up urine cx, PCT; CXR does not show infiltrates PVD is concerning in that antibiotics may need to be properly reaching the lower extremities will continue to monitor clinically and trend fever curve
[2017-10-11] MEDS: Meropenem IV 1 gm in NS 50 ML IVPB SCH ×2 (14:43→21:29)
--- NOTE | 2017-10-11 15:07 | PN ---
DATE: SUBJECTIVE: This 77-year-old female seen in TCU for continued evaluation and management of bilateral lower leg ulceration secondary to severe psoriasis. The patient's medical history is significant for hypertension, peripheral arterial disease, HLV, and severe psoriasis. HOME MEDICATIONS: Noted in MAR. PHYSICAL EXAMINATION/OBJECTIVE: VITAL SIGNS: Revealed temperature of 98.2, pulse rate of 100, blood pressure of 152/70, and respiratory rate of 20. EXTREMITIES: Nonpalpable pedal pulses bilaterally and +2 nonpitting edema of bilateral lower extremity. Capillary filling time is delayed by times 10 digits. There are noted to be numerous psoriatic plaques which are scaly and exfoliating to both lower extremities. Left posterior leg presents with a large ulceration that extends from the medial to lateral malleoli. The base of the ulcer is a mixture of fibrotic and granular tissue. There is noted to be minimal serous drainage. There is no purulence and there is no malodor. There is noted to be a full-thickness ulceration at the Achilles insertion extending proximally to the midcalf. There is noted to be exposed Achilles tendon. The base of this wound is primarily granular with fibrotic tissue dispersed, there is no purulence and there is no malodor. No signs of acute bacterial infection. Right lower leg presents with a large ulceration measuring approximately 5 cm x 3 cm x 0.2 cm. Base of the ulcer is a mixture of fibrotic and granular tissue. The wound does not probe to tendon or bone. There is no purulent drainage. There is no malodor to suggest underlying abscess formation. The patient is able to detect 5.07 gram monofilament wire testing bilaterally. LABORATORY DATA: Laboratory findings revealed white count of 7.3, hemoglobin of 9, hematocrit of 27.4, and platelet count of 297. Most recent culture results taken of the left leg reveals Citrobacter freundii growth. ASSESSMENT: A 77-year-old female with a full-thickness bilateral lower leg ulcerations. PLAN: The patient was seen and evaluated at bedside. All of the wounds were cleansed with normal sterile saline and application of Bactroban ointment and a sterile, non-stick Adaptic was applied with a dry sterile dressing. Lower extremity venous Doppler taken on 10/05/2017 reveals no evidence of DVT. There is no evidence of osteomyelitis from MRI on 10/05/2017 and in the arterial duplex taken on 10/05/2017 reveals bilateral SFA disease and bilateral tibial disease. The patient will be seen and followed daily until discharge. Yo Diaz DPM
[2017-10-11] MEDS: Sodium Chloride 0.45% 1,000 ML IV SCH (17:50)
--- NOTE | 2017-10-11 19:59 | PN ---
DATE: SUBJECTIVE: I saw Meche resting comfortably in bed. Family is present. I had a long discussion about how she is doing and with plans for her. Overall, she is doing a little bit better. She is still weak and is to get out of bed to chair everyday, but she is eating and she is feeling better with no complaints to me. MEDICATIONS: She is on IV fluids, Bactroban cream, Benadryl, Dovonex, DuoNebs, heparin, Lotrisone cream, Merrem IV, Protonix, Tylenol, vancomycin IV, and Vaseline. PHYSICAL EXAMINATION VITAL SIGNS: 97.5 temp, 74 pulse, 138/78 blood pressure, 20 respiratory rate, 99% saturation on nasal canula. HEENT: Head is atraumatic and normocephalic. Throat is moist. NECK: Supple. HEART: Regular rate. LUNGS: Decreased breath sounds, but clear. ABDOMEN: Soft, nontender. Positive bowel sounds. EXTREMITIES: Trace edema. Both legs are bandaged. ASSESSMENT: She has multiple excoriations and redness and peeling and cellulitis on the arms and the legs. Some severe psoriasis. 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 She is on IV antibiotics per Infectious Disease. She has also been seen by Pulmonology and Podiatry. She has a history of cellulitis, psoriasis, sepsis, PVD, GERD, hypertension, high cholesterol, and CAD. PLAN: There is also a plan with Dr. Nestor Cho and Dr. Coleman to do a procedure on her leg to get her peripheral vascular occlusion open, possibly on Friday. Otherwise, she might be heading towards an amputation, we feel, if the circulation opened up. She has PVD, which is pretty bad. We will continue aggressive treatment and care on Meche Pereira. Trying to get out of bed to chair. Otis Harris DO
[2017-10-12] MEDS: Meropenem IV 1 gm in NS 50 ML IVPB SCH ×3 (05:32→22:33)
[2017-10-12] MEDS: Pantoprazole 40 mg EC Tab PO SCH (05:33)
[2017-10-12] MEDS: Sodium Chloride 0.45% 1,000 ML IV SCH ×2 (06:09→12:11)
[2017-10-12] MEDS: Vancomycin 1gm in NS 250ml 1 GM/250 ML BAG IVPB SCH ×2 (06:09→17:49)
[2017-10-12] MEDS: Albuterol-Ipratrop 3 mg / 0.5 (3 ml) UD IH SCH ×3 (07:16→22:35)
[2017-10-12 07:25] LABS: HEMOGLOBIN 8.4 g/dL (12.0-16.0); MEAN CELL VOLUME 80.3 fl (80.0-105.0); MEAN CORPUSCULAR HEMOGLOBIN 26.3 pg (25.0-35.0); MEAN CORPUSCULAR HGB CONC 32.8 g/dl (31.0-37.0); MEAN PLATELET VOLUME 8.4 fl (7.0-11.0); RBC 3.19 10^6/uL (3.5-6.1); RED CELL DISTRIBUTION WIDTH 15.3 % (11.5-14.5); WHITE BLOOD COUNT 7.1 10^3/ul (4.5-11.0)
[2017-10-12 07:30] LABS: ALBUMIN 2.2 g/dL (3.0-4.8); ALT/SGPT 36 U/L (7-56); AST/SGOT 106 U/L (14-36); BLOOD UREA NITROGEN 5 mg/dL (7-21); CALCIUM 7.8 mg/dL (8.4-10.5); GFR AFRICAN-AMERICAN > 60; GFR NON-AFRICAN AMERICAN > 60
[2017-10-12 07:35] LABS: ALB/GLOB RATIO 0.7 (1.1-1.8)
[2017-10-12] MEDS: CALCIPOTRIENE 120 GM TP SCH (10:07)
[2017-10-12] MEDS: Clotrimazole/Betamethasone Cream(15 gm) TOP SCH (10:08)
--- NOTE | 2017-10-12 12:09 | CP.PCM.PN ---
Subjective - Date & Time of Evaluation Date of Evaluation: 10/12/17 Time of Evaluation: 11:50 - Subjective Subjective: Comfortable in bed, less pain in the legs, no fevers overnight. Objective - Vital Signs/Intake and Output Vital Signs (last 24 hours): Temp Pulse Resp BP Pulse Ox 97.7 F 88 18 105/56 L 99 10/11/17 16:54 10/11/17 16:54 10/11/17 16:54 10/11/17 16:54 10/11/17 16:54 Intake and Output: 10/12/17 10/12/17 06:59 18:59 Intake Total 240 Output Total 950 Balance -710 - Medications Medications: Current Medications Acetaminophen (Tylenol 325mg Tab) 650 mg PO Q4H PRN PRN Reason: Temperature Last Admin: 10/09/17 19:56 Dose: 650 mg Albuterol/Ipratropium (Duoneb 3 Mg/0.5 Mg (3 Ml) Ud) 3 ml IH TIDRESP [facility] Last Admin: 10/12/17 07:16 Dose: 3 ml Betamethasone/Clotrimazole (Lotrisone) 0 gm TOP DAILY [facility] Last Admin: 10/11/17 10:30 Dose: 1 applic Diphenhydramine HCl (Benadryl) 25 mg PO Q6 PRN; Protocol PRN Reason: pruritis Last Admin: 10/11/17 05:34 Dose: 25 mg Emollient Ointment (Vaseline Oint) 5 gm TOP Q6H PRN PRN Reason: Dry skin Heparin Sodium (Porcine) (Heparin) 5,000 units SC Q12 [facility] PRN Reason: Protocol Last Admin: 10/11/17 21:28 Dose: 5,000 units Sodium Chloride (Sodium Chloride 0.45%) 1,000 mls @ 60 mls/hr IV .[id number] [facility] Last Admin: 10/12/17 06:09 Dose: 60 mls/hr Vancomycin HCl (Vancomycin 1gm) 1 gm in 250 mls @ 167 mls/hr IVPB Q12H [facility] PRN Reason: Protocol Last Admin: 10/12/17 06:09 Dose: 167 mls/hr Meropenem (Merrem Iv 1 Gm Premix) 50 mls @ 100 mls/hr IVPB Q8 [facility] Stop: 10/14/17 22:01 Last Admin: 10/12/17 05:32 Dose: 100 mls/hr Mupirocin (Bactroban Ointment) 1 gm TOP BID [facility] Last Admin: 10/11/17 17:49 Dose: 1 applic Calcipotriene [ Dovonex] 120 Gm ( Home Med) 120 gm TP DAILY [facility] Last Admin: 10/11/17 10:29 Dose: Not Given Pantoprazole Sodium (Protonix Ec Tab) 40 mg PO 0600 [facility] Last Admin: 10/12/17 05:33 Dose: 40 mg - Labs Labs: 10/12/17 07:00 10/12/17 07:00 - Constitutional Appears: Chronically Ill - Head Exam Head Exam: NORMAL INSPECTION - ENT Exam ENT Exam: Mucous Membranes Moist - Neck Exam Neck Exam: absent: Meningismus - Respiratory Exam Respiratory Exam: Decreased Breath Sounds - Cardiovascular Exam Cardiovascular Exam: +S1, +S2 - GI/Abdominal Exam GI & Abdominal Exam: Soft. absent: Tenderness - Extremities Exam Additional comments: both legs with dressings in place Assessment and Plan - Assessment and Plan (Free Text) Plan: Assessment sepsis with bilateral lower extremity cellulitis with no evidence of osteomyelitis, growing Citrobacter, Serratia and Group B Strep severe PVD psoriasis GERD HTN dyslipidemia CAD Plan Continue Merrem day 8 and Vancomycin day 4 ; repeat blood cx negative so far, follow up urine cx, PCT; CXR does not show infiltrates PVD is concerning in that antibiotics may need to be properly reaching the lower extremities will continue to monitor clinically and trend fever curve
--- NOTE | 2017-10-12 12:22 | PN ---
DATE: SUBJECTIVE: I saw her resting comfortably in bed. She slept well. She is eating well. No complaints. She is getting medications for the skin and her cellulitis. MEDICATIONS: She is on Bactroban cream, Benadryl, Dovonex, DuoNeb, heparin, Lotrisone, Merrem, Protonix, IV fluids, Tylenol, vancomycin, and Vaseline. PHYSICAL EXAMINATION: VITAL SIGNS: She has 97.7 temperature, 88 pulse, 105/56 blood pressure, 18 respiratory rate, and 99% O2 saturation nasal cannula. HEENT: Head is atraumatic normocephalic. Throat is moist. NECK: Supple. HEART: Regular rate. LUNGS: Clear to auscultation. ABDOMEN: Soft and nontender. EXTREMITIES: Trace edema. His skins are very excoriated with scaly, redness, and cellulitis of the arms and the legs from her bad psoriasis. LABORATORY DATA: She has 7.1 white count, 8.4 hemoglobin, 25.6 hematocrit, with 294 platelets. Sodium 135, potassium 3.4, I am going to replace potassium, BUN is 5, creatinine 0.7, GFR is greater than 60, sugar is 78, calcium is 7.8, AST is 106, ALT is 36, alkaline phosphatase 29, total protein is 5.6, and procalcitonin is 2.12 still elevated. ASSESSMENT AND PLAN: She is being seen by Infectious Disease, Podiatry, and Pulmonary. She has multiple issues, bilateral leg cellulitis, psoriasis, sepsis, PVD, GERD, hypertension, high cholesterol, and coronary artery disease. She is going to have procedure with Dr. Nestor Cho and Dr. Coleman tomorrow, I believe to help the circulation of her PVD. We will check her labs tomorrow. I am hoping she gets out of bed to chair and gets walking with physical therapy that is my goal for her, otherwise, she might need subacute rehab when we are done with the TCU. We will continue with aggressive treatment and care. Continue with IV antibiotics. Otis Harris DO
--- NOTE | 2017-10-12 16:25 | CP.PCM.PN ---
<Kedar Salvador - Last Filed: 10/12/17 16:19> Subjective - Date & Time of Evaluation Date of Evaluation: 10/12/17 Time of Evaluation: 16:19 - Subjective Subjective: Podiatry Progress Note - Drs. Samson/Emily 77 year old female patient PMHx HTN, HLD, psoriasis, seen and evaluated at bedside for bilateral lower extremity ulcerations secondary to psoriasis. Patient hemodynamically stable and NAD. NAEO. Family member present at bedside. Dressings to bilateral LE clean/dry/intact. Heel offloading boots not present at time of visit. Reports continued itchiness to bilateral LE, states benadryl has been helping. Denies N/V/F/D/C/SOB. Objective - Vital Signs/Intake and Output Vital Signs (last 24 hours): Temp Pulse Resp BP Pulse Ox 97.3 F L 91 H 20 100/48 L 99 10/12/17 10:24 10/12/17 10:24 10/12/17 10:24 10/12/17 10:24 10/12/17 10:24 Intake and Output: 10/12/17 10/12/17 06:59 18:59 Intake Total 240 Output Total 950 560 Balance -710 -560 - Medications Medications: Current Medications Acetaminophen (Tylenol 325mg Tab) 650 mg PO Q4H PRN PRN Reason: Temperature Last Admin: 10/12/17 12:10 Dose: 650 mg Albuterol/Ipratropium (Duoneb 3 Mg/0.5 Mg (3 Ml) Ud) 3 ml IH TIDRESP [facility] Last Admin: 10/12/17 13:29 Dose: 3 ml Betamethasone/Clotrimazole (Lotrisone) 0 gm TOP DAILY [facility] Last Admin: 10/12/17 10:08 Dose: 1 applic Diphenhydramine HCl (Benadryl) 25 mg PO Q6 PRN; Protocol PRN Reason: pruritis Last Admin: 10/12/17 12:13 Dose: 25 mg Emollient Ointment (Vaseline Oint) 5 gm TOP Q6H PRN PRN Reason: Dry skin Heparin Sodium (Porcine) (Heparin) 5,000 units SC Q12 [facility] PRN Reason: Protocol Last Admin: 10/12/17 10:09 Dose: 5,000 units Sodium Chloride (Sodium Chloride 0.45%) 1,000 mls @ 60 mls/hr IV .[id number] [facility] Last Admin: 10/12/17 12:11 Dose: 60 mls/hr Vancomycin HCl (Vancomycin 1gm) 1 gm in 250 mls @ 167 mls/hr IVPB Q12H [facility] PRN Reason: Protocol Last Admin: 10/12/17 06:09 Dose: 167 mls/hr Meropenem (Merrem Iv 1 Gm Premix) 50 mls @ 100 mls/hr IVPB Q8 [facility] Stop: 10/14/17 22:01 Last Admin: 10/12/17 14:10 Dose: 100 mls/hr Mupirocin (Bactroban Ointment) 1 gm TOP BID [facility] Last Admin: 10/12/17 10:06 Dose: 1 applic Calcipotriene [ Dovonex] 120 Gm ( Home Med) 120 gm TP DAILY [facility] Last Admin: 10/12/17 10:07 Dose: Not Given Pantoprazole Sodium (Protonix Ec Tab) 40 mg PO 0600 [facility] Last Admin: 10/12/17 05:33 Dose: 40 mg - Labs Labs: 10/12/17 07:00 10/12/17 07:00 - Constitutional Appears: Well, Non-toxic, No Acute Distress - Extremities Exam Additional comments: Lower extremity focused exam Derm: Diffuse psoriatic plaques and scaling seen to b/l LE. L leg posterior ulceration expaning from medial to lateral malleoli and from level of achilles insertion into calcaneus to mid calf appreciated. Achilles tendon exposed from just proximal to insertion site into calcaneus roughly 5 cm proximal. Rest of wound base is fibrogranula. No periwound erythema, minimal malodor, no purulence noted. No other clinical signs of infection noted R leg posterior wound measuring roughly 5 cm x 3 cm x 0.1 cm. No tunneling, tracking, undermining, or probe to bone. Some bleeding appreciated. No periwound erythema, malodor, purulent drainage or other clinical signs of infection appreciated Vasc: DP and PT pulses are unpalable, likely due to LE edema, CFT < 3 seconds to all ten digits. Skin temperature warm to warm from proximal to distal, edema noted to the LE bilaterally Neuro: Gross and protective sensation intact Ortho: Tenderness to the LE, pain > to posterior wounds on the left leg - Neurological Exam Neurological Exam: Alert, Awake, Oriented x3 - Psychiatric Exam Psychiatric exam: Normal Affect, Normal Mood Assessment and Plan - Assessment and Plan (Free Text) Assessment: 77 y.o f with PMH of HTN, HLD, and psoriasis seen and evaluated at bedside for bilateral lower extremity ulcerations secondary to psoriasis. Plan: Patient seen and evaluated at bedside Plan discussed with attending Dr. Samson Afebrile, absent leukocytosis Wound cx left leg - Citrobacter Freundii Wound cx right leg - Serratia Species, Beta hemolytic Strep Group B 10/05 LE US- No evidence of DVT 10/05 LE MRI- No evidence of OM 10/05 LE arterial duplex - Severely abnormal ORLIN's at rest, bilateral SFA disease, bilateral tibial disease Continue IV abx per ID - Merrem day 8 and Vancomycin day 4 Patient scheduled for vascular intervention tomorrow Bactroban applied to both leg wounds Lotrisone applied to psoriatic plaques Left leg wound dressed with adaptic, ABD, DSD Right leg wound dressed with optifoam, DSD Heel offloading boots must be on at all times while in bed No surgical intervention planned at this time Podiatry will continue to follow while patient in house <Cherise Samson - Last Filed: 10/13/17 07:59> Objective - Vital Signs/Intake and Output Vital Signs (last 24 hours): Temp Pulse Resp BP Pulse Ox 98 F 89 16 116/66 99 10/13/17 06:00 10/13/17 06:00 10/13/17 06:00 10/13/17 06:00 10/13/17 06:00 Intake and Output: 10/13/17 10/13/17 06:59 18:59 Intake Total 240 250 Output Total 1010 450 Balance -770 -200 - Medications Medications: Current Medications Acetaminophen (Tylenol 325mg Tab) 650 mg PO Q4H PRN PRN Reason: Temperature Last Admin: 10/13/17 00:52 Dose: 650 mg Albuterol/Ipratropium (Duoneb 3 Mg/0.5 Mg (3 Ml) Ud) 3 ml IH TIDRESP [facility] Last Admin: 10/13/17 07:26 Dose: 3 ml Betamethasone/Clotrimazole (Lotrisone) 0 gm TOP DAILY [facility] Last Admin: 10/12/17 10:08 Dose: 1 applic Diphenhydramine HCl (Benadryl) 25 mg PO Q6 PRN; Protocol PRN Reason: pruritis Last Admin: 10/13/17 00:51 Dose: 25 mg Emollient Ointment (Vaseline Oint) 5 gm TOP Q6H PRN PRN Reason: Dry skin Heparin Sodium (Porcine) (Heparin) 5,000 units SC Q12 [facility] PRN Reason: Protocol Last Admin: 10/12/17 22:32 Dose: Not Given Sodium Chloride (Sodium Chloride 0.45%) 1,000 mls @ 60 mls/hr IV .[id number] [facility] Last Admin: 10/13/17 05:26 Dose: 60 mls/hr Vancomycin HCl (Vancomycin 1gm) 1 gm in 250 mls @ 167 mls/hr IVPB Q12H [facility] PRN Reason: Protocol Last Admin: 10/12/17 17:49 Dose: 167 mls/hr Meropenem (Merrem Iv 1 Gm Premix) 50 mls @ 100 mls/hr IVPB Q8 [facility] Stop: 10/14/17 22:01 Last Admin: 10/13/17 05:23 Dose: 100 mls/hr Mupirocin (Bactroban Ointment) 1 gm TOP BID [facility] Last Admin: 10/12/17 17:19 Dose: 1 applic Calcipotriene [ Dovonex] 120 Gm ( Home Med) 120 gm TP DAILY [facility] Last Admin: 10/12/17 10:07 Dose: Not Given Pantoprazole Sodium (Protonix Ec Tab) 40 mg PO 0600 [facility] Last Admin: 10/13/17 05:26 Dose: 40 mg - Labs Labs: 10/13/17 06:00 10/13/17 06:00 Attending/Attestation - Attestation I have personally seen and examined this patient.: Yes I have fully participated in the care of the patient.: Yes I have reviewed all pertinent clinical information, including history, physical exam and plan: Yes
[2017-10-13] MEDS: Meropenem IV 1 gm in NS 50 ML IVPB SCH ×3 (05:23→21:56)
[2017-10-13] MEDS: Pantoprazole 40 mg EC Tab PO SCH (05:26)
[2017-10-13] MEDS: Sodium Chloride 0.45% 1,000 ML IV SCH ×2 (05:26→21:57)
--- NOTE | 2017-10-13 07:11 | PN ---
DATE: 10/13/2017 PULMONARY NOTE SUBJECTIVE: The patient appears comfortable this morning. She is not short of breath at rest. PHYSICAL EXAMINATION: VITAL SIGNS: (Last noted in the computer): Temperature is 98.4, pulse 89, respirations 18, blood pressure 94/50. Oxygen saturation on nasal cannula is 98%. HEENT: Normocephalic, atraumatic. NECK: No JVD. CARDIOVASCULAR: Systolic ejection murmur at the lower left sternal border. No S3 gallop. LUNGS: Decreased breath sounds at the bases. Very minimal rhonchi. No wheezing. EXTREMITIES: Both lower extremities remain wrapped. There is less edema. There is no cyanosis or clubbing. Calves are nontender to palpation. GI: Abdomen is soft, nontender and nondistended. Bowel sounds are positive. SKIN: + diffuse psoriatic changes. NEUROLOGIC: Exam limited at the present time. IMPRESSION: 1. Bilateral lower leg cellulitis. 2. Advanced psoriasis. 3. Right lower lobe pneumonia. 4. Chronic obstructive pulmonary disease. 5. Mild bronchospasm. 6. Mild anemia. PLAN: The patient appears comfortable this morning. She is not short of breath at rest. She does state to feeling much better overall. On physical exam, her bronchospasm continues to resolve. In addition, the oxygen saturation on nasal cannula is now 98-99%. I will continue with the current nebulizer treatments for now. I would continue with the antibiotic coverage as per Infectious Disease. Input by Dr. Velazquez is noted. The temperatures have now resolved. I would continue with the Podiatry input/treatment. Clinical status of the patient is significantly improved. I will discuss the above with Dr. Harris. Darron Hays MD RD
[2017-10-13 07:14] LABS: HEMOGLOBIN 8.4 g/dL (12.0-16.0); MEAN CELL VOLUME 80.9 fl (80.0-105.0); MEAN CORPUSCULAR HEMOGLOBIN 25.8 pg (25.0-35.0); MEAN CORPUSCULAR HGB CONC 31.9 g/dl (31.0-37.0); MEAN PLATELET VOLUME 8.5 fl (7.0-11.0); RBC 3.25 10^6/uL (3.5-6.1); RED CELL DISTRIBUTION WIDTH 15.5 % (11.5-14.5); WHITE BLOOD COUNT 8.1 10^3/ul (4.5-11.0)
[2017-10-13 07:24] LABS: ALBUMIN 2.3 g/dL (3.0-4.8); ALT/SGPT 38 U/L (7-56); AST/SGOT 98 U/L (14-36); BLOOD UREA NITROGEN 5 mg/dL (7-21); GFR AFRICAN-AMERICAN > 60; GFR NON-AFRICAN AMERICAN > 60
[2017-10-13] MEDS: Albuterol-Ipratrop 3 mg / 0.5 (3 ml) UD IH SCH ×2 (07:26→15:13)
[2017-10-13 08:02] LABS: ALB/GLOB RATIO 0.6 (1.1-1.8)
--- NOTE | 2017-10-13 08:45 | CON ---
DATE: 10/10/2017 REASON FOR CONSULTATION: Left heel ulcer with exposed Achilles tendon and peripheral vascular disease. HISTORY OF PRESENT ILLNESS: The patient is a 77-year-old woman who was admitted for diffuse cellulitis and multiple leg ulcers, the largest one involved in the left heel with exposed tendon. In addition, she also had a chronic history of psoriasis with surrounding reactive dermatitis. She was placed on Otezla a few months ago and developed ej worsening of the psoriatic skin condition with surrounding cellulitis. She is now admitted for IV antibiotic. PAST MEDICAL HISTORY: Significant for coronary artery disease and history of PTCA. She also has hypertension, hypercholesterolemia, GERD, and MRSA cellulitis. ALLERGY: NONE. SOCIAL HISTORY: She was a smoker until 14 years ago. REVIEW OF SYSTEMS: Except for the aforementioned in the past medical history, the rest of it is negative. PHYSICAL EXAMINATION GENERAL: A well-developed, well-nourished woman, in no acute distress. VITAL SIGNS: Within normal limits. HEENT: Negative. LUNGS: Clear. HEART: Show regular rhythm. ABDOMEN: Soft. SKIN: From mid thorax down to her toe she was involved with multiple psoriatic lesion with surrounding erythema and dermatitis involving her both groin, both legs, and thigh. There is a large left heel ulcer with exposed tendon. EXTREMITIES: Pulses, she has bilateral femoral pulses with no distal pulses. LABORATORY DATA: She has a WBC count of 17,000 and hemoglobin 9.9 on admission. HOSPITAL COURSE: Since admission she has undergone angiogram showing left SFA occlusion with reconstitution of above knee popliteal artery, single vessel anterior tibial artery runoff, attempt at crossing the occlusion was unsuccessful. IMPRESSION: Unfortunate 77-year-old with leg ulcer with surrounding cellulitis. She is not a candidate for open surgical treatment of her peripheral artery disease due to her skin condition. The risk for infection will be prohibitive. The case was discussed with Dr. Cho. We shall repeat the angiogram with retrograde monitoring of the popliteal artery. Lili Coleman MD
[2017-10-13] MEDS: Clotrimazole/Betamethasone Cream(15 gm) TOP SCH (11:00)
--- NOTE | 2017-10-13 11:03 | PN ---
DATE: SUBJECTIVE: I saw Meche resting comfortably in bed. She is in good spirits. She is trying physical therapy. She is eating well. She tells me she is feeling better. She is on Bactroban cream, Benadryl, Dovonex, DuoNeb, heparin, Lotrisone, Merrem IV, Protonix, IV fluids, Tylenol, vancomycin, and Vaseline. PHYSICAL EXAMINATION: VITAL SIGNS: 98 temperature, 89 pulse, 116/66 blood pressure, 16 respiratory rate, 99% O2 sat on room air. HEENT: Head is atraumatic normocephalic. HEART: Regular rate. LUNGS: Decreased breath sounds, but clear. ABDOMEN: Soft, nontender. Positive bowel sounds. EXTREMITIES: Trace edema but bandaged. The skin is all reddened, inflamed and scaling from psoriasis and cellulitis. LABORATORY DATA: She has a 8.1 white count, 8.4 hemoglobin, 26.3 hematocrit with 325 platelets. 137 sodium, potassium 3.7, BUN 5, creatinine 0.7, GFR is greater than 60, sugar is 89, calcium is 8, total bilirubin is 0.4, AST is 98, ALT is 38, alkaline phosphatase is 81. Total protein is 5.8. ASSESSMENT AND PLAN: She is being seen by Podiatry, Infectious Disease, and Pulmonary. She has multiple problems, bilateral lower leg cellulitis, advanced psoriasis, severe peripheral vascular disease, gastroesophageal reflux disease, hypertension, high cholesterol, coronary artery disease. She is on vancomycin. She is on Merrem IV. Chest x-ray is clear. I think she is going to go for procedure with Dr. Nestor Cho and Dr. Coleman today to help open up some peripheral vascular disease issues. We will check her labs tomorrow. I encouraged to get out of bed everyday, take her medications, do the physical therapy because she is going to go home in 3 days. She has to walk a little bit better. We will check her labs tomorrow. Hopefully, she will do well with the procedure with Dr. Nestor Cho Otis Harris DO RD
[2017-10-13] MEDS: CALCIPOTRIENE 120 GM TP SCH (12:00)
[2017-10-13] MEDS ORDERED: DiphenhydrAMINE 50 mg/ml Inj IVP PRN (12:54)
[2017-10-13] MEDS: Morphine 2 mg/ml ISec IVP PRN (15:08)
[2017-10-13] MEDS ORDERED: Etomidate 20 mg/10ml Inj IV ONE (17:19)
[2017-10-13] MEDS ORDERED: HYDROmorphone 0.5 mg/0.5 ml ISec IVP PRN (18:34)
--- NOTE | 2017-10-13 18:35 | PCM.SURG1 ---
Surgeon's Initial Post Op Note - Surgeon's Notes Surgeon: Dr. Cherise Samson, DPM [employer]: Lorenzo Brown, PGY1 Type of Anesthesia: IV Sedation, Local Anesthesia Administered By: Dr. Samuel Pre-Operative Diagnosis: Ulcerations to posterior leg b/l with exposure of achilles tendon to left leg Operative Findings: See dicatation report. M- 3-0 nylon, A+D ointment w/ mineral oil. I- 10 cc 2% lidocaine plain Post-Operative Diagnosis: Same Operation Performed: Debridement of non-viable tissue of achilles tendon, left. Application of Integra graft to achilles tendon, left Specimen/Specimens Removed: Soft tissue: Achilles tendon, left leg Estimated Blood Loss: EBL {In ML}: 5 Blood Products Given: N/A Drains Used: No Drains Post-Op Condition: Good Date of Surgery/Procedure: 10/13/17 Time of Surgery/Procedure: 18:35
[2017-10-13] MEDS ORDERED: Lactated Ringer's 1,000 ML IV SCH (18:45)
[2017-10-13] MEDS: Petrolatum-Mineral Oil Oint (100gm) TOP SCH (21:56)
[2017-10-13] MEDS: Vancomycin 1gm in NS 250ml 1 GM/250 ML BAG IVPB SCH (21:57)
[2017-10-13] MEDS: Petrolatum Oint Foilpak (5 gm) TOP PRN (21:58)
[2017-10-14] MEDS: Morphine 2 mg/ml ISec IVP PRN (00:46)
[2017-10-14] MEDS: Petrolatum-Mineral Oil Oint (100gm) TOP SCH ×4 (02:00→18:15)
[2017-10-14] MEDS: Meropenem IV 1 gm in NS 50 ML IVPB SCH ×3 (05:19→21:55)
[2017-10-14] MEDS: Pantoprazole 40 mg EC Tab PO SCH (05:20)
[2017-10-14] MEDS: Vancomycin 1gm in NS 250ml 1 GM/250 ML BAG IVPB SCH ×2 (05:23→18:53)
[2017-10-14] MEDS: Albuterol-Ipratrop 3 mg / 0.5 (3 ml) UD IH SCH ×3 (07:37→23:24)
--- NOTE | 2017-10-14 08:53 | PN ---
DATE: 10/14/2017 PULMONARY NOTE SUBJECTIVE: The patient appears comfortable this morning. She is not short of breath at rest. PHYSICAL EXAMINATION: VITAL SIGNS: (Last noted in the computer): Temperature is 98.4, pulse 92, respirations 18, blood pressure 117/60. Oxygen saturation on nasal cannula is 100%. HEENT: Normocephalic, atraumatic. No JVD. CARDIOVASCULAR: Systolic ejection murmur at the lower left sternal border. No S3 gallop. LUNGS: Decreased breath sounds at the bases. Very minimal/less rhonchi. No wheezing. EXTREMITIES: Both lower extremities remain wrapped. There is less edema. There is no cyanosis or clubbing. Calves are nontender to palpation. GI: Abdomen is soft, nontender and nondistended. Bowel sounds are positive. SKIN: Positive diffuse psoriatic changes. NEUROLOGIC: Limited at the present time. IMPRESSION: 1. Bilateral lower leg cellulitis. 2. Advanced psoriasis. 3. Right lower lobe pneumonia. 4. Chronic obstructive pulmonary disease. 5. Mild bronchospasm. 6. Mild anemia. PLAN: The patient appears comfortable this morning. She is not short of breath at rest. She does state to feeling much better overall. On physical exam, her bronchospasm continues to resolve. In addition, the oxygen saturation on nasal cannula is now 100%. I will continue the current nebulizer treatments for now. I would continue with the antibiotic coverage as per Infectious Disease. Input by Dr. Velazquez is noted. The temperatures have now fully resolved. Input by Podiatry is also noted. Clinical status of the patient is significantly improved. I will discuss the above with Dr. Harris. Darron Hays MD RD
[2017-10-14] MEDS: CALCIPOTRIENE 120 GM TP SCH (10:06)
[2017-10-14] MEDS: Clotrimazole/Betamethasone Cream(15 gm) TOP SCH (10:07)
[2017-10-14] MEDS: Sodium Chloride 0.45% 1,000 ML IV SCH (17:39)
[2017-10-14] MEDS: Petrolatum Oint Foilpak (5 gm) TOP PRN (21:56)
[2017-10-15] MEDS: Petrolatum-Mineral Oil Oint (100gm) TOP SCH ×3 (00:59→18:06)
--- NOTE | 2017-10-15 01:49 | CP.PCM.PN ---
Subjective - Date & Time of Evaluation Date of Evaluation: 10/15/17 Time of Evaluation: 01:36 - Subjective Subjective: Patient seen at the requst of her RN for increase in circumference of he Alexis( antecubital region and forearm).She has aMidline just above this region.There is a good blood return,however,due to the swollen arm,iv fluid has been held. Pt denies any pain or discomfort due to the swelling. VS are stable. Objective - Vital Signs/Intake and Output Vital Signs (last 24 hours): Temp Pulse Resp BP Pulse Ox 98.4 F 92 H 20 117/60 100 10/13/17 17:41 10/13/17 17:41 10/13/17 17:41 10/13/17 17:41 10/13/17 17:41 - Medications Medications: Current Medications Acetaminophen (Tylenol 325mg Tab) 650 mg PO Q4H PRN PRN Reason: Temperature Last Admin: 10/13/17 00:52 Dose: 650 mg Albuterol/Ipratropium (Duoneb 3 Mg/0.5 Mg (3 Ml) Ud) 3 ml IH TIDRESP [facility] Last Admin: 10/14/17 18:15 Dose: Not Given Betamethasone/Clotrimazole (Lotrisone) 0 gm TOP DAILY [facility] Last Admin: 10/14/17 10:07 Dose: Not Given Diphenhydramine HCl (Benadryl) 25 mg PO Q6 PRN; Protocol PRN Reason: pruritis Last Admin: 10/13/17 00:51 Dose: 25 mg Diphenhydramine HCl (Benadryl) 50 mg IVP Q4H PRN; Protocol PRN Reason: Allergy symptoms Last Admin: 10/13/17 15:08 Dose: 50 mg Emollient Ointment (Vaseline Oint) 5 gm TOP Q6H PRN PRN Reason: Dry skin Last Admin: 10/14/17 21:56 Dose: 5 gm Heparin Sodium (Porcine) (Heparin) 5,000 units SC Q12 HEBER PRN Reason: Protocol Last Admin: 10/15/17 00:58 Dose: Not Given Home Med (Home Med) 1 unit TOP DAILY [facility] Sodium Chloride (Sodium Chloride 0.45%) 1,000 mls @ 60 mls/hr IV .[id number] [facility] Last Admin: 10/14/17 17:39 Dose: Not Given Meropenem (Merrem Iv 1 Gm Premix) 50 mls @ 100 mls/hr IVPB Q8 [facility] Stop: 10/18/17 14:01 Last Admin: 10/14/17 21:55 Dose: 100 mls/hr Vancomycin HCl (Vancomycin 1gm) 1 gm in 250 mls @ 167 mls/hr IVPB 0600,1800 HEBER PRN Reason: Protocol Last Admin: 10/14/17 18:53 Dose: 167 mls/hr Morphine Sulfate (Morphine) 1 mg IVP Q3H PRN; Protocol PRN Reason: Pain, moderate (4-7) Last Admin: 10/14/17 00:46 Dose: 1 mg Multi-Ingredient Ointment (Hydrophor Oint) 0 gm TOP Q6H [facility] Last Admin: 10/15/17 00:59 Dose: Not Given Mupirocin (Bactroban Ointment) 1 gm TOP BID [facility] Last Admin: 10/14/17 18:14 Dose: Not Given Ondansetron HCl (Zofran Inj) 4 mg IVP ONCE PRN PRN Reason: Nausea/Vomiting Pantoprazole Sodium (Protonix Ec Tab) 40 mg PO 0600 [facility] Last Admin: 10/14/17 05:20 Dose: 40 mg - Labs Labs: 10/13/17 06:00 10/13/17 06:00 - Constitutional Appears: No Acute Distress - Head Exam Head Exam: ATRAUMATIC, NORMAL INSPECTION, NORMOCEPHALIC - Eye Exam Eye Exam: Normal appearance - ENT Exam ENT Exam: Mucous Membranes Moist - Neck Exam Neck Exam: Normal Inspection - Respiratory Exam Respiratory Exam: Clear to Ausculation Bilateral - Cardiovascular Exam Cardiovascular Exam: REGULAR RHYTHM - GI/Abdominal Exam GI & Abdominal Exam: Soft - Extremities Exam Extremities Exam: absent: Calf Tenderness Additional comments: midline in L upper arm ;swelling of the L arm noted in antecubital region and forearm,circumference is 9 cm more than corresponding site on the R arm.)Both arms are erythematous and somewhat warm to touch. dressing noted on both legs - Neurological Exam Neurological Exam: Alert, Awake, Oriented x3 - Psychiatric Exam Psychiatric exam: Normal Affect - Skin Skin Exam: Dry, Rash (Generalised healing rash noted on the arms ,legs and trunk.), Warm Assessment and Plan - Assessment and Plan (Free Text) Assessment: Swelling of L arm Plan: Venous doppler study of the L arm ordered stat.
[2017-10-15] MEDS: Meropenem IV 1 gm in NS 50 ML IVPB SCH ×3 (06:05→21:41)
[2017-10-15] MEDS: Pantoprazole 40 mg EC Tab PO SCH (06:06)
[2017-10-15] MEDS: Sodium Chloride 0.45% 1,000 ML IV SCH ×2 (06:06→21:43)
[2017-10-15] MEDS: Vancomycin 1gm in NS 250ml 1 GM/250 ML BAG IVPB SCH ×2 (06:06→17:21)
[2017-10-15 06:59] LABS: MEAN CELL VOLUME 80.9 fl (80.0-105.0); MEAN CORPUSCULAR HEMOGLOBIN 26.4 pg (25.0-35.0); MEAN CORPUSCULAR HGB CONC 32.7 g/dl (31.0-37.0); MEAN PLATELET VOLUME 8.4 fl (7.0-11.0); RBC 3.03 10^6/uL (3.5-6.1); RED CELL DISTRIBUTION WIDTH 15.8 % (11.5-14.5); WHITE BLOOD COUNT 9.3 10^3/ul (4.5-11.0)
[2017-10-15 07:12] LABS: ALB/GLOB RATIO 0.6 (1.1-1.8); ALT/SGPT 34 U/L (7-56); AST/SGOT 51 U/L (14-36); BLOOD UREA NITROGEN 6 mg/dL (7-21); CALCIUM 7.6 mg/dL (8.4-10.5); GFR AFRICAN-AMERICAN > 60; GFR NON-AFRICAN AMERICAN > 60
[2017-10-15] MEDS: Albuterol-Ipratrop 3 mg / 0.5 (3 ml) UD IH SCH ×3 (07:40→21:40)
--- NOTE | 2017-10-15 08:06 | PN ---
DATE: 10/15/2017 PULMONARY NOTE SUBJECTIVE: The patient appears comfortable this morning. She is not short of breath at rest. PHYSICAL EXAMINATION: VITAL SIGNS: (Last noted in the computer): Temperature is 98.4, pulse 92, respirations 18/20, blood pressure 117/60. Oxygen saturation on room air is 100%. HEENT: Normocephalic, atraumatic. NECK: No JVD. CARDIOVASCULAR: Systolic ejection murmur at the lower left sternal border. No S3 gallop. LUNGS: Better breath sounds at the bases. Very minimal/less rhonchi. No wheezing. EXTREMITIES: Both lower extremities remain wrapped. There is less edema. There is no cyanosis or clubbing. Calves are nontender to palpation. GI: Abdomen is soft, nontender and nondistended. Bowel sounds are positive. SKIN: Positive diffuse psoriatic changes. NEUROLOGIC: Exam limited at the present time. IMPRESSION: 1. Bilateral lower leg cellulitis. 2. Advanced psoriasis. 3. Right lower lobe pneumonia. 4. Chronic obstructive pulmonary disease. 5. Mild bronchospasm. 6. Mild anemia. PLAN: The patient appears comfortable this morning. She is not short of breath at rest. She does state to feeling much better overall this morning. On physical exam, her bronchospasm continues to resolve. In addition, the alveolar-arterial gradient also continues to resolve. I will continue with the current nebulizer treatments for now. The patient remains on antibiotic therapy - as per Infectious Disease. The temperatures have resolved. There is no leukocytosis. I would continue with the Podiatry input - noted. Clinical status of the patient is significantly improved. I will discuss the above with Dr. Harris. Darron Hays MD RD
--- NOTE | 2017-10-15 08:28 | PN ---
DATE: 10/14/2017 SUBJECTIVE: I came back to the hospital 7 o'clock, I could not see her this morning. She was in surgery with Podiatry. She has finally had a surgery. She is comfortable in bed. Family is with her. No pains. MEDICATIONS: She is on Bactroban cream ointment, Benadryl, DuoNeb, heparin, Hydrophor ointment, Lotrisone, Merrem IV, morphine, Protonix, IV fluids, Tylenol, vancomycin IV, Vaseline, and Zofran. PHYSICAL EXAMINATION: VITAL SIGNS: She has a 98.4 temp, 92 pulse, 117/60 blood pressure, 20 respiratory rate, and 100% O2 saturation on room air. HEENT: Head is atraumatic and normocephalic. Throat is moist. NECK: Supple. HEART: Regular rate. LUNGS: Decreased breath sounds, but clear. ABDOMEN: Soft. EXTREMITIES: Trace edema. She is bandaged up in both feet. SKIN: Red inflamed with scaling. She has severe psoriasis and cellulitis. LABORATORY DATA: She has 8.1 white count, 8.4 hemoglobin, 26.3 hematocrit with 325 platelets. Sodium 137, potassium 3.7, BUN 5, creatinine 0.7, GFR is greater than 60, sugar is 79, and calcium is 8.0. Total bilirubin is 0.4, AST is 98, ALT is 38, alkaline phosphatase of 81, and total protein is 5.8. ASSESSMENT AND PLAN: She is being seen by Pulmonary, Podiatry, and Infectious Disease. She has sepsis of bilateral lower extremity cellulitis, severe peripheral vascular disease, psoriasis, gastroesophageal reflux disease, hypertension, high cholesterol, and coronary artery disease. She has ulcerations in the posterior leg bilaterally, exposure of Achilles tendon to the left leg. She is planning to go to subacute rehab on when she is discharged from TCU, this is not healing as fast as we wanted and she will need more therapy. She wants to go to [facility]. We will discuss this with marriage and family social worker. Otis Harris DO MTDD
[2017-10-15] MEDS: CALCIPOTRIENE TOP SCH (10:24)
[2017-10-15] MEDS: Clotrimazole/Betamethasone Cream(15 gm) TOP SCH (10:24)
--- NOTE | 2017-10-15 12:14 | PN ---
DATE: SUBJECTIVE: I saw her this morning. Her left arm is swollen. There was a midline placed that had to be removed. The venous Doppler was negative for a clot. She will need probably PICC line. She will probably need to have longer term antibiotics. She has an exposed Achilles tendon by Podiatry. I do not think she is allowed to weight-bear at this time. She will probably move [facility] tomorrow for further care and treatment. MEDICATIONS: She is currently on Bactroban cream, Benadryl, DuoNeb, heparin, Hydrophor, Lotrisone, Merrem IV, morphine, Protonix, IV fluids, vancomycin IV, Vaseline, and Zofran. PHYSICAL EXAMINATION: VITAL SIGNS: She has a 98.4 temp, 92 pulse, 117/60 blood pressure, 20 respiratory rate, and 100% O2 saturation nasal cannula. HEENT: Head is atraumatic normocephalic. HEART: Regular rate. LUNGS: Clear to auscultation. ABDOMEN: Soft. EXTREMITIES: The left arm is swollen. They have taken out the midline and elevated arm today. No clot on the venous Doppler. The extremity has scaling, redness, and cellulitis with blisters and ulcers. ASSESSMENT AND PLAN: She is being seen by numerous doctors and plan will be need send it to [facility] tomorrow for further treatment and care; hopefully we will get a PICC line placed today. Otis Harris DO
--- NOTE | 2017-10-15 12:15 | CARD ---
APPROVED REPORT EKG Measurement Heart [id number] <Conclusion> Normal sinus rhythm Septal infarct, age undetermined Abnormal ECG
--- NOTE | 2017-10-15 12:19 | US ---
PROCEDURE: Left upper extremity venous ultrasound HISTORY: Arm pain and swelling. Evaluate for deep venous thrombosis. PHYSICIAN(S): Nestor Cho MD. FINDINGS: The visualized leftinternal jugular vein is sonographically normal and compressible. No evidence of obstruction or thrombus is seen. The visualized segments of the left subclavian vein are patent with normal waveforms. No sonographic evidence of obstruction or thrombosis is seen. The visualized deep venous system of the proximal leftupper extremity is sonographically normal and compressible. There is an IV in the left basilic vein above the elbow. Occlusive acute superficial thrombophlebitis is noted in the left basilic vein related to the catheter IMPRESSION: 1. No sonographic evidence for deep venous thrombosis in the visualized segments of the left upper extremity. 2. Acute superficial thrombophlebitis in the left basilic vein related to the catheter.
--- NOTE | 2017-10-15 14:58 | CP.PCM.PN ---
Subjective - Date & Time of Evaluation Date of Evaluation: 10/15/17 Time of Evaluation: 11:15 - Subjective Subjective: Comfortable in bed, less pain in the left leg, no fevers overnight. Objective - Vital Signs/Intake and Output Vital Signs (last 24 hours): Temp Pulse Resp BP Pulse Ox 98.4 F 92 H 20 117/60 100 10/13/17 17:41 10/13/17 17:41 10/13/17 17:41 10/13/17 17:41 10/13/17 17:41 - Medications Medications: Current Medications Acetaminophen (Tylenol 325mg Tab) 650 mg PO Q4H PRN PRN Reason: Temperature Last Admin: 10/13/17 00:52 Dose: 650 mg Albuterol/Ipratropium (Duoneb 3 Mg/0.5 Mg (3 Ml) Ud) 3 ml IH TIDRESP [facility] Last Admin: 10/14/17 18:15 Dose: Not Given Betamethasone/Clotrimazole (Lotrisone) 0 gm TOP DAILY [facility] Last Admin: 10/14/17 10:07 Dose: Not Given Diphenhydramine HCl (Benadryl) 25 mg PO Q6 PRN; Protocol PRN Reason: pruritis Last Admin: 10/13/17 00:51 Dose: 25 mg Diphenhydramine HCl (Benadryl) 50 mg IVP Q4H PRN; Protocol PRN Reason: Allergy symptoms Last Admin: 10/13/17 15:08 Dose: 50 mg Emollient Ointment (Vaseline Oint) 5 gm TOP Q6H PRN PRN Reason: Dry skin Last Admin: 10/14/17 21:56 Dose: 5 gm Heparin Sodium (Porcine) (Heparin) 5,000 units SC Q12 [facility]BER PRN Reason: Protocol Last Admin: 10/15/17 00:58 Dose: Not Given Home Med (Home Med) 1 unit TOP DAILY [facility] Sodium Chloride (Sodium Chloride 0.45%) 1,000 mls @ 60 mls/hr IV .[id number] [facility] Last Admin: 10/15/17 06:06 Dose: 60 mls/hr Meropenem (Merrem Iv 1 Gm Premix) 50 mls @ 100 mls/hr IVPB Q8 [facility] Stop: 10/18/17 14:01 Last Admin: 10/15/17 06:05 Dose: 100 mls/hr Vancomycin HCl (Vancomycin 1gm) 1 gm in 250 mls @ 167 mls/hr IVPB 0600,1800 HEBER PRN Reason: Protocol Last Admin: 10/15/17 06:06 Dose: 167 mls/hr Morphine Sulfate (Morphine) 1 mg IVP Q3H PRN; Protocol PRN Reason: Pain, moderate (4-7) Last Admin: 10/14/17 00:46 Dose: 1 mg Multi-Ingredient Ointment (Hydrophor Oint) 0 gm TOP Q6H [facility] Last Admin: 10/15/17 00:59 Dose: Not Given Mupirocin (Bactroban Ointment) 1 gm TOP BID [facility] Last Admin: 10/14/17 18:14 Dose: Not Given Ondansetron HCl (Zofran Inj) 4 mg IVP ONCE PRN PRN Reason: Nausea/Vomiting Pantoprazole Sodium (Protonix Ec Tab) 40 mg PO 0600 [facility] Last Admin: 10/15/17 06:06 Dose: 40 mg - Labs Labs: 10/15/17 06:35 10/15/17 06:35 - Constitutional Appears: Chronically Ill - Head Exam Head Exam: NORMAL INSPECTION - ENT Exam ENT Exam: Mucous Membranes Moist - Neck Exam Neck Exam: absent: Meningismus - Respiratory Exam Respiratory Exam: Decreased Breath Sounds - Cardiovascular Exam Cardiovascular Exam: +S1, +S2 - GI/Abdominal Exam GI & Abdominal Exam: Soft. absent: Tenderness - Extremities Exam Additional comments: both legs with dressings in place Assessment and Plan - Assessment and Plan (Free Text) Plan: Assessment sepsis with bilateral lower extremity cellulitis with no evidence of osteomyelitis, growing Citrobacter, Serratia and Group B Strep severe PVD psoriasis GERD HTN dyslipidemia CAD Plan on Merrem day 10 and Vancomycin day 6; repeat blood cx negative PVD is concerning in that antibiotics may need to be properly reaching the lower extremities - will recommend to continue Merrem for another 7-10 days
--- NOTE | 2017-10-15 18:13 | CP.PCM.PN ---
Subjective - Date & Time of Evaluation Date of Evaluation: 10/15/17 Time of Evaluation: 18:10 - Subjective Subjective: 77 year old female seen at bedside two days s/p debridement of b/l leg wounds with application of Integra allograft to exposed achilles tendon of left ankle. Patient went for an angiogram with Dr. Cho yesterday where the graft was accidentally removed. She is AAO x 3 today and NAD resting comfortably in bed. Patient denies any acute overnight events and states that her angiogram went well yesterday. Denies any further pedal complaints at this time. Denies any new clinical symptoms of infection. Denies N/V/F/C/CP/SOB/D/posterior calf pain. Objective - Vital Signs/Intake and Output Vital Signs (last 24 hours): Temp Pulse Resp BP Pulse Ox 98.6 F 93 H 18 109/66 100 10/15/17 16:00 10/15/17 16:00 10/15/17 16:00 10/15/17 16:00 10/15/17 16:00 - Medications Medications: Current Medications Acetaminophen (Tylenol 325mg Tab) 650 mg PO Q4H PRN PRN Reason: Temperature Last Admin: 10/13/17 00:52 Dose: 650 mg Albuterol/Ipratropium (Duoneb 3 Mg/0.5 Mg (3 Ml) Ud) 3 ml IH TIDRESP [facility] Last Admin: 10/15/17 15:30 Dose: 3 ml Betamethasone/Clotrimazole (Lotrisone) 0 gm TOP DAILY [facility] Last Admin: 10/15/17 10:24 Dose: 1 applic Diphenhydramine HCl (Benadryl) 25 mg PO Q6 PRN; Protocol PRN Reason: pruritis Last Admin: 10/15/17 17:28 Dose: 25 mg Diphenhydramine HCl (Benadryl) 50 mg IVP Q4H PRN; Protocol PRN Reason: Allergy symptoms Last Admin: 10/13/17 15:08 Dose: 50 mg Emollient Ointment (Vaseline Oint) 5 gm TOP Q6H PRN PRN Reason: Dry skin Last Admin: 10/14/17 21:56 Dose: 5 gm Heparin Sodium (Porcine) (Heparin) 5,000 units SC Q12 [facility] PRN Reason: Protocol Last Admin: 10/15/17 10:24 Dose: Not Given Home Med (Home Med) 1 unit TOP DAILY [facility] Last Admin: 10/15/17 10:24 Dose: 1 unit Sodium Chloride (Sodium Chloride 0.45%) 1,000 mls @ 60 mls/hr IV .[id number] [facility] Last Admin: 10/15/17 06:06 Dose: 60 mls/hr Meropenem (Merrem Iv 1 Gm Premix) 50 mls @ 100 mls/hr IVPB Q8 [facility] Stop: 10/18/17 14:01 Last Admin: 10/15/17 14:53 Dose: 100 mls/hr Vancomycin HCl (Vancomycin 1gm) 1 gm in 250 mls @ 167 mls/hr IVPB 0600,1800 [facility] PRN Reason: Protocol Last Admin: 10/15/17 17:21 Dose: 167 mls/hr Morphine Sulfate (Morphine) 1 mg IVP Q3H PRN; Protocol PRN Reason: Pain, moderate (4-7) Last Admin: 10/14/17 00:46 Dose: 1 mg Multi-Ingredient Ointment (Hydrophor Oint) 0 gm TOP Q6H [facility] Last Admin: 10/15/17 18:06 Dose: 1 appl Mupirocin (Bactroban Ointment) 1 gm TOP BID [facility] Last Admin: 10/15/17 18:06 Dose: 1 applic Ondansetron HCl (Zofran Inj) 4 mg IVP ONCE PRN PRN Reason: Nausea/Vomiting Pantoprazole Sodium (Protonix Ec Tab) 40 mg PO 0600 [facility] Last Admin: 10/15/17 06:06 Dose: 40 mg - Labs Labs: 10/15/17 06:35 10/15/17 06:35 - Constitutional Appears: Well, Non-toxic, No Acute Distress - Extremities Exam Additional comments: Lower extremity focused exam Derm: Diffuse psoriatic plaques and scaling seen to b/l LE improved since surgery. L leg posterior ulceration expanding from medial to lateral malleoli and from level of achilles insertion into calcaneus to mid calf appreciated. Achilles tendon exposed from just proximal to insertion site into calcaneus roughly 5 cm proximal. Rest of wound base is fibrogranular. No periwound erythema, minimal malodor, no purulence noted. No other clinical signs of infection noted R leg posterior wound measuring roughly 5 cm x 3 cm x 0.1 cm. No tunneling, tracking, undermining, or probe to bone. Some bleeding appreciated. No periwound erythema, malodor, purulent drainage or other clinical signs of infection appreciated Vasc: DP and PT pulses are unpalable, likely due to LE edema, CFT < 3 seconds to all ten digits. Skin temperature warm to warm from proximal to distal, edema noted to the LE bilaterally Neuro: Gross and protective sensation intact Ortho: Tenderness to the LE, pain > to posterior wounds on the left leg - Neurological Exam Neurological Exam: Alert, Awake, Oriented x3 - Psychiatric Exam Psychiatric exam: Normal Affect, Normal Mood Assessment and Plan - Assessment and Plan (Free Text) Assessment: 77 year old female seen at bedside for b/l leg wounds secondary to psoriasis with exposed achilles tendon of left leg Plan: Patient seen and evaluated at bedside with attending Dr. Samson Afebrile, absent leukocytosis Continue abx Patient wound dressed with telfa, DSD and psoriatic plaques lathered in Aquaphore Patient to be DC tomorrow and will follow up with Dr. Samson in wound care center as outpatient
[2017-10-16] MEDS: Pantoprazole 40 mg EC Tab PO SCH (05:01)
[2017-10-16] MEDS: Vancomycin 1gm in NS 250ml 1 GM/250 ML BAG IVPB SCH (05:01)
[2017-10-16] MEDS: Meropenem IV 1 gm in NS 50 ML IVPB SCH (05:01)
[2017-10-16 07:28] VITALS: BP 109/60; PULSE 98; RESP 20; TEMP 97.9; O2SAT 97
[2017-10-16] MEDS: Albuterol-Ipratrop 3 mg / 0.5 (3 ml) UD IH SCH (09:34)
[2017-10-16] MEDS: CALCIPOTRIENE TOP SCH (10:29)
--- NOTE | 2017-10-16 11:15 | PN ---
DATE: 10/16/2017 SUBJECTIVE: The patient appears very comfortable this morning. She is not short of breath at rest. PHYSICAL EXAMINATION: VITAL SIGNS: (Last noted in the computer): Temperature 98.6, pulse 93, respirations 18, blood pressure 109/66. Oxygen saturation on nasal cannula is 100%. HEENT: Normocephalic, atraumatic. NECK: No JVD. CARDIOVASCULAR: Systolic ejection murmur at the lower left sternal border. No S3 gallop. LUNGS: Improved breath sounds at the bases. No rhonchi or wheezing this morning. EXTREMITIES: Both lower extremities remain wrapped. There is less edema. There is no cyanosis or clubbing. Calves are nontender to palpation. GI: Abdomen is soft, nontender, and nondistended. Bowel sounds are positive. SKIN: Positive diffuse psoriatic changes. NEUROLOGIC: Limited to present time. IMPRESSION: 1. Bilateral lower leg cellulitis. 2. Advanced psoriasis. 3. Right lower lobe pneumonia. 4. Chronic obstructive pulmonary disease. 5. Mild bronchospasm. 6. Mild anemia. PLAN: The patient appears very comfortable this morning. She is not short of breath at rest. She does state to feeling much better overall. On physical exam, her bronchospasm continues to resolve. I will continue with the current nebulizer treatments for now. The patient remains on antibiotic therapy - as per Infectious Disease. The temperatures have now fully resolved. There is no leukocytosis. Clinical status of the patient is significantly improved. I will discuss the above with Dr. Harris. Darron Hays MD MTDD
--- NOTE | 2017-10-16 13:51 | DS ---
HISTORY OF PRESENT ILLNESS: She is in the Transitional Care Unit. She is being transferred to [facility] for 3 more weeks of IV antibiotics and physical therapy and healing of the left Achilles tenon. She is on IV fluids, which we will stop and she will be on Bactroban, Benadryl, DuoNeb, heparin, she will be on Lotrisone cream, Merrem IV, Protonix, vancomycin IV, Vaseline, and Zofran. PHYSICAL EXAMINATION: GENERAL: Alert and oriented x3, comfortable and smiling. VITAL SIGNS: She has a 97.9 temperature, 98 pulse, 109/60 blood pressure, 20 respiratory rate, and 97% O2 saturation on room air. HEENT: Head is atraumatic and normocephalic. HEART: Regular rate. LUNGS: Clear to auscultation. ABDOMEN: Soft. EXTREMITIES: Horrible with severe cellulitis and scaling and the left Achilles is exposed and needs more care. ASSESSMENT AND PLAN: She will be seen by Pulmonary, GI, Podiatry, and Infectious Disease. She had a lot of issues going on, while she was here in the hospital. She has cellulitis, psoriasis, sepsis, peripheral vascular disease, and gastroesophageal reflux disease. She will be sent over to [facility] for further care and treatment, hoping that she will do very well. Otis Harris DO
== END 2017-10-16 13:04 | DRG 871 ==
LOC: TRCU 22:27
PROVIDERS: ADMIT Family Medicine; ATTEND Family Medicine
PROC: 3E03329 Introduction of Other Anti-infective into Peripheral Vein, Percutaneous Approach (ICD-10-PCS; 2017-10-08)
PROC: F07L6ZZ Therapeutic Exercise Treatment of Musculoskeletal System - Lower Back / Lower Extremity (ICD-10-PCS; principal; 2017-10-11)
PROC: F08Z1FZ Dressing Techniques Treatment using Assistive, Adaptive, Supportive or Protective Equipment (ICD-10-PCS; 2017-10-11)
PROC: F08Z2FZ Grooming/Personal Hygiene Treatment using Assistive, Adaptive, Supportive or Protective Equipment (ICD-10-PCS; 2017-10-11)
PROC: F08Z0FZ Bathing/Showering Techniques Treatment using Assistive, Adaptive, Supportive or Protective Equipment (ICD-10-PCS; 2017-10-11)
DX: A41.9 Sepsis, unspecified organism (principal); L03.115 Cellulitis of right lower limb; L03.116 Cellulitis of left lower limb; Z79.2 Long term (current) use of antibiotics; L97.328 Non-pressure chronic ulcer of left ankle with other specified severity; L97.919 Non-pressure chronic ulcer of unspecified part of right lower leg with unspecified severity; J44.0 Chronic obstructive pulmonary disease with (acute) lower respiratory infection; J18.9 Pneumonia, unspecified organism; I73.9 Peripheral vascular disease, unspecified; L40.9 Psoriasis, unspecified; E78.00 Pure hypercholesterolemia, unspecified; I25.10 Atherosclerotic heart disease of native coronary artery without angina pectoris; K21.9 Gastro-esophageal reflux disease without esophagitis; I10 Essential (primary) hypertension; D64.9 Anemia, unspecified; Z95.5 Presence of coronary angioplasty implant and graft; B95.1 Streptococcus, group B, as the cause of diseases classified elsewhere; Z87.891 Personal history of nicotine dependence

== ENCOUNTER 2017-10-09 10:44 | Day surgery (SDC) | payer MEDICARE ==
[2017-10-08 22:56] VITALS: BMI 27.3
[2017-10-09 11:43] LABS: INR 1.18 (0.93-1.08); PARTIAL THROMBOPLASTIN TIME 41.4 Seconds (25.1-36.5); PROTHROMBIN TIME 13.6 SECONDS (9.4-12.5)
[2017-10-09] MEDS ORDERED: Midazolam 2 MG/2 ML VIAL ONE ×2 (12:06→13:26)
[2017-10-09] MEDS ORDERED: Lidocaine 2% Inj (20ml) ONE (12:06)
[2017-10-09] MEDS ORDERED: Iodixanol 320 MG/ML 100 ML BOTTLE IV ONE (12:07)
[2017-10-09] MEDS ORDERED: Nitroglycerin 50mg in D5W 50 MG/250 ML BOTTLE IV ONE (12:08)
[2017-10-09] MEDS ORDERED: HEPARIN SODIUM/NS 3,000 ML IV ONE (12:08)
[2017-10-09] MEDS ORDERED: Iodixanol 320 MG/ML 200 ML BOTTLE IV ONE (12:08)
[2017-10-09] MEDS ORDERED: Oxycodone/Acetaminophen 5/325 mg Tab PO PRN (14:43)
[2017-10-09 15:43] VITALS: RESP 18; TEMP 98.2
[2017-10-09] MEDS ORDERED: Bacitracin 500 Units/gm Oint Foilpak UD ONE (16:09)
[2017-10-09 16:22] VITALS: O2SAT 98
[2017-10-09 16:32] VITALS: PULSE 96
[2017-10-09 18:31] VITALS: BP 147/68
--- NOTE | 2017-10-09 19:02 | VASCULAR ---
PROCEDURE: Abdominal aortogram and bilateral lower extremity runoff with left selective views. HISTORY: Severe peripheral vascular disease. Psoriasis. Left ankle ulceration with exposed Achilles tendon. PHYSICIAN(S): Nestor Cho MD. TECHNIQUE: The relative risks and indications of the procedure were explained to the patient and her family and consent obtained. The patient was hydrated prior to the procedure and the appropriate labs drawn. The patient was placed supine on the arteriogram table and the right groin prepped and draped in the usual sterile fashion. Conscious sedation and monitoring were provided throughout the procedure by a nurse. Via a right common femoral artery approach, a 5 [place]orran sheath was placed in the right groin. Through the sheath and over a guidewire, a 5 Andorran flush catheter was placed in the abdominal aorta at the level of the renal arteries and a PA DSA abdominal aortogram performed. The catheter was pulled down to the aortic bifurcation and bilateral oblique DSA pelvic arteriograms performed. Overlapping bilateral lower extremity DSA arteriograms were obtained from the inguinal ligaments to the ankles. A 7 Andorran 45 cm sheath was placed the left common femoral artery a 6 Andorran wildcat crossing catheter was advanced into the proximal left SFA. The catheter advanced easily in the proximal to mid left SFA. The catheter would not advance beyond the adductor canal. Further subintimal progress was obtained with a trail laser catheter and angled Glidewire. Re-entry could not be obtained. Numerous attempts at 3 entering the terminal left SFA and above knee popliteal arteries was performed with an out back catheter. These were unsuccessful, presumably due to the extensive calcification. The sheath was removed hemostasis obtained with a Perclose device. The patient tolerated the procedure well. FINDINGS: Extensive vascular calcification is seen. There are 2 right renal arteries and a single left renal artery present. The main renal arteries are patent. The left kidney is somewhat atrophic. The abdominal aorta below the renal arteries is ectatic and calcified. The aortic bifurcation is patent. The common and external iliac arteries are patent on two views. The internal iliac arteries are patent bilaterally. Right lower extremity: The right common femoral artery is calcified patent. The right profunda femoral artery is hypertrophied. The right SFA is diffusely and severely diseased with calcification and narrowing. Is atretic in appearance. The terminal right SFA reconstitutes in the adductor canal. The right popliteal artery is calcified continuous without radiographically significant stenosis. There is 1 vessel tibial runoff on the right via a large calcified anterior tibial artery. The right peroneal and posterior tibial arteries are occluded. Left lower extremity: The left common femoral artery is calcified and patent. The left profunda femoral artery is hypertrophied. The left SFA occludes 5 centimeters from its origin. Diffuse calcification is seen. There is reconstitution of the diseased left popliteal artery above patella. The left popliteal artery is calcified and continuous. There is 1 vessel runoff via the left anterior tibial artery. The left posterior tibial and peroneal arteries are occluded. Images the left foot demonstrate a patent dorsalis pedis artery which collateralized is to the heel. IMPRESSION: 1. Unsuccessful attempt at crossing the long calcified chronic left SFA occlusion in an antegrade direction. Re-entry could not be obtained. 2. Severe bilateral tibial occlusive disease. 3. Severe diffuse right SFA occlusive disease.
== END 2017-10-09 18:00 ==
LOC: SDSVAS 10:44
PROVIDERS: ATTEND Radiology Vascular & Interventional Radiology
DX: I70.213 Atherosclerosis of native arteries of extremities with intermittent claudication, bilateral legs (principal); L40.9 Psoriasis, unspecified; I10 Essential (primary) hypertension; E78.5 Hyperlipidemia, unspecified; K21.9 Gastro-esophageal reflux disease without esophagitis; Z87.891 Personal history of nicotine dependence; Z86.19 Personal history of other infectious and parasitic diseases; Z98.61 Coronary angioplasty status; Z90.49 Acquired absence of other specified parts of digestive tract; D64.9 Anemia, unspecified
CPT/HCPCS: 36247; 36415; 75625; 75716; 85610; 85730; 99152; 99153; C1725; C1760 ×2; C1769 ×5; C1885; C1887 ×3; C1894 ×2; J1644 ×2; J2250; J2405; J3010; Q9967

== ENCOUNTER → 2017-10-13 | Day surgery (SDC) | payer MEDICARE ==
[2017-10-08 22:56] VITALS: BMI 27.3
[~2017-10-13] MED LIST: Bacitracin 500 Units/gm Oint Foilpak UD ONE; Bacitracin Ointment 30 GM TUBE ONE; Lidocaine 2% Inj (20ml) ONE; Mineral Oil Light Sterile 25 ml ONE
[2017-10-13 19:13] VITALS: TEMP 98.3; O2SAT 98
[2017-10-13 19:14] VITALS: RESP 18
[2017-10-13 19:54] VITALS: BP 121/64; PULSE 78
--- NOTE | 2017-10-15 08:23 | OP ---
PROCEDURE DATE: 10/13/2017 PREOPERATIVE DIAGNOSIS: Chronic bilateral posterior leg wounds secondary to psoriasis with exposed Achilles tendon on the left leg. POSTOPERATIVE DIAGNOSIS: Chronic bilateral posterior leg wounds secondary to psoriasis with exposed Achilles tendon on the left leg. NAME OF PROCEDURE: 1. Debridement of necrotic Achilles tendon left leg with application of Integra allograft. 2. Debridement of posterior leg ulceration right leg. SURGEON: Cherise Samson DPM [employer] SUPERVISOR: Lorenzo Brown, PGY-1 ANESTHESIOLOGIST: Dr. Samuel. TYPE OF ANESTHESIA: IV sedation and local. INDICATIONS: The patient is a 77-year-old female with the above diagnosis. The patient has exhausted all conservative treatments at this time and now requires surgical intervention. The patient signed the consent after careful explanation of risks, benefits, complications, and alternatives for the surgical procedure. No guarantees were given nor implied, n.p.o. status was confirmed prior to taking the patient to the operating room. PREPARATION: The patient was brought into the operating room and placed on the operating room table in a supine position. A time-out was performed prior to identification of the correct patient and procedure. After induction of IV sedation, the patient received a total of 2 mL of 2% lidocaine plain around the posterior wound leg wound of her left leg. The left lower extremity was then prepped and draped in a normal sterile manner and the procedure begun. No tourniquet was used during the procedure. DESCRIPTION OF PROCEDURE: 1. Attention was then turned to the wound located on the posterior left leg of the patient where the Achilles tendon was clearly visible and noted to be necrotic on the most posterior aspect of the tendon. Using a fresh #15 blade, the necrotic portion of the Achilles tendon was methodically excised from the surgical field and sent to the pathology for examination. Once all necrotic tissue was noted to be debrided from the Achilles tendon, the wound and exposed Achilles tendon of the left leg was flushed with copious amounts of normal sterile saline using a bulb syringe. Following this flush, an Integra allograft was applied to the entirety of the exposed portion of the Achilles tendon and suture then placed using 3-0 nylon suture in a simple knot fashion. The wound and grafts were then dressed with silicone covering and Tegaderm as well as ABD's, and Kerlix. 2. Attention was then turned to the right posterior leg where a small superficial ulceration was noted also secondary to psoriatic changes in the leg. The wound was likely debrided with Dermal Curette and dressed with Adaptic gauze, ABD and Kerlix. POSTOPERATIVE CONDITION: The patient tolerated the anesthesia and procedure well and was escorted to the recovery room with vital signs stable and neurovascular status intact to the bilateral lower extremities. The patient is to remain nonweightbearing to the bilateral lower extremities. Podiatry will continue to follow the patient well their in-house and do regular dressing changes to the right leg. All dressing changes to the left leg should be hold off for at least one week to allow the graft to integrate into the wound and exposed Achilles tendon. Lorenzo Brown DPM Cherise Samson DPM
== END | disposition home or self-care (01) ==
LOC: SDS 13:15
PROVIDERS: ATTEND Podiatrist
DX: L97.328 Non-pressure chronic ulcer of left ankle with other specified severity (principal); L40.9 Psoriasis, unspecified; L97.819 Non-pressure chronic ulcer of other part of right lower leg with unspecified severity
CPT/HCPCS: 15271; 27650; 88304; 97597; J7120; Q4104

== ENCOUNTER 2017-10-14 07:31 | Day surgery (SDC) | payer MEDICARE ==
[2017-10-14] MEDS ORDERED: Lidocaine 2% Inj (20ml) ONE (08:25)
[2017-10-14] MEDS ORDERED: Iodixanol 320 MG/ML 200 ML BOTTLE IV ONE (08:26)
[2017-10-14] MEDS ORDERED: Nitroglycerin 50mg in D5W 50 MG/250 ML BOTTLE IV ONE (08:26)
[2017-10-14] MEDS ORDERED: Iodixanol 320 MG/ML 100 ML BOTTLE IV ONE ×2 (08:26→09:18)
[2017-10-14] MEDS ORDERED: Midazolam 2 MG/2 ML VIAL ONE ×3 (08:26→10:20)
[2017-10-14] MEDS ORDERED: HEPARIN SODIUM/NS 3,000 ML IV ONE (08:27)
[2017-10-14 14:56] VITALS: RESP 20
[2017-10-14 15:19] VITALS: PULSE 90; TEMP 97.9; O2SAT 100
--- NOTE | 2017-10-14 17:06 | VASCULAR ---
PROCEDURE: 1. Left lower extremity arteriogram 2. Left SFA recanalization utilizing angioplasty and overlapping stent/stent-graft placement HISTORY: Severe peripheral vascular disease with Achilles ulceration exposed tendon. Unable to recannulized in an antegrade direction. Poor surgical candidate. Attempt retrograde re- cannulization PHYSICIAN(S): Lili Cho M.D. TECHNIQUE: The relative risks and indications of the procedure were explained to the patient and her family and consent obtained. The patient was hydrated prior to the procedure and the appropriate labs drawn. The patient was placed prone on the arteriogram table and the left popliteal fossa prepped and draped usual sterile fashion. Conscious sedation monitoring were provided throughout the procedure by a nurse The left popliteal artery was punctured with a micropuncture set under ultrasound guidance. 5 Bangladeshi short sheath was placed. The long segment left SFA occlusion was crossed rather easily with a 5 Bangladeshi catheter and angled Glidewire. Unfortunately re- entry in the groin was difficult. An out back catheter was utilized. 0.018 support wire was placed in the thoracic aorta Left SFA and above knee popliteal artery were dilated with a 5 mm balloon. Next the left SFA was dilated with a 6 mm balloon. A suboptimal result was obtained. Next an 6 mm by 150 mm Viabahn stent graft was placed at the origin of the left SFA. 5.5 x 150 Supera stent was placed in the mid to distal left SFA extending into the left popliteal artery above the knee. An excellent angiographic result was obtained. There was slow flow noted in the left popliteal artery due to calcified disease and the sheath. The sheath was retracted and the left popliteal artery above the knee dilated with 4 mm x 8 cm drug-eluting balloon. A good angiographic result with brisk flow was noted. The sheath was removed and hemostasis obtained with a Mynx device the patient tolerated the procedure well . FINDINGS: A long segment occlusion left SFA is present. There is reconstitution of the left popliteal artery above the patella. Heavy calcification is noted. The left SFA was recannulized with angioplasty and stent placement as described above. A good angiographic result was obtained. The left popliteal artery was treated with 4 mm drug-eluting balloon. There is 1 vessel runoff via a large left anterior tibial artery. This artery is continuous to the foot without significant stenosis. Collaterals are seen. IMPRESSION: 1.Successful retrograde left SFA recanalization using angioplasty and overlapping stent/ stent-graft placement. 2. 1 vessel tibial runoff via a large left anterior tibial artery.
[2017-10-14 17:43] VITALS: BP 134/72
--- NOTE | 2017-10-16 13:53 | CP.PCM.PN ---
Subjective - Date & Time of Evaluation Date of Evaluation: 10/16/17 Time of Evaluation: 13:48 - Subjective Subjective: 77 year old female seen at bedside three days s/p debridement of b/l leg wounds with application of Integra allograft to exposed achilles tendon of left ankle. Patient went for an angiogram with Dr. Cho two days ago where the graft was accidentally removed. She is AAO x 3 today and NAD resting comfortably in bed with her son present. Denies any further pedal complaints at this time. Denies any new clinical symptoms of infection. Denies N/V/F/C/CP/SOB/D/posterior calf pain. Objective - Vital Signs/Intake and Output Vital Signs (last 24 hours): Temp Pulse Resp BP Pulse Ox 97.9 F 90 20 134/72 100 10/14/17 17:40 10/14/17 17:40 10/14/17 17:40 10/14/17 17:40 10/14/17 17:40 - Constitutional Appears: Well, Non-toxic, No Acute Distress - Extremities Exam Additional comments: Lower extremity focused exam Derm: Diffuse psoriatic plaques and scaling seen to b/l LE improved since surgery. L leg posterior ulceration expanding from medial to lateral malleoli and from level of achilles insertion into calcaneus to mid calf appreciated. Achilles tendon exposed from just proximal to insertion site into calcaneus roughly 5 cm proximal. Tendon does not show any new signs of necrosis since surgery. Rest of wound base is fibrogranular. No periwound erythema, minimal malodor, no purulence noted. No other clinical signs of infection noted R leg posterior wound measuring roughly 5 cm x 3 cm x 0.1 cm. No tunneling, tracking, undermining, or probe to bone. Some bleeding appreciated. No periwound erythema, malodor, purulent drainage or other clinical signs of infection appreciated Vasc: DP and PT pulses are unpalable, likely due to LE edema, CFT < 3 seconds to all ten digits. Skin temperature warm to warm from proximal to distal, edema noted to the LE bilaterally Neuro: Gross and protective sensation intact Ortho: Tenderness to the LE, pain > to posterior wounds on the left leg - Neurological Exam Neurological Exam: Alert, Awake, Oriented x3 - Psychiatric Exam Psychiatric exam: Normal Affect, Normal Mood Assessment and Plan - Assessment and Plan (Free Text) Assessment: 77 year old female seen at bedside for b/l leg wounds secondary to psoriasis with exposed achilles tendon of left leg Plan: Patient seen and evaluated at bedside with attending Dr. Samson Afebrile, absent leukocytosis Patient legs dressed with aquaphore, Telfa, ABD, kirlix Patient to be DC today Patient to f/u in wound care center on 10/22/17 for reapplication of graft to exposed achilles tendon Patient informed that she should keep dressings C/D/I until that time
== END 2017-10-14 17:36 ==
LOC: SDSVAS 07:31
PROVIDERS: ATTEND Radiology Vascular & Interventional Radiology
DX: I70.244 Atherosclerosis of native arteries of left leg with ulceration of heel and midfoot (principal); L97.428 Non-pressure chronic ulcer of left heel and midfoot with other specified severity
CPT/HCPCS: 37226; 99152; 99153; C1725 ×7; C1760 ×2; C1769 ×4; C1876 ×2; C1885; C1892; C1894; J1644 ×2; J2250; J3010; J7030; Q9967

== ENCOUNTER 2017-11-17 13:10 | Inpatient (IN) | payer MEDICARE, OTHER ==
[2017-11-17 13:11] VITALS: BMI 25.1
--- NOTE | 2017-11-17 15:27 | RAD ---
HISTORY: left infection COMPARISON: 10/09/2017. FINDINGS: LUNGS: The lungs are well inflated. No focal consolidation. There is a 1.4 cm nodular opacity in the right lower lobe. There are stable calcified nodules in the left lower lobe. PLEURA: No significant pleural effusion identified, no pneumothorax apparent. CARDIOVASCULAR: Normal. OSSEOUS STRUCTURES: No significant abnormalities. VISUALIZED UPPER ABDOMEN: Normal. OTHER FINDINGS: None. IMPRESSION: No active pulmonary disease. 1.4 cm nodular opacity in the right lower lobe may represent nipple shadow however parenchymal nodule cannot be entirely excluded. Repeat radiographs with nipple markers is recommended for definitive evaluation.
[2017-11-17 16:04] LABS: BASO # 0.02 K/mm3 (0.0-2.0); BASO % 0.2 % (0.0-3.0); EOS % 0.2 % (1.5-5.0); GRAN # 7.06 (1.4-6.5); GRAN % 74.3 % (50.0-68.0); HEMOGLOBIN 8.8 g/dL (12.0-16.0); LYMPH # 1.4 (1.2-3.4); LYMPH % 14.6 % (22.0-35.0); MEAN CORPUSCULAR HEMOGLOBIN 27.6 pg (25.0-35.0); MEAN CORPUSCULAR HGB CONC 32.5 g/dl (31.0-37.0); MEAN PLATELET VOLUME 8.8 fl (7.0-11.0); MONO % 10.7 % (1.0-6.0); RBC 3.19 10^6/uL (3.5-6.1); RED CELL DISTRIBUTION WIDTH 20.9 % (11.5-14.5); WHITE BLOOD COUNT 9.5 10^3/ul (4.5-11.0)
[2017-11-17 16:10] LABS: ALB/GLOB RATIO 0.7 (1.1-1.8); ALBUMIN 2.8 g/dL (3.0-4.8); CALCIUM 9.3 mg/dL (8.4-10.5)
[2017-11-17] MEDS ORDERED: Ciprofloxacin 200mg/100ml D5W 100 ML IVPB STA (17:01)
--- NOTE | 2017-11-17 17:22 | ED PDOC ---
Arrival/HPI - General Chief Complaint: Abnormal Skin Integrity Time Seen by Provider: 11/17/17 14:06 Historian: Patient - History of Present Illness Narrative History of Present Illness (Text): 11/17/17 17:19 77-year-old female presents today sent in by Dr. Samson for admission for bilateral lower leg cellulitis. Patient states she has wounds to the left lower leg exposing the Achilles tendon. Patient denies fevers at home. Denies chest pain or shortness of breath. Denies urinary symptoms. Patient states she was seen in the wound center today and was sent down for admission. Patient denies headache. Denies chest pain or shortness of breath. No other complaints Symptom Onset: Gradual Symptom Course: Worsening Quality: Aching Severity Level: 4 Past Medical History - Provider Review Nursing Documentation Reviewed: Yes - Travel History Have you recently traveled outside [place] w/in the past 3 mons?: No - Infectious Disease Hx of Infectious Diseases: None - Cardiac Hx Pacemaker: No - Pulmonary Hx Respiratory Disorders: Yes (smoked cigarettes) - Neurological Hx Paralysis: No - HEENT Hx HEENT Disorder: No - Renal Hx Renal Disorder: No - Endocrine/Metabolic Hx Endocrine Disorders: No - Hematological/Oncological Hx Anemia: Yes Hx Blood Transfusions: No - Integumentary Hx Dermatological Disorder: Yes Hx Psoriasis: Yes - Musculoskeletal/Rheumatological Hx Musculoskeletal Disorders: No - Gastrointestinal Hx Gastrointestinal Disorders: Yes Hx Gastroesophageal Reflux: Yes - Genitourinary/Gynecological Hx Genitourinary Disorders: No - Psychiatric Hx Emotional Abuse: No Hx Physical Abuse: No Hx Substance Use: No - Surgical History Hx Cardiac Catheterization: Yes - Anesthesia Hx Anesthesia Reactions: No Hx Malignant Hyperthermia: No - Suicidal Assessment Feels Threatened In Home Enviroment: No Family/Social History - Physician Review Nursing Documentation Reviewed: Yes Family/Social History: Unknown Family HX Smoking Status: Former Smoker Hx Alcohol Use: Yes (OCC BEER) Hx Substance Use: No Allergies/Home Meds Allergies/Adverse Reactions: Allergies No Known Allergies Allergy (Verified 10/08/17 22:56) Review of Systems - Review of Systems Constitutional: absent: Fatigue, Fevers Respiratory: absent: SOB, Cough Cardiovascular: absent: Chest Pain, Palpitations Gastrointestinal: absent: Abdominal Pain, Nausea, Vomiting Musculoskeletal: Arthralgias Skin: Skin Lesions, Cellulitis Neurological: absent: Headache, Speech Changes Psychiatric: absent: Anxiety, Depression, Suicidal Ideation Physical Exam Vital Signs Reviewed: Yes Vital Signs Temp Pulse Resp BP Pulse Ox 11/17/17 15:37 98 H 18 131/64 100 11/17/17 14:00 98.2 F 88 18 140/78 98 Temperature: Afebrile Blood Pressure: Normal Pulse: Regular Respiratory Rate: Normal Appearance: Positive for: Well-Appearing, Non-Toxic, Comfortable Pain Distress: None Mental Status: Positive for: Alert and Oriented X 3 - Systems Exam Head: Present: Atraumatic Mouth: Present: Moist Mucous Membranes Neck: Present: Normal Range of Motion Respiratory/Chest: Present: Clear to Auscultation, Good Air Exchange. No: Respiratory Distress, Accessory Muscle Use Cardiovascular: Present: Regular Rate and Rhythm, Normal S1, S2. No: Murmurs Abdomen: No: Tenderness, Rebound, Guarding Lower Extremity: Present: Other (bilateral lower leg edema; legs in compression dressing to tibial tuberosity. ). No: Tenderness Neurological: Present: GCS=15, Speech Normal Skin: Present: Warm, Dry, Normal Color. No: Rashes Psychiatric: Present: Alert, Oriented x 3 Medical Decision Making ED Course and Treatment: 11/17/17 17:22 Patient with bilateral lower leg cellulitis sent from wound care center for admission CBC: Hemoglobin of 8.8 previous hgb;8.0 CMP: Creatinine 2.1 previous Cr; 0.7 Blood cultures pending Case was discussed with Dr. samson in depth; will start meropenem and cipro at renal dosing. will consult ID. pt reassessment; pt c/o pain; requesting tramadol. tramdol given for pain. abx ordered IV. case discussed with dr. calhoun; accepts admission. will consult, ID, Podiatry, and Renal. impression; b/l lower leg cellulitis, open wounds, acute kidney injury, anemia. admit to med/surg - Lab Interpretations Lab Results: 11/17/17 15:00 11/17/17 15:00 Lab Results 11/17/17 15:00: WBC 9.5, RBC 3.19 L, Hgb 8.8 L, Hct 27.1 L, MCV 85.0 D, MCH 27.6, MCHC 32.5, RDW 20.9 H, Plt Count 501 H, MPV 8.8, Gran % 74.3 H, Lymph % ( Auto) 14.6 L, Leake % (Auto) 10.7 H, Eos % (Auto) 0.2 L, Baso % (Auto) 0.2, Gran # 7.06 H, Lymph # (Auto) 1.4, Leake # (Auto) 1.0 H, Eos # (Auto) 0.0, Baso # ( Auto) 0.02 11/17/17 15:00: Sodium 137, Potassium 4.1, Chloride 106, Carbon Dioxide 22, Anion Gap 13, BUN 28 H, Creatinine 2.1 H, Est GFR ( Amer) 28, Est GFR ( Non-Af Amer) 23, Random Glucose 81, Calcium 9.3, Total Bilirubin 0.3, AST 50 H, ALT 29, Alkaline Phosphatase 98, Total Protein 7.0, Albumin 2.8 L, Globulin 4.2 , Albumin/Globulin Ratio 0.7 L - RAD Interpretation Radiology Orders: 11/17/17 14:09 CHEST PORTABLE [RAD] Stat - Medication Orders Current Medication Orders: Meropenem 250 mg/ Sodium (Chloride) 100 mls @ 100 mls/hr IVPB STAT STA PRN Reason: Protocol Stop: 11/17/17 17:59 Ciprofloxacin (Cipro 200mg/100ml D5w) 100 mls @ 67 mls/hr IVPB STAT STA PRN Reason: Protocol Stop: 11/17/17 18:30 Discontinued Medications Tramadol HCl (Ultram) 50 mg PO STAT STA Stop: 11/17/17 16:42 Last Admin: 11/17/17 16:52 Dose: 50 mg TESSIE Pain Assessment Document 11/17/17 16:52 SRINI (Rec: 11/17/17 16:52 SIRNI [id number]) Pain Reassessment Is this a pain reassessment? No Sleep Is patient sleeping during reassessment? No Presence of Pain Presence of Pain Yes Disposition/Present on Arrival - Present on Arrival Any Indicators Present on Arrival: Yes History of DVT/PE: No History of Uncontrolled Diabetes: No Urinary Catheter: Yes History of Decub. Ulcer: No History Surgical Site Infection Following: None - Disposition Have Diagnosis and Disposition been Completed?: Yes Diagnosis: Cellulitis of both lower extremities, Acute kidney injury, Anemia Disposition: HOSPITALIZED Disposition Time: 17:19 Patient Plan: Admission Condition: FAIR Discharge Instructions (ExitCare): Cellulitis (ED)
[2017-11-17] MEDS ORDERED: Non Formulary Medication (Meropenem [Merrem Iv] 1 GM) IV SCH (18:45)
[2017-11-17] MEDS ORDERED: Meropenem 500 MG in Sodium Chloride 0.9% 100 ML IVPB SCH (22:00)
[2017-11-17] MEDS: Sodium Chloride 0.45% 1,000 ML IV SCH (22:42)
[2017-11-17] MEDS: Piperacillin/Tazobact 2.25gm 2.25 GM/100 ML BAG IVPB SCH (23:47)
[2017-11-18] MEDS: Albuterol-Ipratrop 3 mg / 0.5 (3 ml) UD IH SCH ×4 (01:39→19:36)
--- NOTE | 2017-11-18 02:01 | HP ---
HISTORY OF PRESENT ILLNESS: I was called to the emergency room by Dr. Samson who has sent Meche Pereira to the emergency room for bilateral lower legs cellulitis. We have been dealing with this with her for about a month now. She also has a left lower Achilles exposure. It just does not seem to be healing on outpatient treatment with antibiotics and wound care and she was sent to the emergency room with worsening of the Achilles to get further treatment. 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 FAMILY HISTORY: Hypertension in the family. SOCIAL HISTORY: Former smoker. Occasional alcohol. No substance abuse. ALLERGIES: NO KNOWN DRUG ALLERGIES. MEDICATIONS: She was on Protonix, Merrem, heparin, Bactroban cream, multiple other creams by the vice president of recruiting on the outpatient and seemed to be getting worse and she is back in the hospital for further aggressive care. REVIEW OF SYSTEMS: She has no acute vision or hearing loss. No sore throat. No shortness of breath or cough. No palpitations or chest pains. No abdominal pain, nausea, vomiting. Some arthralgias. She has skin lesions all over the body from severe psoriasis and pemphigus. Cellulitis of both lower extremities with an exposed left Achilles tendon. No headache or speech changes. No neurological issues. No anxiety, depression or suicidal thoughts. PHYSICAL EXAMINATION: VITAL SIGNS: She has a 98.2 temp, 98 pulse, 18 respiratory rate, 131/64 blood pressure, 100% O2 sat on room air. GENERAL: Well appearing, nontoxic, comfortable, very pleasant and sweet. Positive for alert and oriented x3. HEENT: Head is atraumatic, normocephalic. Mucous membranes are moist. NECK: Supple. HEART: Regular rate. Normal S1 and S2. LUNGS: Clear to auscultation bilaterally. Clear. No wheezes, rhonchi or rales. ABDOMEN: Soft, nontender. Positive bowel sounds. No guarding, no rebound, no CVA tenderness. EXTREMITIES: Have redness to both lower extremities and now bandaged by Dr. Samson. She had bullous pemphigus and she has an exposed left Achilles tendon. NEUROLOGIC: GCS is 15. Cranial nerves II through XII grossly intact. Speech is normal. Alert and oriented x3. SKIN: Warm and dry with bad redness throughout the body with some healed old blisters. Both lower extremities are red and inflamed. An exposed left Achilles tendon, which is bandaged by the vice president of recruiting. LYMPH NODES: No palpable appreciable lymphadenopathy. LABORATORY DATA: She has a 9.5 white count, 8.8 hemoglobin, 27.1 hematocrit with 501 platelets. 137 sodium, potassium 4.1, BUN 28, creatinine 2.1, which is high for her, 9.3 calcium, 0.3 total bili, AST is 50, ALT is 29, alk phos 98, total protein 7. She had a chest x-ray, which showed no active pulmonary disease, questionable opacity. Recommend a repeat chest x-ray. IMPRESSION AND PLAN: She will have consult with Infectious Disease and Podiatry, IV antibiotics, skin care. Checking her labs tomorrow. She might need a transfusion, she is anemic. We will also have kidney doctor evaluation for her acute kidney injury. Otis Harris DO
[2017-11-18] MEDS: Piperacillin/Tazobact 2.25gm 2.25 GM/100 ML BAG IVPB SCH ×3 (05:07→18:57)
[2017-11-18] MEDS: Pantoprazole 40 mg EC Tab PO SCH (05:07)
[2017-11-18 08:37] LABS: HEMOGLOBIN 8.4 g/dL (12.0-16.0); MEAN CELL VOLUME 84.4 fl (80.0-105.0); MEAN CORPUSCULAR HEMOGLOBIN 27.4 pg (25.0-35.0); MEAN CORPUSCULAR HGB CONC 32.4 g/dl (31.0-37.0); MEAN PLATELET VOLUME 8.5 fl (7.0-11.0); RBC 3.07 10^6/uL (3.5-6.1); RED CELL DISTRIBUTION WIDTH 20.9 % (11.5-14.5); WHITE BLOOD COUNT 7.8 10^3/ul (4.5-11.0)
[2017-11-18 08:56] LABS: ALB/GLOB RATIO 0.6 (1.1-1.8); ALBUMIN 2.3 g/dL (3.0-4.8); CALCIUM 8.7 mg/dL (8.4-10.5)
--- NOTE | 2017-11-18 10:00 | CARD ---
APPROVED REPORT EKG Measurement Heart [id number] <Conclusion> Normal sinus rhythm No change
[2017-11-18] MEDS: Bacitracin Ointment 30 GM TUBE TOP SCH (12:04)
[2017-11-18] MEDS: Ammonium Lactate 12% Cream (140 g) TOP SCH ×2 (12:04→18:58)
--- NOTE | 2017-11-18 14:06 | PN ---
DATE: SUBJECTIVE: I saw Meche resting comfortably in bed. The left ankle and foot is all wrapped up. She is on Bactroban cream, DuoNebs, heparin, Protonix, IV fluids, Tylenol and Zosyn IV. She is trying to eat, no real pain. OBJECTIVE: VITAL SIGNS: She has a 99.4 temperature, 100 pulse, 134/68 blood pressure, 18 respiratory rate, and 100% O2 sat on room air. HEENT: Head is atraumatic, normocephalic. HEART: Regular rate. LUNGS: Clear to auscultation. ABDOMEN: Soft. EXTREMITIES: Bandaged. SKIN: Reddened and cellulitic in some areas, especially to the feet. LABORATORY DATA: She has a 7.8 white count; 8.4 hemoglobin, if it drops below 8, I will transfuse; 25.9 hematocrit with 47 platelets. 138 sodium, potassium 3.8, BUN is 23, creatinine 1.5, definitely improving on the renal insufficiency level. Calcium is 8.7, total bili is 0.5, AST is 32, ALT is 24, alk phos is 9, total protein 6.2. ASSESSMENT AND PLAN: She is being seen by no one yet. Has consults for Infectious Disease, Renal, Podiatry. She is here for cellulitis bilateral lower extremities, left Achilles tendon exposure, anemia, and acute kidney injury. Otis Harris DO
--- NOTE | 2017-11-18 16:52 | US ---
PROCEDURE: Ultrasound of the Kidneys HISTORY: ALDO COMPARISON: None available. TECHNIQUE: Sonogram of the kidneys. FINDINGS: RIGHT KIDNEY: Measures: 8.8 cm. Normal in size, contour and echogenicity. No stone, solid mass lesion or hydronephrosis visualized. LEFT KIDNEY: Measures: 9.3 cm. Normal in size, contour and echogenicity. Upper pole simple cortical cyst, 1.3 x 1.6 x 1.9 cm. No other renal mass. No calculus or hydronephrosis. OTHER FINDINGS: None. IMPRESSION: 1.9 cm left upper pole simple renal cortical cysts. Otherwise unremarkable.
--- NOTE | 2017-11-18 17:19 | CP.PCM.CON ---
History of Present Illness - History of Present Illness History of Present Illness: Initial Nephrology Consultation: Assessment: Stable Acute Kidney Injury (N17.9) unclear etiology. improved with IVF suggest some pre -renal component. possible differential also includes AIN, IgA disease Anemia, skin rash, cellulitis, renal cyst Plan No acute need for renal replacement therapy at this time. BP controlled Patient not on ACEI/ARB due to ALDO Monitor Input/Output, daily weights and renal function with basic metabolic panel started iron supplements and MVI Check urine analysis, spot protein/creatinine and albumin/creatinine ratio, renal sonogram. Urine for eosinophils Check C3, C4, JIMMIE, Anti dsDNA, ANCA (MPO and KY-3), serum protein electrophoresis with immunofixation, kappa/lambda, TSAT/Ferritin Dose meds/antibiotics for reduced GFR. Avoid fleets enema/magnesium based laxatives. Avoid nephrotoxins/NSAIDs/ iodinated contrast (unless needed emergently) Glycemic control Further work up/management as per primary team Thanks for allowing me to participate in care of your patient. Will follow patient with you. Please call if any Qs Dr Stanley Moscoso Office: [phone] Chief Complaint; foot wound reason for consult: ALDO HPI: Pt is a 77 F with hx of skin lesions mentioned as psoriasis and pemphigus presented with complaints of non healing and worsening heel wound. she was in rehab. renal conslt for ALDO Denies OTC/herbal meds or NSAIDs No recent iodinated contrast exposure. No obvious episodes of low BP. pt says skin rash better these days ROS: Cardiovascular: No chest pain. Pulmonary: No shortness of breath Gastrointestinal: denies abdominal pain No nausea. No vomiting. Genitourinary: No pain while urinating. Denies blood in urine. All other negative except foot wound and skin rash Physical Examination: General Appearance: Comfortable, in no acute respiratory distress, co-operative . Vitals reviewed and noted as below Head; Atraumatic, normocephalic ENT: no ulcers no thrush. Tongue is midline. Oropharynx: no rash or ulcers. EYES: Pupils are equal, round and reactive to light accommodation. Eye muscles and extraocular movement intact. Sclera is anicteric. Neck; supple no lymphadenopathy, no thyromegaly or bruit Lungs: Normal respiratory rate/effort. Breath sounds bilateral equal and clear Heart: Normal rate. s1s2 normal. No rub or gallop. Extremities: 1+ edema. No varicose veins. both feets dressed Neurological: Patient is alert, awake and oriented to person, place and time. No focal deficit. Strength bilateral appropriate and equal Skin: Warm and dry. Normal turgor. erythematous scaly rash on all 4 extremities. Palpitation: Normal elasticity for age Abdomen: Abdomen is soft. Bowel sounds +. There is no abdominal tenderness, no guarding/rigidity no organomegaly Psych: normal insight and normal affect/mood MSK: no joint tenderness or swelling. Digits and nails normal, no deformity : kidney or bladder not palpable Labs/imaging reviewed. Past medical history, past surgical history, family history, social history, allergy reviewed and noted as below Family hx: no hx of CKD. Rest non-contributory renal sono: left side cyst UA recently with trace to 1+ protein and microspic hematuria JIMMEI ++ in past Past Patient History - Infectious Disease Hx of Infectious Diseases: None - Past Medical History & Family History Past Medical History?: Yes - Past Social History Smoking Status: Former Smoker - CARDIAC Hx Hypertension: Yes Hx Pacemaker: No - PULMONARY Hx Respiratory Disorders: Yes (smoked cigarettes) - NEUROLOGICAL Hx Neurological Disorder: No - HEENT Hx HEENT Problems: No - RENAL Hx Chronic Kidney Disease: No - ENDOCRINE/METABOLIC Hx Endocrine Disorders: No - HEMATOLOGICAL/ONCOLOGICAL Hx Anemia: Yes - INTEGUMENTARY Hx Psoriasis: Yes - MUSCULOSKELETAL/RHEUMATOLOGICAL Hx Falls: No - GASTROINTESTINAL Hx Gastrointestinal Disorders: Yes Hx Gastroesophageal Reflux: Yes - GENITOURINARY/GYNECOLOGICAL Hx Genitourinary Disorders: No - PSYCHIATRIC Hx Emotional Abuse: No Hx Physical Abuse: No - SURGICAL HISTORY Hx Cardiac Catheterization: Yes Hx Cholecystectomy: Yes - ANESTHESIA Hx Anesthesia Reactions: No Hx Malignant Hyperthermia: No Meds Allergies/Adverse Reactions: Allergies Allergy/AdvReac Type Severity Reaction Status Date / Time No Known Allergies Allergy Verified 10/08/17 22:56 - Medications Medications: Current Medications Acetaminophen (Tylenol 325mg Tab) 650 mg PO Q4H PRN PRN Reason: Temperature Last Admin: 11/18/17 01:24 Dose: 650 mg Albuterol/Ipratropium (Duoneb 3 Mg/0.5 Mg (3 Ml) Ud) 3 ml IH TIDRESP [facility] Last Admin: 02/13/18 13:13 Dose: Not Given Bacitracin (Bacitracin) 1 gm TOP DAILY [facility] Last Admin: 11/18/17 12:04 Dose: 1 applic Ferrous Gluconate (Fergon) 324 mg PO TID [facility] Last Admin: 11/18/17 14:22 Dose: 324 mg Heparin Sodium (Porcine) (Heparin) 5,000 units SC Q12 [facility] PRN Reason: Protocol Last Admin: 11/18/17 10:26 Dose: 5,000 units Sodium Chloride (Sodium Chloride 0.45%) 1,000 mls @ 40 mls/hr IV .Q24H [facility] Last Admin: 11/17/17 22:42 Dose: 40 mls/hr Piperacillin Sod/Tazobactam Sod (Zosyn 2.25 Gm In 0.9% 100 Ml) 2.25 gm in 100 mls @ 200 mls/hr IVPB Q6 [facility] PRN Reason: Protocol Stop: 11/25/17 00:01 Last Admin: 11/18/17 12:05 Dose: 200 mls/hr Lactic Acid (Lac-Hydrin 12% Cream (140 G)) 0 ea TOP BID [facility] Last Admin: 11/18/17 12:04 Dose: 1 applic Multivitamins (Thera Tab) 1 tab PO 0800 [facility] Mupirocin (Bactroban Ointment) 0 gm TOP BID [facility] Last Admin: 11/18/17 14:09 Dose: Not Given Pantoprazole Sodium (Protonix Ec Tab) 40 mg PO 0600 [facility] Last Admin: 11/18/17 05:07 Dose: 40 mg Results - Vital Signs Recent Vital Signs: Last Vital Signs Temp 99.4 F 11/18/17 07:00 Pulse 100 H 11/18/17 07:30 Resp 18 11/18/17 07:00 BP 134/68 11/18/17 07:00 Pulse Ox 100 11/18/17 07:00 - Labs Result Diagrams: 11/18/17 08:00 11/18/17 08:00 Labs: Laboratory Results - last 24 hr 11/17/17 11/18/17 11/18/17 20:06 08:00 08:00 WBC 7.8 RBC 3.07 L Hgb 8.4 L Hct 25.9 L MCV 84.4 MCH 27.4 MCHC 32.4 RDW 20.9 H Plt Count 487 H MPV 8.5 ESR 124 H Sodium Potassium Chloride Carbon Dioxide Anion Gap BUN Creatinine Est GFR ( Amer) Est GFR (Non-Af Amer) POC Glucose (mg/dL) Random Glucose Calcium Total Bilirubin AST ALT Alkaline Phosphatase C-React Prot High Sens > 15.00 H Total Protein Albumin Globulin Albumin/Globulin Ratio Blood Type A POSITIVE Antibody Screen Negative BBK History Checked Patient has bt 11/18/17 11/18/17 08:00 09:02 WBC RBC Hgb Hct MCV MCH MCHC RDW Plt Count MPV ESR Sodium 138 Potassium 3.8 Chloride 111 H Carbon Dioxide 17 L Anion Gap 14 BUN 23 H Creatinine 1.5 H Est GFR ( Amer) 41 Est GFR (Non-Af Amer) 34 POC Glucose (mg/dL) 95 Random Glucose 45 L* D Calcium 8.7 Total Bilirubin 0.5 AST 32 ALT 24 Alkaline Phosphatase 90 C-React Prot High Sens Total Protein 6.2 Albumin 2.3 L Globulin 3.9 Albumin/Globulin Ratio 0.6 L Blood Type Antibody Screen BBK History Checked
[2017-11-19] MEDS: Piperacillin/Tazobact 2.25gm 2.25 GM/100 ML BAG IVPB SCH ×6 (00:09→23:29)
[2017-11-19] MEDS: Sodium Chloride 0.45% 1,000 ML IV SCH ×2 (00:15→23:28)
--- NOTE | 2017-11-19 02:43 | CON ---
DATE: HISTORY OF PRESENT ILLNESS: This is a 77-year-old female, well-known to the [facility] wound care team, seen at bedside for bilateral lower extremity cellulitis secondary to bilateral lower extremity ulcerations. The patient's medical history is significant for hypertension, GERD, psoriasis, CAD and lower extremity ulcerations. ALLERGIES: THE PATIENT HAS NO KNOWN DRUG ALLERGIES. FAMILY HISTORY: Remarkable for hypertension. SOCIAL HISTORY: The patient was a former smoker, stopped many years ago. Denies alcohol use. Denies illicit drug use. MEDICATIONS: All medications noted in MAR. PHYSICAL EXAMINATION: VITAL SIGNS: Revealed temperature of 99.4, pulse rate of 100, blood pressure of 134/68, respiratory rate 18. LABORATORY DATA: Laboratory findings reveal white count of 7.8, hemoglobin of 8.4, hematocrit 25.9, platelet count of 487. Her ESR is elevated at 124. Culture of the left ankle reveals many Gram-negative rods preliminarily; sensitivities to follow. MRI taken on 10/05/2017 of the left ankle reveals no radiographic evidence of osteomyelitis at that time. OBJECTIVE: Nonpalpable pedal pulses noted bilaterally secondary to +1 nonpitting lower extremity edema. Gross and protective sensation intact bilaterally. There is noted to be a full-thickness ulceration on the left posterior distal leg that expands from medial to lateral malleoli at the level of the Achilles tendon insertion. The wound is a mixture of fibrotic and granular tissue. There is noted to be heavy serous drainage. There is no purulence. There is no malodor. The wound does not probe to bone at this time. Right lower leg presents with a full-thickness ulceration at the heel that encompasses the posterior plantar aspect of the heel. Base of the ulcer is primarily gangrenous and has demarcated. The wound does not probe to tendon or bone. There is no drainage. There is no purulence. There is noted to be an ulceration at the more proximal posterior aspect of the leg that measures approximately 4 cm x 3 cm x 0.2 cm. Base of the wound is a mixture of fibrotic and granular tissue. There is noted to be minimal serous drainage. There is no purulence. The wound does not probe to tendon or bone. There is no abscess formation noted. ASSESSMENT: A 77-year-old female seen at bedside for bilateral lower extremity ulcerations. PLAN: The patient was seen and evaluated at bedside. New culture was taken on both lower legs and submitted for sensitivities. The wounds were cleansed with normal sterile saline. An application of sterile Adaptic Maxorb, abdominal pad and Kerlix was applied to the left lower leg due to the serous drainage. The right heel was covered with Betadine solution and a dry sterile dressing, and a Maxorb with calcium alginate gauze was applied to the right posterior leg with a dry sterile dressing. Recommend Infectious Disease consult to evaluate culture and sensitivity results. We will order arterial Dopplers as the last Dopplers were taken on 09/07/2017. We will continue with IV as per Infectious Disease. We will order bilateral foot x-rays to rule out underlying osteomyelitis. The patient will be seen and followed daily. Yo Diaz DPM
[2017-11-19] MEDS: Pantoprazole 40 mg EC Tab PO SCH (06:16)
[2017-11-19] MEDS: Albuterol-Ipratrop 3 mg / 0.5 (3 ml) UD IH SCH ×3 (07:27→20:59)
[2017-11-19 08:11] LABS: HEMOGLOBIN 7.6 g/dL (12.0-16.0); MEAN CELL VOLUME 83.8 fl (80.0-105.0); MEAN CORPUSCULAR HEMOGLOBIN 27.4 pg (25.0-35.0); MEAN CORPUSCULAR HGB CONC 32.8 g/dl (31.0-37.0); MEAN PLATELET VOLUME 8.1 fl (7.0-11.0); RBC 2.77 10^6/uL (3.5-6.1); RED CELL DISTRIBUTION WIDTH 20.6 % (11.5-14.5); WHITE BLOOD COUNT 7.2 10^3/ul (4.5-11.0)
[2017-11-19 08:25] LABS: ALB/GLOB RATIO 0.6 (1.1-1.8); CALCIUM 8.5 mg/dL (8.4-10.5)
--- NOTE | 2017-11-19 09:13 | RAD ---
PROCEDURE: Bilateral Feet Radiographs. HISTORY: posterior heel ulcer COMPARISON: Portable bilateral feet radiographs 04/13/2017. FINDINGS: BONES: No definite acute fracture or dislocations identified or destructive bony lesion including the bilateral posterior calcanei. JOINTS: Cortical sclerosis and joint space narrowing seen throughout the joints throughout the bilateral feet above predominantly in the forefoot more so than midfoot and hindfoot joints. SOFT TISSUES: Heterotopic calcifications are seen at the mid to posterior plantar feet soft tissues bilaterally once again as well as posterior the ankle or within the Achilles tendons bilaterally as well. OTHER FINDINGS: None. IMPRESSION: No destructive bony lesion appreciated bilaterally including bilateral calcanei. If concern for possible osteomyelitis is raised then follow-up MRI is recommended. No acute fracture, subluxation or dislocation. Degenerative joint disease bilaterally as discussed above.
--- NOTE | 2017-11-19 10:01 | CON ---
DATE: 11/18/2017 LOCATION: The patient is seen in room 571, bed 2 early this morning. CHIEF COMPLAINT: Lower extremity cellulitis. HISTORY OF PRESENT ILLNESS: This is a 77-year-old female with history of psoriasis and coronary artery disease, high cholesterol, GERD, with a history of cholecystectomy and cardiac cath with stent placement with no known allergies, and admitted with a diagnosis of bilateral cellulitis, anemia, and acute kidney injury. REVIEW OF SYSTEMS: Reveals the patient has no fevers and no chills. No nausea, no vomiting. No chest pain and just has lower extremity erythema and edema. PAST MEDICAL HISTORY: Significant for coronary artery disease, psoriasis, high cholesterol and GERD. PAST SURGICAL HISTORY: Significant for cholecystectomy, cardiac cath with stent placement. ALLERGIES: THE PATIENT HAS NO KNOWN ALLERGIES. MEDICATIONS AT HOME: Reveals the patient to be on pantoprazole, Zofran, heparin, and clotrimazole. PHYSICAL EXAMINATION: VITAL SIGNS: Temperature is 98, heart rate of 100, respiratory rate of 20, blood pressure is 115/40. HEENT: Unremarkable. NECK: Supple. LUNGS: Have decreased breath sounds. HEART: Normal S1 and S2. ABDOMEN: Soft, nontender. LABORATORY DATA: Reveals a white count of 9, hemoglobin of 8, platelets of 501,000. Chemistries are noted, BUN of 21, creatinine is 2.1. The last creatinine on 10/15/2017, last month was 0.7. Microbiology reveals the blood cultures have no growth. The left ankle cultures pending and Dr. Blanka Angel's note is reviewed. Renal ultrasound is noted. Dr. Otis Harris's history and physical examination is reviewed. It states that the patient is on outpatient antibiotics without improvement. ASSESSMENT AND PLAN: A 77-year-old female with psoriasis, coronary artery disease, high cholesterol, hypertension, gastroesophageal reflux disease with bilateral lower extremity cellulitis and acute kidney injury with creatinine has changed from last month from 0.7 to 2.1 and the patient is on Zosyn now, adjust this for renal failure, was given a dose of vancomycin. Consider renal insufficiency, we will not treat with vancomycin on a continuous basis. We will start the patient on Zyvox and Zosyn pending culture results and should have imaging to rule out underlying osteomyelitis and vascular workup to rule out underlying peripheral vascular disease. We will follow closely with you. Valente Oshea MD
--- NOTE | 2017-11-19 10:31 | CP.PCM.PN ---
<[email or web address] - Last Filed: 11/19/17 10:53> Subjective - Date & Time of Evaluation Date of Evaluation: 11/19/17 Time of Evaluation: 10:24 - Subjective Subjective: 77 year old female patient with PMHx of MSSA cellulitis, CAD s/p 1 stent, HTN, HLD, GERD and psoriasis was seen and evaluated at bedside for bilateral LE wounds. Patient is AAOx3 and is in NAD. Patient denies of having any acute overnight events. Patient denies of having any F/N/V/C/SOB/CP/headache. Patient reports that the pain is tolerable if no one touches her feet. Patient denies of having any other pedal complains at this time. Objective - Vital Signs/Intake and Output Vital Signs (last 24 hours): Temp Pulse Resp BP Pulse Ox 97.6 F 87 18 109/48 L 100 11/19/17 07:00 11/19/17 07:00 11/19/17 07:00 11/19/17 07:00 11/19/17 07:00 Intake and Output: 11/19/17 11/19/17 06:59 18:59 Intake Total 540 Output Total 200 Balance 340 - Medications Medications: Current Medications Acetaminophen (Tylenol 325mg Tab) 650 mg PO Q4H PRN PRN Reason: Temperature Last Admin: 11/18/17 01:24 Dose: 650 mg Albuterol/Ipratropium (Duoneb 3 Mg/0.5 Mg (3 Ml) Ud) 3 ml IH TIDRESP [facility] Last Admin: 11/19/17 07:27 Dose: 3 ml Bacitracin (Bacitracin) 1 gm TOP DAILY [facility] Last Admin: 11/18/17 12:04 Dose: 1 applic Ferrous Gluconate (Fergon) 324 mg PO TID [facility] Last Admin: 11/18/17 18:57 Dose: 324 mg Heparin Sodium (Porcine) (Heparin) 5,000 units SC Q12 [facility] PRN Reason: Protocol Last Admin: 11/18/17 23:24 Dose: 5,000 units Sodium Chloride (Sodium Chloride 0.45%) 1,000 mls @ 40 mls/hr IV .Q24H [facility] Last Admin: 11/19/17 00:15 Dose: 40 mls/hr Piperacillin Sod/Tazobactam Sod (Zosyn 2.25 Gm In 0.9% 100 Ml) 2.25 gm in 100 mls @ 200 mls/hr IVPB Q6 [facility] PRN Reason: Protocol Stop: 11/25/17 00:01 Last Admin: 11/19/17 06:16 Dose: 200 mls/hr Lactic Acid (Lac-Hydrin 12% Cream (140 G)) 0 ea TOP BID [facility] Last Admin: 11/18/17 18:58 Dose: 1 applic Linezolid (Zyvox) 600 mg PO BID [facility] PRN Reason: Protocol Stop: 11/28/17 10:01 Multivitamins (Thera Tab) 1 tab PO 0800 [facility] Mupirocin (Bactroban Ointment) 0 gm TOP BID [facility] Last Admin: 11/18/17 18:55 Dose: 1 applic Pantoprazole Sodium (Protonix Ec Tab) 40 mg PO 0600 [facility] Last Admin: 11/19/17 06:16 Dose: 40 mg - Labs Labs: 11/19/17 07:30 11/19/17 07:30 - Constitutional Appears: Well, Non-toxic, No Acute Distress - Extremities Exam Additional comments: Lower extremity focused exam VASC: DP and PT pulses are unpalable, likely due to LE edema, Cap refill time: < 3 seconds to all digits. Skin temperature warm to warm from proximal to distal , +2 pitting edema noted to the LE bilaterally DERM: Diffuse psoriatic plaques and scaling seen to b/l LE improved since the day of admission. L leg posterior ulceration expanding from medial to lateral malleoli and from level of achilles insertion into calcaneus to mid calf appreciated. Achilles tendon exposed just proximal to insertion site into calcaneus on the left. Tendon does not show any new signs of necrosis. Wound base on the left leg is fibrogranular with mild serous drainage. No periwound erythema, no malodor, no purulence noted. R leg posterior wound measuring roughly 5 cm x 3 cm x 0.1 cm with superficial necrotic eschar. No tunneling, tracking, undermining, or probe to bone. no active drainage noted. No periwound erythema, malodor, or other clinical signs of infection NEURO: Gross and protective sensation intact ORTHO: Tenderness to the bilateral LE, pain > on posterior wounds on the left leg - Neurological Exam Neurological Exam: Alert, Awake, Oriented x3 - Psychiatric Exam Psychiatric exam: Normal Affect, Normal Mood Assessment and Plan - Assessment and Plan (Free Text) Assessment: 77 year old female patient evaluated for b/l leg wounds secondary to psoriasis with exposed achilles tendon of left leg Plan: Patient seen and evaluated at bedside with attending Dr. Samson Labs, vitals and charts reviewed - afebrile and no leukocytosis Wounds cleaned with saline and dressing applied using adaptic, ABD, DSD Aquaphor ordered - apply to b/l LE during dressing change Multipodus boots ordered - to be applied while in bed at all times Patient to WBAT in wedge shoe Continue IV abx as per ID -Zosyn and Zyvox Cx: History of Citrobacter Freundii, Serratia Species, Beta hemolytic Strep Group B - New cultures: Pending Pain management as per primary Patient to go to OR for bilateral heel and left leg wound debridement for tomorrow Podiatry to follow patient while in-house <Cherise Samson - Last Filed: 11/23/17 15:28> Objective - Vital Signs/Intake and Output Vital Signs (last 24 hours): Temp Pulse Resp BP Pulse Ox 97.6 F 74 20 149/79 100 11/23/17 07:30 11/23/17 07:30 11/23/17 07:30 11/23/17 10:50 11/23/17 07:30 Intake and Output: 11/23/17 11/23/17 06:59 18:59 Intake Total 400 480 Output Total 300 Balance 100 480 - Medications Medications: Current Medications Acetaminophen (Tylenol 325mg Tab) 650 mg PO Q4H PRN PRN Reason: Pain, Mild (1-3) Albuterol/Ipratropium (Duoneb 3 Mg/0.5 Mg (3 Ml) Ud) 3 ml IH TIDRESP [facility] Last Admin: 11/23/17 08:13 Dose: 3 ml Bacitracin (Bacitracin) 1 gm TOP DAILY [facility] Last Admin: 11/23/17 10:52 Dose: 1 applic Desoximetasone (Topicort 0.05%) 0 ea TOP BID [facility] Last Admin: 11/23/17 10:53 Dose: 1 applic Ferrous Gluconate (Fergon) 324 mg PO TID [facility] Last Admin: 11/23/17 13:27 Dose: 324 mg Furosemide (Lasix) 40 mg IVP DAILY [facility] Last Admin: 11/23/17 10:50 Dose: 40 mg Heparin Sodium (Porcine) (Heparin) 5,000 units SC Q12 [facility] PRN Reason: Protocol Last Admin: 11/23/17 10:51 Dose: 5,000 units Piperacillin Sod/Tazobactam Sod (Zosyn 2.25 Gm In 0.9% 100 Ml) 2.25 gm in 100 mls @ 200 mls/hr IVPB Q6 [facility] PRN Reason: Protocol Stop: 11/25/17 00:01 Last Admin: 11/23/17 13:28 Dose: 200 mls/hr Lactic Acid (Lac-Hydrin 12% Cream (140 G)) 0 ea TOP BID [facility] Last Admin: 11/23/17 13:27 Dose: 1 applic Linezolid (Zyvox) 600 mg PO BID [facility] PRN Reason: Protocol Stop: 11/28/17 10:01 Last Admin: 11/23/17 10:47 Dose: 600 mg Multi-Ingredient Ointment (Hydrophor Oint) 0 gm TOP BID [facility] Last Admin: 11/23/17 13:27 Dose: 1 applic Multivitamins (Thera Tab) 1 tab PO 0800 [facility] Last Admin: 11/23/17 08:51 Dose: 1 tab Mupirocin (Bactroban Ointment) 0 gm TOP BID [facility] Last Admin: 11/23/17 10:54 Dose: 1 applic Pantoprazole Sodium (Protonix Ec Tab) 40 mg PO 0600 [facility] Last Admin: 11/23/17 06:18 Dose: 40 mg Potassium Chloride (K-Dur 20 Meq Er Tab) 20 meq PO BRK [facility] Stop: 11/25/17 10:46 Last Admin: 11/23/17 08:51 Dose: 20 meq - Labs Labs: 11/23/17 08:00 11/23/17 08:00 Attending/Attestation - Attestation I have personally seen and examined this patient.: Yes I have fully participated in the care of the patient.: Yes I have reviewed all pertinent clinical information, including history, physical exam and plan: Yes
[2017-11-19] MEDS: Multivitamin Therapeutic Tab PO SCH (11:10)
[2017-11-19] MEDS: Bacitracin Ointment 30 GM TUBE TOP SCH (11:11)
[2017-11-19] MEDS: Ammonium Lactate 12% Cream (140 g) TOP SCH ×2 (11:12→19:25)
--- NOTE | 2017-11-19 11:30 | PN ---
DATE: SUBJECTIVE: I saw Meche resting comfortably in bed. She is on isolation. She has got no chest pain, no shortness of breath. Both the legs are bandaged. She is on IV fluids, Bactroban cream, DuoNebs, Fergon, heparin, Lac-Hydrin, Protonix, Thera-Tabs, Tylenol, Zosyn and Zyvox. PHYSICAL EXAMINATION: VITAL SIGNS: She has a 97.6 temp, 87 pulse, 109/48 blood pressure, 18 respiratory rate, 100% O2 sat on room air. HEENT: Head is atraumatic, normocephalic. HEART: Regular rate. LUNGS: Clear to auscultation. ABDOMEN: Soft. EXTREMITIES: Both extremities are bandaged. LABORATORY DATA: She has a 7.2 white count, 7.6 hemoglobin. I will transfuse with 2 units of packed red blood cells plus Lasix 40 in between x1 dose. 22.2 hematocrit with a 457 platelets. Chemistry has a 140 sodium, potassium 3.6, BUN 16, creatinine 1.1, better. GFR is 48, sugar is 64, calcium is 8.5, total bili is 0.2, AST is 36, ALT is 22, alk phos 71, total protein 7.5. Negative stool occult blood. ASSESSMENT AND PLAN: So we have anemia going on right now. I am going to a transfusion. She has an exposed left Achilles tendon with cellulitis, anemia and acute kidney injury. Otis Harris DO
--- NOTE | 2017-11-19 14:04 | CP.PCM.PN ---
Subjective - Date & Time of Evaluation Date of Evaluation: 11/19/17 Time of Evaluation: 14:02 - Subjective Subjective: Follow up Nephrology Consultation: Assessment: Stable Acute Kidney Injury (N17.9) as improved with IVF suggest some pre-renal component. possible differential initially also included AIN, IgA disease Anemia, skin rash, cellulitis, renal cyst Plan No acute need for renal replacement therapy at this time. BP controlled Patient not on ACEI/ARB due to ALDO Monitor Input/Output, daily weights and renal function with basic metabolic panel started iron supplements and MVI for 1 unit PRBC 11/19/17 Check urine analysis, spot protein/creatinine and albumin/creatinine ratio, Urine for eosinophils CheckANA, Anti dsDNA, ANCA (MPO and NC-3), serum protein electrophoresis with immunofixation, kappa/lambda, TSAT/Ferritin Dose meds/antibiotics for reduced GFR. Avoid fleets enema/magnesium based laxatives. Avoid nephrotoxins/NSAIDs/ iodinated contrast (unless needed emergently) Glycemic control Further work up/management as per primary team Thanks for allowing me to participate in care of your patient. Will follow patient with you. Please call if any Qs Dr Stanley Moscoso Office: [phone] Chief Complaint; foot wound reason for consult: ALDO HPI: Pt is a 77 F with hx of skin lesions mentioned as psoriasis and pemphigus presented with complaints of non healing and worsening heel wound. she was in rehab. renal conslt for ALDO Denies OTC/herbal meds or NSAIDs No recent iodinated contrast exposure. No obvious episodes of low BP. pt says skin rash better these days ROS: Cardiovascular: No chest pain. Pulmonary: No shortness of breath Gastrointestinal: denies abdominal pain No nausea. No vomiting. Genitourinary: No pain while urinating. Denies blood in urine. All other negative except foot wound and skin rash Physical Examination: General Appearance: Comfortable, in no acute respiratory distress, co-operative . Vitals reviewed and noted as below Head; Atraumatic, normocephalic ENT: no ulcers no thrush. Tongue is midline. Oropharynx: no rash or ulcers. EYES: Pupils are equal, round and reactive to light accommodation. Eye muscles and extraocular movement intact. Sclera is anicteric. Neck; supple no lymphadenopathy, no thyromegaly or bruit Lungs: Normal respiratory rate/effort. Breath sounds bilateral equal and clear Heart: Normal rate. s1s2 normal. No rub or gallop. Extremities: 1+ edema. No varicose veins. both feets dressed Neurological: Patient is alert, awake and oriented to person, place and time. No focal deficit. Strength bilateral appropriate and equal Skin: Warm and dry. Normal turgor. erythematous scaly rash on all 4 extremities. Palpitation: Normal elasticity for age Abdomen: Abdomen is soft. Bowel sounds +. There is no abdominal tenderness, no guarding/rigidity no organomegaly Psych: normal insight and normal affect/mood MSK: no joint tenderness or swelling. Digits and nails normal, no deformity : kidney or bladder not palpable Labs/imaging reviewed. Past medical history, past surgical history, family history, social history, allergy reviewed and noted as below Family hx: no hx of CKD. Rest non-contributory renal sono: left side cyst UA recently with trace to 1+ protein and microspic hematuria JIMMIE ++ in past Objective - Vital Signs/Intake and Output Vital Signs (last 24 hours): Temp Pulse Resp BP Pulse Ox 97.6 F 87 18 109/48 L 100 11/19/17 07:00 11/19/17 07:00 11/19/17 07:00 11/19/17 07:00 11/19/17 07:00 Intake and Output: 11/19/17 11/19/17 06:59 18:59 Intake Total 540 Output Total 200 Balance 340 - Medications Medications: Current Medications Acetaminophen (Tylenol 325mg Tab) 650 mg PO Q4H PRN PRN Reason: Temperature Last Admin: 11/18/17 01:24 Dose: 650 mg Albuterol/Ipratropium (Duoneb 3 Mg/0.5 Mg (3 Ml) Ud) 3 ml IH TIDRESP [facility] Last Admin: 11/19/17 13:49 Dose: 3 ml Bacitracin (Bacitracin) 1 gm TOP DAILY [facility] Last Admin: 11/19/17 11:11 Dose: 1 applic Ferrous Gluconate (Fergon) 324 mg PO TID [facility] Last Admin: 11/19/17 11:06 Dose: 324 mg Heparin Sodium (Porcine) (Heparin) 5,000 units SC Q12 [facility]BER PRN Reason: Protocol Last Admin: 11/19/17 11:05 Dose: 5,000 units Sodium Chloride (Sodium Chloride 0.45%) 1,000 mls @ 40 mls/hr IV .Q24H [facility] Last Admin: 11/19/17 00:15 Dose: 40 mls/hr Piperacillin Sod/Tazobactam Sod (Zosyn 2.25 Gm In 0.9% 100 Ml) 2.25 gm in 100 mls @ 200 mls/hr IVPB Q6 HEBER PRN Reason: Protocol Stop: 11/25/17 00:01 Last Admin: 11/19/17 11:06 Dose: 200 mls/hr Lactic Acid (Lac-Hydrin 12% Cream (140 G)) 0 ea TOP BID [facility] Last Admin: 11/19/17 11:12 Dose: 1 applic Linezolid (Zyvox) 600 mg PO BID [facility] PRN Reason: Protocol Stop: 11/28/17 10:01 Last Admin: 11/19/17 11:06 Dose: 600 mg Multi-Ingredient Ointment (Hydrophor Oint) 0 gm TOP DAILY [facility] Multivitamins (Thera Tab) 1 tab PO 0800 [facility] Last Admin: 11/19/17 11:10 Dose: 1 tab Mupirocin (Bactroban Ointment) 0 gm TOP BID [facility] Last Admin: 11/19/17 11:11 Dose: 1 applic Pantoprazole Sodium (Protonix Ec Tab) 40 mg PO 0600 [facility] Last Admin: 11/19/17 06:16 Dose: 40 mg - Labs Labs: 11/19/17 07:30 11/19/17 07:30
--- NOTE | 2017-11-19 23:00 | PN ---
DATE: 11/19/2017 SUBJECTIVE: The patient is in bed, in no acute distress, nontoxic. PHYSICAL EXAMINATION: VITAL SIGNS: Temperature is 98, blood pressure is 106/50, respiratory rate of 18. HEENT: Examination of HEENT is unremarkable. NECK: Supple. LUNGS: Have decreased breath sounds. HEART: Normal S1, S2. ABDOMEN: Soft, nontender. LABORATORY DATA: Laboratory examination reveals a white count of 7.2, hemoglobin of 7.6. Chemistries reveals a BUN of 16, creatinine of 1.1. Stool occult blood complement levels are noted. Microbiology reveals ankle cultures are gram-negative salina. The blood cultures have no growth at 48 hours. Review of orders reveals the patient to be on Zosyn and Zyvox. ASSESSMENT AND PLAN: This is a 77-year-old female who was seen earlier this morning in 571, bed 2 and with history of psoriasis, coronary artery disease, high cholesterol, hypertension, gastroesophageal reflux disease, bilateral lower extremity cellulitis, acute kidney injury and with a gram-negative salina cellulitis, on Zosyn and currently on Zyvox and Zosyn. Awaiting for final culture results and identification of gram-negative salina. Dr. Otis Harris's note is reviewed. Dr. Imelda Do's progress note is also reviewed. Should have imaging to rule out underlying osteomyelitis. The patient did have an x-ray of the foot, which showed the x-ray of the foot reveals no evidence of osteomyelitis. MRI should be done to rule out osteomyelitis and we will discuss with Dr. Samson. Valente Oshea MD
[2017-11-20 00:43] LABS: ALPHA-1-GLOBULIN (PEP) 0.5 g/dL (0.2-0.3)
[2017-11-20] MEDS: Piperacillin/Tazobact 2.25gm 2.25 GM/100 ML BAG IVPB SCH ×3 (05:53→17:17)
[2017-11-20] MEDS ORDERED: Lidocaine 2% Inj (20ml) ONE (07:21)
[2017-11-20] MEDS ORDERED: Propofol 10 mg/ml Inj (20 ML) ONE (07:47)
[2017-11-20] MEDS ORDERED: Midazolam 2 MG/2 ML VIAL ONE (07:48)
[2017-11-20] MEDS: Albuterol-Ipratrop 3 mg / 0.5 (3 ml) UD IH SCH ×3 (08:16→20:24)
[2017-11-20] MEDS ORDERED: Bacitracin Ointment 30 GM TUBE ONE (08:27)
[2017-11-20] MEDS ORDERED: HYDROmorphone 0.5 mg/0.5 ml ISec IVP PRN (08:46)
[2017-11-20] MEDS: Multivitamin Therapeutic Tab PO SCH (08:47)
--- NOTE | 2017-11-20 08:50 | PCM.SURG1 ---
Surgeon's Initial Post Op Note - Surgeon's Notes Surgeon: Dr. Samson, DPM Certified Performance Technologist: Christopher Salvador, PGY1 Type of Anesthesia: IV Sedation, Local (10cc 2% lidocaine plain) Anesthesia Administered By: Dr. Yu Pre-Operative Diagnosis: 1) Left leg wounds with exposed Achilles tendon. 2) Posterior right leg wounds. 3) Right heel necrotic eschar Operative Findings: See operative report. Materials: Integra bilayer graft, 3- 0 vicryl. Injectables: 10cc 2% lidocaine plain (intra-op). Dressings: (L) xeroform, gauze, ABD, kerlix; (R) bacitracin, xeroform, gauze, ABD, kerlix Post-Operative Diagnosis: 1) Left leg wounds with exposed Achilles tendon. 2) Posterior right leg wounds. 3) Right heel necrotic eschar Operation Performed: 1) Left leg wound debridement with application of Integra graft. 2) Right leg wound debridement Specimen/Specimens Removed: Bilateral soft tissue debridement Estimated Blood Loss: EBL {In ML}: 5 Blood Products Given: N/A Drains Used: No Drains Post-Op Condition: Good Date of Surgery/Procedure: 11/20/17 Time of Surgery/Procedure: 08:53
[2017-11-20 08:58] LABS: PH,URINE 5.5 (4.7-8.0); URINE BILIRUBIN NEGATIVE (NEGATIVE); URINE BLOOD LARGE (NEGATIVE); URINE GLUCOSE (UA) NEGATIVE (NEGATIVE); URINE LEUKOCYTE ESTERASE TRACE Leu/uL (NEGATIVE); URINE NITRATE NEGATIVE (NEGATIVE); URINE PROTEIN NEGATIVE mg/dL (<30 mg/dL); URINE UROBILINOGEN 0.2 E.U./dL (<1 E.U./dL)
[2017-11-20] MEDS ORDERED: Oxycodone/Acetaminophen 5/325 mg Tab PO PRN (08:58)
[2017-11-20] MEDS ORDERED: Lactated Ringer's 1,000 ML IV SCH (09:00)
[2017-11-20 09:05] LABS: URINE APPEARANCE CLEAR (CLEAR); URINE COLOR YELLOW (YELLOW)
[2017-11-20 09:09] LABS: URINE RBC 15 - 20 /hpf (0-2)
[2017-11-20 09:10] LABS: URINE BACTERIA FEW (NEG)
[2017-11-20] MEDS ORDERED: Desoximetasone 0.05% Cream(60 gm) TOP SCH (10:00)
[2017-11-20] MEDS ORDERED: Petrolatum-Mineral Oil Oint (100gm) TOP SCH (10:00)
[2017-11-20] MEDS: Petrolatum-Mineral Oil Oint (100gm) TOP SCH ×2 (10:53→17:20)
[2017-11-20] MEDS: Desoximetasone 0.05% Cream(60 gm) TOP SCH ×2 (10:53→17:19)
[2017-11-20] MEDS: Ammonium Lactate 12% Cream (140 g) TOP SCH ×2 (11:15→17:19)
[2017-11-20] MEDS: Bacitracin Ointment 30 GM TUBE TOP SCH (11:25)
--- NOTE | 2017-11-20 12:46 | CP.PCM.PN ---
Subjective - Date & Time of Evaluation Date of Evaluation: 11/20/17 Time of Evaluation: 12:44 - Subjective Subjective: Follow up Nephrology Consultation: Assessment: Stable Acute Kidney Injury (N17.9) as improved with IVF suggest some pre-renal component. possible differential initially also included AIN, IgA disease Anemia, skin rash, cellulitis s/p wound debridement 11/20/17, renal cyst Plan No acute need for renal replacement therapy at this time. BP controlled Patient not on ACEI/ARB due to ALDO Monitor Input/Output, daily weights and renal function with basic metabolic panel started iron supplements and MVI 1 unit PRBC 11/19/17 d/c IVF due to edema CheckANA, Anti dsDNA, ANCA (MPO and OH-3), serum protein electrophoresis with immunofixation, kappa/lambda, TSAT/Ferritin Dose meds/antibiotics for reduced GFR. Avoid fleets enema/magnesium based laxatives. Avoid nephrotoxins/NSAIDs/ iodinated contrast (unless needed emergently) Glycemic control Further work up/management as per primary team Thanks for allowing me to participate in care of your patient. Will follow patient with you. Please call if any Qs Dr Stanley Moscoso Office: [phone] reason for consult: ALDO HPI: Pt is a 77 F with hx of skin lesions mentioned as psoriasis and pemphigus presented with complaints of non healing and worsening heel wound. she was in rehab. renal conslt for ALDO Denies OTC/herbal meds or NSAIDs No recent iodinated contrast exposure. No obvious episodes of low BP. pt says skin rash better these days ROS: Cardiovascular: No chest pain. Pulmonary: No shortness of breath Gastrointestinal: denies abdominal pain No nausea. No vomiting. Genitourinary: No pain while urinating. Denies blood in urine. All other negative except foot wound and skin rash which is also better Physical Examination: General Appearance: Comfortable, in no acute respiratory distress, co-operative . Vitals reviewed and noted as below Head; Atraumatic, normocephalic ENT: no ulcers no thrush. Tongue is midline. Oropharynx: no rash or ulcers. EYES: Pupils are equal, round and reactive to light accommodation. Eye muscles and extraocular movement intact. Sclera is anicteric. Neck; supple no lymphadenopathy, no thyromegaly or bruit Lungs: Normal respiratory rate/effort. Breath sounds bilateral equal and clear Heart: Normal rate. s1s2 normal. No rub or gallop. Extremities: 1+ edema. No varicose veins. both feets dressed Neurological: Patient is alert, awake and oriented to person, place and time. No focal deficit. Strength bilateral appropriate and equal Skin: Warm and dry. Normal turgor. erythematous scaly rash on all 4 extremities. Palpitation: Normal elasticity for age Abdomen: Abdomen is soft. Bowel sounds +. There is no abdominal tenderness, no guarding/rigidity no organomegaly Psych: normal insight and normal affect/mood MSK: no joint tenderness or swelling. Digits and nails normal, no deformity : kidney or bladder not palpable Labs/imaging reviewed. Past medical history, past surgical history, family history, social history, allergy reviewed and noted as below Family hx: no hx of CKD. Rest non-contributory renal sono: left side cyst UA no protein and microscopic hematuria JIMMIE ++ in past DNA ab neg. EDSON neg Objective - Vital Signs/Intake and Output Vital Signs (last 24 hours): Temp Pulse Resp BP Pulse Ox 98.6 F 73 18 155/75 H 99 11/20/17 09:12 11/20/17 09:12 11/20/17 09:12 11/20/17 09:12 11/20/17 09:12 Intake and Output: 11/20/17 11/20/17 06:59 18:59 Intake Total 1020 Balance 1020 - Medications Medications: Current Medications Acetaminophen (Tylenol 325mg Tab) 650 mg PO Q4H PRN PRN Reason: Pain, Mild (1-3) Albuterol/Ipratropium (Duoneb 3 Mg/0.5 Mg (3 Ml) Ud) 3 ml IH TIDRESP [facility] Last Admin: 11/20/17 08:16 Dose: Not Given Bacitracin (Bacitracin) 1 gm TOP DAILY [facility] Last Admin: 11/20/17 11:25 Dose: 1 applic Desoximetasone (Topicort 0.05%) 0 ea TOP BID [facility] Last Admin: 11/20/17 10:53 Dose: 1 applic Ferrous Gluconate (Fergon) 324 mg PO TID [facility] Last Admin: 11/20/17 11:16 Dose: 324 mg Heparin Sodium (Porcine) (Heparin) 5,000 units SC Q12 [facility] PRN Reason: Protocol Last Admin: 11/20/17 11:16 Dose: 5,000 units Piperacillin Sod/Tazobactam Sod (Zosyn 2.25 Gm In 0.9% 100 Ml) 2.25 gm in 100 mls @ 200 mls/hr IVPB Q6 [facility] PRN Reason: Protocol Stop: 11/25/17 00:01 Last Admin: 11/20/17 11:16 Dose: 200 mls/hr Lactic Acid (Lac-Hydrin 12% Cream (140 G)) 0 ea TOP BID [facility] Last Admin: 11/20/17 11:15 Dose: 1 applic Linezolid (Zyvox) 600 mg PO BID [facility] PRN Reason: Protocol Stop: 11/28/17 10:01 Last Admin: 11/20/17 11:16 Dose: 600 mg Multi-Ingredient Ointment (Hydrophor Oint) 0 gm TOP BID [facility] Last Admin: 11/20/17 10:53 Dose: 1 applic Multivitamins (Thera Tab) 1 tab PO 0800 [facility] Last Admin: 11/20/17 08:47 Dose: Not Given Mupirocin (Bactroban Ointment) 0 gm TOP BID [facility] Last Admin: 11/20/17 11:25 Dose: 1 applic Oxycodone/Acetaminophen (Percocet 5/325 Mg Tab) 1 tab PO Q6H PRN PRN Reason: Pain, moderate (4-7) Stop: 11/23/17 08:59 Oxycodone/Acetaminophen (Percocet 5/325 Mg Tab) 2 tab PO Q6H PRN PRN Reason: Pain, severe (8-10) Stop: 11/23/17 08:59 Pantoprazole Sodium (Protonix Ec Tab) 40 mg PO 0600 [facility] Last Admin: 11/19/17 06:16 Dose: 40 mg - Labs Labs: 11/19/17 07:30 11/19/17 07:30
[2017-11-20 12:47] LABS: BASO # 0.06 K/mm3 (0.0-2.0); BASO % 0.6 % (0.0-3.0); EOS # 0.1 (0.0-0.7); EOS % 0.8 % (1.5-5.0); GRAN # 6.8 (1.4-6.5); GRAN % 71.8 % (50.0-68.0); HEMOGLOBIN 10.7 g/dL (12.0-16.0); LYMPH # 1.6 (1.2-3.4); LYMPH % 17.2 % (22.0-35.0); MEAN CELL VOLUME 83.5 fl (80.0-105.0); MEAN CORPUSCULAR HEMOGLOBIN 28.5 pg (25.0-35.0); MEAN CORPUSCULAR HGB CONC 34.1 g/dl (31.0-37.0); MEAN PLATELET VOLUME 7.8 fl (7.0-11.0); MONO # 0.9 (0.1-0.6); MONO % 9.6 % (1.0-6.0); RBC 3.76 10^6/uL (3.5-6.1); RED CELL DISTRIBUTION WIDTH 18.9 % (11.5-14.5); WHITE BLOOD COUNT 9.5 10^3/ul (4.5-11.0)
[2017-11-20 13:14] LABS: ALB/GLOB RATIO 0.5 (1.1-1.8); ALBUMIN 2.1 g/dL (3.0-4.8); ALT/SGPT 20 U/L (7-56); AST/SGOT 23 U/L (14-36); BLOOD UREA NITROGEN 10 mg/dL (7-21); CALCIUM 7.9 mg/dL (8.4-10.5); GFR AFRICAN-AMERICAN > 60; GFR NON-AFRICAN AMERICAN > 60
[2017-11-20] MEDS ORDERED: Potassium Chloride 20 mEq ER Tab PO ONE (15:02)
[2017-11-21] MEDS: Piperacillin/Tazobact 2.25gm 2.25 GM/100 ML BAG IVPB SCH ×5 (00:45→23:16)
--- NOTE | 2017-11-21 01:45 | PN ---
DATE: 11/20/2017 SUBJECTIVE: Patient was seen early this morning and patient is doing well. No fevers. PHYSICAL EXAMINATION: VITAL SIGNS: Temperature 98, blood pressure was 150/70, respiratory rate 18. HEENT: Unremarkable. NECK: Supple. LUNGS: Have decreased breath sounds. HEART: Normal S1, S2. ABDOMEN: Soft and nontender. LABORATORY DATA: Reveals a white count 9.5, a hemoglobin of 10. Chemistry reveals the BUN of 10, creatinine 0.9. Microbiology reveals Pseudomonas aeruginosa, corynebacterium species. Blood cultures are negative. Urine cultures are negative. Left ankle cultures, pseudomonas and corynebacterium; pseudomonas sensitive to Zosyn. Patient had an MRI of the lower extremity and the results are pending. REVIEW OF THE ORDERS: Reveals the patient to be on linezolid and Zosyn. ASSESSMENT AND PLAN: A 77-year-old female, who was seen earlier today with history of psoriasis, coronary artery disease, high cholesterol, hypertension, gastroesophageal reflux disease, with pseudomonas and corynebacterium cellulitis. We will check her on the MRI to rule out underlying osteomyelitis and therefore the duration of therapy. We will follow with you. Patient has an exposed Achilles tendon. Valente Oshea MD
[2017-11-21] MEDS: Pantoprazole 40 mg EC Tab PO SCH (05:32)
[2017-11-21] MEDS: Oxycodone/Acetaminophen 5/325 mg Tab PO PRN ×2 (05:33→23:32)
[2017-11-21 07:21] LABS: HEMOGLOBIN 9.9 g/dL (12.0-16.0); MEAN CELL VOLUME 83.7 fl (80.0-105.0); MEAN CORPUSCULAR HEMOGLOBIN 27.9 pg (25.0-35.0); MEAN CORPUSCULAR HGB CONC 33.3 g/dl (31.0-37.0); MEAN PLATELET VOLUME 8.2 fl (7.0-11.0); RBC 3.55 10^6/uL (3.5-6.1); RED CELL DISTRIBUTION WIDTH 18.6 % (11.5-14.5); WHITE BLOOD COUNT 8.4 10^3/ul (4.5-11.0)
[2017-11-21 07:52] LABS: ALB/GLOB RATIO 0.5 (1.1-1.8); ALBUMIN 1.9 g/dL (3.0-4.8); ALT/SGPT 18 U/L (7-56); AST/SGOT 33 U/L (14-36); BLOOD UREA NITROGEN 9 mg/dL (7-21); CALCIUM 7.8 mg/dL (8.4-10.5); GFR AFRICAN-AMERICAN > 60; GFR NON-AFRICAN AMERICAN > 60
[2017-11-21] MEDS: Albuterol-Ipratrop 3 mg / 0.5 (3 ml) UD IH SCH ×3 (07:57→19:55)
--- NOTE | 2017-11-21 08:51 | PN ---
DATE: 11/20/2017 SUBJECTIVE: She is back from her I and D of her bad foot. She has a left Achilles heel exposure and she is back resting comfortably in bed, no acute distress. She is smiling and eating. She is on isolation. PHYSICAL EXAMINATION: VITAL SIGNS: She has a 98.6 temperature, 73 pulse, 155/75 blood pressure, 18 respiratory rate, 99% O2 sat on room air. HEENT: Head is atraumatic, normocephalic. HEART: Regular rate. LUNGS: Clear to auscultation. ABDOMEN: Soft. EXTREMITIES: Left foot is bandaged. MEDICATIONS: She is currently on bacitracin, Bactroban, DuoNeb, Fergon, heparin, Lac-Hydrin, Percocet, Protonix, IV fluids, Thera-Tabs, Topicort, Tylenol, Zosyn IV, and Zyvox. LABORATORY DATA: She has a 7.2 white count; hemoglobin 7.6, currently transfused with 2 units of packed red blood cells; 23.2 hematocrit with 457 platelets. She has 140 sodium, potassium 3.6, BUN is 16, and creatinine 1.1, much better. The kidney function has improved. GFR is 48. Sugar is 64, calcium is 8.5, total bilirubin is 0.2, AST is 36, ALT is 22, alkaline phosphatase 71, total protein is 5.5. Negative for stool occult blood, but she has bad anemia. I am going to transfuse with 2 units. She is being seen by Podiatry, Infectious Disease, and Renal. She has a very bad left Achilles exposed tendon, possible osteo. Continue aggressive treatment and care by Podiatry, Infectious Disease, and I will transfuse her for anemia this morning. Otis Harris DO RD
[2017-11-21] MEDS: Desoximetasone 0.05% Cream(60 gm) TOP SCH ×2 (10:00→19:54)
[2017-11-21] MEDS: Ammonium Lactate 12% Cream (140 g) TOP SCH ×2 (10:00→19:53)
[2017-11-21] MEDS: Petrolatum-Mineral Oil Oint (100gm) TOP SCH ×2 (10:00→19:53)
--- NOTE | 2017-11-21 10:21 | CP.PCM.PN ---
Subjective - Date & Time of Evaluation Date of Evaluation: 11/21/17 Time of Evaluation: 10:21 - Subjective Subjective: Podiatry Progress Note - Dr. Samson 77 year old female PMHx psoriasis, CAD s/p 1 stent, HTN, HLD, GERD, hx of MSSA cellulitis, seen and evaluated at bedside for bilateral LE wounds. Patient hemodynamically stable and NAD. No acute events overnight. Patient reports mild pain to the back of her legs, well-controlled. No pedal complaints currently. Denies N/V/F/D/C/SOB/calf pain. Objective - Vital Signs/Intake and Output Vital Signs (last 24 hours): Temp Pulse Resp BP Pulse Ox 98.7 F 84 20 125/54 L 100 11/21/17 08:20 11/21/17 08:20 11/21/17 08:20 11/21/17 08:20 11/21/17 08:20 Intake and Output: 11/21/17 11/21/17 06:59 18:59 Intake Total 740 Output Total 251 Balance 489 - Medications Medications: Current Medications Acetaminophen (Tylenol 325mg Tab) 650 mg PO Q4H PRN PRN Reason: Pain, Mild (1-3) Albuterol/Ipratropium (Duoneb 3 Mg/0.5 Mg (3 Ml) Ud) 3 ml IH TIDRESP [facility] Last Admin: 11/21/17 07:57 Dose: 3 ml Bacitracin (Bacitracin) 1 gm TOP DAILY [facility] Last Admin: 11/20/17 11:25 Dose: 1 applic Desoximetasone (Topicort 0.05%) 0 ea TOP BID [facility] Last Admin: 11/20/17 17:19 Dose: 1 applic Ferrous Gluconate (Fergon) 324 mg PO TID [facility] Last Admin: 11/20/17 17:17 Dose: 324 mg Furosemide (Lasix) 40 mg IVP DAILY [facility] Heparin Sodium (Porcine) (Heparin) 5,000 units SC Q12 [facility] PRN Reason: Protocol Last Admin: 11/20/17 21:38 Dose: 5,000 units Piperacillin Sod/Tazobactam Sod (Zosyn 2.25 Gm In 0.9% 100 Ml) 2.25 gm in 100 mls @ 200 mls/hr IVPB Q6 [facility] PRN Reason: Protocol Stop: 11/25/17 00:01 Last Admin: 11/21/17 05:31 Dose: 200 mls/hr Lactic Acid (Lac-Hydrin 12% Cream (140 G)) 0 ea TOP BID [facility] Last Admin: 11/20/17 17:19 Dose: 1 applic Linezolid (Zyvox) 600 mg PO BID [facility] PRN Reason: Protocol Stop: 11/28/17 10:01 Last Admin: 11/20/17 17:18 Dose: 600 mg Multi-Ingredient Ointment (Hydrophor Oint) 0 gm TOP BID [facility] Last Admin: 11/20/17 17:20 Dose: 1 applic Multivitamins (Thera Tab) 1 tab PO 0800 [facility] Last Admin: 11/20/17 08:47 Dose: Not Given Mupirocin (Bactroban Ointment) 0 gm TOP BID [facility] Last Admin: 11/20/17 17:20 Dose: 1 applic Oxycodone/Acetaminophen (Percocet 5/325 Mg Tab) 1 tab PO Q6H PRN PRN Reason: Pain, moderate (4-7) Stop: 11/23/17 08:59 Last Admin: 11/21/17 05:33 Dose: 1 tab Oxycodone/Acetaminophen (Percocet 5/325 Mg Tab) 2 tab PO Q6H PRN PRN Reason: Pain, severe (8-10) Stop: 11/23/17 08:59 Pantoprazole Sodium (Protonix Ec Tab) 40 mg PO 0600 [facility] Last Admin: 11/21/17 05:32 Dose: 40 mg - Labs Labs: 11/21/17 06:40 11/21/17 06:40 - Constitutional Appears: Well, Non-toxic, No Acute Distress - Extremities Exam Additional comments: Dressings to bilateral LE appear clean/dry/intact with no strikethrough noted. RLE focused physical exam: VASC: DP and PT pulses non-palpable due to edema. CFT <3 seconds to all digits. Temperature gradient warm to warm from proximal to distal. +2 pitting edema remains to LE NEURO: Gross sensation intact DERM: Diffuse psoriatic plaques and scaling. Right leg posterior ulceration measuring approximately 5 x 3 x 0.1 cm noted to have a fibrogranular base and erythematous rim. Surgical wound noted to posterior right heel s/p debridement with mixed granular/subcutaneous base and small central aspect of necrosis. No active drainage noted, no periwound erythema, malodor noted. ORTHO: Tenderness to palpation posterior right heel. - Neurological Exam Neurological Exam: Alert, Awake, Oriented x3 - Psychiatric Exam Psychiatric exam: Normal Affect, Normal Mood Assessment and Plan - Assessment and Plan (Free Text) Assessment: 77 year old female patient with b/l leg wounds secondary to psoriasis with exposed achilles tendon of left leg POD#1 (DOS 11/20/17) 1) Left leg wound debridement with application of Integra graft. 2) Right leg wound debridement Plan: Patient seen and evaluated at bedside with attending Dr. Samson Afebrile, WBC 8.4 Right lower extremity MRI reviewed: -Findings suggestive of acute OM of posterior and posterolateral calcaneus with a possible subcentimeter sequestrum and/or underlying bone infarc LLE dressing maintained RLE cleansed with normal saline, bactroban applied to surgical wound, and dressed with DSD Topicort applied to bilateral LE, continue BID Aquaphor to be applied BID on top of Topicort Multipodus boots ordered - to be applied while in bed at all times Follow up physical therapy for Darco heel relief shoe Continue IV abx as per ID -Zosyn and Zyvox Cx: History of Citrobacter Freundii, Serratia Species, Beta hemolytic Strep Group B - New cultures: pseudomonas, corynebacterium -f/u intraop pathology Pain control per primary team Podiatry will continue to follow patient while in house
--- NOTE | 2017-11-21 10:35 | MRI ---
MRI right foot History: Osteomyelitis. Comparison: None available. Technique: Multi-echo multiplanar sequences were performed through the right foot without the use of intravenous contrast. Findings: Focus of edema and/or inflammation in the heel pad soft tissue extending to the overlying skin measuring approximately 2 x 1.1 centimeters overlying the insertion of the plantar fascia in the posterior inferior calcaneus. This may represent a developing phlegmon and or developing abscess collection. Associated inflammation and edema are noted. Subcutaneous edema about the ankle and involving the dorsum foot. Edema of the deep plantar musculature. Increased T2 signal seen within the posterior and posterior lateral calcaneus consistent with marrow edema and concerning for acute osteomyelitis. 8 x 5 millimeter possible sequestrum and or underlying bone infarct surrounded by edema in the posterior lateral calcaneus. Clinical correlation. Limited evaluation of the 2nd through 5th phalanges given failure of fat suppression. Moderate hallux valgus deformity. Small amount of fluid at the 1st MTP joint space. Mild nonspecific reactive edema at the level of the 1st distal phalanx. Limited evaluation given failure of fat suppression. Clinical correlation at this level. Mild nonspecific thinning and attenuation of the visualized Lisfranc ligament. Clinical correlation. Degenerative changes noted at dorsal aspect of the talonavicular joint space. Thickening of the plantar fascia which may represent a plantar fasciitis. Clinical correlation. Impression: 1. Findings suggestive for acute osteomyelitis of the posterior and posterior lateral calcaneus with a possible subcentimeter sequestrum and/or underlying bone infarct. Clinical correlation. 2. Focal edema and inflammation in the heel pad soft tissues as described above. 3. Edema at the plantar musculature. 4. Subcutaneous edema about the ankle and involving the dorsum of the foot. 5. Mild nonspecific reactive edema at the level of the 1st distal phalanx. Limited evaluation given failure of fat suppression. Clinical correlation at this level. Additional findings as above. These findings were preliminarily reported at 8:32 p.m. on 11/20/[address] Billy Duran from [employer].
[2017-11-21] MEDS: Multivitamin Therapeutic Tab PO SCH (11:34)
[2017-11-21] MEDS: Potassium Chloride 20 mEq ER Tab PO SCH (11:35)
[2017-11-21] MEDS: Bacitracin Ointment 30 GM TUBE TOP SCH (11:40)
--- NOTE | 2017-11-21 14:52 | CP.PCM.PN ---
Subjective - Date & Time of Evaluation Date of Evaluation: 11/21/17 Time of Evaluation: 14:50 - Subjective Subjective: Follow up Nephrology Consultation: Assessment: Stable Acute Kidney Injury (N17.9) as improved with IVF suggest some pre-renal component. possible differential initially also included AIN, IgA disease Anemia, skin rash, cellulitis s/p wound debridement 11/20/17, renal cyst osteomyelitis Plan BP controlled Patient not on ACEI/ARB due to ALDO Monitor Input/Output, daily weights and renal function with basic metabolic panel started iron supplements and MVI 1 unit PRBC 11/19/17 d/c IVF due to edema follow up of microscopic hematuria as outpt pending ANCA (MPO and ID-3), kappa/lambda, TSAT Dose meds/antibiotics for improved GFR. Avoid nephrotoxins/NSAIDs Glycemic control Further work up/management as per primary team Thanks for allowing me to participate in care of your patient. Will follow on as needed basis. Please call if any Qs Dr Stanley Moscoso Office: [phone] reason for consult: ALDO HPI: Pt is a 77 F with hx of skin lesions mentioned as psoriasis and pemphigus presented with complaints of non healing and worsening heel wound. she was in rehab. renal conslt for ALDO Denies OTC/herbal meds or NSAIDs No recent iodinated contrast exposure. No obvious episodes of low BP. pt says skin rash better these days ROS: Cardiovascular: No chest pain. Pulmonary: No shortness of breath Gastrointestinal: denies abdominal pain No nausea. No vomiting. Genitourinary: No pain while urinating. Denies blood in urine. All other negative except foot wound and skin rash which is also better Physical Examination: General Appearance: Comfortable, in no acute respiratory distress, co-operative . Vitals reviewed and noted as below Head; Atraumatic, normocephalic ENT: no ulcers no thrush. Tongue is midline. Oropharynx: no rash or ulcers. EYES: Pupils are equal, round and reactive to light accommodation. Eye muscles and extraocular movement intact. Sclera is anicteric. Neck; supple no lymphadenopathy, no thyromegaly or bruit Lungs: Normal respiratory rate/effort. Breath sounds bilateral equal and clear Heart: Normal rate. s1s2 normal. No rub or gallop. Extremities: 1+ edema. No varicose veins. both feets dressed Neurological: Patient is alert, awake and oriented to person, place and time. No focal deficit. Strength bilateral appropriate and equal Skin: Warm and dry. Normal turgor. erythematous scaly rash on all 4 extremities. Palpitation: Normal elasticity for age Abdomen: Abdomen is soft. Bowel sounds +. There is no abdominal tenderness, no guarding/rigidity no organomegaly Psych: normal insight and normal affect/mood MSK: no joint tenderness or swelling. Digits and nails normal, no deformity : kidney or bladder not palpable Labs/imaging reviewed. Past medical history, past surgical history, family history, social history, allergy reviewed and noted as below Family hx: no hx of CKD. Rest non-contributory renal sono: left side cyst UA no protein and microscopic hematuria JIMMIE ++ in past DNA ab neg. EDSON neg Objective - Vital Signs/Intake and Output Vital Signs (last 24 hours): Temp Pulse Resp BP Pulse Ox 98.7 F 84 20 125/54 L 100 11/21/17 08:20 11/21/17 08:20 11/21/17 08:20 11/21/17 11:33 11/21/17 08:20 Intake and Output: 11/21/17 11/21/17 06:59 18:59 Intake Total 740 Output Total 251 Balance 489 - Medications Medications: Current Medications Acetaminophen (Tylenol 325mg Tab) 650 mg PO Q4H PRN PRN Reason: Pain, Mild (1-3) Albuterol/Ipratropium (Duoneb 3 Mg/0.5 Mg (3 Ml) Ud) 3 ml IH TIDRESP [facility] Last Admin: 11/21/17 13:36 Dose: 3 ml Bacitracin (Bacitracin) 1 gm TOP DAILY [facility] Last Admin: 11/21/17 11:40 Dose: 1 applic Desoximetasone (Topicort 0.05%) 0 ea TOP BID [facility] Last Admin: 11/21/17 10:00 Dose: 1 applic Ferrous Gluconate (Fergon) 324 mg PO TID [facility] Last Admin: 11/21/17 14:21 Dose: 324 mg Furosemide (Lasix) 40 mg IVP DAILY [facility] Last Admin: 11/21/17 11:33 Dose: 40 mg Heparin Sodium (Porcine) (Heparin) 5,000 units SC Q12 [facility] PRN Reason: Protocol Last Admin: 11/21/17 11:34 Dose: 5,000 units Piperacillin Sod/Tazobactam Sod (Zosyn 2.25 Gm In 0.9% 100 Ml) 2.25 gm in 100 mls @ 200 mls/hr IVPB Q6 [facility] PRN Reason: Protocol Stop: 11/25/17 00:01 Last Admin: 11/21/17 14:14 Dose: 200 mls/hr Lactic Acid (Lac-Hydrin 12% Cream (140 G)) 0 ea TOP BID [facility] Last Admin: 11/21/17 10:00 Dose: 1 applic Linezolid (Zyvox) 600 mg PO BID [facility] PRN Reason: Protocol Stop: 11/28/17 10:01 Last Admin: 11/21/17 11:35 Dose: 600 mg Multi-Ingredient Ointment (Hydrophor Oint) 0 gm TOP BID [facility] Last Admin: 11/21/17 10:00 Dose: 1 applic Multivitamins (Thera Tab) 1 tab PO 0800 [facility] Last Admin: 11/21/17 11:34 Dose: 1 tab Mupirocin (Bactroban Ointment) 0 gm TOP BID [facility] Last Admin: 11/21/17 11:40 Dose: 1 applic Oxycodone/Acetaminophen (Percocet 5/325 Mg Tab) 1 tab PO Q6H PRN PRN Reason: Pain, moderate (4-7) Stop: 11/23/17 08:59 Last Admin: 11/21/17 05:33 Dose: 1 tab Oxycodone/Acetaminophen (Percocet 5/325 Mg Tab) 2 tab PO Q6H PRN PRN Reason: Pain, severe (8-10) Stop: 11/23/17 08:59 Pantoprazole Sodium (Protonix Ec Tab) 40 mg PO 0600 [facility] Last Admin: 11/21/17 05:32 Dose: 40 mg Potassium Chloride (K-Dur 20 Meq Er Tab) 20 meq PO BRK [facility] Stop: 11/25/17 10:46 Last Admin: 11/21/17 11:35 Dose: 20 meq - Labs Labs: 11/21/17 06:40 11/21/17 06:40
--- NOTE | 2017-11-21 16:54 | PN ---
DATE: SUBJECTIVE: I saw her resting comfortably in bed. Her left foot is all bandaged. She had procedure the other day for the exposed Achilles tendon. She is being seen by Podiatry, Infectious Disease, Renal, but she is comfortable. She is eating. She is in good spirits. Very little pain, if any. PHYSICAL EXAMINATION VITAL SIGNS: She has a 98.6 temperature, 73 pulse, 165/75 blood pressure, 18 respiratory rate, 99% O2 sat on room air. HEENT: Head is atraumatic, normocephalic. Throat is moist. NECK: Supple. HEART: Regular rate. LUNGS: Clear to auscultation. ABDOMEN: Soft, positive bowel sounds, nontender. EXTREMITIES: Left foot is all bandaged. MEDICATIONS: She is on bacitracin, Bactroban, DuoNeb, Fergon, heparin, Lac-Hydrin, Lasix, Percocet for pain, Protonix, Thera-Tabs, Topicort, Tylenol, Zosyn, and Zyvox. She had Pseudomonas aeruginosa, Corynebacterium species in the wound. There is an MRI pending. If it is asked of a longer period of IV antibiotics, the plan is to get her to TCU, even possible subacute rehab if she is on longer antibiotics. When, see what the Infectious Disease has to say, otherwise, we will continue with aggressive treatment and care and we will work on discharging her once we know the duration of the antibiotics and also in the care of Podiatry who did the surgery. Otis Harris DO [facility]
--- NOTE | 2017-11-21 18:10 | MRI ---
PROCEDURE: MRI Left Foot HISTORY: Pain. COMPARISON: None available. TECHNIQUE: Multiecho multiplanar sequences were performed through the left foot without the use of intravenous contrast. FINDINGS: Motion artifacts involving the great numerous sequences throughout this examination. BONES: The posterior margins of the calcaneus are not included in this study and in osteomyelitis is suspected here then repeat imaging is advised to capture the entire hindfoot at no additional cost to the patient. Note edema at the distal tibia abutting the tibiotalar joint are felt to be degenerative. Osteomyelitis is not favored here. If the symptoms persist or worsen repeat MRI is strongly advised, potentially under sedation the patient is unable to adequately position. No fracture is appreciable. MUSCLES: Edema in the plantar musculature is is appreciated similar to that at the right foot. SOFT TISSUES: Dorsal plantar or subcutaneous edema is appreciate diffusely with mild edema appreciate the subcutaneous fat anterior to the level of the ankle as well. LISFRANC LIGAMENT: Poorly evaluated due to motion artifact. PLANTAR PLATE: Mild thickening of the plantar fascia is appreciate which may indicate fasciitis. Clinically correlate further. EXTENSOR TENDONS: No definite tendon tear appreciated. FLEXOR TENDONS: No definite tendon tear appreciated. OTHER FINDINGS: Degenerative changes seen at the talonavicular and calcaneocuboidal joints. IMPRESSION: Edema at the distal tibia extending to the level of the tibiotalar joint is mild is felt to represent degenerative rather than infectious etiology with further clinical correlation is advised. The posterior segment margins of the calcaneus is not included in this examination and if osteomyelitis is suspected then repeat imaging of the hindfoot is advised in its entirety for further characterization of the calcaneus without added cost to the patient. Diffuse plantar soft tissue edema. Edema at the plantar musculature is also identified. Motion artifacts degrade the quality this examination significantly.
--- NOTE | 2017-11-22 00:47 | PN ---
DATE: 11/21/2017 SUBJECTIVE: The patient is seen early this morning in 571, bed 2. OBJECTIVE: GENERAL: Patient is in no acute distress, nontoxic. VITAL SIGNS: Temperature of 98, blood pressure is 120/50, respiratory rate of 20, heart rate of 73. HEENT: Unremarkable. NECK: Supple. LUNGS: Have decreased breath sounds. HEART: Normal S1, S2. ABDOMEN: Soft. LABORATORY DATA: Reveals a white count of 8.4, hemoglobin of 9, platelets of 384. Chemistry reveals a BUN of 9, creatinine of 0.9. Ankle culture is Pseudomonas aeruginosa and Corynebacterium species. Patient had an MRI. Edema to distal tibia extending to the level of the tibial joint is mild. It is felt to represent degenerative rather than an infectious etiology. The posterior segment is noted and non-conclusive MRI. Patient had a bilateral lower extremity wound debridement with graft application only to the left leg graft. MRI of the right lower extremity is suggestive of acute osteomyelitis. ASSESSMENT AND PLAN: This is a 77-year-old female, who was seen earlier this morning in 571, bed 2 with history of psoriasis, coronary artery disease, high cholesterol, hypertension, gastroesophageal reflux disease, Pseudomonas and Corynebacterium, osteomyelitis of the leg. Recommended CBC, SMA-18, sed rate, C-reactive protein once weekly in patient with an exposed Achilles tendon, on Zosyn and linezolid. Valente Oshea MD
--- NOTE | 2017-11-22 01:15 | OP ---
PROCEDURE DATE: 11/20/2017 SURGEON: Cherise Samson DPM PUNCHER: Kedar Salvador DPM, PGY-1. ANESTHESIOLOGIST: Riley Yu DO. TYPE OF ANESTHESIA: IV sedation with local; 10 mL of 2% lidocaine plain. PREOPERATIVE DIAGNOSES: 1. 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 2. Chronic posterior right leg wounds. 3. Right heel necrotic eschar. POSTOPERATIVE DIAGNOSES: 1. 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 2. Chronic posterior right leg wounds. 3. Right heel necrotic eschar. NAME OF PROCEDURES: 1. Left leg wound debridement with application of Integra graft. 2. Right leg wound debridement. INDICATION: The patient is a 77-year-old female with the above diagnoses. The patient has exhausted conservative treatments at this time and now requests surgical intervention. Patient signed the consent after careful explanation of risks, benefits, complications, and alternatives to procedure and wishes to proceed. No guarantees were given nor implied. PREPARATION: The patient was brought into the operating room via stretcher and remained on stretcher for the duration of the procedure. Time-out was performed for identification of correct patient and procedure. After induction of IV sedation, the patient received a total of 10 mL of 2% lidocaine plain in a proximal V-type fashion bilaterally. The bilateral lower extremities were then prepped and draped in normal sterile manner and the procedure began. DESCRIPTION OF PROCEDURE: Procedure #1: Left leg debridement with application of Integra graft Attention was directed to the posterior aspect of the left leg, where it was noted to have an ulceration expanding from medial to lateral malleoli, extending from midcalf to the Achilles insertion. The Achilles tendon was exposed distally just proximal to insertion, with surrounding fibrin slough and necrotic tissue interspersed throughout. Utilizing a fresh 15 blade, all nonviable tissue was excised from the Achilles tendon and passed off the operative field to be sent to Pathology. The ulcerations noted proximal to Achilles were then mechanically debrided with gauze. The posterior left leg was then flushed with copious amounts of sterile saline. Next, an Integra graft was applied to the posterior aspect of the left leg covering the Achilles tendon and was put in place using 3-0 Vicryl suture in a simple interrupted suture technique. The left lower extremity was then dressed with ABDs and Kerlix. Procedure #2: Right leg wound debridement Attention was directed to the posterior aspect of the right leg where a necrotic eschar was noted to the posterior aspect of the right heel. Utilizing a 15 blade, the eschar was excisionally debrided from the heel to a mix of subcutaneous tissue and healthy bleeding granular tissue. Once all necrotic and nonviable tissue was noted to be debrided, the right heel was then flushed with copious amounts of sterile saline. Bacitracin was applied to the fresh wound and then it was dressed with Xeroform, ABDs and Kerlix. POSTOPERATIVE CONDITION: The patient tolerated the anesthesia and procedure well and was escorted to the recovery room with vital signs stable and neurovascular status intact to bilateral lower extremities. The patient is to remain nonweightbearing to bilateral lower extremities at this time with her heels off-loaded at all times while in bed. Podiatry will continue to follow the patient while in-house. The left lower extremity dressing will be changed on 11/24/2017, and the right lower extremity will be dressed tomorrow. Kedar Salvador DPM Cherise Samson DPM RD
[2017-11-22] MEDS: Piperacillin/Tazobact 2.25gm 2.25 GM/100 ML BAG IVPB SCH ×4 (06:00→23:26)
[2017-11-22] MEDS: Pantoprazole 40 mg EC Tab PO SCH (06:55)
[2017-11-22 08:23] LABS: HEMOGLOBIN 10.1 g/dL (12.0-16.0); MEAN CELL VOLUME 84.8 fl (80.0-105.0); MEAN CORPUSCULAR HEMOGLOBIN 27.8 pg (25.0-35.0); MEAN CORPUSCULAR HGB CONC 32.8 g/dl (31.0-37.0); MEAN PLATELET VOLUME 8.5 fl (7.0-11.0); RBC 3.63 10^6/uL (3.5-6.1); RED CELL DISTRIBUTION WIDTH 18.9 % (11.5-14.5)
[2017-11-22] MEDS: Albuterol-Ipratrop 3 mg / 0.5 (3 ml) UD IH SCH ×3 (09:00→21:20)
[2017-11-22 09:01] LABS: ALB/GLOB RATIO 0.5 (1.1-1.8); ALT/SGPT 27 U/L (7-56); AST/SGOT 29 U/L (14-36); BLOOD UREA NITROGEN 8 mg/dL (7-21); CALCIUM 7.9 mg/dL (8.4-10.5); GFR AFRICAN-AMERICAN > 60; GFR NON-AFRICAN AMERICAN > 60
--- NOTE | 2017-11-22 11:13 | CP.PCM.PN ---
Subjective - Date & Time of Evaluation Date of Evaluation: 11/22/17 Time of Evaluation: 11:13 - Subjective Subjective: Podiatry Progress Note - Dr. Samson 77 year old female PMHx psoriasis, CAD s/p 1 stent, HTN, HLD, GERD, hx of MSSA cellulitis, seen and evaluated at bedside for bilateral LE wounds POD#2 left leg wound debridement with application of Integra graft, and right leg wound debridement. Patient hemodynamically stable and NAD. Multipodus boots not present. No acute events overnight. Patient reports continued pain to the back of her legs, well-controlled. No other pedal complaints. Patient reports slight nausea AM however none currently. Denies V/F/D/C/SOB/calf pain. Objective - Vital Signs/Intake and Output Vital Signs (last 24 hours): Temp Pulse Resp BP Pulse Ox 98.4 F 86 20 136/71 98 11/22/17 07:30 11/22/17 07:30 11/22/17 07:30 11/22/17 07:30 11/22/17 07:30 Intake and Output: 11/22/17 11/22/17 06:59 18:59 Intake Total 660 Output Total 1 Balance 659 - Medications Medications: Current Medications Acetaminophen (Tylenol 325mg Tab) 650 mg PO Q4H PRN PRN Reason: Pain, Mild (1-3) Albuterol/Ipratropium (Duoneb 3 Mg/0.5 Mg (3 Ml) Ud) 3 ml IH TIDRESP [facility] Last Admin: 11/22/17 09:00 Dose: 3 ml Bacitracin (Bacitracin) 1 gm TOP DAILY [facility] Last Admin: 11/21/17 11:40 Dose: 1 applic Desoximetasone (Topicort 0.05%) 0 ea TOP BID [facility] Last Admin: 11/21/17 19:54 Dose: 1 applic Ferrous Gluconate (Fergon) 324 mg PO TID [facility] Last Admin: 11/21/17 19:57 Dose: 324 mg Furosemide (Lasix) 40 mg IVP DAILY [facility] Last Admin: 11/21/17 11:33 Dose: 40 mg Heparin Sodium (Porcine) (Heparin) 5,000 units SC Q12 [facility] PRN Reason: Protocol Last Admin: 11/21/17 22:50 Dose: 5,000 units Piperacillin Sod/Tazobactam Sod (Zosyn 2.25 Gm In 0.9% 100 Ml) 2.25 gm in 100 mls @ 200 mls/hr IVPB Q6 [facility] PRN Reason: Protocol Stop: 11/25/17 00:01 Last Admin: 11/22/17 06:00 Dose: 200 mls/hr Lactic Acid (Lac-Hydrin 12% Cream (140 G)) 0 ea TOP BID [facility] Last Admin: 11/21/17 19:53 Dose: 1 applic Linezolid (Zyvox) 600 mg PO BID [facility] PRN Reason: Protocol Stop: 11/28/17 10:01 Last Admin: 11/21/17 11:35 Dose: 600 mg Multi-Ingredient Ointment (Hydrophor Oint) 0 gm TOP BID [facility] Last Admin: 11/21/17 19:53 Dose: 1 applic Multivitamins (Thera Tab) 1 tab PO 0800 [facility] Last Admin: 11/21/17 11:34 Dose: 1 tab Mupirocin (Bactroban Ointment) 0 gm TOP BID [facility] Last Admin: 11/21/17 19:53 Dose: 1 applic Oxycodone/Acetaminophen (Percocet 5/325 Mg Tab) 1 tab PO Q6H PRN PRN Reason: Pain, moderate (4-7) Stop: 11/23/17 08:59 Last Admin: 11/21/17 23:32 Dose: 1 tab Oxycodone/Acetaminophen (Percocet 5/325 Mg Tab) 2 tab PO Q6H PRN PRN Reason: Pain, severe (8-10) Stop: 11/23/17 08:59 Pantoprazole Sodium (Protonix Ec Tab) 40 mg PO 0600 [facility] Last Admin: 11/22/17 06:55 Dose: 40 mg Potassium Chloride (K-Dur 20 Meq Er Tab) 20 meq PO BRK [facility] Stop: 11/25/17 10:46 Last Admin: 11/21/17 11:35 Dose: 20 meq - Labs Labs: 11/22/17 07:00 11/22/17 07:00 - Constitutional Appears: Well, Non-toxic, No Acute Distress - Extremities Exam Additional comments: Dressings to bilateral LE appear clean/dry/intact with no strikethrough noted. RLE focused physical exam: VASC: DP and PT pulses non-palpable due to edema. CFT <3 seconds to all digits. Temperature gradient warm to warm from proximal to distal. +2 pitting edema remains to LE NEURO: Gross sensation intact DERM: Diffuse psoriatic plaques and scaling. Two right leg posterior ulceration each measuring approximately 5 x 3 x 0.1 cm noted to have a fibrogranular base and erythematous rim - no drainage, no purulence, no fluctuance, no undermining , no tunneling noted. Surgical wound noted to posterior right heel s/p debridement with mixed granular/subcutaneous base and necrosis interspersed. No active drainage noted, no periwound erythema, malodor noted. ORTHO: Tenderness to palpation posterior right heel surgical wound and posterior leg ulcerations. - Neurological Exam Neurological Exam: Alert, Awake, Oriented x3 - Psychiatric Exam Psychiatric exam: Normal Affect, Normal Mood Assessment and Plan - Assessment and Plan (Free Text) Assessment: 77 year old female patient with b/l leg wounds secondary to psoriasis with exposed achilles tendon of left leg POD#2 (DOS 11/20/17) 1) Left leg wound debridement with application of Integra graft. 2) Right leg wound debridement Plan: Patient seen and evaluated at bedside with attending Dr. Samson Afebrile, WBC 8.4 Right lower extremity MRI reviewed: -Findings suggestive of acute OM of posterior and posterolateral calcaneus with a possible subcentimeter sequestrum and/or underlying bone infarct Pathology report for bilateral soft tissue debridement: skin and fibroadipose tissue showing areas of marked acute and chronic inflammation and gangrenous necrosis LLE dressing maintained RLE cleansed with normal saline, bactroban applied to surgical wound and posterior leg ulcerations, and dressed with DSD Topicort applied to bilateral LE, continue BID Aquaphor to be applied BID on top of Topicort Multipodus boots ordered yesterday 11/21 however none received - nursing made aware patient must wear at all times while in bed as graft on posterior aspect of left leg/heel and s/p right heel debridement Follow up physical therapy for Darco heel relief shoe Continue IV abx as per ID -Zosyn and Zyvox Cx: History of Citrobacter Freundii, Serratia Species, Beta hemolytic Strep Group B - New cultures: pseudomonas, corynebacterium -f/u intraop pathology Pain control - Tylenol 650mg PO, Percocet 1-2 tabs PO Podiatry will continue to follow patient while in house
[2017-11-22] MEDS: Bacitracin Ointment 30 GM TUBE TOP SCH (11:51)
[2017-11-22] MEDS: Ammonium Lactate 12% Cream (140 g) TOP SCH ×2 (11:52→17:48)
[2017-11-22] MEDS: Petrolatum-Mineral Oil Oint (100gm) TOP SCH ×2 (11:52→17:48)
[2017-11-22] MEDS: Desoximetasone 0.05% Cream(60 gm) TOP SCH ×2 (11:53→17:49)
[2017-11-22] MEDS: Potassium Chloride 20 mEq ER Tab PO SCH (12:10)
[2017-11-22] MEDS: Multivitamin Therapeutic Tab PO SCH (12:11)
[2017-11-22] MEDS: Oxycodone/Acetaminophen 5/325 mg Tab PO PRN ×2 (12:12→17:58)
--- NOTE | 2017-11-22 12:21 | PN ---
DATE: 11/22/2017 SUBJECTIVE: Patient is in bed, in no acute distress. No fevers, no chills. PHYSICAL EXAMINATION: VITAL SIGNS: Temperature is 97, blood pressure is 120/60, respiratory rate of 20, heart rate of 82. HEENT: Unremarkable. NECK: Supple. LUNGS: Have decreased breath sounds. HEART: Normal S1 and S2. ABDOMEN: Soft, nontender. LABORATORY EXAMINATION: Reveals a white count of 8000, hemoglobin of 10. Patient's sed rate is 124. Chemistries reveal a BUN of 9, creatinine of 0.9. C-reactive protein is greater than 15. Review of orders reveals the patient to be on Zosyn and Zyvox. Both are active. Zosyn requires renewal. ASSESSMENT AND PLAN: A 77-year-old female who was seen earlier this morning on room 571, bed 2, with psoriasis, coronary artery disease, high cholesterol, hypertension, gastroesophageal reflux disease, Pseudomonas and Corynebacterium, osteomyelitis of the leg. MRI is positive for osteomyelitis. Recommend 4 weeks of Zosyn and Zyvox with a CBC, SMA-18, sed rate, C-reactive protein once weekly. Patient does have exposed Achilles tendon, local wound care. We will follow with you. Valente Oshea MD
[2017-11-22] MEDS ORDERED: Potassium Chloride 20 mEq ER Tab PO ONE (13:13)
--- NOTE | 2017-11-22 14:59 | PN ---
DATE: SUBJECTIVE: I saw Meche resting comfortably in bed. She is status post MRI showing osteomyelitis, will need 4 weeks of IV antibiotics. Hopefully, we get her to [facility] on Friday. MEDICATIONS: She is on bacitracin, Bactroban cream, DuoNeb, Fergon, heparin, Hydrophor, potassium, Lac-Hydrin, Lasix, Percocet, Protonix, Thera-Tabs, topical Tylenol, Zosyn, and Zyvox. PHYSICAL EXAMINATION: VITAL SIGNS: Temperature 98.4, 86 pulse, 136/71 blood pressure, 20 respiratory rate, 90% O2 sat on room air. HEENT: Head is atraumatic, normocephalic. HEART: Regular rate. LUNGS: Clear to auscultation. ABDOMEN: Soft. EXTREMITIES: Left leg is in a very nice bandage. She has a left Achilles tendon exposure, ALDO, anemia, bilateral leg cellulitis. LABORATORY DATA: She has an 8 white count, 10.1 hemoglobin, 30.8 hematocrit with a 268 platelets. Sodium 141, potassium is low, she will be on potassium replacement. BUN 8, creatinine GFR is greater than 60. Sugar is 54. Calcium is 7.9, we will also give her some calcium. She has a total bilirubin of 0.3, AST is 29, ALT is 27, alkaline phosphatase is 77. Stool for occult blood was negative. IMPRESSION AND PLAN: She is being seen by Podiatry, Infectious Disease, Renal. We are going to continue with aggressive treatment and care. Hopefully, Friday, we can get her to [facility] for 4 weeks of antibiotics for the osteomyelitis and she needs potassium and calcium replacement. Otis Harris DO [facility]
--- NOTE | 2017-11-22 16:48 | CP.PCM.PN ---
Subjective - Date & Time of Evaluation Date of Evaluation: 11/22/17 Time of Evaluation: 09:00 - Subjective Subjective: Follow up Nephrology Consultation: Assessment: Stable Acute Kidney Injury (N17.9) as improved with IVF suggest some pre-renal component. Anemia, skin rash, cellulitis s/p wound debridement 11/20/17, renal cyst osteomyelitis Plan BP controlled Patient not on ACEI/ARB due to ALDO Monitor Input/Output, daily weights and renal function with basic metabolic panel started iron supplements and MVI 1 unit PRBC 11/19/17 continue with K supplement follow up of microscopic hematuria as outpt Dose meds/antibiotics for improved GFR. Avoid nephrotoxins/NSAIDs Glycemic control Further work up/management as per primary team Thanks for allowing me to participate in care of your patient. Will follow on as needed basis. Please call if any Qs Dr Stanley Moscoso Office: [phone] reason for consult: ALDO HPI: Pt is a 77 F with hx of skin lesions mentioned as psoriasis and pemphigus presented with complaints of non healing and worsening heel wound. she was in rehab. renal conslt for ALDO Denies OTC/herbal meds or NSAIDs No recent iodinated contrast exposure. No obvious episodes of low BP. pt says skin rash better these days ROS: Cardiovascular: No chest pain. Pulmonary: No shortness of breath Gastrointestinal: denies abdominal pain No nausea. No vomiting. Genitourinary: No pain while urinating. Denies blood in urine. All other negative except foot wound and skin rash which is also better Physical Examination: General Appearance: Comfortable, in no acute respiratory distress, co-operative . Vitals reviewed and noted as below Head; Atraumatic, normocephalic ENT: no ulcers no thrush. Tongue is midline. Oropharynx: no rash or ulcers. EYES: Pupils are equal, round and reactive to light accommodation. Eye muscles and extraocular movement intact. Sclera is anicteric. Neck; supple no lymphadenopathy, no thyromegaly or bruit Lungs: Normal respiratory rate/effort. Breath sounds bilateral equal and clear Heart: Normal rate. s1s2 normal. No rub or gallop. Extremities: 1+ edema. No varicose veins. both feets dressed Neurological: Patient is alert, awake and oriented to person, place and time. No focal deficit. Strength bilateral appropriate and equal Skin: Warm and dry. Normal turgor. erythematous scaly rash on all 4 extremities. Palpitation: Normal elasticity for age Abdomen: Abdomen is soft. Bowel sounds +. There is no abdominal tenderness, no guarding/rigidity no organomegaly Psych: normal insight and normal affect/mood MSK: no joint tenderness or swelling. Digits and nails normal, no deformity : kidney or bladder not palpable Labs/imaging reviewed. Past medical history, past surgical history, family history, social history, allergy reviewed and noted as below Family hx: no hx of CKD. Rest non-contributory renal sono: left side cyst UA no protein and microscopic hematuria JIMMIE ++ in past DNA ab neg. EDSON neg Objective - Vital Signs/Intake and Output Vital Signs (last 24 hours): Temp Pulse Resp BP Pulse Ox 98.4 F 86 20 136/71 98 11/22/17 07:30 11/22/17 07:30 11/22/17 07:30 11/22/17 12:15 11/22/17 07:30 Intake and Output: 11/22/17 11/22/17 06:59 18:59 Intake Total 660 480 Output Total 1 Balance 659 480 - Medications Medications: Current Medications Acetaminophen (Tylenol 325mg Tab) 650 mg PO Q4H PRN PRN Reason: Pain, Mild (1-3) Albuterol/Ipratropium (Duoneb 3 Mg/0.5 Mg (3 Ml) Ud) 3 ml IH TIDRESP [facility] Last Admin: 11/22/17 13:55 Dose: 3 ml Bacitracin (Bacitracin) 1 gm TOP DAILY [facility] Last Admin: 11/22/17 11:51 Dose: 1 applic Desoximetasone (Topicort 0.05%) 0 ea TOP BID [facility] Last Admin: 11/22/17 11:53 Dose: 1 applic Ferrous Gluconate (Fergon) 324 mg PO TID [facility] Last Admin: 11/22/17 15:50 Dose: 324 mg Furosemide (Lasix) 40 mg IVP DAILY [facility] Last Admin: 11/22/17 12:15 Dose: 40 mg Heparin Sodium (Porcine) (Heparin) 5,000 units SC Q12 [facility] PRN Reason: Protocol Last Admin: 11/22/17 12:00 Dose: 5,000 units Piperacillin Sod/Tazobactam Sod (Zosyn 2.25 Gm In 0.9% 100 Ml) 2.25 gm in 100 mls @ 200 mls/hr IVPB Q6 [facility] PRN Reason: Protocol Stop: 11/25/17 00:01 Last Admin: 11/22/17 12:27 Dose: 200 mls/hr Lactic Acid (Lac-Hydrin 12% Cream (140 G)) 0 ea TOP BID [facility] Last Admin: 11/22/17 11:52 Dose: 1 applic Linezolid (Zyvox) 600 mg PO BID [facility] PRN Reason: Protocol Stop: 11/28/17 10:01 Last Admin: 11/22/17 12:11 Dose: 600 mg Multi-Ingredient Ointment (Hydrophor Oint) 0 gm TOP BID [facility] Last Admin: 11/22/17 11:52 Dose: 1 applic Multivitamins (Thera Tab) 1 tab PO 0800 [facility] Last Admin: 11/22/17 12:11 Dose: 1 tab Mupirocin (Bactroban Ointment) 0 gm TOP BID [facility] Last Admin: 11/22/17 11:51 Dose: 1 applic Oxycodone/Acetaminophen (Percocet 5/325 Mg Tab) 1 tab PO Q6H PRN PRN Reason: Pain, moderate (4-7) Stop: 11/23/17 08:59 Last Admin: 11/22/17 12:12 Dose: 1 tab Oxycodone/Acetaminophen (Percocet 5/325 Mg Tab) 2 tab PO Q6H PRN PRN Reason: Pain, severe (8-10) Stop: 11/23/17 08:59 Pantoprazole Sodium (Protonix Ec Tab) 40 mg PO 0600 [facility] Last Admin: 11/22/17 06:55 Dose: 40 mg Potassium Chloride (K-Dur 20 Meq Er Tab) 20 meq PO BRK [facility] Stop: 11/25/17 10:46 Last Admin: 11/22/17 12:10 Dose: 20 meq - Labs Labs: 11/22/17 07:00 11/22/17 07:00
[2017-11-23] MEDS: Oxycodone/Acetaminophen 5/325 mg Tab PO PRN ×2 (01:46→10:48)
[2017-11-23] MEDS: Piperacillin/Tazobact 2.25gm 2.25 GM/100 ML BAG IVPB SCH ×4 (06:17→23:47)
[2017-11-23] MEDS: Pantoprazole 40 mg EC Tab PO SCH (06:18)
[2017-11-23] MEDS: Albuterol-Ipratrop 3 mg / 0.5 (3 ml) UD IH SCH ×3 (08:13→21:11)
[2017-11-23 08:29] LABS: HEMOGLOBIN 9.9 g/dL (12.0-16.0); MEAN CELL VOLUME 85.3 fl (80.0-105.0); MEAN CORPUSCULAR HGB CONC 32.8 g/dl (31.0-37.0); MEAN PLATELET VOLUME 8.3 fl (7.0-11.0); RBC 3.54 10^6/uL (3.5-6.1); RED CELL DISTRIBUTION WIDTH 18.7 % (11.5-14.5); WHITE BLOOD COUNT 8.8 10^3/ul (4.5-11.0)
[2017-11-23 08:42] LABS: ALB/GLOB RATIO 0.5 (1.1-1.8); ALBUMIN 1.9 g/dL (3.0-4.8); ALT/SGPT 27 U/L (7-56); AST/SGOT 31 U/L (14-36); BLOOD UREA NITROGEN 7 mg/dL (7-21); CALCIUM 7.7 mg/dL (8.4-10.5); GFR AFRICAN-AMERICAN > 60; GFR NON-AFRICAN AMERICAN > 60
[2017-11-23] MEDS: Multivitamin Therapeutic Tab PO SCH (08:51)
[2017-11-23] MEDS: Potassium Chloride 20 mEq ER Tab PO SCH (08:51)
[2017-11-23] MEDS: Bacitracin Ointment 30 GM TUBE TOP SCH (10:52)
[2017-11-23] MEDS: Desoximetasone 0.05% Cream(60 gm) TOP SCH ×2 (10:53→18:35)
--- NOTE | 2017-11-23 11:13 | CP.PCM.PN ---
Subjective - Date & Time of Evaluation Date of Evaluation: 11/23/17 Time of Evaluation: 11:12 - Subjective Subjective: Podiatry Progress Note - Dr. Samson 77 year old female PMHx psoriasis, CAD s/p 1 stent, HTN, HLD, GERD, hx of MSSA cellulitis, seen and evaluated at bedside for bilateral LE wounds POD#3 left leg wound debridement with application of Integra graft, and right leg wound debridement. Patient sleeping at time of visit, hemodynamically stable and NAD. Multipodus boots present to bilateral LE. No acute events overnight. Patient endorses pain to surgical debridement sites, well-controlled. No other pedal complaints. Denies N/V/F/D/C/SOB/calf pain. Objective - Vital Signs/Intake and Output Vital Signs (last 24 hours): Temp Pulse Resp BP Pulse Ox 97.6 F 74 20 118/58 L 100 11/23/17 07:30 11/23/17 07:30 11/23/17 07:30 11/23/17 07:30 11/23/17 07:30 Intake and Output: 11/23/17 11/23/17 06:59 18:59 Intake Total 400 Output Total 300 Balance 100 - Medications Medications: Current Medications Acetaminophen (Tylenol 325mg Tab) 650 mg PO Q4H PRN PRN Reason: Pain, Mild (1-3) Albuterol/Ipratropium (Duoneb 3 Mg/0.5 Mg (3 Ml) Ud) 3 ml IH TIDRESP [facility] Last Admin: 11/23/17 08:13 Dose: 3 ml Bacitracin (Bacitracin) 1 gm TOP DAILY [facility] Last Admin: 11/22/17 11:51 Dose: 1 applic Desoximetasone (Topicort 0.05%) 0 ea TOP BID [facility] Last Admin: 11/22/17 17:49 Dose: 1 applic Ferrous Gluconate (Fergon) 324 mg PO TID [facility] Last Admin: 11/22/17 15:50 Dose: 324 mg Furosemide (Lasix) 40 mg IVP DAILY [facility] Last Admin: 11/22/17 12:15 Dose: 40 mg Heparin Sodium (Porcine) (Heparin) 5,000 units SC Q12 [facility] PRN Reason: Protocol Last Admin: 11/22/17 22:51 Dose: 5,000 units Piperacillin Sod/Tazobactam Sod (Zosyn 2.25 Gm In 0.9% 100 Ml) 2.25 gm in 100 mls @ 200 mls/hr IVPB Q6 [facility] PRN Reason: Protocol Stop: 11/25/17 00:01 Last Admin: 11/23/17 06:17 Dose: 200 mls/hr Potassium Chloride (Potassium Chloride 10 Meq/100 Ml) 10 meq in 100 mls @ 50 mls/hr IVPB ONCE ONE Stop: 11/23/17 12:22 Lactic Acid (Lac-Hydrin 12% Cream (140 G)) 0 ea TOP BID [facility] Last Admin: 11/22/17 17:48 Dose: 1 applic Linezolid (Zyvox) 600 mg PO BID [facility] PRN Reason: Protocol Stop: 11/28/17 10:01 Last Admin: 11/22/17 17:58 Dose: 600 mg Multi-Ingredient Ointment (Hydrophor Oint) 0 gm TOP BID [facility] Last Admin: 11/22/17 17:48 Dose: 1 applic Multivitamins (Thera Tab) 1 tab PO 0800 [facility] Last Admin: 11/23/17 08:51 Dose: 1 tab Mupirocin (Bactroban Ointment) 0 gm TOP BID [facility] Last Admin: 11/22/17 17:47 Dose: 1 applic Pantoprazole Sodium (Protonix Ec Tab) 40 mg PO 0600 [facility] Last Admin: 11/23/17 06:18 Dose: 40 mg Potassium Chloride (K-Dur 20 Meq Er Tab) 20 meq PO BRK [facility] Stop: 11/25/17 10:46 Last Admin: 11/23/17 08:51 Dose: 20 meq - Labs Labs: 11/23/17 08:00 11/23/17 08:00 - Constitutional Appears: Well, Non-toxic, No Acute Distress - Extremities Exam Additional comments: Dressings to bilateral LE appear clean/dry/intact with no strikethrough noted. RLE focused physical exam: VASC: DP and PT pulses non-palpable due to edema. CFT <3 seconds to all digits. Temperature gradient warm to warm from proximal to distal. +2 pitting edema remains to LE NEURO: Gross sensation intact DERM: Diffuse psoriatic plaques and scaling. Two right leg posterior ulceration each measuring approximately 5 x 3 x 0.1 cm noted to have a fibrogranular base and erythematous rim - no drainage, no purulence, no fluctuance, no undermining , no tunneling noted. Surgical wound noted to posterior right heel s/p debridement with mixed granular/subcutaneous base and necrosis interspersed, necrosis increased and hardening since previous visit. No active drainage noted , no periwound erythema, no malodor noted. ORTHO: Tenderness to palpation posterior right heel surgical wound and posterior leg ulcerations. - Neurological Exam Neurological Exam: Alert, Awake, Oriented x3 - Psychiatric Exam Psychiatric exam: Normal Affect, Normal Mood Assessment and Plan - Assessment and Plan (Free Text) Assessment: 77 year old female patient with b/l leg wounds secondary to psoriasis with exposed achilles tendon of left leg POD#3 (DOS 11/20/17) 1) Left leg wound debridement with application of Integra graft. 2) Right leg wound debridement Plan: Patient seen and evaluated at bedside with attending Dr. Samson Afebrile, WBC 8.8 Right lower extremity MRI reviewed: -Findings suggestive of acute OM of posterior and posterolateral calcaneus with a possible subcentimeter sequestrum and/or underlying bone infarct LLE dressing maintained RLE cleansed with normal saline, bactroban applied to surgical wound and posterior leg ulcerations, and dressed with xeroform, DSD Topicort applied to bilateral LE, continue BID applications Aquaphor to be applied BID on top of Topicort Multipodus boots present - to be worn at all times in bed Follow up physical therapy for Darco heel relief shoe Continue IV abx as per ID -Zosyn and Zyvox Cx: History of Citrobacter Freundii, Serratia Species, Beta hemolytic Strep Group B - New cultures: pseudomonas, corynebacterium Pathology report for bilateral soft tissue debridement: skin and fibroadipose tissue showing areas of marked acute and chronic inflammation and gangrenous necrosis Pain control - Tylenol 650mg PO, Percocet 1-2 tabs PO Podiatry will continue to follow patient while in house
[2017-11-23] MEDS: Ammonium Lactate 12% Cream (140 g) TOP SCH ×2 (13:27→18:30)
[2017-11-23] MEDS: Petrolatum-Mineral Oil Oint (100gm) TOP SCH ×2 (13:27→18:30)
--- NOTE | 2017-11-23 14:03 | PN ---
DATE: 11/23/2017 LOCATION: The patient is seen earlier today in room 571 bed 2. No fevers and chills. OBJECTIVE VITAL SIGNS: Temperature is 97, blood pressure is 118/50, respiratory rate of 20, heart rate of 100. HEENT: Examination is unremarkable. NECK: Supple. LUNGS: Have decreased breath sounds. HEART: Normal S1, S2. ABDOMEN: Soft, nontender. DATA: Laboratory examination reveals a white count of 8000, hemoglobin of 9, platelets of 354,000. Chemistries reveal a BUN of 7, creatinine 0.8. Urinalysis is noted and stool for occult blood is negative and immunology is noted. Microbiology is reviewed, with Proteus aeruginosa, Corynebacterium. Review of orders reveals the patient to be on Zosyn and linezolid. ASSESSMENT AND PLAN: This is a 77-year-old female who was seen earlier today in room 571, bed 2 with history of psoriasis, coronary artery disease, high cholesterol, hypertension, gastroesophageal reflux disease with Pseudomonas and Corynebacterium osteomyelitis of the leg. MRI is positive. We will treat with four weeks of linezolid and Zosyn with a weekly CBC, SMA-18, sedimentation rate, C-reactive protein once weekly. The patient does have exposed Achilles tendon, continue with the local wound care and we will follow with you. Valente Oshea MD
[2017-11-23 18:53] LABS: MEAN CORPUSCULAR HEMOGLOBIN 28.6 pg (25.0-35.0); MEAN CORPUSCULAR HGB CONC 33.2 g/dl (31.0-37.0); MEAN PLATELET VOLUME 8.2 fl (7.0-11.0); RBC 3.85 10^6/uL (3.5-6.1); RED CELL DISTRIBUTION WIDTH 18.8 % (11.5-14.5); WHITE BLOOD COUNT 10.3 10^3/ul (4.5-11.0)
--- NOTE | 2017-11-23 19:03 | MRI ---
EXAM: MR Left Lower Extremity Without Intravenous Contrast, Foot EXAM DATE/TIME: 11/23/2017 3:49 PM CLINICAL HISTORY: The patient age is 77 years old and is female; Signs and symptoms; Cellulitis; Ankle; Bilateral; Additional info: Posterior heel ulcer-redo mri Facility exam id and description: Mri loexotjprieto lower ext [facility] w/o lt TECHNIQUE: Multiplanar magnetic resonance images of the left foot without intravenous contrast. COMPARISON: MR - LOWER EXT [facility] W/O LT 2017-11-21 09:43 FINDINGS: Limitations: Evaluation or abscess is limited by the absence of intravenous contrast. LIGAMENTS: A small amount of fluid is identified adjacent to the anterior talofibular ligament, without a visualized acute tear. No visualized acute tear of the anterior and posterior tibiofibular, posterior talofibular, and deltoid ligaments. Lisfranc: No visualized acute tear. TENDONS: Flexor: There is a minimal fluid surrounding the flexor digitorum tendons at the plantar aspect of the foot, consistent with tenosynovitis. Extensor: No visualized acute tear. Peroneal: No visualized acute tear. Tibialis anterior: No visualized acute tear. Tibialis posterior: No visualized acute tear. Muscles: See below. Fluid: There is a minimal subtalar joint effusion. A small amount of fluid is visualized lateral to the talus. Sinus tarsi: Edema and fluid are visualized within the sinus tarsi. Plantar fascia: Heel pad edema seen adjacent to the plantar fascia, without a visualized acute tear. Bones/joints: There is a small soft tissue defect or ulceration posterior to the calcaneus. Edema is identified within the bone marrow of the calcaneus posteriorly. This is concerning for osteoarthritis in the appropriate clinical setting. In this region, there is a focal area of STIR hypointensity measuring 0.7 x 0.7 x 1.3 cm. This is hyperintense on the T1-weighted sequence. Differential considerations include a bone infarct, erosion/infection, and/or a focal area of preservation of the fatty marrow. Cystic change is identified within the medial malleolus Soft tissues: There is mild soft tissue edema within the foot, most significant at the plantar aspect. This is consistent with cellulitis in the appropriate clinical setting. Muscle edema is also visualized, suggestive of myositis. There is soft tissue swelling of the heel pad, with a subcentimeter fluid collection. This fluid collection is concerning for abscess. IMPRESSION: 1. There is mild soft tissue edema within the foot, most significant at the plantar aspect. This is consistent with cellulitis in the appropriate clinical setting. Muscle edema is also visualized, suggestive of myositis. 2. There is soft tissue swelling of the heel pad, with a subcentimeter fluid collection. This fluid collection is concerning for abscess. 3. There is a small soft tissue defect or ulceration posterior to the calcaneus. 4. Edema is identified within the bone marrow of the calcaneus posteriorly. This is concerning for osteoarthritis in the appropriate clinical setting. In this region, there is a focal area of STIR hypointensity measuring 0.7 x 0.7 x 1.3 cm. Differential considerations include a bone infarct, erosion/infection, and/or a focal area of preservation of the fatty marrow. Postcontrast sequences are suggested. 5. There is a minimal fluid surrounding the flexor digitorum tendons at the plantar aspect of the foot, consistent with tenosynovitis. 6. Additional findings described above.
[2017-11-24] MEDS: Piperacillin/Tazobact 2.25gm 2.25 GM/100 ML BAG IVPB SCH (06:21)
[2017-11-24] MEDS: Pantoprazole 40 mg EC Tab PO SCH (06:21)
[2017-11-24] MEDS: Albuterol-Ipratrop 3 mg / 0.5 (3 ml) UD IH SCH ×3 (07:16→22:10)
[2017-11-24 07:25] LABS: HEMOGLOBIN 9.7 g/dL (12.0-16.0); MEAN CELL VOLUME 84.7 fl (80.0-105.0); MEAN CORPUSCULAR HGB CONC 33.1 g/dl (31.0-37.0); MEAN PLATELET VOLUME 7.9 fl (7.0-11.0); RBC 3.46 10^6/uL (3.5-6.1); RED CELL DISTRIBUTION WIDTH 18.6 % (11.5-14.5); WHITE BLOOD COUNT 9.7 10^3/ul (4.5-11.0)
[2017-11-24 08:20] LABS: ALB/GLOB RATIO 0.5 (1.1-1.8); ALBUMIN 1.9 g/dL (3.0-4.8); ALT/SGPT 24 U/L (7-56); AST/SGOT 38 U/L (14-36); BLOOD UREA NITROGEN 7 mg/dL (7-21); CALCIUM 7.5 mg/dL (8.4-10.5); GFR AFRICAN-AMERICAN > 60; GFR NON-AFRICAN AMERICAN > 60
[2017-11-24] MEDS: Potassium Chloride 20 mEq ER Tab PO SCH (08:37)
[2017-11-24] MEDS: Multivitamin Therapeutic Tab PO SCH (08:39)
--- NOTE | 2017-11-24 09:30 | PN ---
DATE: 11/23/2017 SUBJECTIVE: I saw Meche resting comfortably in bed. Her leg is bandaged and mildly elevated. She is resting comfortable. She has ate well this morning. She is in good spirits. Very little pain. She knows she might be going to a subacute rehab tomorrow. I will discuss this with podiatry, either [facility] or [facility]. She wants [facility]. She is being seen by Renal, Podiatry, Infectious Disease. She will need 4 weeks of IV antibiotics. She has a left heel osteomyelitis, exposed left Achilles tendon cellulitis, anemia and acute kidney injury, also severe psoriasis, hypertension, GERD. She will need 4 weeks of Zosyn and Zyvox. The CBC, SMA-18 sed rate, C-reactive protein weekly. She will also need to have local wound care. PHYSICAL EXAMINATION: VITAL SIGNS: 97.6 temp, 74 pulse, 118/58 blood pressure, 20 respiratory, 100% O2 sat on room air. HEENT: Head is atraumatic, normocephalic. Throat is moist. NECK: Supple. HEART: Regular rate. LUNGS: Clear to auscultation. ABDOMEN: Soft. EXTREMITIES: The left leg is bandaged. MEDICATIONS: She is on bacitracin, Bactroban cream, DuoNebs, Fergon, heparin, Hydrophor, potassium, Lac-Hydrin, Lasix, Protonix, Thera-Tabs, Topicort, Tylenol, Zosyn and Zyvox, 4 weeks of each. LABORATORY DATA: 8.8 white count, 9.9 hemoglobin, 30.2 hematocrit with a 354 platelets. 141 sodium; potassium is 3.4, I am going to redo the potassium for her, give her a little extra; BUN 7; creatinine 0.8; GFR is greater than 60; sugar is 54; calcium is 7.7, I am going to give her a little bit of calcium. Total bili is 0.2, AST is 31, ALT is 27. ASSESSMENT AND PLAN: We will continue with aggressive treatment and care. I will discuss this with the other doctors. Plan is to get her out tomorrow, either [facility] or [facility]. Otis Harris DO
[2017-11-24] MEDS: Bacitracin Ointment 30 GM TUBE TOP SCH (09:56)
[2017-11-24] MEDS: Desoximetasone 0.05% Cream(60 gm) TOP SCH ×2 (09:57→17:38)
[2017-11-24] MEDS: Petrolatum-Mineral Oil Oint (100gm) TOP SCH ×2 (09:57→17:38)
[2017-11-24] MEDS: Ammonium Lactate 12% Cream (140 g) TOP SCH ×2 (09:57→17:38)
[2017-11-24] MEDS: Piperacill/Tazo 4.5gm in NS 4.5 GM/100 ML BAG IVPB SCH ×2 (12:12→17:45)
[2017-11-24] MEDS ORDERED: Lidocaine 2% Inj (20ml) ONE (14:52)
[2017-11-24] MEDS ORDERED: HEPARIN SODIUM/NS 1,000 ML IV ONE (14:52)
--- NOTE | 2017-11-24 15:53 | CP.PCM.PN ---
Subjective - Date & Time of Evaluation Date of Evaluation: 11/24/17 Time of Evaluation: 12:20 - Subjective Subjective: Resting comfortably in bed, no fevers. Objective - Vital Signs/Intake and Output Vital Signs (last 24 hours): Temp Pulse Resp BP Pulse Ox 97.8 F 88 20 100/50 L 97 11/24/17 07:00 11/24/17 07:00 11/24/17 07:00 11/24/17 09:57 11/24/17 07:00 Intake and Output: 11/24/17 11/24/17 06:59 18:59 Intake Total 860 Balance 860 - Medications Medications: Current Medications Acetaminophen (Tylenol 325mg Tab) 650 mg PO Q4H PRN PRN Reason: Pain, Mild (1-3) Last Admin: 11/23/17 23:46 Dose: 650 mg Albuterol/Ipratropium (Duoneb 3 Mg/0.5 Mg (3 Ml) Ud) 3 ml IH TIDRESP [facility] Last Admin: 11/24/17 07:16 Dose: 3 ml Bacitracin (Bacitracin) 1 gm TOP DAILY [facility] Last Admin: 11/24/17 09:56 Dose: 1 applic Desoximetasone (Topicort 0.05%) 0 ea TOP BID [facility] Last Admin: 11/24/17 09:57 Dose: 1 applic Ferrous Gluconate (Fergon) 324 mg PO TID [facility] Last Admin: 11/24/17 09:52 Dose: 324 mg Furosemide (Lasix) 40 mg IVP DAILY [facility] Last Admin: 11/24/17 09:57 Dose: Not Given Heparin Sodium (Porcine) (Heparin) 5,000 units SC Q12 [facility] PRN Reason: Protocol Last Admin: 11/24/17 09:52 Dose: 5,000 units Piperacillin Sod/Tazobactam Sod (Zosyn 4.5 Gm In Ns 100ml) 4.5 gm in 100 mls @ 200 mls/hr IVPB Q6 [facility] PRN Reason: Protocol Stop: 12/02/17 12:01 Lactic Acid (Lac-Hydrin 12% Cream (140 G)) 0 ea TOP BID [facility] Last Admin: 11/24/17 09:57 Dose: 1 applic Linezolid (Zyvox) 600 mg PO BID [facility] PRN Reason: Protocol Stop: 11/28/17 10:01 Last Admin: 11/24/17 09:52 Dose: 600 mg Multi-Ingredient Ointment (Hydrophor Oint) 0 gm TOP BID [facility] Last Admin: 11/24/17 09:57 Dose: 1 applic Multivitamins (Thera Tab) 1 tab PO 0800 [facility] Last Admin: 11/24/17 08:39 Dose: 1 tab Mupirocin (Bactroban Ointment) 0 gm TOP BID [facility] Last Admin: 11/24/17 09:57 Dose: 1 applic Pantoprazole Sodium (Protonix Ec Tab) 40 mg PO 0600 [facility] Last Admin: 11/24/17 06:21 Dose: 40 mg Potassium Chloride (K-Dur 20 Meq Er Tab) 20 meq PO BRK [facility] Stop: 11/25/17 10:46 Last Admin: 11/24/17 08:37 Dose: 20 meq - Labs Labs: 11/24/17 07:15 11/24/17 07:15 - Constitutional Appears: Chronically Ill - Head Exam Head Exam: NORMAL INSPECTION - Respiratory Exam Respiratory Exam: Decreased Breath Sounds - Cardiovascular Exam Cardiovascular Exam: +S1, +S2 - GI/Abdominal Exam GI & Abdominal Exam: Soft. absent: Tenderness Assessment and Plan - Assessment and Plan (Free Text) Plan: Assessment sepsis with left lower extremity myositis, cellulitis, tenosynovitis, gangrene and probable osteomyelitis, grew Pseudomonas history of bilateral lower extremity cellulitis with no evidence of osteomyelitis, growing Citrobacter, Serratia and Group B Strep severe PVD psoriasis GERD HTN dyslipidemia CAD Plan continue Zyvox and Zosyn and will need at least 4 weeks of antibiotics with weekly ESR, CRP, CBC, CMP with outpatient follow up with Podiatry
[2017-11-24 16:58] VITALS: PULSE 79; O2SAT 96
--- NOTE | 2017-11-24 19:37 | VASCULAR ---
PROCEDURE: Ultrasound and fluoroscopically placed left upper extremity PICC line. HISTORY: Right foot gangrene. Long-term IV antibiotics. Needs PICC line. PHYSICIAN(S): Nestor Cho MD. TECHNIQUE: The relative risks and indications of the procedure were explained to the patient and consent obtained. The patient was placed supine on the arteriogram table and the left arm prepped and draped in the usual sterile fashion. A tourniquet was applied to the left axilla. 1% Xylocaine was used to anesthetize the skin and soft tissues at the puncture site above the elbow. The left basilic vein was punctured under direct ultrasound guidance with a micropuncture set. A 0.018 guidewire was advanced centrally and used to measure the length to the SVC/RA junction. A 5 [place]ian single-lumen PICC line 40 cm long was advanced to the SVC/RA junction. The catheter was flushed and secured. The patient tolerated the procedure well. IMPRESSION: 1. Ultrasound and fluoroscopically placed left upper extremity PICC line. A 5 [place]ian single-lumen PICC line 40 cm long was advanced to the SVC/RA junction.
[2017-11-25] MEDS: Piperacill/Tazo 4.5gm in NS 4.5 GM/100 ML BAG IVPB SCH ×3 (00:45→12:12)
[2017-11-25] MEDS: Pantoprazole 40 mg EC Tab PO SCH (05:37)
[2017-11-25] MEDS: Albuterol-Ipratrop 3 mg / 0.5 (3 ml) UD IH SCH ×2 (07:16→13:08)
--- NOTE | 2017-11-25 07:18 | DS ---
Today, she is resting comfortably in bed. She is in no acute distress at this time. She understands that she might be leaving to ""[facility]. I will discuss with Case Management. She is on bacitracin, Bactroban, calcium, albuterol, Fergon, heparin, Hydrophor, potassium, ammonium lactate, Lasix, potassium replacement, pantoprazole, multivitamin, Topicort, Tylenol, Xanax, Zosyn and Zyvox. Zosyn and Zyvox will be daily for four weeks for osteomyelitis of her left heel. She also has cellulitis, left Achilles tendon exposure, acute kidney injury and anemia. PHYSICAL EXAMINATION VITAL SIGNS: She has a temperature 97.8, 91 pulse, 124/62 blood pressure, 20 respiratory rate, and 98% O2 saturation on room air. HEENT: Head is atraumatic, normocephalic. HEART: Regular rate. LUNGS: Clear to auscultation. ABDOMEN: Soft. EXTREMITIES: Bandaged. LABORATORY DATA She has a 9.7 white count, 9.7 hemoglobin, 29.3 hematocrit with 320,000 platelets. Sodium 141; potassium 3.4, was replaced. this morning are BUN 7, creatinine 0.8, GFR is greater than 60, sugar is 54, calcium is 7.7, total bilirubin is 0.2, AST is 31, ALT is 27, alkaline phosphatase 74, total protein is 5.5. Overall, I think she is better and stable, she is going to get. She needs to go to rehab for the four weeks of IV antibiotics. She had a positive osteomyelitis on the MRI of her lower extremity, also possible abscess. There is edema as per Infectious Disease and Podiatry. We will try and discharge her for four weeks of antibiotics today. Otis Harris DO [facility]
[2017-11-25 07:37] VITALS: RESP 18; TEMP 97.6
[2017-11-25] MEDS ORDERED: Potassium Chloride 20 mEq ER Tab PO SCH (09:45)
[2017-11-25] MEDS: Ammonium Lactate 12% Cream (140 g) TOP SCH (09:48)
[2017-11-25] MEDS: Petrolatum-Mineral Oil Oint (100gm) TOP SCH (09:49)
[2017-11-25] MEDS: Multivitamin Therapeutic Tab PO SCH (09:58)
[2017-11-25 10:03] VITALS: BP 120/60
--- NOTE | 2017-11-25 11:42 | CP.PCM.PN ---
Subjective - Date & Time of Evaluation Date of Evaluation: 11/25/17 Time of Evaluation: 11:30 - Subjective Subjective: Podiatry Progress Note - Dr. Samson 77 year old female PMHx psoriasis, CAD s/p 1 stent, HTN, HLD, GERD, hx of MSSA cellulitis, seen and evaluated at bedside for bilateral LE wounds POD#5 left leg wound debridement with application of Integra graft, and right leg wound debridement. Patient AAOx3 and NAD. No acute events overnight. Patient reports mild soreness to bilateral LE today. No other pedal complaints. Multipodus boots present. Denies N/V/F/D/C/SOB/calf pain. Objective - Vital Signs/Intake and Output Vital Signs (last 24 hours): Temp Pulse Resp BP Pulse Ox 97.6 F 79 18 120/60 96 11/25/17 07:36 11/25/17 07:36 11/25/17 07:36 11/25/17 09:58 11/25/17 07:36 Intake and Output: 11/25/17 11/25/17 06:59 18:59 Intake Total 540 Balance 540 - Medications Medications: Current Medications Acetaminophen (Tylenol 325mg Tab) 650 mg PO Q4H PRN PRN Reason: Pain, Mild (1-3) Last Admin: 11/25/17 00:46 Dose: 650 mg Albuterol/Ipratropium (Duoneb 3 Mg/0.5 Mg (3 Ml) Ud) 3 ml IH TIDRESP [facility] Last Admin: 11/25/17 07:16 Dose: 3 ml Bacitracin (Bacitracin) 1 gm TOP DAILY [facility] Last Admin: 11/24/17 09:56 Dose: 1 applic Calcium Carbonate (Caltrate) 600 mg PO DAILY [facility] Last Admin: 11/25/17 10:02 Dose: 600 mg Desoximetasone (Topicort 0.05%) 0 ea TOP BID [facility] Last Admin: 11/24/17 17:38 Dose: 1 applic Ferrous Gluconate (Fergon) 324 mg PO TID [facility] Last Admin: 11/25/17 10:02 Dose: 324 mg Furosemide (Lasix) 40 mg IVP DAILY [facility] Last Admin: 11/25/17 09:58 Dose: 40 mg Heparin Sodium (Porcine) (Heparin) 5,000 units SC Q12 [facility] PRN Reason: Protocol Last Admin: 11/25/17 09:58 Dose: 5,000 units Piperacillin Sod/Tazobactam Sod (Zosyn 4.5 Gm In Ns 100ml) 4.5 gm in 100 mls @ 200 mls/hr IVPB Q6 [facility] PRN Reason: Protocol Stop: 12/02/17 12:01 Last Admin: 11/25/17 05:36 Dose: 200 mls/hr Lactic Acid (Lac-Hydrin 12% Cream (140 G)) 0 ea TOP BID [facility] Last Admin: 11/25/17 09:48 Dose: 1 applic Linezolid (Zyvox) 600 mg PO BID [facility] PRN Reason: Protocol Stop: 11/28/17 10:01 Last Admin: 11/25/17 10:02 Dose: 600 mg Multi-Ingredient Ointment (Hydrophor Oint) 0 gm TOP BID [facility] Last Admin: 11/25/17 09:49 Dose: 1 applic Multivitamins (Thera Tab) 1 tab PO 0800 [facility] Last Admin: 11/25/17 09:58 Dose: 1 tab Mupirocin (Bactroban Ointment) 0 gm TOP BID [facility] Last Admin: 11/24/17 17:37 Dose: 1 applic Pantoprazole Sodium (Protonix Ec Tab) 40 mg PO 0600 [facility] Last Admin: 11/25/17 05:37 Dose: 40 mg Potassium Chloride (K-Dur 20 Meq Er Tab) 20 meq PO BRK [facility] Last Admin: 11/25/17 09:58 Dose: 20 meq - Labs Labs: 11/24/17 07:15 11/24/17 07:15 - Constitutional Appears: Well, Non-toxic, No Acute Distress - Extremities Exam Additional comments: Dressings to bilateral LE appear clean/dry/intact with no strikethrough noted. VASC: DP and PT pulses non-palpable. CFT WNL. Temperature gradient cool to cool from proximal to distal. +2 pitting edema remains to LE NEURO: Gross sensation intact DERM: Diffuse psoriatic plaques and scaling. RLE= Two right leg posterior ulceration each measuring approximately 5 x 3 x 0.1 cm noted to have a fibrogranular base and erythematous rim - no drainage, no purulence, no fluctuance, no undermining, no tunneling noted. Surgical wound noted to posterior right heel s/p debridement with mixed granular/subcutaneous base and necrosis interspersed and continuing to increase and hardening since previous visit. No active drainage noted, no periwound erythema, no malodor noted. LLE= Posterior leg ulceration expanding from medial and lateral malleoli and mid calf extending distally to calcaneus, Achilles tendon exposed. Integra graft appears intact, overlying exposed Achilles. Moderate yellow-green drainage with fruity malodor eminating from wound. ORTHO: Pain on palpation to wounds on bilateral lower extremity. - Neurological Exam Neurological Exam: Alert, Awake, Oriented x3 - Psychiatric Exam Psychiatric exam: Normal Affect, Normal Mood Assessment and Plan - Assessment and Plan (Free Text) Assessment: 77 year old female patient with b/l leg wounds secondary to psoriasis with exposed achilles tendon of left leg POD#5 (DOS 11/20/17) 1) Left leg wound debridement with application of Integra graft. 2) Right leg wound debridement Plan: Patient seen and evaluated at bedside with attending Dr. Samson Afebrile, WBC 8.8 Left lower extremity MRI (11/23/17) reviewed: -Mild ST edema within foot, most significant at plantar aspect, consistent with cellulitis -ST swelling of heel pad with subcentimeter fluid collection, concerning for abscess -Edema within posterior calcaneus concerning for OM Right lower extremity MRI (11/20/17) reviewed: -Findings suggestive of acute OM of posterior and posterolateral calcaneus with a possible subcentimeter sequestrum and/or underlying bone infarct LLE cleansed with sterile saline and dressed with adaptic, DSD -LLE progrosis poor RLE cleansed with normal saline and dressed with adaptic, DSD Continue Topicort + Aquaphor BID applications to bilateral LE Multipodus boots present - to be worn at all times in bed Awaiting Darco heel relief shoe Continue IV abx as per ID -Zosyn and Zyvox Cx: History of Citrobacter Freundii, Serratia Species, Beta hemolytic Strep Group B - New cultures: pseudomonas, corynebacterium Pathology report for bilateral soft tissue debridement: skin and fibroadipose tissue showing areas of marked acute and chronic inflammation and gangrenous necrosis Pain control - Tylenol 650mg PO, Percocet 1-2 tabs PO Podiatry will continue to follow patient while in house
[2017-11-25 13:55] LABS: ANCA SCREEN NEGATIVE (NEGATIVE)
--- NOTE | 2017-11-26 06:24 | DS ---
The patient to be discharged today to subacute rehab at [facility], should be there for four weeks of IV antibiotics. She has an osteomyelitis of the left heel. She also has a left exposed Achilles tendon, acute kidney injury and anemia, but she is pleasant, sitting up in bed, eating well, in no pain. OBJECTIVE VITAL SIGNS: Temperature 97.6, pulse 79, blood pressure 118/64, respiratory rate 18, 96 percent O2 saturation on room. HEENT: Head is atraumatic, normocephalic. HEART: Regular rate. LUNGS: Decreased breath sounds, but clear. ABDOMEN: Soft. EXTREMITIES: Her left foot is bandaged. She will be on bacitracin, Bactroban cream, DuoNebs, Fergon, heparin, Hydrophor, potassium, Lac-Hydrin, Lasix, Protonix, Thera-Tabs, Topicort, Tylenol, Zosyn and Zyvox for four weeks. She has a 9.7 white count, 9.7 hemoglobin, 29.3 hematocrit with 320,000 platelets. Sodium 147; potassium 3.4, I gave her some potassium; BUN 7, creatinine 0.8, GFR is greater than 60, sugar is 61. Calcium is 7.5, I gave her some calcium too. Total bilirubin is 0.3, AST is 38, ALT is 24, alkaline phosphatase 78, total protein is 5.5. Discussed with Podiatry. She will be there for four weeks for IV antibiotics. I will follow her there, discharge her to [facility]. Otis Harris DO
== END 2017-11-25 13:29 | DRG 464 ==
LOC: ED 13:10 → ERH 17:05 → 5RSO 22:32
PROVIDERS: ADMIT Family Medicine; ATTEND Family Medicine
PROC: 3E0F7GC Introduction of Other Therapeutic Substance into Respiratory Tract, Via Natural or Artificial Opening (ICD-10-PCS; 2017-11-18)
PROC: 30233N1 Transfusion of Nonautologous Red Blood Cells into Peripheral Vein, Percutaneous Approach (ICD-10-PCS; 2017-11-19)
PROC: 0JBQ0ZZ Excision of Right Foot Subcutaneous Tissue and Fascia, Open Approach (ICD-10-PCS; 2017-11-20)
PROC: 0JBP0ZZ Excision of Left Lower Leg Subcutaneous Tissue and Fascia, Open Approach (ICD-10-PCS; 2017-11-20)
PROC: 0HRLXK3 Replacement of Left Lower Leg Skin with Nonautologous Tissue Substitute, Full Thickness, External Approach (ICD-10-PCS; principal; 2017-11-20 07:30)
PROC: 02HV33Z Insertion of Infusion Device into Superior Vena Cava, Percutaneous Approach (ICD-10-PCS; 2017-11-24)
PROC: B548ZZA Ultrasonography of Superior Vena Cava, Guidance (ICD-10-PCS; 2017-11-24)
DX: M86.171 Other acute osteomyelitis, right ankle and foot (principal); I96 Gangrene, not elsewhere classified; N17.9 Acute kidney failure, unspecified; L03.115 Cellulitis of right lower limb; L03.116 Cellulitis of left lower limb; L97.828 Non-pressure chronic ulcer of other part of left lower leg with other specified severity; L97.419 Non-pressure chronic ulcer of right heel and midfoot with unspecified severity; L10.9 Pemphigus, unspecified; L40.9 Psoriasis, unspecified; B96.5 Pseudomonas (aeruginosa) (mallei) (pseudomallei) as the cause of diseases classified elsewhere; D64.9 Anemia, unspecified; K21.9 Gastro-esophageal reflux disease without esophagitis; I25.10 Atherosclerotic heart disease of native coronary artery without angina pectoris; I10 Essential (primary) hypertension; E78.00 Pure hypercholesterolemia, unspecified; Z87.891 Personal history of nicotine dependence; Z86.19 Personal history of other infectious and parasitic diseases

== ENCOUNTER 2017-12-30 09:06 | Observation (INO) | payer MEDICARE ==
[2017-12-30 09:49] LABS: BASO # 0.02 K/mm3 (0.0-2.0); BASO % 0.2 % (0.0-3.0); EOS # 0.1 (0.0-0.7); EOS % 0.7 % (1.5-5.0); GRAN # 5.04 (1.4-6.5); GRAN % 51.9 % (50.0-68.0); HEMOGLOBIN 7.4 g/dL (12.0-16.0); LYMPH # 2.8 (1.2-3.4); LYMPH % 28.5 % (22.0-35.0); MEAN CELL VOLUME 81.3 fl (80.0-105.0); MEAN CORPUSCULAR HEMOGLOBIN 27.6 pg (25.0-35.0); MEAN CORPUSCULAR HGB CONC 33.9 g/dl (31.0-37.0); MEAN PLATELET VOLUME 8.9 fl (7.0-11.0); MONO # 1.8 (0.1-0.6); MONO % 18.7 % (1.0-6.0); RBC 2.68 10^6/uL (3.5-6.1); RED CELL DISTRIBUTION WIDTH 15.3 % (11.5-14.5); WHITE BLOOD COUNT 9.7 10^3/ul (4.5-11.0)
[2017-12-30 09:58] LABS: INR 1.14 (0.93-1.08); PARTIAL THROMBOPLASTIN TIME 31.8 Seconds (25.1-36.5); PROTHROMBIN TIME 13.1 SECONDS (9.4-12.5)
[2017-12-30 09:59] LABS: BLOOD UREA NITROGEN 8 mg/dL (7-21); CALCIUM 9.7 mg/dL (8.4-10.5); GFR AFRICAN-AMERICAN > 60; GFR NON-AFRICAN AMERICAN > 60
[2017-12-30] MEDS ORDERED: Lidocaine 2% Inj (20ml) ONE (10:44)
[2017-12-30] MEDS ORDERED: Midazolam 2 MG/2 ML VIAL ONE ×3 (10:47→12:16)
[2017-12-30] MEDS ORDERED: Iodixanol 320 mg/ml 150 ml Bottle IV ONE (10:55)
[2017-12-30] MEDS ORDERED: HEPARIN SODIUM/NS 1,000 ML IV ONE (10:56)
[2017-12-30] MEDS ORDERED: Iodixanol 320 MG/ML 200 ML BOTTLE IV ONE (10:56)
[2017-12-30] MEDS ORDERED: Iodixanol 320 MG/ML 100 ML BOTTLE IV ONE ×2 (11:51→12:49)
[2017-12-30] MEDS ORDERED: Morphine 5 MG/ML SYRINGE IM STA (14:25)
[2017-12-30] MEDS ORDERED: Morphine 4 mg/ml ISec ONE (14:29)
[2017-12-30] MEDS ORDERED: Morphine 2 mg/ml ISec IVP ONE (14:35)
[2017-12-30] MEDS: Sodium Chloride 0.45% 1,000 ML IV SCH (18:11)
--- NOTE | 2017-12-30 20:27 | VASCULAR ---
PROCEDURE: 1. Abdominal aortogram and selective right lower extremity runoff 2. Long segment right SFA jet stream atherectomy, drug-eluting balloon angioplasty, and distal Supera stent placement HISTORY: Severe peripheral vascular disease. Progressive gangrene right heel and digits. PHYSICIAN(S): Nestor Cho M.D. TECHNIQUE: The relative risks and indications of the procedure were explained to the patient and her partner and consent obtained. The patient was hydrated prior to the procedure and the appropriate labs drawn. The patient was placed supine on the arteriogram table and the left groin prepped and draped in the usual sterile fashion. Conscious sedation and monitoring were provided throughout the procedure by a nurse. Via a left common femoral artery approach, a 5 Gabonese sheath was placed in the left groin. Through the sheath and over a guidewire, a 5 Gabonese flush catheter was placed in the abdominal aorta at the level of aortic bifurcation and an RPO DSA abdominal and pelvic arteriogram performed. The catheter was advanced over the bifurcation and placed in the right common femoral artery. An overlapping right lower extremity DSA arteriogram was performed. Magnification images of the right foot were obtained 0.035 support wire was placed in the proximal right SFA. 7 Gabonese 45 cm destination sheath was placed in the right common femoral artery. 0.035 glidewire and 5 Gabonese catheter were advanced on the severely diseased right SFA. A subintimal course was obtained in the adductor canal. Re-entry was difficult. An out back catheter was eventually used. 4-7 mm Christianson filter was placed in the right popliteal artery. Heparin was given. Jet stream atherectomy of the right SFA was performed with a 2.4/3.4 catheter. The distal right SFA was dilated with a 4 mm balloon. Subsequently 5 mm drug-eluting balloon was used distally along with 6 mm drug-eluting balloons proximally. The entire right SFA was dilated. A suboptimal result was obtained at the re- entry site in the adductor canal. This area was dilated with a 6 mm balloon. Next a 5.5 x 100 mm Supera stent was deployed in the distal right SFA. Completion arteriograms were obtained. The sheath was removed hemostasis obtained with a Mynx device. The patient tolerated the procedure well . FINDINGS: The distal abdominal aorta and aortic bifurcation are calcified and patent. The common and external iliac arteries are calcified and smoothly disease without radiographically significant stenosis. The internal iliac arteries are patent bilaterally. The right common femoral artery is patent. The right profunda femoral artery is enlarged. There is severe diffuse disease of the entire right SFA. The right SFA occludes in its mid segment. There is reconstitution of the right SFA in the adductor canal. The right popliteal artery is patent and continuous. There is severe right trifurcation tibial and pedal occlusive disease. The right peroneal and posterior tibial arteries are chronically occluded. The right anterior tibial artery is hypertrophied and continuous. There is severe right pedal occlusive disease. Collaterals from the right anterior tibial artery partially opacify the plantar arch. IMPRESSION: 1.Severe diffuse calcified disease of the right SFA 2. Successful right SFA jet stream atherectomy, drug-eluting balloon angioplasty, and distal Supera stent placement 3. Severe right tibial and pedal occlusive disease. There is 1 vessel runoff via the right anterior tibial artery
[2017-12-30] MEDS: Albuterol-Ipratrop 3 mg / 0.5 (3 ml) UD IH SCH (22:15)
[2017-12-30] MEDS: Oxycodone/Acetaminophen 5/325 mg Tab PO PRN (23:56)
[2017-12-31 01:20] VITALS: O2SAT 100
[2017-12-31] MEDS: Sodium Chloride 0.45% 1,000 ML IV SCH ×2 (03:06→21:17)
[2017-12-31 06:22] LABS: MEAN CELL VOLUME 81.6 fl (80.0-105.0); MEAN CORPUSCULAR HEMOGLOBIN 28.3 pg (25.0-35.0); MEAN CORPUSCULAR HGB CONC 34.6 g/dl (31.0-37.0); MEAN PLATELET VOLUME 8.9 fl (7.0-11.0); RBC 2.23 10^6/uL (3.5-6.1); RED CELL DISTRIBUTION WIDTH 15.3 % (11.5-14.5); WHITE BLOOD COUNT 9.5 10^3/ul (4.5-11.0)
[2017-12-31 06:37] LABS: HEMOGLOBIN 6.3 g/dL (12.0-16.0)
[2017-12-31] MEDS: Oxycodone/Acetaminophen 5/325 mg Tab PO PRN ×2 (06:51→10:34)
[2017-12-31 06:55] LABS: BLOOD UREA NITROGEN 7 mg/dL (7-21); CALCIUM 8.5 mg/dL (8.4-10.5); GFR AFRICAN-AMERICAN > 60; GFR NON-AFRICAN AMERICAN > 60
--- NOTE | 2017-12-31 07:34 | CP.PCM.PN ---
Subjective - Date & Time of Evaluation Date of Evaluation: 12/31/17 Time of Evaluation: 07:29 - Subjective Subjective: House doctor evaluation for anemia Patient is a 77yo female who is s/p drug eluting stent in R SFA. She was noted to have a drop in hemoglobin from 7.4 to 6.3. Patient was evaluated. No overt signs of bleeding or hematoma was noted at the surgical site. Patient is awake and alert. She denies having any chest pain, shortness of breath, nausea/ vomiting/diarrhea, dark colored stools, numbness or tingling. Patient tachycardic in 90s, but otherwise vitals are stable. Plan: Transfuse 2U PRBC. Consent obtained Lasix 40 IVP in between transfusion Check stool for occult blood Plan was discussed with Dr. Cho and Dr. Harris, PMD. Objective - Vital Signs/Intake and Output Vital Signs (last 24 hours): Temp Pulse Resp BP Pulse Ox 98.5 F 96 H 18 109/66 100 12/31/17 06:00 12/31/17 06:00 12/31/17 06:00 12/31/17 06:00 12/31/17 06:00 - Medications Medications: Current Medications Acetaminophen (Tylenol 325mg Tab) 650 mg PO Q4H PRN PRN Reason: Temperature Albuterol/Ipratropium (Duoneb 3 Mg/0.5 Mg (3 Ml) Ud) 3 ml IH TIDRESP [facility] Last Admin: 12/30/17 22:15 Dose: 3 ml Furosemide (Lasix) 40 mg PO DAILY [facility] Last Admin: 12/30/17 18:10 Dose: 40 mg Sodium Chloride (Sodium Chloride 0.45%) 1,000 mls @ 80 mls/hr IV .[id number] [facility] Last Admin: 12/31/17 03:06 Dose: 80 mls/hr Morphine Sulfate (Morphine) 2 mg IVP Q6H PRN PRN Reason: Pain, severe (8-10) Ondansetron HCl (Zofran Inj) 4 mg IVP ONCE PRN PRN Reason: Nausea/Vomiting Oxycodone/Acetaminophen (Percocet 5/325 Mg Tab) 1 tab PO Q4H PRN PRN Reason: Pain, moderate (4-7) Stop: 01/02/18 14:31 Last Admin: 12/31/17 06:51 Dose: 1 tab Pantoprazole Sodium (Protonix Ec Tab) 40 mg PO DAILY [facility] - Labs Labs: 12/31/17 06:00 12/31/17 06:00 PT 13.1 SECONDS (9.4-12.5) H 12/30/17 09:35 INR 1.14 (0.93-1.08) H 12/30/17 09:35 APTT 31.8 Seconds (25.1-36.5) 12/30/17 09:35 - Constitutional Appears: No Acute Distress - Head Exam Head Exam: ATRAUMATIC, NORMAL INSPECTION, NORMOCEPHALIC - Eye Exam Eye Exam: Normal appearance, PERRL Pupil Exam: NORMAL ACCOMODATION, PERRL - ENT Exam ENT Exam: Mucous Membranes Moist - Respiratory Exam Respiratory Exam: Clear to Ausculation Bilateral, NORMAL BREATHING PATTERN. absent: Rales, Rhonchi, Wheezes - Cardiovascular Exam Cardiovascular Exam: Tachycardia, REGULAR RHYTHM, +S1, +S2. absent: Gallop, Rubs, Murmur - GI/Abdominal Exam GI & Abdominal Exam: Soft, Normal Bowel Sounds. absent: Tenderness, Rebound - Extremities Exam Additional comments: No hematoma noted in femoral region bilaterally. Severe discoloration of shins bilaterally. Blackened ulceration on R toes. - Neurological Exam Neurological Exam: Alert, Awake, CN II-XII Intact - Psychiatric Exam Psychiatric exam: Normal Affect, Normal Mood - Skin Skin Exam: Dry, Warm
[2017-12-31] MEDS: Albuterol-Ipratrop 3 mg / 0.5 (3 ml) UD IH SCH ×3 (08:04→20:06)
[2017-12-31] MEDS: Pantoprazole 40 mg EC Tab PO SCH (15:10)
--- NOTE | 2017-12-31 16:29 | CON ---
DATE: HISTORY OF PRESENT ILLNESS: I was consulted on a patient Meche Pereira in [facility] who is status post drug-eluting stent in the SFA. She is a 77-year-old female with multiple issues of her lower extremities with an exposed Achilles tendon, bilateral cellulitis, psoriasis. 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 , GERD, cardiac catheterizations. There is hypertension in the family. Former smoker. Occasional alcohol. No substance abuse. NO KNOWN DRUG ALLERGIES. She is here status post procedure with Dr. Nestor Cho and hemoglobin went from 7.4 to 6.3 and she was given 2 units of packed red blood cells that was called by the house doctor. She was comfortable sitting in bed. She is presently on DuoNeb, Lasix, morphine, Percocet, Protonix, IV fluids, Tylenol, Zofran. There is no acute vision or hearing loss. No sore throat. No shortness of breath or cough. No palpitations. No chest pain. No abdominal pain. No nausea or vomiting. Some arthralgias. She has bilateral feet cellulitis, healing up with ulcers, which are healing up and exposed left Achilles tendon. She is status post, I believe right SFA stent. PHYSICAL EXAMINATION: GENERAL: She is alert, nontoxic, very pleasant and sweet. Alert and oriented x3. VITAL SIGNS: She has temperature 98.5, 96 pulse, 109/66 blood pressure, 18 respiratory rate, 100% O2 sat on 2 liters nasal cannula. HEENT: Head is atraumatic, normocephalic. Throat is dry. NECK: Supple. HEART: Regular rate. Normal S1, S2. LUNGS: Decreased breath sounds bilaterally, but clear. No wheezes, rhonchi, or rales. ABDOMEN: Soft, nontender. Positive bowel sounds. No CVA tenderness. EXTREMITIES: Lower extremities, both bandaged up. NEUROLOGIC: Cranial nerves II through XII grossly intact. GCS is 15. Alert and oriented x3. LYMPH: Thyroid midline. No palpable lymphadenopathy appreciated. LABORATORY DATA: She has 9.5 white count, hemoglobin is down to 6.3 from 7.4. She was getting Procrit 10,000 units subcutaneously Friday, Friday, and Friday and it still dropped. Hematocrit was 18.2, platelets of 317. INR is 1.14. Sodium 133, potassium is 4, BUN is 7, creatinine is 0.7. GFR is greater than 60, sugar is 70, calcium is 8.5. ASSESSMENT: She will have a consult with Podiatry. She will have a stool for occult blood. We will transfuse 2 units of packed red blood cells with Lasix 40 one time dose in between, that was discussed with the house doctor. We will see how well she does today and as per Dr. Nestor Cho. Meche Pereira with severe peripheral vascular disease, exposed Achilles tendon, ulcers of the feet, history of cellulitis. We will get Podiatry and also check her stools for occult blood and transfuse her. Thank you very much for the consult. Otis Harris DO MTDHomero
[2017-12-31] MEDS: Morphine 4 mg/ml ISec IVP PRN (18:10)
[2018-01-01 06:29] LABS: MEAN CELL VOLUME 81.9 fl (80.0-105.0); MEAN CORPUSCULAR HEMOGLOBIN 28.1 pg (25.0-35.0); MEAN CORPUSCULAR HGB CONC 34.3 g/dl (31.0-37.0); MEAN PLATELET VOLUME 8.5 fl (7.0-11.0); RBC 2.99 10^6/uL (3.5-6.1); RED CELL DISTRIBUTION WIDTH 16.7 % (11.5-14.5); WHITE BLOOD COUNT 10.4 10^3/ul (4.5-11.0)
[2018-01-01 06:44] LABS: HEMOGLOBIN 8.4 g/dL (12.0-16.0)
[2018-01-01 07:09] LABS: ALB/GLOB RATIO 0.6 (1.1-1.8); ALT/SGPT 34 U/L (7-56); AST/SGOT 42 U/L (14-36); BLOOD UREA NITROGEN 4 mg/dL (7-21); CALCIUM 8.3 mg/dL (8.4-10.5); GFR AFRICAN-AMERICAN > 60; GFR NON-AFRICAN AMERICAN > 60
[2018-01-01] MEDS: Albuterol-Ipratrop 3 mg / 0.5 (3 ml) UD IH SCH ×2 (07:51→14:25)
--- NOTE | 2018-01-01 07:56 | CP.PCM.PN ---
<ChenJacqueline - Last Filed: 01/01/18 08:43> Subjective - Date & Time of Evaluation Date of Evaluation: 12/31/17 Time of Evaluation: 17:25 - Subjective Subjective: 77 y/o female with PMHx of psoriasis, CAD, HTN, HLD, GERD, hx of MSSA cellulitis who is 1 day s/p R drug-eluting stent to SFA with Dr. Cho seen at bedside this evening regarding bilateral lower extremity ulcerations to R heel and L Achilles tendon. Pt is known to Dr. Samson's service and the wound care center. Pt states she is having a lot of pain in both legs, more so the right after having stents put in yesterday. States it is painful to elevate or move the right leg. Admits to having her last dressing change done two days ago for her ulcerations. Denies any recent F/C/N/V/CP/SOB. States she was low on blood this morning and had to get transfusions done. States she feels tired and slightly weak. Objective - Vital Signs/Intake and Output Vital Signs (last 24 hours): Temp Pulse Resp BP Pulse Ox 99.5 F 105 H 20 130/74 100 01/01/18 05:45 01/01/18 05:45 01/01/18 05:45 01/01/18 05:45 01/01/18 05:45 Intake and Output: 01/01/18 01/01/18 06:59 18:59 Intake Total 880 Output Total 400 Balance 480 - Medications Medications: Current Medications Acetaminophen (Tylenol 325mg Tab) 650 mg PO Q4H PRN PRN Reason: Temperature Albuterol/Ipratropium (Duoneb 3 Mg/0.5 Mg (3 Ml) Ud) 3 ml IH TIDRESP [facility] Last Admin: 01/01/18 07:51 Dose: 3 ml Furosemide (Lasix) 40 mg PO DAILY [facility] Last Admin: 12/31/17 18:07 Dose: 40 mg Sodium Chloride (Sodium Chloride 0.45%) 1,000 mls @ 80 mls/hr IV .[id number] [facility] Last Admin: 12/31/17 21:17 Dose: 80 mls/hr Morphine Sulfate (Morphine) 2 mg IVP Q6H PRN PRN Reason: Pain, severe (8-10) Last Admin: 12/31/17 18:10 Dose: 2 mg Ondansetron HCl (Zofran Inj) 4 mg IVP ONCE PRN PRN Reason: Nausea/Vomiting Oxycodone/Acetaminophen (Percocet 5/325 Mg Tab) 1 tab PO Q4H PRN PRN Reason: Pain, moderate (4-7) Stop: 01/02/18 14:31 Last Admin: 12/31/17 10:34 Dose: 1 tab Pantoprazole Sodium (Protonix Ec Tab) 40 mg PO DAILY [facility] Last Admin: 12/31/17 15:10 Dose: 40 mg - Labs Labs: 01/01/18 06:00 01/01/18 06:00 PT 13.1 SECONDS (9.4-12.5) H 12/30/17 09:35 INR 1.14 (0.93-1.08) H 12/30/17 09:35 APTT 31.8 Seconds (25.1-36.5) 12/30/17 09:35 - Constitutional Appears: Well, Non-toxic, No Acute Distress - Extremities Exam Additional comments: Dressings to bilateral LE appear clean/dry/intact with no strikethrough noted. VASC: DP and PT pulses non-palpable. CFT WNL. Temperature gradient cool to cool from proximal to distal. +2 pitting edema noted to B/L lower extremities NEURO: Protective sensation grossly intact DERM: Diffuse psoriatic plaques and scaling noted to bilateral lower extremities distal to tibial tuberosity. Right heel ulceration measuring approximately 4cm x 3cm x 0.1 cm noted to have a fibrogranular base and erythematous rim - no drainage, no purulence, no fluctuance, no undermining, no tunneling noted. LLE= Posterior leg ulceration expanding from medial and lateral malleoli and mid calf extending distally to calcaneus. Wound base is a mixture of fibrous and necrotic tissue. Malodor present to wound. No fluctuance, no tunneling or undermining. ORTHO: Pain on palpation to wounds on bilateral lower extremities. Tenderness elicited on elevation and manipulation of R leg. Assessment and Plan - Assessment and Plan (Free Text) Assessment: 77 year old female patient with bilateral leg wounds secondary to psoriasis, localized to R heel and L posterplantar ankle superficial to Achilles tendon Plan: Patient seen and evaluated at bedside with attending Dr. Samson Afebrile, WBC 8.8 LLE cleansed with sterile saline and wound culture taken LLU ulceration dressed with xeroform, DSD RLE cleansed with normal saline and dressed with xeroform, ABD DSD Multipodus boots ordered - to be worn at all times in bed Single dose Zosyn ordered - will consult ID if patient remains in house Cx: History of Citrobacter Freundii, Serratia Species, Beta hemolytic Strep Group B - New cultures: pseudomonas, corynebacterium Pain control - Tylenol 650mg PO, Percocet 1-2 tabs PO Podiatry will continue to follow patient while in house <Cherise Samson - Last Filed: 01/02/18 15:46> Objective - Vital Signs/Intake and Output Vital Signs (last 24 hours): Temp Pulse Resp BP Pulse Ox 98.6 F 88 18 111/46 L 100 01/01/18 11:56 01/01/18 18:00 01/01/18 11:56 01/01/18 11:56 01/01/18 05:45 - Labs Labs: 01/01/18 06:00 01/01/18 06:00 PT 13.1 SECONDS (9.4-12.5) H 12/30/17 09:35 INR 1.14 (0.93-1.08) H 12/30/17 09:35 APTT 31.8 Seconds (25.1-36.5) 12/30/17 09:35 Attending/Attestation - Attestation I have personally seen and examined this patient.: Yes I have fully participated in the care of the patient.: Yes I have reviewed all pertinent clinical information, including history, physical exam and plan: Yes Notes (Text): 01/02/18 15:46 I have seen and examined the patient; have formulated the care plan and reviewed and agree with resident note
[2018-01-01] MEDS ORDERED: Piperacillin/Tazobact 3.375 gm 100 ML IVPB STA (08:06)
[2018-01-01] MEDS ORDERED: Potassium Chloride 20 mEq ER Tab PO ONE ×2 (08:07→08:08)
--- NOTE | 2018-01-01 09:35 | CP.PCM.PN ---
<GustavoJacqueline - Last Filed: 01/01/18 09:39> Subjective - Date & Time of Evaluation Date of Evaluation: 01/01/18 Time of Evaluation: 09:34 - Subjective Subjective: 77 y/o female seen at bedside with attending Dr. Samson. Pt says she is in less pain today and feels well rested. States dressing has remained intact on both legs. Says she still feels sore on the right limb where she had her bypass. Denies F/C/N/V/CP/SOB Objective - Vital Signs/Intake and Output Vital Signs (last 24 hours): Temp Pulse Resp BP Pulse Ox 99.5 F 105 H 20 130/74 100 01/01/18 05:45 01/01/18 05:45 01/01/18 05:45 01/01/18 05:45 01/01/18 05:45 Intake and Output: 01/01/18 01/01/18 06:59 18:59 Intake Total 880 Output Total 400 Balance 480 - Medications Medications: Current Medications Acetaminophen (Tylenol 325mg Tab) 650 mg PO Q4H PRN PRN Reason: Temperature Albuterol/Ipratropium (Duoneb 3 Mg/0.5 Mg (3 Ml) Ud) 3 ml IH TIDRESP [facility] Last Admin: 01/01/18 07:51 Dose: 3 ml Furosemide (Lasix) 40 mg PO DAILY [facility] Last Admin: 12/31/17 18:07 Dose: 40 mg Sodium Chloride (Sodium Chloride 0.45%) 1,000 mls @ 80 mls/hr IV .[id number] [facility] Last Admin: 12/31/17 21:17 Dose: 80 mls/hr Morphine Sulfate (Morphine) 2 mg IVP Q6H PRN PRN Reason: Pain, severe (8-10) Last Admin: 12/31/17 18:10 Dose: 2 mg Ondansetron HCl (Zofran Inj) 4 mg IVP ONCE PRN PRN Reason: Nausea/Vomiting Oxycodone/Acetaminophen (Percocet 5/325 Mg Tab) 1 tab PO Q4H PRN PRN Reason: Pain, moderate (4-7) Stop: 01/02/18 14:31 Last Admin: 12/31/17 10:34 Dose: 1 tab Pantoprazole Sodium (Protonix Ec Tab) 40 mg PO DAILY [facility] Last Admin: 12/31/17 15:10 Dose: 40 mg - Labs Labs: 01/01/18 06:00 01/01/18 06:00 PT 13.1 SECONDS (9.4-12.5) H 12/30/17 09:35 INR 1.14 (0.93-1.08) H 12/30/17 09:35 APTT 31.8 Seconds (25.1-36.5) 12/30/17 09:35 - Constitutional Appears: Well, Non-toxic, No Acute Distress - Extremities Exam Additional comments: Dressings to bilateral LE appear clean/dry/intact with no strikethrough noted. VASC: DP and PT pulses non-palpable. CFT WNL. Temperature gradient cool to cool from proximal to distal. +2 pitting edema noted to B/L lower extremities NEURO: Protective sensation grossly intact DERM: Diffuse psoriatic plaques and scaling noted to bilateral lower extremities distal to tibial tuberosity. Right heel ulceration measuring approximately 4cm x 3cm x 0.1 cm noted to have a fibrogranular base and erythematous rim - no drainage, no purulence, no fluctuance, no undermining, no tunneling noted. LLE= Posterior leg ulceration expanding from medial and lateral malleoli and mid calf extending distally to calcaneus. Wound base is a mixture of fibrous and necrotic tissue. Malodor present to wound. No fluctuance, no tunneling or undermining. Post-debridement: wound base is 80% fibrotic tissue with minimal amount of granular tissue formation. Small amount of necrotic tissue remains in wound bed, well adhered to wound base ORTHO: Pain on palpation to wounds on bilateral lower extremities. Tenderness elicited on elevation and manipulation of R leg. - Neurological Exam Neurological Exam: Alert, Awake, Oriented x3 - Psychiatric Exam Psychiatric exam: Normal Affect, Normal Mood Assessment and Plan - Assessment and Plan (Free Text) Assessment: 77 year old female patient with bilateral leg wounds secondary to psoriasis, localized to R heel and L posterplantar ankle superficial to Achilles tendon Plan: Patient seen and evaluated at bedside with attending Dr. Samson Labs and vitals reviewed - febrile, WBC 10.4 LLE ulceration excisionally debrided of necrotic tissue with sterile forceps and sterile suture scissors Pt tolerated procedure well without incident LLU ulceration dressed with xeroform, DSD RLE cleansed with normal saline and dressed with xeroform, ABD DSD Multipodus boots to be worn at all times in bed Single dose Zosyn ordered - will consult ID if patient remains in house Cx: History of Citrobacter Freundii, Serratia Species, Beta hemolytic Strep Group B - New cultures: pseudomonas, corynebacterium Pain control - Tylenol 650mg PO, Percocet 1-2 tabs PO Podiatry will continue to follow patient while in house <Cherise Samson - Last Filed: 01/02/18 15:49> Objective - Vital Signs/Intake and Output Vital Signs (last 24 hours): Temp Pulse Resp BP Pulse Ox 98.6 F 88 18 111/46 L 100 01/01/18 11:56 01/01/18 18:00 01/01/18 11:56 01/01/18 11:56 01/01/18 05:45 - Labs Labs: 01/01/18 06:00 01/01/18 06:00 PT 13.1 SECONDS (9.4-12.5) H 12/30/17 09:35 INR 1.14 (0.93-1.08) H 12/30/17 09:35 APTT 31.8 Seconds (25.1-36.5) 12/30/17 09:35 Attending/Attestation - Attestation I have personally seen and examined this patient.: Yes I have fully participated in the care of the patient.: Yes I have reviewed all pertinent clinical information, including history, physical exam and plan: Yes Notes (Text): 01/02/18 15:4 pt seen and evaluated; wounds excisionally debrided at bedside with patient permission - pt started n zosyn and is being discharged to the subacute with same; will review culture when received and adjust antibiotics at that time; pt to see me next week in the wound care center; agree with resident note
[2018-01-01] MEDS: Sodium Chloride 0.45% 1,000 ML IV SCH (09:40)
[2018-01-01] MEDS: Morphine 4 mg/ml ISec IVP PRN (09:41)
[2018-01-01] MEDS: Pantoprazole 40 mg EC Tab PO SCH (09:43)
[2018-01-01 11:22] VITALS: BMI 22.1
[2018-01-01 11:59] VITALS: BP 111/46; RESP 18; TEMP 98.6
--- NOTE | 2018-01-01 13:51 | PN ---
DATE: SUBJECTIVE: She was brought in by Dr. Nestor Cho to do placement of a stent in the leg and he did it. She also was anemic and she was transfused and she is feeling well this morning in bed. No complaints. She is eating well. We can have her back to subacute rehab at [facility] today. PHYSICAL EXAMINATION VITAL SIGNS: She had a 100.1 temperature, now it is down to 99.5; 105 pulse; 130/74 blood pressure, 20 respiratory rate, 100% O2 saturation on room air. HEENT: Head is atraumatic, normocephalic. Throat is moist. NECK: Supple. HEART: Regular rate. LUNGS: Decreased breath sounds, but clear. ABDOMEN: Soft. EXTREMITIES: Bandaged. MEDICATIONS: She is currently on DuoNeb, Lasix, morphine, Percocet, Protonix, IV fluids, Tylenol, Zofran. LABORATORY DATA: She has a 138 sodium; potassium is 3.1, I gave her two potassium of 20 mEq today orally. BUN 4, creatinine 0.6, GFR is greater than 60, sugar is 78. Calcium is 8.3, total bili is 0.1. AST is 42, ALT is 34, alkaline phosphatase 80, total protein is 5.3. She has a white count of 10.4; hemoglobin 8.4, better after the 2 units of packed red blood cells, 24.5 hematocrit and 348,000 platelets, it is a kind of a baseline. ASSESSMENT AND PLAN: She was seen by Dr. Nestor Cho. She is eating. Hopefully, if we can get her back to [facility], she will be put on Zosyn IV antibiotics by Dr. Samson and hopefully, we will continue this treatment at [facility] later today in subacute rehab. Rashard Harris DO MTDD
[2018-01-01 18:38] VITALS: PULSE 88
== END 2018-01-01 19:26 ==
LOC: SDSVAS 09:06 → 2RNO 15:23 → SDSVAS 12-31 05:00 → 2RNO 12-31 05:00
PROVIDERS: ADMIT Radiology Vascular & Interventional Radiology; ATTEND Radiology Vascular & Interventional Radiology
DX: I70.261 Atherosclerosis of native arteries of extremities with gangrene, right leg (principal); L97.419 Non-pressure chronic ulcer of right heel and midfoot with unspecified severity; L03.115 Cellulitis of right lower limb; L03.116 Cellulitis of left lower limb; L97.929 Non-pressure chronic ulcer of unspecified part of left lower leg with unspecified severity; D64.9 Anemia, unspecified; L40.9 Psoriasis, unspecified; I25.10 Atherosclerotic heart disease of native coronary artery without angina pectoris; I10 Essential (primary) hypertension; E78.5 Hyperlipidemia, unspecified; K21.9 Gastro-esophageal reflux disease without esophagitis; Z87.891 Personal history of nicotine dependence
CPT/HCPCS: 36415; 36430; 37227; 75710; 80048; 80053; 85025; 85027; 85610; 85730; 86850; 86900; 86920; 94640; 94760; 97162; 97530; 99152; 99153; C1725; C1760; C1769; C1876; C1884; C1885; C1887; C1894; G0378; G8978; G8979; J0690; J1644; J1940; J2250; J2270; J2405; J2543; J3010; J7030; P9016; Q9966; Q9967

== ENCOUNTER 2018-02-10 10:09 | Inpatient (IN) | payer MEDICARE, OTHER ==
[2018-02-10] MEDS ORDERED: Piperacillin/Tazobact 3.375 gm 100 ML IVPB STA (11:13)
--- NOTE | 2018-02-10 11:34 | ED PDOC ---
Arrival/HPI - General Chief Complaint: Lower Extremity Problem/Injury Time Seen by Provider: 02/10/18 10:47 Historian: Patient - History of Present Illness Narrative History of Present Illness (Text): 02/10/18 11:26 77yo female with PMhx of hypertension, diabetes, foot ulcer referred to Ed by Dr. Samson for new right heel Osteomylitis. Patient states she saw Dr. Samson yesterday. She present with a prescription for admission to Dr. Harris. Patient denies fever, chills, nausea, vomiting, pain, chest pain, dizziness, any other complaint. Past Medical History - Provider Review Nursing Documentation Reviewed: Yes - Infectious Disease Hx of Infectious Diseases: None - Cardiac Hx Cardiac Disorders: Yes Hx Hypertension: Yes - Pulmonary Hx Respiratory Disorders: No - Neurological Hx Neurological Disorder: No - HEENT Hx HEENT Disorder: Yes (eyeglasses) - Renal Hx Renal Disorder: No Hx Renal Failure: No - Endocrine/Metabolic Hx Endocrine Disorders: No - Hematological/Oncological Hx Blood Disorders: Yes Hx AIDS: No Hx Anemia: Yes (blood transfusions) - Integumentary Hx Dermatological Disorder: Yes Hx Cellulitis: Yes Hx Psoriasis: Yes - Musculoskeletal/Rheumatological Hx Musculoskeletal Disorders: Yes Hx Osteomyelitis: Yes - Gastrointestinal Hx Gastrointestinal Disorders: Yes Hx Gastroesophageal Reflux: Yes - Genitourinary/Gynecological Hx Genitourinary Disorders: No - Psychiatric Hx Psychophysiologic Disorder: No Hx Substance Use: No - Surgical History Hx Cardiac Catheterization: Yes Hx Cholecystectomy: Yes - Anesthesia Hx Anesthesia Reactions: No Hx Malignant Hyperthermia: No - Suicidal Assessment Feels Threatened In Home Enviroment: No Family/Social History - Physician Review Nursing Documentation Reviewed: Yes Family/Social History: Unknown Family HX Smoking Status: Former Smoker Hx Alcohol Use: Yes (occasional beer) Hx Substance Use: No Allergies/Home Meds Allergies/Adverse Reactions: Allergies No Known Allergies Allergy (Verified 02/10/18 17:00) Home Medications: Home Meds Medication Instructions Recorded Confirmed Furosemide [Lasix] 40 mg PO DAILY 12/25/17 02/10/18 Pantoprazole [Protonix EC Tab] 40 mg PO DAILY 12/25/17 02/10/18 Potassium Chloride [K-Dur 20] 20 meq PO BID 12/25/17 02/10/18 Review of Systems - Physician Review All systems were reviewed & negative as marked: Yes - Review of Systems Constitutional: Normal Eyes: Normal ENT: Normal Respiratory: Normal Cardiovascular: Normal Gastrointestinal: Normal Genitourinary Female: Normal Musculoskeletal: Arthralgias (Right heel infection) Skin: Normal Neurological: Normal Endocrine: Normal Hemo/Lymphatic: Normal Psychiatric: Normal Physical Exam Vital Signs Reviewed: Yes Vital Signs Temp Pulse Resp BP Pulse Ox 02/10/18 14:28 73 19 153/67 H 100 02/10/18 12:08 65 19 152/68 H 100 02/10/18 10:26 98.2 F 70 16 146/70 99 Temperature: Afebrile Blood Pressure: Normal Pulse: Regular Respiratory Rate: Normal Appearance: Positive for: Well-Appearing, Non-Toxic, Comfortable Pain Distress: None Mental Status: Positive for: Alert and Oriented X 3 - Systems Exam Head: Present: Atraumatic, Normocephalic Pupils: Present: PERRL Extroacular Muscles: Present: EOMI Conjunctiva: Present: Normal Mouth: Present: Moist Mucous Membranes Neck: Present: Normal Range of Motion Respiratory/Chest: Present: Clear to Auscultation, Good Air Exchange. No: Respiratory Distress, Accessory Muscle Use Cardiovascular: Present: Regular Rate and Rhythm, Normal S1, S2. No: Murmurs Abdomen: No: Tenderness, Distention, Peritoneal Signs Back: Present: Normal Inspection Upper Extremity: Present: Normal Inspection. No: Cyanosis, Edema Lower Extremity: Present: Normal Inspection, Other (Clean dressing noted to b/l foot). No: Edema Neurological: Present: GCS=15, CN II-XII Intact, Speech Normal Skin: Present: Warm, Dry, Normal Color. No: Rashes Psychiatric: Present: Alert, Oriented x 3, Normal Insight, Normal Concentration Medical Decision Making ED Course and Treatment: 02/10/18 19:17 PT was afebrile, hemodynamcially stable in ED. Case was DW Dr. Harirs when he was in ED and he accepted pt for admission and saw pt at the bedside in ED. EKG NSR @66bpm - Medication Orders Current Medication Orders: Furosemide (Lasix) 40 mg PO DAILY [facility] Piperacillin Sod/Tazobactam Sod (Zosyn 3.375 In Ns 100ml) 100 mls @ 200 mls/hr IVPB Q8 [facility] PRN Reason: Protocol Stop: 02/11/18 06:29 Pantoprazole Sodium (Protonix Ec Tab) 40 mg PO DAILY [facility] Potassium Chloride (K-Dur 20 Meq Er Tab) 20 meq PO BID [facility] Discontinued Medications Piperacillin Sod/Tazobactam Sod (Zosyn 3.375 In Ns 100ml) 100 mls @ 200 mls/hr IVPB STAT STA PRN Reason: Protocol Stop: 02/10/18 11:42 Last Admin: 02/10/18 11:49 Dose: 200 mls/hr eMAR Start Stop Document 02/10/18 11:49 OCS (Rec: 02/10/18 11:50 OCS [id number]) Intravenous Solution Start Date 02/10/18 Start Time 11:50 End Date 02/10/18 End time 12:20 Total Infusion Time 30 Disposition/Present on Arrival - Present on Arrival Any Indicators Present on Arrival: No History of DVT/PE: No History of Uncontrolled Diabetes: No Urinary Catheter: No History of Decub. Ulcer: No History Surgical Site Infection Following: None - Disposition Have Diagnosis and Disposition been Completed?: Yes Diagnosis: Acute osteomyelitis of foot Disposition: HOSPITALIZED Disposition Time: 11:35 Patient Plan: Admission Patient Problems: Current Active Problems Problem Status Onset Acute osteomyelitis of foot Acute Condition: FAIR
--- NOTE | 2018-02-10 12:14 | RAD ---
HISTORY: admission COMPARISON: 11/17/2017 FINDINGS: LUNGS: No active pulmonary disease. There is a calcified granuloma in the right lower lobe PLEURA: No significant pleural effusion identified, no pneumothorax apparent. CARDIOVASCULAR: Normal. OSSEOUS STRUCTURES: No significant abnormalities. VISUALIZED UPPER ABDOMEN: Normal. OTHER FINDINGS: None. IMPRESSION: No active disease.
[2018-02-10 12:21] LABS: BASO # 0.03 K/mm3 (0.0-2.0); BASO % 0.5 % (0.0-3.0); EOS # 0.1 (0.0-0.7); EOS % 1.7 % (1.5-5.0); GRAN # 3.92 (1.4-6.5); GRAN % 60.2 % (50.0-68.0); HEMOGLOBIN 9.4 g/dL (12.0-16.0); LYMPH # 1.9 (1.2-3.4); LYMPH % 28.7 % (22.0-35.0); MEAN CELL VOLUME 87.2 fl (80.0-105.0); MEAN CORPUSCULAR HEMOGLOBIN 27.2 pg (25.0-35.0); MEAN CORPUSCULAR HGB CONC 31.2 g/dl (31.0-37.0); MONO # 0.6 (0.1-0.6); MONO % 8.9 % (1.0-6.0); RBC 3.45 10^6/uL (3.5-6.1); RED CELL DISTRIBUTION WIDTH 16.5 % (11.5-14.5); WHITE BLOOD COUNT 6.5 10^3/ul (4.5-11.0)
[2018-02-10 12:32] LABS: INR 1.12 (0.93-1.08); PARTIAL THROMBOPLASTIN TIME 28.4 Seconds (25.1-36.5); PROTHROMBIN TIME 12.9 SECONDS (9.4-12.5)
[2018-02-10 12:36] LABS: ALBUMIN 3.7 g/dL (3.0-4.8); ALT/SGPT 24 U/L (7-56); AST/SGOT 27 U/L (14-36); BLOOD UREA NITROGEN 10 mg/dL (7-21); CALCIUM 9.8 mg/dL (8.4-10.5); GFR AFRICAN-AMERICAN > 60; GFR NON-AFRICAN AMERICAN > 60
[2018-02-10] MEDS: Morphine 4 mg/ml ISec IVP PRN (20:17)
[2018-02-10 20:36] VITALS: BMI 22.8
[2018-02-10] MEDS ORDERED: Pneumococcal 23-Valent Vaccine IM ONE (20:36)
[2018-02-11] MEDS: Piperacillin/Tazobact 3.375 gm 100 ML IVPB SCH ×4 (05:31→23:07)
--- NOTE | 2018-02-11 05:56 | HP ---
HISTORY OF PRESENT ILLNESS: I know Meche very well from multiple hospital stays and subacute rehabs for multiple skin issues and ulcers on her feet. She was sent in by Dr. Samson, the cloth bin packer for right heel osteomyelitis. She is a 77-year-old female with past medical history of hypertension, diabetes, foot ulcers, psoriasis, severe, being in the hospital multiple times and now with a right heel osteomyelitis by Dr. Samson with bone exposure. PAST MEDICAL HISTORY: She has hypertension. She wears eyeglasses. She has blood transfusions for anemia, cellulitis, psoriasis, osteomyelitis, gastroesophageal reflux, cholecystectomy, surgical history, multiple debridements and I and D's in the feet.. FAMILY HISTORY: Unknown family history. SOCIAL HISTORY: Former smoker. Occasional beer. No drugs. ALLERGIES: NO KNOWN DRUG ALLERGIES. MEDICATIONS: On Lasix, Protonix and potassium. REVIEW OF SYSTEMS: No acute vision or hearing changes. No sore throat. No chest pain or palpitations. No shortness of breath or cough. No abdominal pain, nausea, vomiting, constipation or diarrhea. She has got some arthralgia with the right heel infection and pain in the foot. No numbness or tingling. No anxiety or depression. Skin is fine at this time except for some excoriations in the feet and an ulcer of the right heel. PHYSICAL EXAMINATION VITAL SIGNS: She has a 98.2 temperature, 70 pulse; 16 respiratory rate, 146/70 blood pressure, 99% O2 saturation on room air. GENERAL: She is well appearing, nontoxic, comfortable. I saw her in the emergency room with her son. She is alert and oriented x3 HEENT: Head is atraumatic, normocephalic. Extraocular muscles intact. Pupils reactive to light. Throat is moist. NECK: Supple. HEART: Regular rate. Normal S1. S2. LUNGS: Decreased breath sounds bilaterally, but clear to auscultation. ABDOMEN: Soft, nontender, positive bowel sounds. No guarding. No rebound. No CVA tenderness. EXTREMITIES: Showed edema. Right foot is bandaged. There is an ulcer with possible bone exposure. NEUROLOGIC: GCS is 15. Cranial nerves II through XII are grossly intact. Speech is normal. LYMPHS: Thyroid midline. No palpable lymphadenopathy appreciated. Alert and oriented x3. LABORATORY DATA: She had multiple tests done. Sodium 145, potassium 4.7, BUN 10, creatinine 0.9, GFR greater than 60, sugar is 96. Calcium is 9.8, total bili is 0.3. AST is 27, ALT is 24, alkaline phosphatase 58, total protein is 7.5. INR is 1.12. White count 6.5, hemoglobin 9.4, hematocrit 30.1, platelets of 442. Chest x-ray is clear. ASSESSMENT AND PLAN: She is here as per Dr. Samson, IV antibiotics. She will have a consult with Infectious Disease and Podiatry. She will have Zosyn on board IV. Regular medications. We will check her labs tomorrow. Patient with right heel osteomyelitis and ulcer. Otis Harris DO MTDD
[2018-02-11] MEDS ORDERED: Lidocaine 2 GM Vial 2 GM/50 ML VIAL IV ONE (07:28)
[2018-02-11 07:34] LABS: HEMOGLOBIN 8.9 g/dL (12.0-16.0); MEAN CELL VOLUME 86.8 fl (80.0-105.0); MEAN CORPUSCULAR HEMOGLOBIN 27.4 pg (25.0-35.0); MEAN CORPUSCULAR HGB CONC 31.6 g/dl (31.0-37.0); MEAN PLATELET VOLUME 8.7 fl (7.0-11.0); RBC 3.25 10^6/uL (3.5-6.1); RED CELL DISTRIBUTION WIDTH 16.4 % (11.5-14.5); WHITE BLOOD COUNT 5.8 10^3/ul (4.5-11.0)
[2018-02-11 08:01] LABS: ALB/GLOB RATIO 0.8 (1.1-1.8); ALT/SGPT 15 U/L (7-56); AST/SGOT 21 U/L (14-36); BLOOD UREA NITROGEN 9 mg/dL (7-21); CALCIUM 9.1 mg/dL (8.4-10.5); GFR AFRICAN-AMERICAN > 60; GFR NON-AFRICAN AMERICAN > 60
[2018-02-11] MEDS ORDERED: Propofol 10 mg/ml Inj (20 ML) ONE (08:04)
[2018-02-11] MEDS ORDERED: Midazolam 2 MG/2 ML VIAL ONE (08:04)
[2018-02-11] MEDS ORDERED: Lidocaine 1% Inj (20ml) ONE (08:06)
--- NOTE | 2018-02-11 08:20 | CARD ---
APPROVED REPORT EKG Measurement Heart [id number] <Conclusion> Normal sinus rhythm Septal infarct, old No change
[2018-02-11] MEDS ORDERED: HYDROmorphone 0.5 mg/0.5 ml ISec IVP ONE (09:25)
[2018-02-11] MEDS ORDERED: HYDROmorphone 0.5 mg/0.5 ml ISec IVP PRN (09:25)
--- NOTE | 2018-02-11 09:25 | PCM.SURG1 ---
Surgeon's Initial Post Op Note - Surgeon's Notes Surgeon: Dr. Cherise Samson, DPM Sheet Metal Worker Helper: Lorenzo Brown, PGY1 Type of Anesthesia: IV Sedation Anesthesia Administered By: Dr. Childress Pre-Operative Diagnosis: Bilateral heel wounds secondary to psoriatic changes with exposed calcaneus of right foot Operative Findings: See dictation report. M- Misonix debridement, Integra skin graft, KCI wound vac, 3-0 Vicryl, adaptic, ABD, DSD. I- 8 cc Lidocaine 2% plain preop to right posterior heel Post-Operative Diagnosis: Same Operation Performed: Debridement of bilateral heel ulcerations secondary to psoriatic skin changes with application of Integra biological graft and KCI wound vac to right heel wound. Specimen/Specimens Removed: Bone and soft tissue right heel. Wound cultures taken of bilateral wounds Estimated Blood Loss: EBL {In ML}: 5 Blood Products Given: N/A Drains Used: No Drains Post-Op Condition: Good Date of Surgery/Procedure: 02/11/18 Time of Surgery/Procedure: 09:26
[2018-02-11] MEDS: Pantoprazole 40 mg EC Tab PO SCH (09:30)
[2018-02-11] MEDS ORDERED: Lactated Ringer's 1,000 ML IV SCH (09:30)
[2018-02-11] MEDS: Potassium Chloride 20 mEq ER Tab PO SCH ×2 (09:30→17:53)
--- NOTE | 2018-02-11 12:38 | CP.PCM.CON ---
History of Present Illness - History of Present Illness History of Present Illness: 77 year old female with PMH of severe PVD, psoriasis, GERD, HTN, dyslipidemia, CAD, history of left lower extremity gangrene and osteomyelitis was sent in to [facility] because of worsening right heel ulcer with exposed bone. She underwent debridement and graft placement today. She denies fever or chills, no nausea or vomiting, no chest pain, no SOB, no headache or dizziness, no abdominal pain, no cough or rhinorrhea, no diarrhea, no dysuria. Infectious diseases consult is requested to further evaluate and manage. Review of Systems - Review of Systems All systems: reviewed and no additional remarkable complaints except (as per HPI ) Past Patient History - Infectious Disease Hx of Infectious Diseases: None - Past Medical History & Family History Past Medical History?: Yes - Past Social History Smoking Status: Former Smoker - CARDIAC Hx Cardiac Disorders: Yes Hx Cardia Arrhythmia: Yes Hx Hypertension: Yes Hx Peripheral Vascular Disease: Yes - PULMONARY Hx Respiratory Disorders: Yes (USED TO SMOKE CIGARETTES. PK TO PK 1/2 QUIT) - NEUROLOGICAL Hx Neurological Disorder: No - HEENT Hx HEENT Problems: Yes (eyeglasses) - RENAL Hx Chronic Kidney Disease: No Hx Renal Failure: No - ENDOCRINE/METABOLIC Hx Endocrine Disorders: No - HEMATOLOGICAL/ONCOLOGICAL Hx Blood Disorders: Yes Hx AIDS: No Hx Anemia: Yes (blood transfusions) - INTEGUMENTARY Hx Dermatological Problems: Yes Hx Psoriasis: Yes Other/Comment: 02-10-18 BILATERAL CELLULITIS.RIGHT HEEL INFECTION,+ OSTEOMYELITIS. - MUSCULOSKELETAL/RHEUMATOLOGICAL Hx Musculoskeletal Disorders: Yes Hx Falls: Yes Hx Osteomyelitis: Yes (RIGHT HEEL 02-10-18) - GASTROINTESTINAL Hx Gastrointestinal Disorders: Yes Hx Gastroesophageal Reflux: Yes - GENITOURINARY/GYNECOLOGICAL Hx Genitourinary Disorders: No - PSYCHIATRIC Hx Psychophysiologic Disorder: No Hx Substance Use: No - SURGICAL HISTORY Hx Surgeries: Yes (CARD CATH WITH 1 STENT) Hx Cardiac Catheterization: Yes Hx Cholecystectomy: Yes - ANESTHESIA Hx Anesthesia Reactions: No Hx Malignant Hyperthermia: No Meds Allergies/Adverse Reactions: Allergies Allergy/AdvReac Type Severity Reaction Status Date / Time No Known Allergies Allergy Verified 02/10/18 17:00 - Medications Medications: Current Medications Furosemide (Lasix) 40 mg PO DAILY [facility] Piperacillin Sod/Tazobactam Sod (Zosyn 3.375 In Ns 100ml) 100 mls @ 200 mls/hr IVPB Q6 [facility] PRN Reason: Protocol Stop: 02/18/18 12:01 Morphine Sulfate (Morphine) 2 mg IVP Q4H PRN PRN Reason: Pain, moderate (4-7) Last Admin: 02/10/18 20:17 Dose: 2 mg Pantoprazole Sodium (Protonix Ec Tab) 40 mg PO DAILY [facility] Potassium Chloride (K-Dur 20 Meq Er Tab) 20 meq PO BID [facility] Physical Exam - Constitutional Appears: Non-toxic, Chronically Ill - Head Exam Head Exam: NORMAL INSPECTION - ENT Exam ENT Exam: Mucous Membranes Moist - Neck Exam Neck exam: Negative for: Lymphadenopathy, Meningismus - Respiratory Exam Respiratory Exam: Decreased Breath Sounds - Cardiovascular Exam Cardiovascular Exam: +S1, +S2 - GI/Abdominal Exam GI & Abdominal Exam: Soft. absent: Tenderness - Extremities Exam Additional comments: right foot with dressings in place Results - Vital Signs Recent Vital Signs: Last Vital Signs Temp 98.3 F 02/10/18 19:53 Pulse 75 02/10/18 19:53 Resp 19 02/10/18 19:53 BP 153/69 H 02/10/18 19:53 Pulse Ox 100 02/10/18 15:20 - Labs Result Diagrams: 02/11/18 07:00 02/11/18 07:00 Labs: Laboratory Results - last 24 hr 02/10/18 02/10/18 02/10/18 12:13 12:13 12:13 WBC 6.5 D RBC 3.45 L Hgb 9.4 L Hct 30.1 L MCV 87.2 MCH 27.2 MCHC 31.2 RDW 16.5 H Plt Count 442 MPV 9.0 Gran % 60.2 Lymph % (Auto) 28.7 Grant % (Auto) 8.9 H Eos % (Auto) 1.7 Baso % (Auto) 0.5 Gran # 3.92 Lymph # (Auto) 1.9 Grant # (Auto) 0.6 Eos # (Auto) 0.1 Baso # (Auto) 0.03 PT 12.9 H INR 1.12 H APTT 28.4 Sodium 145 Potassium 4.7 Chloride 109 H Carbon Dioxide 25 Anion Gap 16 BUN 10 Creatinine 0.9 Est GFR ( Amer) > 60 Est GFR (Non-Af Amer) > 60 Random Glucose 96 Calcium 9.8 Total Bilirubin 0.3 AST 27 ALT 24 Alkaline Phosphatase 58 Total Protein 7.5 Albumin 3.7 Globulin 3.8 Albumin/Globulin Ratio 1.0 L Assessment & Plan - Assessment and Plan (Free Text) Plan: Assessment right foot heel osteomyelitis and skin and skin structure infection S/P debridement and graft placement today history of sepsis with left lower extremity myositis, cellulitis, tenosynovitis , gangrene and probable osteomyelitis, grew Pseudomonas history of bilateral lower extremity cellulitis with no evidence of osteomyelitis, growing Citrobacter, Serratia and Group B Strep severe PVD psoriasis GERD HTN dyslipidemia CAD Plan based on previous cultures, started Zosyn pending OR cultures and pathology - will likely need at least 4 weeks of antibiotics with weekly ESR, CRP, CBC, CMP with outpatient follow up with Podiatry will monitor clinically
--- NOTE | 2018-02-11 12:54 | RAD ---
PROCEDURE: Right Foot Radiographs. HISTORY: s/p debridement of posterior calcaneus R foot COMPARISON: None. FINDINGS: BONES: There is a soft tissue defect posterior to the calcaneus. There is no evidence of bony destruction to suggest osteomyelitis JOINTS: Normal. SOFT TISSUES: Normal. OTHER FINDINGS: None. IMPRESSION: There is a soft tissue defect posterior to the calcaneus. There is no evidence of bony destruction to suggest osteomyelitis
[2018-02-11] MEDS: Morphine 4 mg/ml ISec IVP PRN ×2 (14:21→22:17)
[2018-02-11] MEDS: Collagenase 250 Units/gm Ointment(30 gm) TOP SCH (14:24)
--- NOTE | 2018-02-11 16:44 | PN ---
DATE: 02/11/2018 SUBJECTIVE: I saw Meche resting comfortably in bed. She is status post bilateral heel debridement in the OR with Dr. Samson. She is resting comfortably in bed at this time. No chest pain or shortness of breath. No abdominal pain. OBJECTIVE: VITAL SIGNS: Temperature 98.1, 67 pulse, 146/72 blood pressure, 20 respiratory rate, 100% O2 sat on 2 L nasal cannula. HEENT: Head is atraumatic, normocephalic. Throat is moist. NECK: Supple. HEART: Regular rate. LUNGS: Clear to auscultation. ABDOMEN: Soft, nontender. Positive bowel sounds. EXTREMITIES: Both feet are bandaged and she has a wound VAC on the heel. MEDICATIONS: She is on potassium, Lasix, morphine, Protonix, Santyl, and Zosyn IV. She is being seen by Podiatry and Infectious Disease, and the big problem was that the right heel has an osteo and that is where the wound VAC is. LABORATORY DATA: She has a 5.8 white count, 8.9 hemoglobin, 28.2 hematocrit, 390 platelets. Sodium 144, potassium 3.9. BUN 9, creatinine 0.8. GFR is greater than 60. Sugar is 80. Calcium is 9.1. Total bilirubin is 0.4, AST is 21, ALT is 15, alkaline phosphorus 50, total protein is 6.5, albumin is 3. We will check her labs tomorrow. Continue with aggressive treatment and care. Continue the Zosyn as per Infectious Disease. Answered questions from Meche. We will continue aggressive treatment and care and postoperative care and I do not know she needs how many days of antibiotics. We will find out from Infectious Disease. Otis Harris DO
[2018-02-12] MEDS: Morphine 4 mg/ml ISec IVP PRN ×3 (05:52→20:55)
[2018-02-12] MEDS: Piperacillin/Tazobact 3.375 gm 100 ML IVPB SCH ×3 (05:53→17:07)
[2018-02-12 07:20] LABS: HEMOGLOBIN 8.3 g/dL (12.0-16.0); MEAN CORPUSCULAR HEMOGLOBIN 27.7 pg (25.0-35.0); MEAN CORPUSCULAR HGB CONC 32.2 g/dl (31.0-37.0); MEAN PLATELET VOLUME 8.4 fl (7.0-11.0); RED CELL DISTRIBUTION WIDTH 16.2 % (11.5-14.5); WHITE BLOOD COUNT 6.4 10^3/ul (4.5-11.0)
[2018-02-12 07:32] LABS: ALB/GLOB RATIO 0.9 (1.1-1.8); ALBUMIN 2.9 g/dL (3.0-4.8); ALT/SGPT 23 U/L (7-56); AST/SGOT 22 U/L (14-36); BLOOD UREA NITROGEN 7 mg/dL (7-21); CALCIUM 8.7 mg/dL (8.4-10.5); GFR AFRICAN-AMERICAN > 60; GFR NON-AFRICAN AMERICAN > 60
--- NOTE | 2018-02-12 10:29 | CP.PCM.PN ---
<Lizett Kaye - Last Filed: 02/12/18 15:39> Subjective - Date & Time of Evaluation Date of Evaluation: 02/12/18 Time of Evaluation: 08:50 - Subjective Subjective: IM progress note for Dr Jerome. Patient is post debridement and bone graft yesterday. Patient with no acute overnight events. Has been afebrile. No cp, sob, no nausea, vomiting or diarrhea. Objective - Vital Signs/Intake and Output Vital Signs (last 24 hours): Temp Pulse Resp BP Pulse Ox 98.6 F 72 18 111/59 L 100 02/12/18 08:29 02/12/18 08:29 02/12/18 08:29 02/12/18 08:29 02/12/18 08:29 Intake and Output: 02/12/18 02/12/18 06:59 18:59 Intake Total 740 Balance 740 - Medications Medications: Current Medications Collagenase (Santyl) 0 gm TOP DAILY [facility] Last Admin: 02/11/18 14:24 Dose: Not Given Furosemide (Lasix) 40 mg PO DAILY [facility] Last Admin: 02/11/18 09:30 Dose: Not Given Piperacillin Sod/Tazobactam Sod (Zosyn 3.375 In Ns 100ml) 100 mls @ 200 mls/hr IVPB Q6 [facility] PRN Reason: Protocol Stop: 02/18/18 12:01 Last Admin: 02/12/18 05:53 Dose: 200 mls/hr Morphine Sulfate (Morphine) 2 mg IVP Q4H PRN PRN Reason: Pain, moderate (4-7) Last Admin: 02/12/18 05:52 Dose: 2 mg Pantoprazole Sodium (Protonix Ec Tab) 40 mg PO DAILY [facility] Last Admin: 02/11/18 09:30 Dose: Not Given Potassium Chloride (K-Dur 20 Meq Er Tab) 20 meq PO BID [facility] Last Admin: 02/11/18 17:53 Dose: 20 meq - Labs Labs: 02/12/18 07:00 02/12/18 07:00 PT 12.9 SECONDS (9.4-12.5) H 02/10/18 12:13 INR 1.12 (0.93-1.08) H 02/10/18 12:13 APTT 28.4 Seconds (25.1-36.5) 02/10/18 12:13 - Constitutional Appears: No Acute Distress, Chronically Ill - Head Exam Head Exam: ATRAUMATIC, NORMAL INSPECTION, NORMOCEPHALIC - Eye Exam Eye Exam: EOMI, Normal appearance, PERRL. absent: Scleral icterus Pupil Exam: NORMAL ACCOMODATION - ENT Exam ENT Exam: Mucous Membranes Moist - Neck Exam Neck Exam: Normal Inspection - Respiratory Exam Respiratory Exam: Clear to Ausculation Bilateral, NORMAL BREATHING PATTERN. absent: Rales, Rhonchi, Wheezes, Respiratory Distress, Stridor - Cardiovascular Exam Cardiovascular Exam: REGULAR RHYTHM, RRR, +S1, +S2. absent: Murmur - GI/Abdominal Exam GI & Abdominal Exam: Soft, Normal Bowel Sounds. absent: Distended, Firm, Guarding, Rigid, Tenderness, Rebound - Extremities Exam Extremities Exam: absent: Normal Inspection, Pedal Edema - Back Exam Back Exam: NORMAL INSPECTION - Neurological Exam Neurological Exam: Alert, Awake, Oriented x3 - Psychiatric Exam Psychiatric exam: Normal Affect, Normal Mood - Skin Additional comments: Isabel lower extremities with crusted skin lesions. right lower extremities with clean dressing, with wound vac. left lower extremity with clean dressing. + salmon colored skin changes on the dorsum of hand and thigh. Assessment and Plan - Assessment and Plan (Free Text) Assessment: Patient is a 77 y/o with PMHx of severe PVD, psoriasis, GERD, HTN, dyslipidemia , CAD, history of left lower extremity gangrene and osteomyelitis was sent to [facility] [place] of worsening right heel ulcer with exposed bone s/p Debridement of bilateral heel ulcerations secondary to psoriatic skin changes and application of Integra biological graft and KCI wound vac to right heel wound post op day 1. Plan: 1) Worsening isabel heel ulcer s/p debridement of bilateral heel ulcerations and application of Integra biological graft and KCI wound vac to right heel wound. - Afebrile end no luekocytosis - will continue with zosyn as per ID pending sensitivity of the wound culture. 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 - Morphine prn for pain - Wound care as per podiatry 2) Chronic psoriasis- currently not on therapy 3) GERD- continue with protonix 4) HTN- control on only laxis 5) Chronic normocytic anemia - h/h fluctuating, no active bleeding at this time, will monitor for now. 6) Chronic diastolic chf - continue with laxis, on k-dur to prevent hyperkalemia. 7) DVT/gi prophylaxis: heparin sc and protonix Patient seen, examine and case discussed with Dr Jerome. <Cindy Jerome - Last Filed: 02/16/18 17:06> Objective - Vital Signs/Intake and Output Vital Signs (last 24 hours): Temp Pulse Resp BP Pulse Ox 98 F 83 18 131/73 100 02/16/18 14:29 02/16/18 14:29 02/16/18 14:29 02/16/18 14:29 02/16/18 14:29 Intake and Output: 02/16/18 02/16/18 06:59 18:59 Intake Total 960 Balance 960 - Medications Medications: Current Medications Collagenase (Santyl) 0 gm TOP DAILY [facility] Last Admin: 02/16/18 15:08 Dose: 1 appl Ferrous Sulfate (Feosol) 324 mg PO BID [facility] Last Admin: 02/16/18 09:10 Dose: 324 mg Furosemide (Lasix) 40 mg PO DAILY [facility] Last Admin: 02/16/18 09:13 Dose: Not Given Colistimethate Sodium 130 mg/ (Sodium Chloride) 100 mls @ 200 mls/hr IV Q12 [facility] PRN Reason: Protocol Last Admin: 02/16/18 09:42 Dose: 200 mls/hr Meropenem (Merrem Iv 1 Gm Premix) 50 mls @ 100 mls/hr IVPB Q8 [facility] PRN Reason: Protocol Last Admin: 02/16/18 15:07 Dose: 100 mls/hr Morphine Sulfate (Morphine) 2 mg IVP Q4H PRN PRN Reason: Pain, severe (8-10) Pantoprazole Sodium (Protonix Ec Tab) 40 mg PO DAILY [facility] Last Admin: 02/16/18 09:10 Dose: 40 mg Potassium Chloride (K-Dur 20 Meq Er Tab) 20 meq PO BRK [facility] Last Admin: 02/16/18 08:14 Dose: 20 meq - Labs Labs: 02/16/18 06:30 02/16/18 06:30 PT 12.9 SECONDS (9.4-12.5) H 02/10/18 12:13 INR 1.12 (0.93-1.08) H 02/10/18 12:13 APTT 28.4 Seconds (25.1-36.5) 02/10/18 12:13 Attending/Attestation - Attestation I have personally seen and examined this patient.: Yes I have fully participated in the care of the patient.: Yes I have reviewed all pertinent clinical information, including history, physical exam and plan: Yes Notes (Text): 02/16/18 17:06 Medical record note made by the resident after discussion with my direction and input after the patient was personally seen and examined by me. I have reviewed the chart and agree that the record accurately reflects by personal performance of the history, physical exam, data review, and medical decision-making, in the course for the patient. I have also personally directed the plan of care.
[2018-02-12] MEDS: Potassium Chloride 20 mEq ER Tab PO SCH ×2 (10:54→17:08)
[2018-02-12] MEDS: Pantoprazole 40 mg EC Tab PO SCH (10:58)
[2018-02-12] MEDS: Collagenase 250 Units/gm Ointment(30 gm) TOP SCH (11:01)
--- NOTE | 2018-02-12 14:13 | CP.PCM.PN ---
Subjective - Date & Time of Evaluation Date of Evaluation: 02/12/18 Time of Evaluation: 14:10 - Subjective Subjective: 77 y/o female seen at bedside with attending 1 day s/p debridement of bilateral heel wounds with right heel application of Integra graft and application of wound vac. Pt denies any events overnight and is resting comfortably in NAD, eating breakfast at time of visit. Reports normal appetite. Denies F/C/N/V/CP/SOB. Admits to mild-moderate tenderness in her heels, right more so than left. Objective - Vital Signs/Intake and Output Vital Signs (last 24 hours): Temp Pulse Resp BP Pulse Ox 98.6 F 72 18 110/60 100 02/12/18 08:29 02/12/18 08:29 02/12/18 08:29 02/12/18 10:58 02/12/18 08:29 Intake and Output: 02/12/18 02/12/18 06:59 18:59 Intake Total 740 Balance 740 - Medications Medications: Current Medications Collagenase (Santyl) 0 gm TOP DAILY [facility] Last Admin: 02/12/18 11:01 Dose: Not Given Furosemide (Lasix) 40 mg PO DAILY [facility] Last Admin: 02/12/18 10:58 Dose: 40 mg Piperacillin Sod/Tazobactam Sod (Zosyn 3.375 In Ns 100ml) 100 mls @ 200 mls/hr IVPB Q6 [facility] PRN Reason: Protocol Stop: 02/18/18 12:01 Last Admin: 02/12/18 11:00 Dose: 200 mls/hr Morphine Sulfate (Morphine) 2 mg IVP Q4H PRN PRN Reason: Pain, moderate (4-7) Last Admin: 02/12/18 11:06 Dose: 2 mg Pantoprazole Sodium (Protonix Ec Tab) 40 mg PO DAILY [facility] Last Admin: 02/12/18 10:58 Dose: 40 mg Potassium Chloride (K-Dur 20 Meq Er Tab) 20 meq PO BID [facility] Last Admin: 02/12/18 10:54 Dose: 20 meq - Labs Labs: 02/12/18 07:00 02/12/18 07:00 PT 12.9 SECONDS (9.4-12.5) H 02/10/18 12:13 INR 1.12 (0.93-1.08) H 02/10/18 12:13 APTT 28.4 Seconds (25.1-36.5) 02/10/18 12:13 - Constitutional Appears: Well, Non-toxic, No Acute Distress - Extremities Exam Additional comments: bilateral lower extremity surgical dressings remain clean, dry and intact no strikethrough noted on bandages wound vac running on continuous 125 mmHg pressure to RLE, leak check confirms no leaks detected - Neurological Exam Neurological Exam: Alert, Awake, Oriented x3 - Psychiatric Exam Psychiatric exam: Normal Affect, Normal Mood Assessment and Plan - Assessment and Plan (Free Text) Assessment: 77 y/o female 1 day s/p bilateral heel wound debridement with exposed right calcaneal bone, with right heel Integra graft application and wound vac application Plan: Pt seen and evaluated at bedside with attending Dr. Samson Labs and vitals reviewed- afebrile, no leukocytosis Wound vac running continuous 125mm Hg pressure with no leaks Dressings left intact at this time Await results of intraoperative wound cultures Continue abx as per ID Will continue to follow pt while in house No further surgical debridement planned at this time
--- NOTE | 2018-02-12 16:10 | CP.PCM.PN ---
Subjective - Date & Time of Evaluation Date of Evaluation: 02/12/18 Time of Evaluation: 11:30 - Subjective Subjective: No fevers, no nausea, no diarrhea, less pain on both feet. Objective - Vital Signs/Intake and Output Vital Signs (last 24 hours): Temp Pulse Resp BP Pulse Ox 98.6 F 72 18 111/59 L 100 02/12/18 08:29 02/12/18 08:29 02/12/18 08:29 02/12/18 08:29 02/12/18 08:29 Intake and Output: 02/12/18 02/12/18 06:59 18:59 Intake Total 740 Balance 740 - Medications Medications: Current Medications Collagenase (Santyl) 0 gm TOP DAILY [facility] Last Admin: 02/11/18 14:24 Dose: Not Given Furosemide (Lasix) 40 mg PO DAILY [facility] Last Admin: 02/11/18 09:30 Dose: Not Given Piperacillin Sod/Tazobactam Sod (Zosyn 3.375 In Ns 100ml) 100 mls @ 200 mls/hr IVPB Q6 [facility] PRN Reason: Protocol Stop: 02/18/18 12:01 Last Admin: 02/12/18 05:53 Dose: 200 mls/hr Morphine Sulfate (Morphine) 2 mg IVP Q4H PRN PRN Reason: Pain, moderate (4-7) Last Admin: 02/12/18 05:52 Dose: 2 mg Pantoprazole Sodium (Protonix Ec Tab) 40 mg PO DAILY [facility] Last Admin: 02/11/18 09:30 Dose: Not Given Potassium Chloride (K-Dur 20 Meq Er Tab) 20 meq PO BID [facility] Last Admin: 02/11/18 17:53 Dose: 20 meq - Labs Labs: 02/12/18 07:00 02/12/18 07:00 PT 12.9 SECONDS (9.4-12.5) H 02/10/18 12:13 INR 1.12 (0.93-1.08) H 02/10/18 12:13 APTT 28.4 Seconds (25.1-36.5) 02/10/18 12:13 - Constitutional Appears: Non-toxic, Chronically Ill - Head Exam Head Exam: NORMAL INSPECTION - ENT Exam ENT Exam: Mucous Membranes Moist - Neck Exam Neck Exam: absent: Meningismus - Respiratory Exam Respiratory Exam: Decreased Breath Sounds - Cardiovascular Exam Cardiovascular Exam: +S1, +S2 - GI/Abdominal Exam GI & Abdominal Exam: Soft. absent: Tenderness - Extremities Exam Additional comments: both feet with dressings in place Assessment and Plan - Assessment and Plan (Free Text) Plan: Assessment right foot heel osteomyelitis and bilateral feet skin and skin structure infection S/P debridement and graft placement POD #1 history of sepsis with left lower extremity myositis, cellulitis, tenosynovitis , gangrene and probable osteomyelitis, grew Pseudomonas history of bilateral lower extremity cellulitis with no evidence of osteomyelitis, growing Citrobacter, Serratia and Group B Strep severe PVD psoriasis GERD HTN dyslipidemia CAD Plan based on previous cultures, continue Zosyn pending OR cultures and pathology - will likely need at least 4 weeks of antibiotics with weekly ESR, CRP, CBC, CMP with outpatient follow up with Podiatry will continue to monitor clinically
[2018-02-13] MEDS: Piperacillin/Tazobact 3.375 gm 100 ML IVPB SCH ×5 (01:17→23:25)
--- NOTE | 2018-02-13 08:23 | OP ---
PROCEDURE DATE: 02/11/2018 SURGEON: Cherise Samson DPM DESK DIRECTOR: Lorenzo Brown, PGY-1 ANESTHESIOLOGIST: Dr. Childress ANESTHESIA: IV sedation with local. PREOPERATIVE DIAGNOSIS: Bilateral heel ulcerations secondary to psoriasis with exposure of calcaneus of right heel. POSTOPERATIVE DIAGNOSIS: Bilateral heel ulcerations secondary to psoriasis with exposure of calcaneus of right heel. NAME OF PROCEDURE: 1. Resection of osteomyelitic exposed calcaneus bone of right posterior heel with debridement of ulceration site, application of biological graft and application of negative wound VAC therapy. 2. Debridement of all nonviable soft tissue of left posterior heel ulceration. INDICATIONS: The patient is a 77-year-old female with the above diagnosis. The patient has exhausted all conservative treatment at this time and now requires surgical intervention. The patient signed the consent after careful explanation of risks, benefits, complications, and alternatives of the surgical procedure. No guarantees were given nor implied. N.p.o. status was confirmed prior to taking the patient to the OR. PREPARATION: The patient was brought into the operating room and placed on the operating room table in a supine position. A time-out was performed for identification of the correct patient and procedure. After induction of IV sedation, the patient received a total of 8 mL of 2% lidocaine plain in a local block fashion to the right posterior heel surrounding the ulceration site in that area. No local anesthetic was used around the left posterior heel ulceration. Both lower extremities were then prepped and draped in normal sterile manner and the procedure began. No tourniquet was used during the procedure. PROCEDURE 1: Attention was then turned to the right posterior heel where an ulceration was noted from the level of the mid calf extending to the posterior and plantar heel. It was noted that exposed osteomyelitic calcaneal bone could be seen as well as a surrounding ulceration with a mostly fibronecrotic base present. Using a sagittal saw on power, the exposed calcaneal bone was scored and then using an osteotome and mallet, the scored part of the calcaneus was dissected off of the patient and removed from the surgical field. This bone was sent to pathology for examination. Using a Misonix debridement tool, the surrounding ulceration site was debrided with removal of all nonviable soft tissue. Healthy, bleeding, granular tissue was noted once the debridement was complete. An Integra biologic graft was then applied to the ulceration site overlying both the new exposed bleeding ulcer tissue as well as the calcaneal bone. The graft was then sutured into place using 3-0 Vicryl. Adaptic was then placed on top of the graft and a KCI wound VAC was applied to the ulceration site as well. The wound VAC was turned on to 125 mmHg of continuous pressure and was noted to have good seal at the conclusion of the case. The site was dressed with dry, sterile dressing at the conclusion of the case. PROCEDURE 2: Attention was then turned to the left posterior heel where an ulceration was also noted with mostly fibronecrotic base from the level of the posterior calf to the plantar heel of the left foot. Using the same Misonix debridement tool, all nonviable soft tissue was removed with healthy bleeding tissue noted once the debridement was complete. The debridement site was then dressed with xeroform, ABD, and dry sterile dressing. POSTOPERATIVE CONDITION: The patient tolerated the anesthesia and procedure well and was escorted to the recovery room with vital signs stable and neurovascular status intact to the bilateral lower extremities. The patient is to remain partial weightbearing to toes on her right foot and full weightbearing to the left foot as tolerated. The patient is to keep dressings clean, dry and intact at all times. Podiatry will continue to follow the patient while she remains in the hospital. Lorenzo Brown DPM Cherise Samson DPM RD
[2018-02-13] MEDS: Morphine 4 mg/ml ISec IVP PRN ×2 (08:29→22:44)
--- NOTE | 2018-02-13 10:51 | CP.PCM.PN ---
<Lizett Kaye - Last Filed: 02/13/18 11:23> Subjective - Date & Time of Evaluation Date of Evaluation: 02/13/18 Time of Evaluation: 09:00 - Subjective Subjective: IM progress note for Dr Urban. Patient with no acute events overnight. patient states the heel pain has improved. Denies fever, chills, nausea, vomiting or diarrhea. No cp or sob. Objective - Vital Signs/Intake and Output Vital Signs (last 24 hours): Temp Pulse Resp BP Pulse Ox 99.5 F 89 20 125/65 98 02/13/18 06:00 02/13/18 06:00 02/13/18 06:00 02/13/18 06:00 02/13/18 06:00 Intake and Output: 02/13/18 02/13/18 06:59 18:59 Output Total 150 Balance -150 - Medications Medications: Current Medications Collagenase (Santyl) 0 gm TOP DAILY [facility] Last Admin: 02/12/18 11:01 Dose: Not Given Furosemide (Lasix) 40 mg PO DAILY [facility] Last Admin: 02/12/18 10:58 Dose: 40 mg Piperacillin Sod/Tazobactam Sod (Zosyn 3.375 In Ns 100ml) 100 mls @ 200 mls/hr IVPB Q6 [facility] PRN Reason: Protocol Stop: 02/18/18 12:01 Last Admin: 02/13/18 05:11 Dose: 200 mls/hr Morphine Sulfate (Morphine) 2 mg IVP Q4H PRN PRN Reason: Pain, moderate (4-7) Last Admin: 02/13/18 08:29 Dose: 2 mg Pantoprazole Sodium (Protonix Ec Tab) 40 mg PO DAILY [facility] Last Admin: 02/12/18 10:58 Dose: 40 mg Potassium Chloride (K-Dur 20 Meq Er Tab) 20 meq PO BID [facility] Last Admin: 02/12/18 17:08 Dose: 20 meq - Labs Labs: 02/12/18 07:00 02/12/18 07:00 PT 12.9 SECONDS (9.4-12.5) H 02/10/18 12:13 INR 1.12 (0.93-1.08) H 02/10/18 12:13 APTT 28.4 Seconds (25.1-36.5) 05/08/18 12:13 - Constitutional Appears: No Acute Distress, Chronically Ill - Head Exam Head Exam: ATRAUMATIC, NORMAL INSPECTION, NORMOCEPHALIC - Eye Exam Eye Exam: EOMI, Normal appearance, PERRL. absent: Scleral icterus Pupil Exam: NORMAL ACCOMODATION - ENT Exam ENT Exam: Mucous Membranes Moist - Neck Exam Neck Exam: Full ROM, Normal Inspection - Respiratory Exam Respiratory Exam: Clear to Ausculation Bilateral, NORMAL BREATHING PATTERN. absent: Rales, Rhonchi, Wheezes, Respiratory Distress, Stridor - Cardiovascular Exam Cardiovascular Exam: REGULAR RHYTHM, RRR, +S1, +S2. absent: Bradycardia, Tachycardia, Gallop, JVD, Rubs, Murmur - GI/Abdominal Exam GI & Abdominal Exam: Soft, Normal Bowel Sounds. absent: Distended, Firm, Guarding, Rigid, Tenderness - Extremities Exam Extremities Exam: absent: Normal Inspection, Pedal Edema - Back Exam Back Exam: NORMAL INSPECTION - Neurological Exam Neurological Exam: Alert, Awake, Oriented x3 - Psychiatric Exam Psychiatric exam: Normal Affect, Normal Mood - Skin Skin Exam: Dry, Warm Additional comments: isabel crusted lesion on the biil lower extremities. Isabel hell with clean dressings , the right heel with wound vac. Upper extremities and thigh with salmon colored psoriatric lesions. Assessment and Plan - Assessment and Plan (Free Text) Assessment: Patient is a 77 y/o with PMHx of severe PVD, psoriasis, GERD, HTN, dyslipidemia , CAD, history of left lower extremity gangrene and osteomyelitis [place] [facility] [place] of [place] right heel ulcer with exposed bone s/p Debridement of bilateral heel ulcerations and application of bone graft and wound vac to right heel wound post op day 2. Plan: 1) Worsening isabel heel ulcers and Osteomyolitis on the right heel s/p debridement of bilateral heel ulcerations, bone graft and wound vac to right heel wound. - Remains afebrile and no leukocytosis - Will continue with zosyn as per ID pending sensitivity of the wound culture. - S/p picc line placement yesterday, likely need 4 weeks of antibiotics as per ID - No growth on blood cultures, wound cultures growing gram negative salina- corynebacterium, pending sensitivity - Morphine prn for pain - Wound care as per podiatry 2) Chronic psoriasis- currently not on therapy 3) GERD- continue with protonix 4) HTN- control on only laxis 5) Chronic normocytic anemia - h/h fluctuating, no active bleeding at this time, - will repeat cbc tomorrow 6) Chronic diastolic chf - continue with laxis, on k-dur to prevent hypokalemia. 7) DVT/gi prophylaxis: heparin sc and protonix Patient seen, examine and case discussed with Dr Urban. <Erika Urban - Last Filed: 02/13/18 14:06> Objective - Vital Signs/Intake and Output Vital Signs (last 24 hours): Temp Pulse Resp BP Pulse Ox 99.5 F 89 20 138/71 98 02/13/18 06:00 02/13/18 06:00 02/13/18 06:00 02/13/18 11:09 02/13/18 06:00 Intake and Output: 02/13/18 02/13/18 06:59 18:59 Output Total 150 Balance -150 - Medications Medications: Current Medications Collagenase (Santyl) 0 gm TOP DAILY [facility] Last Admin: 02/13/18 13:49 Dose: Not Given Furosemide (Lasix) 40 mg PO DAILY [facility] Last Admin: 02/13/18 11:09 Dose: 40 mg Piperacillin Sod/Tazobactam Sod (Zosyn 3.375 In Ns 100ml) 100 mls @ 200 mls/hr IVPB Q6 [facility] PRN Reason: Protocol Stop: 02/18/18 12:01 Last Admin: 02/13/18 11:13 Dose: 200 mls/hr Morphine Sulfate (Morphine) 2 mg IVP Q4H PRN PRN Reason: Pain, moderate (4-7) Last Admin: 02/13/18 08:29 Dose: 2 mg Pantoprazole Sodium (Protonix Ec Tab) 40 mg PO DAILY [facility] Last Admin: 02/13/18 11:09 Dose: 40 mg Potassium Chloride (K-Dur 20 Meq Er Tab) 20 meq PO BID [facility] Last Admin: 02/13/18 11:09 Dose: 20 meq - Labs Labs: 02/12/18 07:00 02/12/18 07:00 PT 12.9 SECONDS (9.4-12.5) H 02/10/18 12:13 INR 1.12 (0.93-1.08) H 02/10/18 12:13 APTT 28.4 Seconds (25.1-36.5) 02/10/18 12:13 Attending/Attestation - Attestation I have personally seen and examined this patient.: Yes I have fully participated in the care of the patient.: Yes I have reviewed all pertinent clinical information, including history, physical exam and plan: Yes Notes (Text): 02/13/18 13:59 Attending note; Patient seen and examined with resident. Patient is alert, awake. Denies any complaints. Patient is a 77 year old female with PMHx of severe PVD, psoriasis, GERD, HTN, dyslipidemia, history of left lower extremity gangrene and osteomyelitis was [place] [facility] [place] of worsening right heel ulcer with exposed bone. s/p Debridement of bilateral heel ulcerations and application of bone graft and wound vac to right heel wound. Wound culture is pending. Currently on IV Zosyn. Patient has right upper arm PICC line. Chronic anemia. Case discussed with family caseworker for discharge planning. Upon discharge the patient will follow-up with PMd DR. calhoun.
[2018-02-13] MEDS: Pantoprazole 40 mg EC Tab PO SCH (11:09)
[2018-02-13] MEDS: Potassium Chloride 20 mEq ER Tab PO SCH ×2 (11:09→18:06)
--- NOTE | 2018-02-13 12:49 | CP.PCM.PN ---
Subjective - Date & Time of Evaluation Date of Evaluation: 02/13/18 Time of Evaluation: 12:46 - Subjective Subjective: 77 y/o female seen at bedside this morning with attending Dr. Diaz, 2 days s/ p bilateral heel debridement of wounds with right heel application of graft and wound vac. Pt resting comfortably in bed in NAD. Denies any overnight events. Admits to mild intermittent pain, well controlled with meds. States dressings have remained in place. Denies F/C/N/V/CP/SOB Objective - Vital Signs/Intake and Output Vital Signs (last 24 hours): Temp Pulse Resp BP Pulse Ox 99.5 F 89 20 138/71 98 02/13/18 06:00 02/13/18 06:00 02/13/18 06:00 02/13/18 11:09 02/13/18 06:00 Intake and Output: 02/13/18 02/13/18 06:59 18:59 Output Total 150 Balance -150 - Medications Medications: Current Medications Collagenase (Santyl) 0 gm TOP DAILY [facility] Last Admin: 02/12/18 11:01 Dose: Not Given Furosemide (Lasix) 40 mg PO DAILY [facility] Last Admin: 02/13/18 11:09 Dose: 40 mg Piperacillin Sod/Tazobactam Sod (Zosyn 3.375 In Ns 100ml) 100 mls @ 200 mls/hr IVPB Q6 [facility] PRN Reason: Protocol Stop: 02/18/18 12:01 Last Admin: 02/13/18 11:13 Dose: 200 mls/hr Morphine Sulfate (Morphine) 2 mg IVP Q4H PRN PRN Reason: Pain, moderate (4-7) Last Admin: 02/13/18 08:29 Dose: 2 mg Pantoprazole Sodium (Protonix Ec Tab) 40 mg PO DAILY [facility] Last Admin: 02/13/18 11:09 Dose: 40 mg Potassium Chloride (K-Dur 20 Meq Er Tab) 20 meq PO BID [facility] Last Admin: 02/13/18 11:09 Dose: 20 meq - Labs Labs: 02/12/18 07:00 02/12/18 07:00 PT 12.9 SECONDS (9.4-12.5) H 02/10/18 12:13 INR 1.12 (0.93-1.08) H 05/08/18 12:13 APTT 28.4 Seconds (25.1-36.5) 02/10/18 12:13 - Constitutional Appears: Well, Non-toxic, No Acute Distress - Extremities Exam Additional comments: Bilateral lower extremity surgical dressings remain clean, dry and intact Wound vac running on continuous 125 mmHg pressure to RLE, -Leak check confirms no leaks detected -outer dressing with no strikethrough noted -100cc of sanguinous output noted in canister L posterior heel exhibits open ulceration with mostly granular wound base, mild serosanguinous drainage noted on inner dressing, no fluctuance, no malodor, no probe to bone - Neurological Exam Neurological Exam: Alert, Awake, Oriented x3 - Psychiatric Exam Psychiatric exam: Normal Affect, Normal Mood Assessment and Plan - Assessment and Plan (Free Text) Assessment: 77 y/o female 2 days s/p bilateral heel wound debridement with exposed right calcaneal bone, with right heel Integra graft application and wound vac application Plan: Pt seen and evaluated at bedside with attending Dr. Diaz Labs and vitals reviewed- afebrile, no leukocytosis Wound vac running continuous 125mm Hg pressure with no leaks to R heel wound L heel wound cleaned and dressed with xeroform, ABD and DSD R heel outer dressing changed with DSD Wound cx R foot - Corynebacterium species Wound cx L foot prelim - gram neg salina Continue abx as per ID Will continue to follow pt while in house No further surgical debridement planned at this time
--- NOTE | 2018-02-13 13:40 | CP.PCM.PN ---
Subjective - Date & Time of Evaluation Date of Evaluation: 02/13/18 Time of Evaluation: 11:40 - Subjective Subjective: No fevers, not in distress, no diarrhea. No increased pain in the feet. Objective - Vital Signs/Intake and Output Vital Signs (last 24 hours): Temp Pulse Resp BP Pulse Ox 99.5 F 89 20 125/65 98 02/13/18 06:00 02/13/18 06:00 02/13/18 06:00 02/13/18 06:00 02/13/18 06:00 Intake and Output: 02/13/18 02/13/18 06:59 18:59 Output Total 150 Balance -150 - Medications Medications: Current Medications Collagenase (Santyl) 0 gm TOP DAILY [facility] Last Admin: 02/12/18 11:01 Dose: Not Given Furosemide (Lasix) 40 mg PO DAILY [facility] Last Admin: 02/12/18 10:58 Dose: 40 mg Piperacillin Sod/Tazobactam Sod (Zosyn 3.375 In Ns 100ml) 100 mls @ 200 mls/hr IVPB Q6 [facility] PRN Reason: Protocol Stop: 02/18/18 12:01 Last Admin: 02/13/18 05:11 Dose: 200 mls/hr Morphine Sulfate (Morphine) 2 mg IVP Q4H PRN PRN Reason: Pain, moderate (4-7) Last Admin: 02/13/18 08:29 Dose: 2 mg Pantoprazole Sodium (Protonix Ec Tab) 40 mg PO DAILY [facility] Last Admin: 02/12/18 10:58 Dose: 40 mg Potassium Chloride (K-Dur 20 Meq Er Tab) 20 meq PO BID [facility] Last Admin: 02/12/18 17:08 Dose: 20 meq - Labs Labs: 02/12/18 07:00 02/12/18 07:00 PT 12.9 SECONDS (9.4-12.5) H 02/10/18 12:13 INR 1.12 (0.93-1.08) H 02/10/18 12:13 APTT 28.4 Seconds (25.1-36.5) 02/10/18 12:13 - Constitutional Appears: Non-toxic, Chronically Ill - Head Exam Head Exam: NORMAL INSPECTION - Neck Exam Neck Exam: absent: Meningismus - Respiratory Exam Respiratory Exam: Decreased Breath Sounds - Cardiovascular Exam Cardiovascular Exam: +S1, +S2 - GI/Abdominal Exam GI & Abdominal Exam: Soft. absent: Tenderness Assessment and Plan - Assessment and Plan (Free Text) Plan: Assessment right foot heel osteomyelitis and bilateral feet skin and skin structure infection S/P debridement and graft placement POD #2, growing gram negative bacilli from the bone history of sepsis with left lower extremity myositis, cellulitis, tenosynovitis , gangrene and probable osteomyelitis, grew Pseudomonas history of bilateral lower extremity cellulitis with no evidence of osteomyelitis, growing Citrobacter, Serratia and Group B Strep severe PVD psoriasis GERD HTN dyslipidemia CAD Plan continue Zosyn pending identification and sensitivities of the gram negative bacilli in the OR cultures and awaiting OR pathology as well - will likely need at least 4 weeks of antibiotics with weekly ESR, CRP, CBC, CMP with outpatient follow up with Podiatry will continue to monitor clinically
[2018-02-13] MEDS: Collagenase 250 Units/gm Ointment(30 gm) TOP SCH (13:49)
[2018-02-14] MEDS: Morphine 4 mg/ml ISec IVP PRN ×2 (05:25→17:31)
[2018-02-14] MEDS: Piperacillin/Tazobact 3.375 gm 100 ML IVPB SCH ×2 (05:26→11:00)
[2018-02-14 06:28] LABS: BASO # 0.02 K/mm3 (0.0-2.0); BASO % 0.3 % (0.0-3.0); EOS # 0.5 (0.0-0.7); EOS % 8.6 % (1.5-5.0); GRAN # 3.23 (1.4-6.5); GRAN % 55.9 % (50.0-68.0); HEMOGLOBIN 8.2 g/dL (12.0-16.0); LYMPH # 1.4 (1.2-3.4); LYMPH % 24.7 % (22.0-35.0); MEAN CELL VOLUME 85.6 fl (80.0-105.0); MEAN CORPUSCULAR HEMOGLOBIN 28.2 pg (25.0-35.0); MEAN CORPUSCULAR HGB CONC 32.9 g/dl (31.0-37.0); MEAN PLATELET VOLUME 8.6 fl (7.0-11.0); MONO # 0.6 (0.1-0.6); MONO % 10.5 % (1.0-6.0); RBC 2.91 10^6/uL (3.5-6.1); RED CELL DISTRIBUTION WIDTH 15.7 % (11.5-14.5); WHITE BLOOD COUNT 5.8 10^3/ul (4.5-11.0)
[2018-02-14 06:38] LABS: BLOOD UREA NITROGEN 6 mg/dL (7-21); CALCIUM 8.8 mg/dL (8.4-10.5); GFR AFRICAN-AMERICAN > 60; GFR NON-AFRICAN AMERICAN > 60
--- NOTE | 2018-02-14 08:42 | CP.PCM.PN ---
<Gareth Lyles - Last Filed: 02/14/18 08:40> Subjective - Date & Time of Evaluation Date of Evaluation: 02/14/18 Time of Evaluation: 08:40 - Subjective Subjective: Podiatry Progress Note- Dr. Diaz 77 y/o female seen at bedside this morning with attending Dr. Diaz, 3 days s/ p bilateral heel debridement of wounds with right heel application of graft and wound vac. Pt resting comfortably in bed in NAD. Denies any overnight events. Admits to mild intermittent pain, well controlled with meds. Dressing is clean, dry, intact without strikethrough. Denies F/C/N/V/CP/SOB. No new pedal complaints Objective - Vital Signs/Intake and Output Vital Signs (last 24 hours): Temp Pulse Resp BP Pulse Ox 98.4 F 71 18 116/59 L 100 02/13/18 14:00 02/13/18 14:00 02/13/18 14:00 02/13/18 14:00 02/13/18 14:00 Intake and Output: 02/14/18 02/14/18 06:59 18:59 Intake Total 640 Balance 640 - Medications Medications: Current Medications Collagenase (Santyl) 0 gm TOP DAILY [facility] Last Admin: 02/13/18 13:49 Dose: Not Given Furosemide (Lasix) 40 mg PO DAILY [facility] Last Admin: 02/13/18 11:09 Dose: 40 mg Piperacillin Sod/Tazobactam Sod (Zosyn 3.375 In Ns 100ml) 100 mls @ 200 mls/hr IVPB Q6 [facility] PRN Reason: Protocol Stop: 02/18/18 12:01 Last Admin: 02/14/18 05:26 Dose: 200 mls/hr Morphine Sulfate (Morphine) 2 mg IVP Q4H PRN PRN Reason: Pain, moderate (4-7) Last Admin: 02/14/18 05:25 Dose: 2 mg Pantoprazole Sodium (Protonix Ec Tab) 40 mg PO DAILY [facility] Last Admin: 02/13/18 11:09 Dose: 40 mg Potassium Chloride (K-Dur 20 Meq Er Tab) 20 meq PO BID [facility] Last Admin: 02/13/18 18:06 Dose: 20 meq - Labs Labs: 02/14/18 06:00 02/14/18 06:00 PT 12.9 SECONDS (9.4-12.5) H 02/10/18 12:13 INR 1.12 (0.93-1.08) H 02/10/18 12:13 APTT 28.4 Seconds (25.1-36.5) 02/10/18 12:13 - Constitutional Appears: Well, Non-toxic, No Acute Distress - Extremities Exam Extremities Exam: absent: Calf Tenderness Additional comments: Bilateral lower extremity surgical dressings remain clean, dry and intact Wound vac running on continuous 125 mmHg pressure to RLE, -Leak check confirms no leaks detected -outer dressing with no strikethrough noted -100cc of sanguinous output noted in canister L posterior heel exhibits open ulceration with mostly granular wound base, mild serosanguinous drainage noted on inner dressing, no fluctuance, no malodor, no probe to bone - Neurological Exam Neurological Exam: Alert, Awake - Psychiatric Exam Psychiatric exam: Normal Affect, Normal Mood Assessment and Plan - Assessment and Plan (Free Text) Assessment: 77 y/o female 3 days s/p bilateral heel wound debridement with exposed right calcaneal bone, with right heel Integra graft application and wound vac application Plan: Pt seen and evaluated at bedside with attending Dr. Diaz Labs and vitals reviewed- afebrile, no leukocytosis Wound vac running continuous 125mm Hg pressure with no leaks to R heel wound L heel wound cleaned and dressed with xeroform, ABD and DSD R heel outer dressing changed with DSD Wound cx R foot - Corynebacterium species Wound cx L foot prelim - gram neg salina Continue abx as per ID Will continue to follow pt while in house No further surgical debridement planned at this time <Yo Diaz - Last Filed: 02/17/18 11:52> Objective - Vital Signs/Intake and Output Vital Signs (last 24 hours): Temp Pulse Resp BP Pulse Ox 98.1 F 98 H 18 131/65 100 02/17/18 08:18 02/17/18 08:18 02/17/18 08:18 02/17/18 09:41 02/17/18 08:18 Intake and Output: 02/17/18 02/17/18 06:59 18:59 Intake Total 540 Balance 540 - Medications Medications: Current Medications Collagenase (Santyl) 0 gm TOP DAILY [facility] Last Admin: 02/16/18 19:52 Dose: Not Given Ferrous Sulfate (Feosol) 324 mg PO BID [facility] Last Admin: 02/17/18 09:37 Dose: 324 mg Furosemide (Lasix) 40 mg PO DAILY [facility] Last Admin: 02/17/18 09:41 Dose: 40 mg Colistimethate Sodium 130 mg/ (Sodium Chloride) 100 mls @ 200 mls/hr IV Q12 [facility] PRN Reason: Protocol Last Admin: 02/17/18 09:41 Dose: 200 mls/hr Meropenem (Merrem Iv 1 Gm Premix) 50 mls @ 100 mls/hr IVPB Q8 [facility] PRN Reason: Protocol Last Admin: 02/17/18 05:57 Dose: 100 mls/hr Morphine Sulfate (Morphine) 2 mg IVP Q4H PRN PRN Reason: Pain, severe (8-10) Last Admin: 02/17/18 09:51 Dose: 2 mg Pantoprazole Sodium (Protonix Ec Tab) 40 mg PO DAILY [facility] Last Admin: 02/17/18 09:38 Dose: 40 mg Potassium Chloride (K-Dur 20 Meq Er Tab) 20 meq PO BRK [facility] Last Admin: 02/17/18 08:07 Dose: 20 meq - Labs Labs: 02/17/18 07:18 02/17/18 07:18 PT 12.9 SECONDS (9.4-12.5) H 02/10/18 12:13 INR 1.12 (0.93-1.08) H 02/10/18 12:13 APTT 28.4 Seconds (25.1-36.5) 02/10/18 12:13 Attending/Attestation - Attestation I have personally seen and examined this patient.: Yes I have fully participated in the care of the patient.: Yes I have reviewed all pertinent clinical information, including history, physical exam and plan: Yes
--- NOTE | 2018-02-14 10:12 | CP.PCM.PN ---
Addendum entered and electronically signed by Torey Camarena DO 02/14/18 11:50: ID will start amikacin, patient will require CMP q3days as outpatient Original Note: <Torey Camarena - Last Filed: 02/14/18 10:08> Subjective - Date & Time of Evaluation Date of Evaluation: 02/14/18 Time of Evaluation: 09:00 - Subjective Subjective: Progress Note - Dr. Harris Patient was seen and examined at beside. Pt has both lower extremities dressed and wound vac is applied to RLE. Patient stated that she had bilateral lower extremity pain, however is under better control with analgesics. Patient is resting comfortably and tolerating oral intake and moving bowels and bladder regularly. Patient denied fevers, chills, shortness of breath, chest pains, abdominal pains, nausea, vomiting, diarrhea, constipations, or dysuria. Objective - Vital Signs/Intake and Output Vital Signs (last 24 hours): Temp Pulse Resp BP Pulse Ox 98.4 F 71 18 116/59 L 100 02/13/18 14:00 02/13/18 14:00 02/13/18 14:00 02/13/18 14:00 02/13/18 14:00 Intake and Output: 02/14/18 02/14/18 06:59 18:59 Intake Total 640 Balance 640 - Medications Medications: Current Medications Collagenase (Santyl) 0 gm TOP DAILY [facility] Last Admin: 02/13/18 13:49 Dose: Not Given Furosemide (Lasix) 40 mg PO DAILY [facility] Last Admin: 02/13/18 11:09 Dose: 40 mg Piperacillin Sod/Tazobactam Sod (Zosyn 3.375 In Ns 100ml) 100 mls @ 200 mls/hr IVPB Q6 [facility] PRN Reason: Protocol Stop: 02/18/18 12:01 Last Admin: 02/14/18 05:26 Dose: 200 mls/hr Morphine Sulfate (Morphine) 2 mg IVP Q4H PRN PRN Reason: Pain, moderate (4-7) Last Admin: 02/14/18 05:25 Dose: 2 mg Pantoprazole Sodium (Protonix Ec Tab) 40 mg PO DAILY [facility] Last Admin: 02/13/18 11:09 Dose: 40 mg Potassium Chloride (K-Dur 20 Meq Er Tab) 20 meq PO BID [facility] Last Admin: 02/13/18 18:06 Dose: 20 meq - Labs Labs: 02/14/18 06:00 02/14/18 06:00 PT 12.9 SECONDS (9.4-12.5) H 02/10/18 12:13 INR 1.12 (0.93-1.08) H 02/10/18 12:13 APTT 28.4 Seconds (25.1-36.5) 02/10/18 12:13 - Constitutional Appears: No Acute Distress - Head Exam Head Exam: ATRAUMATIC, NORMAL INSPECTION, NORMOCEPHALIC - Eye Exam Eye Exam: EOMI, Normal appearance, PERRL Pupil Exam: NORMAL ACCOMODATION, PERRL - ENT Exam ENT Exam: Mucous Membranes Moist, Normal Exam - Respiratory Exam Respiratory Exam: Clear to Ausculation Bilateral, NORMAL BREATHING PATTERN - Cardiovascular Exam Cardiovascular Exam: REGULAR RHYTHM, +S1, +S2. absent: Murmur - GI/Abdominal Exam GI & Abdominal Exam: Soft, Normal Bowel Sounds. absent: Tenderness - Extremities Exam Extremities Exam: Tenderness Additional comments: Bilateral lower extremities dressed, CDI, wound vac in place - Neurological Exam Neurological Exam: Alert, Awake, CN II-XII Intact, Normal Gait, Oriented x3 - Psychiatric Exam Psychiatric exam: Normal Affect, Normal Mood - Skin Skin Exam: Dry, Intact, Normal Color, Warm Assessment and Plan - Assessment and Plan (Free Text) Assessment: 77 AA F with a PMHx of severe PVD, psoriasis, GERD, HTN, dyslipidemia, CAD, history of left lower extremity gangrene and osteomyelitis admitted with worsening right calcaneal ulcer with exposed bone s/p dbridement of bilateral heel ulcerations and application of bone graft and wound vac to right heel wound post op day 3, dressings changed this morning by podiatry Dr Ruiz. Sensitivites to culture returned and noted zosyn resistance will discuss with ID regarding current and half-way abx treatment. Patient is s/p picc line and pending retirement placement at [facility]. 1) Worsening isabel heel ulcers and Osteomyolitis on the right heel s/p debridement of bilateral heel ulcerations, bone graft and wound vac to right heel wound. - Remains afebrile and no leukocytosis - Will discuss changing abx as per ID - S/p picc line placement likely will require 4 weeks of IV abx treatment - wound cx: corynebacterium, pending sensitivity - Morphine prn for pain - Wound care as per podiatry 2) Chronic psoriasis - currently not on therapy 3) GERD - continue with protonix 4) HTN - control on only lasix 5) Chronic normocytic anemia - h/h fluctuating, no active signs of bleeding - will monitor CBC daily during admission 6) Chronic diastolic chf - continue with lasix, on k-dur to prevent hypokalemia. 7) DVT/GI prophylaxis: heparin sc and protonix Patient seen, examine and discussed with Dr Maricel Ovalle <Maricel Ovalle - Last Filed: 02/14/18 14:09> Objective - Vital Signs/Intake and Output Vital Signs (last 24 hours): Temp Pulse Resp BP Pulse Ox 98.3 F 79 18 116/61 95 02/14/18 06:00 02/14/18 06:00 02/14/18 06:00 02/14/18 10:55 02/14/18 06:00 Intake and Output: 02/14/18 02/14/18 06:59 18:59 Intake Total 640 Balance 640 - Medications Medications: Current Medications Collagenase (Santyl) 0 gm TOP DAILY [facility] Last Admin: 02/14/18 10:56 Dose: 1 appl Furosemide (Lasix) 40 mg PO DAILY [facility] Last Admin: 02/14/18 10:55 Dose: 40 mg Colistimethate Sodium 130 mg/ (Sodium Chloride) 100 mls @ 200 mls/hr IV Q12 [facility] PRN Reason: Protocol Meropenem (Merrem Iv 1 Gm Premix) 50 mls @ 100 mls/hr IVPB Q8 [facility] PRN Reason: Protocol Morphine Sulfate (Morphine) 2 mg IVP Q4H PRN PRN Reason: Pain, moderate (4-7) Last Admin: 02/14/18 05:25 Dose: 2 mg Pantoprazole Sodium (Protonix Ec Tab) 40 mg PO DAILY [facility] Last Admin: 02/14/18 10:54 Dose: 40 mg Potassium Chloride (K-Dur 20 Meq Er Tab) 20 meq PO BID [facility] Last Admin: 02/14/18 10:55 Dose: 20 meq - Labs Labs: 02/14/18 06:00 02/14/18 06:00 PT 12.9 SECONDS (9.4-12.5) H 02/10/18 12:13 INR 1.12 (0.93-1.08) H 02/10/18 12:13 APTT 28.4 Seconds (25.1-36.5) 02/10/18 12:13 Attending/Attestation - Attestation I have personally seen and examined this patient.: Yes I have fully participated in the care of the patient.: Yes I have reviewed all pertinent clinical information, including history, physical exam and plan: Yes Notes (Text): I have seen and examined the patient at bedside. Agree with the above note with the following addition/ exceptions: Briefly this is 77 year old female with history of severe PVD, psoriasis, GERD, HTN, dyslipidemia, history of left lower extremity gangrene and osteomyelitis was sent [place] [facility] [place] of worsening right heel ulcer with exposed bone. She is s/p debridement of bilateral heel ulcerations and application of bone graft and wound vac to right heel wound. Wound culture reveals corynebacterium and pseudomonas. Discussed with ID. Will start amikacin. Patient already has right upper arm PICC line. Possible plan to remove wound vac on Friday. Upon discharge the patient will follow-up with pmd Dr Harris.
[2018-02-14] MEDS: Pantoprazole 40 mg EC Tab PO SCH (10:54)
[2018-02-14] MEDS: Potassium Chloride 20 mEq ER Tab PO SCH ×2 (10:55→17:25)
[2018-02-14] MEDS: Collagenase 250 Units/gm Ointment(30 gm) TOP SCH (10:56)
--- NOTE | 2018-02-14 14:00 | CP.PCM.PN ---
Subjective - Date & Time of Evaluation Date of Evaluation: 02/14/18 Time of Evaluation: 13:20 - Subjective Subjective: Still with pain in both feet, no fevers, no diarrhea. Objective - Vital Signs/Intake and Output Vital Signs (last 24 hours): Temp Pulse Resp BP Pulse Ox 98.3 F 79 18 116/61 95 02/14/18 06:00 02/14/18 06:00 02/14/18 06:00 02/14/18 10:55 02/14/18 06:00 Intake and Output: 02/14/18 02/14/18 06:59 18:59 Intake Total 640 Balance 640 - Medications Medications: Current Medications Collagenase (Santyl) 0 gm TOP DAILY [facility] Last Admin: 02/14/18 10:56 Dose: 1 appl Furosemide (Lasix) 40 mg PO DAILY [facility] Last Admin: 02/14/18 10:55 Dose: 40 mg Piperacillin Sod/Tazobactam Sod (Zosyn 3.375 In Ns 100ml) 100 mls @ 200 mls/hr IVPB Q6 [facility] PRN Reason: Protocol Stop: 02/18/18 12:01 Last Admin: 02/14/18 11:00 Dose: 200 mls/hr Morphine Sulfate (Morphine) 2 mg IVP Q4H PRN PRN Reason: Pain, moderate (4-7) Last Admin: 02/14/18 05:25 Dose: 2 mg Pantoprazole Sodium (Protonix Ec Tab) 40 mg PO DAILY [facility] Last Admin: 02/14/18 10:54 Dose: 40 mg Potassium Chloride (K-Dur 20 Meq Er Tab) 20 meq PO BID [facility] Last Admin: 02/14/18 10:55 Dose: 20 meq - Labs Labs: 02/14/18 06:00 02/14/18 06:00 PT 12.9 SECONDS (9.4-12.5) H 02/10/18 12:13 INR 1.12 (0.93-1.08) H 02/10/18 12:13 APTT 28.4 Seconds (25.1-36.5) 02/10/18 12:13 - Constitutional Appears: Chronically Ill - Head Exam Head Exam: NORMAL INSPECTION - ENT Exam ENT Exam: Mucous Membranes Moist - Neck Exam Neck Exam: absent: Lymphadenopathy, Meningismus - Respiratory Exam Respiratory Exam: Decreased Breath Sounds - Cardiovascular Exam Cardiovascular Exam: +S1, +S2 - GI/Abdominal Exam GI & Abdominal Exam: Soft. absent: Tenderness - Extremities Exam Additional comments: both feet with dressings and wound vacuum in place Assessment and Plan - Assessment and Plan (Free Text) Plan: Assessment right foot heel osteomyelitis and bilateral feet skin and skin structure infection S/P debridement and graft placement POD #3, growing multidrug resistant Pseudomonas from the bone history of sepsis with left lower extremity myositis, cellulitis, tenosynovitis , gangrene and probable osteomyelitis, grew Pseudomonas history of bilateral lower extremity cellulitis with no evidence of osteomyelitis, growing Citrobacter, Serratia and Group B Strep severe PVD psoriasis GERD HTN dyslipidemia CAD Plan will change antibiotics to Colistin and Merrem and will need CMP every 3 days; OR pathology showing acute osteomyelitis without clean margins - will need at least 4 weeks of antibiotics with weekly ESR, CRP, CBC, CMP as well with outpatient follow up with Podiatry will continue to monitor clinically
[2018-02-14] MEDS: COLISTIMETHATE IV SCH (14:18)
[2018-02-14] MEDS: SODIUM CHLORIDE 0.9% IV SCH (14:18)
[2018-02-14] MEDS: Meropenem IV 1 gm in NS 50 ML IVPB SCH ×2 (14:22→21:14)
[2018-02-14] MEDS ORDERED: Morphine 4 mg/ml ISec IM ONE (21:00)
[2018-02-15] MEDS: SODIUM CHLORIDE 0.9% IV SCH ×3 (05:20→22:14)
[2018-02-15] MEDS: COLISTIMETHATE IV SCH ×3 (05:20→22:14)
[2018-02-15] MEDS: Meropenem IV 1 gm in NS 50 ML IVPB SCH ×3 (05:50→22:15)
[2018-02-15 07:34] LABS: BASO # 0.02 K/mm3 (0.0-2.0); BASO % 0.3 % (0.0-3.0); EOS # 0.5 (0.0-0.7); EOS % 7.7 % (1.5-5.0); GRAN # 3.91 (1.4-6.5); GRAN % 59.1 % (50.0-68.0); HEMOGLOBIN 8.1 g/dL (12.0-16.0); LYMPH # 1.7 (1.2-3.4); LYMPH % 26.2 % (22.0-35.0); MEAN CELL VOLUME 86.1 fl (80.0-105.0); MEAN CORPUSCULAR HEMOGLOBIN 27.6 pg (25.0-35.0); MEAN PLATELET VOLUME 8.9 fl (7.0-11.0); MONO # 0.4 (0.1-0.6); MONO % 6.7 % (1.0-6.0); RBC 2.94 10^6/uL (3.5-6.1); RED CELL DISTRIBUTION WIDTH 15.7 % (11.5-14.5); WHITE BLOOD COUNT 6.6 10^3/ul (4.5-11.0)
[2018-02-15 07:54] LABS: ALB/GLOB RATIO 0.8 (1.1-1.8); ALBUMIN 2.7 g/dL (3.0-4.8); ALT/SGPT 19 U/L (7-56); AST/SGOT 34 U/L (14-36); BLOOD UREA NITROGEN 5 mg/dL (7-21); CALCIUM 8.8 mg/dL (8.4-10.5); GFR AFRICAN-AMERICAN > 60; GFR NON-AFRICAN AMERICAN > 60
[2018-02-15] MEDS: Potassium Chloride 20 mEq ER Tab PO SCH ×2 (09:37→17:53)
[2018-02-15] MEDS: Pantoprazole 40 mg EC Tab PO SCH (09:37)
[2018-02-15] MEDS: Collagenase 250 Units/gm Ointment(30 gm) TOP SCH (09:38)
[2018-02-15] MEDS ORDERED: Morphine 2 mg/2 mL syringe IVP PRN (11:54)
[2018-02-15] MEDS ORDERED: Morphine 4 mg/ml ISec IV PRN (12:04)
--- NOTE | 2018-02-15 12:05 | CP.PCM.PN ---
Subjective - Date & Time of Evaluation Date of Evaluation: 02/15/18 Time of Evaluation: 12:00 - Subjective Subjective: Podiatry Progress Note- Dr. Samson 77 y/o female seen at bedside this morning with attending Dr. Diaz, 4 days s/ p bilateral heel debridement of wounds with right heel application of graft and wound vac. Pt resting comfortably in bed in NAD. Denies any overnight events. Admits to mild intermittent achy pain, well controlled with meds. Dressing is clean, dry, intact without strikethrough. Denies F/C/N/V/CP/SOB. No new pedal complaints Objective - Vital Signs/Intake and Output Vital Signs (last 24 hours): Temp Pulse Resp BP Pulse Ox 98.1 F 81 18 128/68 100 02/15/18 06:00 02/15/18 06:00 02/15/18 06:00 02/15/18 09:38 02/15/18 06:00 Intake and Output: 02/15/18 02/15/18 06:59 18:59 Intake Total 180 Balance 180 - Medications Medications: Current Medications Collagenase (Santyl) 0 gm TOP DAILY [facility] Last Admin: 02/15/18 09:38 Dose: 1 appl Furosemide (Lasix) 40 mg PO DAILY [facility] Last Admin: 02/15/18 09:38 Dose: 40 mg Colistimethate Sodium 130 mg/ (Sodium Chloride) 100 mls @ 200 mls/hr IV Q12 [facility] PRN Reason: Protocol Last Admin: 02/15/18 09:37 Dose: 200 mls/hr Meropenem (Merrem Iv 1 Gm Premix) 50 mls @ 100 mls/hr IVPB Q8 [facility] PRN Reason: Protocol Last Admin: 02/15/18 05:50 Dose: 100 mls/hr Morphine Sulfate (Morphine) 2 mg IVP Q4H PRN PRN Reason: Pain, severe (8-10) Pantoprazole Sodium (Protonix Ec Tab) 40 mg PO DAILY [facility] Last Admin: 02/15/18 09:37 Dose: 40 mg Potassium Chloride (K-Dur 20 Meq Er Tab) 20 meq PO BID [facility] Last Admin: 02/15/18 09:37 Dose: 20 meq - Labs Labs: 02/15/18 07:00 02/15/18 07:00 PT 12.9 SECONDS (9.4-12.5) H 02/10/18 12:13 INR 1.12 (0.93-1.08) H 02/10/18 12:13 APTT 28.4 Seconds (25.1-36.5) 02/10/18 12:13 - Constitutional Appears: Well, Non-toxic, No Acute Distress - Extremities Exam Extremities Exam: absent: Calf Tenderness Additional comments: VASC: DP and PT pulses non-palpable. CFT WNL. Temperature gradient cool to cool from proximal to distal. +2 pitting edema noted to B/L lower extremities NEURO: Protective sensation grossly intact DERM: Diffuse psoriatic plaques and scaling noted to bilateral lower extremities distal to tibial tuberosity. Right heel ulceration measuring approximately 4cm x 4 cm x 0.2 cm noted with graft in place, no erythema, no drainage, no streaking, no purulence noted L posterior heel exhibits open ulceration with mostly granular wound base, mild serosanguinous drainage noted on inner dressing, no fluctuance, no malodor, no probe to bone ORTHO: pain with palpation surrounding ulceration sites - Neurological Exam Neurological Exam: Alert, Awake, Oriented x3 - Psychiatric Exam Psychiatric exam: Normal Affect, Normal Mood Assessment and Plan - Assessment and Plan (Free Text) Assessment: 77 y/o female 4 days s/p bilateral heel wound debridement with exposed right calcaneal bone, with right heel Integra graft application and wound vac application Plan: Pt seen and evaluated at bedside with attending Dr. Samson Labs and vitals reviewed- afebrile, no leukocytosis Wound vac running continuous 125mm Hg pressure with no leaks to R heel wound L heel wound cleaned and dressed with xeroform, ABD and DSD R heel outer dressing changed with DSD Wound cx R foot - Corynebacterium species Wound cx L foot - Pseudomonas Aeruginosa Continue abx as per ID Will continue to follow pt while in house No further surgical debridement planned at this time
--- NOTE | 2018-02-15 13:22 | PN ---
DATE: 02/15/2018 SUBJECTIVE: She had her feet worked on by Podiatry, they wrapped up. She is on IV antibiotics, l-alginase, Lasix, Zosyn, morphine, pantoprazole, potassium. She has a right foot heel osteomyelitis, bilateral feet skin infection, status post debridement. There is a change in IV antibiotics. She will need to have four weeks of colistin and Merrem and will need to see ROBOTIC MACHINE OPERATOR every 3 days, needs 4 weeks of antibiotics with the sedimentation rate, CRP, CBC, CMP and followed by Podiatry. Hopefully, we can do this by tomorrow, which is Friday at [facility]. PHYSICAL EXAMINATION: VITAL SIGNS: Temperature 98.1, 81 pulse, 128/68 blood pressure, 18 respiratory rate, 100% O2 sat on room air. HEENT: Head is atraumatic, normocephalic. HEART: Regular rate. LUNGS: Clear to auscultation. ABDOMEN: Soft. EXTREMITIES: Both feet are bandaged. LABORATORY DATA: She has a 6.6 white count, 8.1 hemoglobin, 25.3 hematocrit with 379 platelets. Sodium 142, potassium of 4, BUN is 5, creatinine 0.7, GFR is greater than 60, sugar is 76, calcium is 8.8, phosphorus 4.2, magnesium 1.6, total bili is 0.4. AST is 34, ALT is 19, alkaline phosphatase 47, total protein is 6.1. PLAN: Being seen by Infectious Disease, Podiatry. I am going to add iron, check her labs tomorrow, and hopefully, will be out of bed at [facility]. Otis Harris DO
--- NOTE | 2018-02-15 14:55 | CP.PCM.PN ---
Subjective - Date & Time of Evaluation Date of Evaluation: 02/15/18 Time of Evaluation: 11:25 - Subjective Subjective: Comfortable in bed, less pain in the feet, tolerating the new antibiotics. No fevers. Objective - Vital Signs/Intake and Output Vital Signs (last 24 hours): Temp Pulse Resp BP Pulse Ox 98.2 F 79 18 125/70 100 02/14/18 22:00 02/14/18 22:00 02/14/18 22:00 02/14/18 22:00 02/14/18 22:00 Intake and Output: 02/15/18 02/15/18 06:59 18:59 Intake Total 180 Balance 180 - Medications Medications: Current Medications Collagenase (Santyl) 0 gm TOP DAILY [facility] Last Admin: 02/14/18 10:56 Dose: 1 appl Furosemide (Lasix) 40 mg PO DAILY [facility] Last Admin: 02/14/18 10:55 Dose: 40 mg Colistimethate Sodium 130 mg/ (Sodium Chloride) 100 mls @ 200 mls/hr IV Q12 [facility] PRN Reason: Protocol Last Admin: 02/15/18 05:20 Dose: 200 mls/hr Meropenem (Merrem Iv 1 Gm Premix) 50 mls @ 100 mls/hr IVPB Q8 [facility] PRN Reason: Protocol Last Admin: 02/15/18 05:50 Dose: 100 mls/hr Pantoprazole Sodium (Protonix Ec Tab) 40 mg PO DAILY [facility] Last Admin: 02/14/18 10:54 Dose: 40 mg Potassium Chloride (K-Dur 20 Meq Er Tab) 20 meq PO BID [facility] Last Admin: 02/14/18 17:25 Dose: 20 meq - Labs Labs: 02/15/18 07:00 02/15/18 07:00 PT 12.9 SECONDS (9.4-12.5) H 02/10/18 12:13 INR 1.12 (0.93-1.08) H 02/10/18 12:13 APTT 28.4 Seconds (25.1-36.5) 02/10/18 12:13 - Constitutional Appears: Chronically Ill - Head Exam Head Exam: NORMAL INSPECTION - ENT Exam ENT Exam: Mucous Membranes Moist - Neck Exam Neck Exam: absent: Meningismus - Respiratory Exam Respiratory Exam: Decreased Breath Sounds - Cardiovascular Exam Cardiovascular Exam: +S1, +S2 - GI/Abdominal Exam GI & Abdominal Exam: Soft. absent: Tenderness - Extremities Exam Additional comments: both feet with dressings in place Assessment and Plan - Assessment and Plan (Free Text) Plan: Assessment right foot heel osteomyelitis and bilateral feet skin and skin structure infection S/P debridement and graft placement POD #4, growing multidrug resistant Pseudomonas from the bone history of sepsis with left lower extremity myositis, cellulitis, tenosynovitis , gangrene and probable osteomyelitis, grew Pseudomonas history of bilateral lower extremity cellulitis with no evidence of osteomyelitis, growing Citrobacter, Serratia and Group B Strep severe PVD psoriasis GERD HTN dyslipidemia CAD Plan continue Colistin and Merrem and will need CMP every 3 days; OR pathology showing acute osteomyelitis without clean margins - will need at least 4 weeks of antibiotics with weekly ESR, CRP, CBC, CMP as well with outpatient follow up with Podiatry will continue to monitor clinically
[2018-02-16] MEDS: Meropenem IV 1 gm in NS 50 ML IVPB SCH ×3 (05:58→22:00)
[2018-02-16 06:41] LABS: BASO # 0.03 K/mm3 (0.0-2.0); BASO % 0.5 % (0.0-3.0); EOS # 0.6 (0.0-0.7); EOS % 8.6 % (1.5-5.0); GRAN # 3.24 (1.4-6.5); GRAN % 49.9 % (50.0-68.0); HEMOGLOBIN 8.2 g/dL (12.0-16.0); LYMPH # 2.1 (1.2-3.4); LYMPH % 32.2 % (22.0-35.0); MEAN CELL VOLUME 86.1 fl (80.0-105.0); MEAN CORPUSCULAR HEMOGLOBIN 27.8 pg (25.0-35.0); MEAN CORPUSCULAR HGB CONC 32.3 g/dl (31.0-37.0); MONO # 0.6 (0.1-0.6); MONO % 8.8 % (1.0-6.0); RBC 2.95 10^6/uL (3.5-6.1); RED CELL DISTRIBUTION WIDTH 15.6 % (11.5-14.5); WHITE BLOOD COUNT 6.5 10^3/ul (4.5-11.0)
[2018-02-16 07:17] LABS: ALB/GLOB RATIO 0.7 (1.1-1.8); ALBUMIN 2.1 g/dL (3.0-4.8); ALT/SGPT 21 U/L (7-56); AST/SGOT 25 U/L (14-36); BLOOD UREA NITROGEN 4 mg/dL (7-21); CALCIUM 7.1 mg/dL (8.4-10.5); GFR AFRICAN-AMERICAN > 60; GFR NON-AFRICAN AMERICAN > 60
[2018-02-16] MEDS: Potassium Chloride 20 mEq ER Tab PO SCH (08:14)
[2018-02-16 08:30] VITALS: O2SAT 100
[2018-02-16] MEDS: Pantoprazole 40 mg EC Tab PO SCH (09:10)
--- NOTE | 2018-02-16 09:35 | DS ---
HISTORY OF PRESENT ILLNESS: I saw her resting comfortably in bed this morning. She slept well. No acute distress. No chest pain. No shortness of breath. No abdominal pain. Even the feet and heels are a little bit better today and she is hungry. PHYSICAL EXAMINATION: VITAL SIGNS: She has a 98.3 temp, 82 pulse, 102/45 blood pressure, 18 respiratory rate, 98% O2 sat on room air. HEENT: Head is atraumatic, normocephalic. HEART: Regular rate. LUNGS: Decreased breath sounds, but clear. ABDOMEN: Soft. EXTREMITIES: Bandaged feet. MEDICATIONS: She is currently on colistimethate, iron, potassium now replacing, Lasix, Merrem IV, morphine, Protonix and Santyl. She need to be on the Merrem and the colistimethate 130 mg twice a day. Both those medications for 4 weeks. LABORATORY DATA: She has a 143 sodium, potassium 3.2. I put her back on potassium 20 daily. BUN is 4, creatinine 0.6, GFR is greater than 60, sugar is 61, calcium is 7.1, phosphorus is 3.1, magnesium is 1.2. I am going to give magnesium rider. Total bili is 0.2, AST is 25, ALT is 21, alk phos 36, total protein is 5. White count is 6.5, hemoglobin 8.2, hematocrit 25.4, platelets of 396. She had Corynebacterium species, Pseudomonas aeruginosa species in the right and left foot. ASSESSMENT AND PLAN: She is being seen by Infectious Disease, Podiatry. She needs 4 weeks of two antibiotics IV and blood test every 3 days. She has osteomyelitis, cellulitis, wound vacuum-assisted closure, low potassium, anemia. Hopefully, we can get her to subacute rehab at [facility] for 4 weeks of IV antibiotics and physical therapy. Otis Harris DO
[2018-02-16] MEDS: COLISTIMETHATE IV SCH ×2 (09:42→22:01)
[2018-02-16] MEDS: SODIUM CHLORIDE 0.9% IV SCH ×2 (09:42→22:01)
--- NOTE | 2018-02-16 13:51 | CP.PCM.PN ---
Subjective - Date & Time of Evaluation Date of Evaluation: 02/16/18 Time of Evaluation: 11:05 - Subjective Subjective: Comfortable in bed, no fevers, not in distress, less pain in the feet. No nausea or diarrhea. Objective - Vital Signs/Intake and Output Vital Signs (last 24 hours): Temp Pulse Resp BP Pulse Ox 98.5 F 83 18 107/50 L 100 02/16/18 08:29 02/16/18 08:29 02/16/18 08:29 02/16/18 09:13 02/16/18 08:29 - Medications Medications: Current Medications Collagenase (Santyl) 0 gm TOP DAILY [facility] Last Admin: 02/15/18 09:38 Dose: 1 appl Ferrous Sulfate (Feosol) 324 mg PO BID [facility] Last Admin: 02/16/18 09:10 Dose: 324 mg Furosemide (Lasix) 40 mg PO DAILY [facility] Last Admin: 02/16/18 09:13 Dose: Not Given Colistimethate Sodium 130 mg/ (Sodium Chloride) 100 mls @ 200 mls/hr IV Q12 [facility] PRN Reason: Protocol Last Admin: 02/16/18 09:42 Dose: 200 mls/hr Meropenem (Merrem Iv 1 Gm Premix) 50 mls @ 100 mls/hr IVPB Q8 [facility] PRN Reason: Protocol Last Admin: 02/16/18 05:58 Dose: 100 mls/hr Morphine Sulfate (Morphine) 2 mg IV Q4H PRN PRN Reason: Pain, severe (8-10) Last Admin: 02/15/18 15:05 Dose: 2 mg Pantoprazole Sodium (Protonix Ec Tab) 40 mg PO DAILY [facility] Last Admin: 02/16/18 09:10 Dose: 40 mg Potassium Chloride (K-Dur 20 Meq Er Tab) 20 meq PO BRK [facility] Last Admin: 02/16/18 08:14 Dose: 20 meq - Labs Labs: 02/16/18 06:30 02/16/18 06:30 PT 12.9 SECONDS (9.4-12.5) H 02/10/18 12:13 INR 1.12 (0.93-1.08) H 02/10/18 12:13 APTT 28.4 Seconds (25.1-36.5) 02/10/18 12:13 - Constitutional Appears: Chronically Ill - Head Exam Head Exam: NORMAL INSPECTION - ENT Exam ENT Exam: Mucous Membranes Moist - Neck Exam Neck Exam: absent: Meningismus - Respiratory Exam Respiratory Exam: Decreased Breath Sounds - Cardiovascular Exam Cardiovascular Exam: +S1, +S2 - GI/Abdominal Exam GI & Abdominal Exam: Soft. absent: Tenderness - Extremities Exam Additional comments: both feet with dressings in place Assessment and Plan - Assessment and Plan (Free Text) Plan: Assessment right foot heel osteomyelitis and bilateral feet skin and skin structure infection S/P debridement and graft placement POD #5, growing multidrug resistant Pseudomonas from the bone history of sepsis with left lower extremity myositis, cellulitis, tenosynovitis , gangrene and probable osteomyelitis, grew Pseudomonas history of bilateral lower extremity cellulitis with no evidence of osteomyelitis, growing Citrobacter, Serratia and Group B Strep severe PVD psoriasis GERD HTN dyslipidemia CAD Plan continue Colistin and Merrem and will need CMP every 3 days and to stop colistin if the patient develops renal failure; OR pathology showing acute osteomyelitis without clean margins - will need at least 4 weeks of antibiotics with weekly ESR, CRP, CBC, CMP as well with regular outpatient follow up with Podiatry
[2018-02-16] MEDS: Collagenase 250 Units/gm Ointment(30 gm) TOP SCH ×2 (15:08→19:52)
--- NOTE | 2018-02-16 16:50 | CP.PCM.PN ---
Subjective - Date & Time of Evaluation Date of Evaluation: 02/16/18 Time of Evaluation: 16:45 - Subjective Subjective: Podiatry Progress Note- Dr. Samson 77 y/o female seen at bedside this morning with attending Dr. Samson, 5 days s/ p bilateral heel debridement of wounds with right heel application of graft and wound vac. Pt resting comfortably in bed in NAD. Denies any overnight events. Admits to mild intermittent achy pain, well controlled with meds. States pain has decreased since admission to hospital. States she has not gotten her heel boots yet. She is agreeable to be D/C to [facility] or another [facility] provided that she can get the care she needs. Dressing is clean , dry, intact without strikethrough. Vac has been running to R heel wound. Denies F/C/N/V/CP/SOB. No new pedal complaints Objective - Vital Signs/Intake and Output Vital Signs (last 24 hours): Temp Pulse Resp BP Pulse Ox 98 F 83 18 131/73 100 02/16/18 14:29 02/16/18 14:29 02/16/18 14:29 02/16/18 14:29 02/16/18 14:29 Intake and Output: 02/16/18 02/16/18 06:59 18:59 Intake Total 960 Balance 960 - Medications Medications: Current Medications Collagenase (Santyl) 0 gm TOP DAILY [facility] Last Admin: 02/16/18 15:08 Dose: 1 appl Ferrous Sulfate (Feosol) 324 mg PO BID [facility] Last Admin: 02/16/18 09:10 Dose: 324 mg Furosemide (Lasix) 40 mg PO DAILY [facility] Last Admin: 02/16/18 09:13 Dose: Not Given Colistimethate Sodium 130 mg/ (Sodium Chloride) 100 mls @ 200 mls/hr IV Q12 [facility] PRN Reason: Protocol Last Admin: 02/16/18 09:42 Dose: 200 mls/hr Meropenem (Merrem Iv 1 Gm Premix) 50 mls @ 100 mls/hr IVPB Q8 [facility] PRN Reason: Protocol Last Admin: 02/16/18 15:07 Dose: 100 mls/hr Morphine Sulfate (Morphine) 2 mg IVP Q4H PRN PRN Reason: Pain, severe (8-10) Pantoprazole Sodium (Protonix Ec Tab) 40 mg PO DAILY [facility] Last Admin: 02/16/18 09:10 Dose: 40 mg Potassium Chloride (K-Dur 20 Meq Er Tab) 20 meq PO BRK [facility] Last Admin: 02/16/18 08:14 Dose: 20 meq - Labs Labs: 02/16/18 06:30 02/16/18 06:30 PT 12.9 SECONDS (9.4-12.5) H 02/10/18 12:13 INR 1.12 (0.93-1.08) H 02/10/18 12:13 APTT 28.4 Seconds (25.1-36.5) 02/10/18 12:13 - Constitutional Appears: Well, Non-toxic, No Acute Distress - Extremities Exam Additional comments: VASC: DP and PT pulses non-palpable. CFT WNL. Temperature gradient cool to cool from proximal to distal. +2 pitting edema noted to B/L lower extremities NEURO: Protective sensation grossly intact DERM: Diffuse psoriatic plaques and scaling noted to bilateral lower extremities distal to tibial tuberosity. Right heel ulceration measuring approximately 5cm x 4 cm x 0.2 cm noted with graft in place, no erythema, no drainage, no streaking, no purulence noted. Left posterior heel exhibits open ulceration approx 5cm x 4cm x 0.1cm with mostly granular wound base, mild serosanguinous drainage noted on inner dressing, no fluctuance, no malodor, no probe to bone ORTHO: mild pain with palpation surrounding ulceration sites, right > left - Neurological Exam Neurological Exam: Alert, Awake, Oriented x3 - Psychiatric Exam Psychiatric exam: Normal Affect, Normal Mood Assessment and Plan - Assessment and Plan (Free Text) Assessment: 77 y/o female 5 days s/p bilateral heel wound debridement with exposed right calcaneal bone, with right heel Integra graft application and wound vac application Plan: Pt seen and evaluated at bedside with attending Dr. Samson Labs and vitals reviewed- afebrile, no leukocytosis Wound vac running continuous 125mm Hg pressure with no leaks to R heel wound L heel wound cleaned and dressed with xeroform, ABD and DSD R heel wound vac removed - wound dressed with Hydrogel, Adaptic, ABD and DSD Wound cx R foot - Corynebacterium species Wound cx L foot - Pseudomonas Aeruginosa Continue abx as per ID Pt allowed to weight bear with use of Darco heel relief shoes Multipodus boots should be in place at all times in bed or in wheelshair Upon discharge, wound care as follows: R foot -gentle saline cleanse (leave skin graft intact), dress with Hydrogel , Adaptic, ABD, DSD L foot - saline cleanse, dress with xeroform, ABD, DSD Pt stable for discharge from podiatry standpoint -no further surgical debridement planned at this time
[2018-02-17] MEDS: Meropenem IV 1 gm in NS 50 ML IVPB SCH ×2 (05:57→13:52)
[2018-02-17 07:22] LABS: BASO # 0.03 K/mm3 (0.0-2.0); BASO % 0.4 % (0.0-3.0); EOS # 0.6 (0.0-0.7); EOS % 7.8 % (1.5-5.0); GRAN # 4.28 (1.4-6.5); GRAN % 54.8 % (50.0-68.0); HEMOGLOBIN 8.5 g/dL (12.0-16.0); LYMPH # 2.2 (1.2-3.4); LYMPH % 27.5 % (22.0-35.0); MEAN CELL VOLUME 85.9 fl (80.0-105.0); MEAN CORPUSCULAR HGB CONC 32.6 g/dl (31.0-37.0); MEAN PLATELET VOLUME 8.9 fl (7.0-11.0); MONO # 0.7 (0.1-0.6); MONO % 9.5 % (1.0-6.0); RBC 3.04 10^6/uL (3.5-6.1); RED CELL DISTRIBUTION WIDTH 15.5 % (11.5-14.5); WHITE BLOOD COUNT 7.8 10^3/ul (4.5-11.0)
[2018-02-17 07:52] LABS: ALB/GLOB RATIO 0.9 (1.1-1.8); CALCIUM 9.6 mg/dL (8.4-10.5)
[2018-02-17] MEDS: Potassium Chloride 20 mEq ER Tab PO SCH (08:07)
[2018-02-17] MEDS: Pantoprazole 40 mg EC Tab PO SCH (09:38)
[2018-02-17] MEDS: SODIUM CHLORIDE 0.9% IV SCH (09:41)
[2018-02-17] MEDS: COLISTIMETHATE IV SCH (09:41)
[2018-02-17] MEDS: Morphine 2 mg/ml ISec IVP PRN ×2 (09:51→19:03)
--- NOTE | 2018-02-17 13:05 | CP.PCM.PN ---
<Jacqueline Chen - Last Filed: 02/17/18 12:59> Subjective - Date & Time of Evaluation Date of Evaluation: 02/17/18 Time of Evaluation: 12:59 - Subjective Subjective: Podiatry Progress Note- Dr. Diaz 77 y/o female seen at bedside this afternoon, 6 days s/p bilateral heel debridement of wounds with right heel application of graft and wound vac. Pt resting comfortably in bed in NAD. Denies any overnight events. Admits to increased pain overnight but says she got medicine and that helped. States pain has decreased overall since admission to hospital. Dressings are clean, dry, intact without strikethrough. Denies F/C/N/V/CP/SOB. No new pedal complaints Objective - Vital Signs/Intake and Output Vital Signs (last 24 hours): Temp Pulse Resp BP Pulse Ox 98.1 F 98 H 18 131/65 100 02/17/18 08:18 02/17/18 08:18 02/17/18 08:18 02/17/18 09:41 02/17/18 08:18 Intake and Output: 02/17/18 02/17/18 06:59 18:59 Intake Total 540 Balance 540 - Medications Medications: Current Medications Collagenase (Santyl) 0 gm TOP DAILY [facility] Last Admin: 02/16/18 19:52 Dose: Not Given Ferrous Sulfate (Feosol) 324 mg PO BID [facility] Last Admin: 02/17/18 09:37 Dose: 324 mg Furosemide (Lasix) 40 mg PO DAILY [facility] Last Admin: 02/17/18 09:41 Dose: 40 mg Colistimethate Sodium 130 mg/ (Sodium Chloride) 100 mls @ 200 mls/hr IV Q12 [facility] PRN Reason: Protocol Last Admin: 02/17/18 09:41 Dose: 200 mls/hr Meropenem (Merrem Iv 1 Gm Premix) 50 mls @ 100 mls/hr IVPB Q8 [facility] PRN Reason: Protocol Last Admin: 02/17/18 05:57 Dose: 100 mls/hr Morphine Sulfate (Morphine) 2 mg IVP Q4H PRN PRN Reason: Pain, severe (8-10) Last Admin: 02/17/18 09:51 Dose: 2 mg Pantoprazole Sodium (Protonix Ec Tab) 40 mg PO DAILY [facility] Last Admin: 02/17/18 09:38 Dose: 40 mg Potassium Chloride (K-Dur 20 Meq Er Tab) 20 meq PO BRK [facility] Last Admin: 02/17/18 08:07 Dose: 20 meq - Labs Labs: 02/17/18 07:18 02/17/18 07:18 PT 12.9 SECONDS (9.4-12.5) H 02/10/18 12:13 INR 1.12 (0.93-1.08) H 02/10/18 12:13 APTT 28.4 Seconds (25.1-36.5) 02/10/18 12:13 - Constitutional Appears: Well, Non-toxic, No Acute Distress - Extremities Exam Additional comments: VASC: DP and PT pulses non-palpable. CFT WNL. Temperature gradient cool to cool from proximal to distal. +2 pitting edema noted to B/L lower extremities NEURO: Protective sensation grossly intact DERM: Diffuse psoriatic plaques and scaling noted to bilateral lower extremities distal to tibial tuberosity. Right heel ulceration measuring approximately 5cm x 4 cm x 0.2 cm noted with graft in place, no erythema, no drainage, no streaking, no purulence noted. Left posterior heel exhibits open ulceration approx 5cm x 4cm x 0.1cm with mostly granular wound base, with distal wound base exhibiting fibrotic tissue. Mild serosanguinous drainage noted on inner dressing, no fluctuance, no malodor, no probe to bone ORTHO: mild pain with palpation surrounding ulceration sites, right > left - Neurological Exam Neurological Exam: Alert, Awake, Oriented x3 - Psychiatric Exam Psychiatric exam: Normal Affect, Normal Mood Assessment and Plan - Assessment and Plan (Free Text) Assessment: 77 y/o female 6 days s/p bilateral heel wound debridement with exposed right calcaneal bone, with right heel Integra graft application and wound vac application Plan: Pt seen and evaluated at bedside Discussed with attending Dr. Diaz L heel wound cleaned and dressed with xeroform, ABD and DSD - distal wound bed with fibrotic tissue dressed with Santyl R heel wound cleaned and wound dressed with Hydrogel, Adaptic, ABD and DSD Wound cx R foot - Corynebacterium species Wound cx L foot - Pseudomonas Aeruginosa Continue abx as per ID Pt allowed to weight bear with use of Darco heel relief shoes Multipodus boots should be in place at all times in bed or in wheelchair Upon discharge, wound care as follows: R foot -gentle saline cleanse (leave skin graft intact), dress with Hydrogel , Adaptic, ABD, DSD L foot - saline cleanse, dress with xeroform, ABD, DSD Pt stable for discharge from podiatry standpoint -no further surgical debridement planned at this time <Yo Diaz - Last Filed: 02/17/18 14:06> Objective - Vital Signs/Intake and Output Vital Signs (last 24 hours): Temp Pulse Resp BP Pulse Ox 98.1 F 98 H 18 131/65 100 02/17/18 08:18 02/17/18 08:18 02/17/18 08:18 02/17/18 09:41 02/17/18 08:18 Intake and Output: 02/17/18 02/17/18 06:59 18:59 Intake Total 540 Balance 540 - Medications Medications: Current Medications Collagenase (Santyl) 0 gm TOP DAILY [facility] Last Admin: 02/16/18 19:52 Dose: Not Given Ferrous Sulfate (Feosol) 324 mg PO BID [facility] Last Admin: 02/17/18 09:37 Dose: 324 mg Furosemide (Lasix) 40 mg PO DAILY [facility] Last Admin: 02/17/18 09:41 Dose: 40 mg Colistimethate Sodium 130 mg/ (Sodium Chloride) 100 mls @ 200 mls/hr IV Q12 [facility] PRN Reason: Protocol Last Admin: 02/17/18 09:41 Dose: 200 mls/hr Meropenem (Merrem Iv 1 Gm Premix) 50 mls @ 100 mls/hr IVPB Q8 [facility] PRN Reason: Protocol Last Admin: 02/17/18 13:52 Dose: 100 mls/hr Morphine Sulfate (Morphine) 2 mg IVP Q4H PRN PRN Reason: Pain, severe (8-10) Last Admin: 02/17/18 09:51 Dose: 2 mg Pantoprazole Sodium (Protonix Ec Tab) 40 mg PO DAILY [facility] Last Admin: 02/17/18 09:38 Dose: 40 mg Potassium Chloride (K-Dur 20 Meq Er Tab) 20 meq PO BRK [facility] Last Admin: 02/17/18 08:07 Dose: 20 meq - Labs Labs: 02/17/18 07:18 02/17/18 07:18 PT 12.9 SECONDS (9.4-12.5) H 02/10/18 12:13 INR 1.12 (0.93-1.08) H 02/10/18 12:13 APTT 28.4 Seconds (25.1-36.5) 02/10/18 12:13 Attending/Attestation - Attestation I have personally seen and examined this patient.: Yes I have fully participated in the care of the patient.: Yes I have reviewed all pertinent clinical information, including history, physical exam and plan: Yes
--- NOTE | 2018-02-17 14:09 | CP.PCM.PN ---
Subjective - Date & Time of Evaluation Date of Evaluation: 02/17/18 Time of Evaluation: 11:05 - Subjective Subjective: Having occasional pain in the feet, no fevers, no diarrhea. Objective - Vital Signs/Intake and Output Vital Signs (last 24 hours): Temp Pulse Resp BP Pulse Ox 98.1 F 98 H 18 112/56 L 100 02/17/18 08:18 02/17/18 08:18 02/17/18 08:18 02/17/18 08:18 02/17/18 08:18 Intake and Output: 02/17/18 02/17/18 06:59 18:59 Intake Total 540 Balance 540 - Medications Medications: Current Medications Collagenase (Santyl) 0 gm TOP DAILY [facility] Last Admin: 02/16/18 19:52 Dose: Not Given Ferrous Sulfate (Feosol) 324 mg PO BID [facility] Last Admin: 02/16/18 18:14 Dose: 324 mg Furosemide (Lasix) 40 mg PO DAILY [facility] Last Admin: 02/16/18 09:13 Dose: Not Given Colistimethate Sodium 130 mg/ (Sodium Chloride) 100 mls @ 200 mls/hr IV Q12 [facility] PRN Reason: Protocol Last Admin: 02/16/18 22:01 Dose: 200 mls/hr Meropenem (Merrem Iv 1 Gm Premix) 50 mls @ 100 mls/hr IVPB Q8 [facility] PRN Reason: Protocol Last Admin: 02/17/18 05:57 Dose: 100 mls/hr Morphine Sulfate (Morphine) 2 mg IVP Q4H PRN PRN Reason: Pain, severe (8-10) Pantoprazole Sodium (Protonix Ec Tab) 40 mg PO DAILY [facility] Last Admin: 02/16/18 09:10 Dose: 40 mg Potassium Chloride (K-Dur 20 Meq Er Tab) 20 meq PO BRK [facility] Last Admin: 02/17/18 08:07 Dose: 20 meq - Labs Labs: 02/17/18 07:18 02/17/18 07:18 PT 12.9 SECONDS (9.4-12.5) H 02/10/18 12:13 INR 1.12 (0.93-1.08) H 02/10/18 12:13 APTT 28.4 Seconds (25.1-36.5) 02/10/18 12:13 - Constitutional Appears: Non-toxic, Chronically Ill - Head Exam Head Exam: NORMAL INSPECTION - ENT Exam ENT Exam: Mucous Membranes Moist - Neck Exam Neck Exam: absent: Meningismus - Respiratory Exam Respiratory Exam: Decreased Breath Sounds - Cardiovascular Exam Cardiovascular Exam: +S1, +S2 - GI/Abdominal Exam GI & Abdominal Exam: Soft. absent: Tenderness - Extremities Exam Additional comments: both feet with dressings in place Assessment and Plan - Assessment and Plan (Free Text) Plan: Assessment right foot heel osteomyelitis and bilateral feet skin and skin structure infection S/P debridement and graft placement POD #6, growing multidrug resistant Pseudomonas from the bone history of sepsis with left lower extremity myositis, cellulitis, tenosynovitis , gangrene and probable osteomyelitis, grew Pseudomonas history of bilateral lower extremity cellulitis with no evidence of osteomyelitis, growing Citrobacter, Serratia and Group B Strep severe PVD psoriasis GERD HTN dyslipidemia CAD Plan continue Colistin and Merrem and will need CMP every 3 days and to stop colistin if the patient develops renal failure; OR pathology showing acute osteomyelitis without clean margins - will need at least 4 weeks of antibiotics with weekly ESR, CRP, CBC, CMP as well with regular outpatient follow up with Podiatry although Pseudomonas is resistant to Merrem, the combination of Colisting and Merrem may render the organism susceptible to Merrem - explained to patient that it will be very hard to treat her osteomyelitis and even with the combination of antibiotics, there is no guarantee of cure because of the multidrug resistance
[2018-02-17 16:23] VITALS: BP 123/67; PULSE 92; RESP 20; TEMP 98.2
--- NOTE | 2018-02-18 07:52 | DS ---
They did not have a bed at [facility] yesterday. We are trying again today to help her go to [facility] for 4 weeks of IV fluids. She is on colistimethate, iron, potassium, Lasix, Merrem IV, morphine, Protonix, and Santyl. Both her legs are in boots this morning, she did not sleep well, that made her very uncomfortable for her to sleep but no chest pain, shortness of breath, or abdominal pain. She is status post surgery for her right heel osteomyelitis. PHYSICAL EXAMINATION: VITAL SIGNS: She has a 98.1 temperature, 98 pulse, 112/56 blood pressure, 18 respiratory rate, and 100% O2 sat on room air. HEENT: Head is atraumatic, normocephalic. Throat is moist. NECK: Supple. HEART: Regular rate. LUNGS: Decreased breath sounds but clear. ABDOMEN: Soft. Both feet are bandaged in boots. LABORATORY DATA: White count 7.8, hemoglobin 8.5, hematocrit 26.1 with 399 platelets. Sodium 143, potassium 3.8, BUN 7, creatinine 1.5 that went up a bit, GFR went down to 33, sugar is 77, calcium 9.6, phosphorus 4.3, magnesium 1.6. Total bilirubin is 0.3, AST is 42, ALT is 27, alkaline phosphatase 49, total protein 6.4. ASSESSMENT AND PLAN: I am going to encourage her to drink more water. Hopefully, she will be transferred to the [facility] today for 4 weeks of IV antibiotics if we could get that arranged, and she is here for right heel osteomyelitis, cellulitis, low potassium, anemia. Otis Harris DO
== END 2018-02-17 19:45 | DRG 623 ==
LOC: ED 10:09 → ERH 11:56 → 5RNO 15:21 → 5RSO 15:23
PROVIDERS: ADMIT Family Medicine; ATTEND Family Medicine
PROC: 0JRQ0KZ Replacement of Right Foot Subcutaneous Tissue and Fascia with Nonautologous Tissue Substitute, Open Approach (ICD-10-PCS; 2018-02-11)
PROC: 2W1SX6Z Compression of Right Foot using Pressure Dressing (ICD-10-PCS; 2018-02-11)
PROC: 0QTL0ZZ Resection of Right Tarsal, Open Approach (ICD-10-PCS; principal; 2018-02-11 07:30)
PROC: 0JBQ0ZZ Excision of Right Foot Subcutaneous Tissue and Fascia, Open Approach (ICD-10-PCS; 2018-02-11 07:30)
PROC: 0JBR0ZZ Excision of Left Foot Subcutaneous Tissue and Fascia, Open Approach (ICD-10-PCS; 2018-02-11 07:30)
PROC: 02HV33Z Insertion of Infusion Device into Superior Vena Cava, Percutaneous Approach (ICD-10-PCS; 2018-02-12)
PROC: B548ZZA Ultrasonography of Superior Vena Cava, Guidance (ICD-10-PCS; 2018-02-12)
PROC: 3E04329 Introduction of Other Anti-infective into Central Vein, Percutaneous Approach (ICD-10-PCS; 2018-02-12)
DX: E11.69 Type 2 diabetes mellitus with other specified complication (principal); M86.171 Other acute osteomyelitis, right ankle and foot; I50.32 Chronic diastolic (congestive) heart failure; L03.90 Cellulitis, unspecified; L97.419 Non-pressure chronic ulcer of right heel and midfoot with unspecified severity; L97.429 Non-pressure chronic ulcer of left heel and midfoot with unspecified severity; E11.51 Type 2 diabetes mellitus with diabetic peripheral angiopathy without gangrene; E11.621 Type 2 diabetes mellitus with foot ulcer; E78.5 Hyperlipidemia, unspecified; I11.0 Hypertensive heart disease with heart failure; I25.10 Atherosclerotic heart disease of native coronary artery without angina pectoris; D64.9 Anemia, unspecified; K21.9 Gastro-esophageal reflux disease without esophagitis; L40.9 Psoriasis, unspecified; M60.9 Myositis, unspecified; B96.5 Pseudomonas (aeruginosa) (mallei) (pseudomallei) as the cause of diseases classified elsewhere; Z16.24 Resistance to multiple antibiotics; Z87.891 Personal history of nicotine dependence; Z90.49 Acquired absence of other specified parts of digestive tract; B95.1 Streptococcus, group B, as the cause of diseases classified elsewhere

== ENCOUNTER 2018-02-25 15:07 | Inpatient (IN) | payer MEDICARE, OTHER ==
[2018-02-25] MEDS ORDERED: Sodium Chloride 0.9% 1,000 ML IV SCH (16:00)
[2018-02-25 16:13] LABS: BASO # 0.03 K/mm3 (0.0-2.0); BASO % 0.2 % (0.0-3.0); EOS # 1.4 (0.0-0.7); EOS % 11.1 % (1.5-5.0); GRAN # 8.56 (1.4-6.5); GRAN % 69.3 % (50.0-68.0); HEMOGLOBIN 9.5 g/dL (12.0-16.0); LYMPH # 1.5 (1.2-3.4); MEAN CELL VOLUME 83.1 fl (80.0-105.0); MEAN CORPUSCULAR HEMOGLOBIN 27.2 pg (25.0-35.0); MEAN CORPUSCULAR HGB CONC 32.8 g/dl (31.0-37.0); MEAN PLATELET VOLUME 8.8 fl (7.0-11.0); MONO # 0.9 (0.1-0.6); MONO % 7.4 % (1.0-6.0); RBC 3.49 10^6/uL (3.5-6.1); RED CELL DISTRIBUTION WIDTH 14.5 % (11.5-14.5); WHITE BLOOD COUNT 12.4 10^3/ul (4.5-11.0)
[2018-02-25 16:29] LABS: ALB/GLOB RATIO 0.9 (1.1-1.8); ALBUMIN 3.5 g/dL (3.0-4.8); CALCIUM 9.6 mg/dL (8.4-10.5)
[2018-02-25] MEDS ORDERED: Magnesium Sulfate 2 GM in Sodium Chloride 0.9% 100 ML IVPB ONE (16:46)
[2018-02-25 16:48] LABS: TROPONIN I 0.13 ng/mL
--- NOTE | 2018-02-25 16:55 | CT ---
PROCEDURE: CT HEAD WITHOUT CONTRAST. HISTORY: r/o ICH COMPARISON: None available. TECHNIQUE: Axial computed tomography images were obtained through the head/brain without intravenous contrast. Radiation dose: Total exam DLP = 754.71 mGy-cm. This CT exam was performed using one or more of the following dose reduction techniques: Automated exposure control, adjustment of the mA and/or kV according to patient size, and/or use of iterative reconstruction technique. FINDINGS: HEMORRHAGE: No intracranial hemorrhage. BRAIN: No mass effect or edema. No atrophy or chronic microvascular ischemic changes. VENTRICLES: Unremarkable. No hydrocephalus. CALVARIUM: Unremarkable. PARANASAL SINUSES: Minimal sphenoid mucoperiosteal thickening. MASTOID AIR CELLS: Unremarkable as visualized. No inflammatory changes. OTHER FINDINGS: None. IMPRESSION: No intracranial hemorrhage. Minimal chronic sphenoid sinusitis. Otherwise unremarkable examination.
[2018-02-25 18:23] LABS: URINE BILIRUBIN NEGATIVE (NEGATIVE); URINE BLOOD MODERATE (NEGATIVE); URINE GLUCOSE (UA) NEGATIVE (NEGATIVE); URINE LEUKOCYTE ESTERASE NEGATIVE Leu/uL (NEGATIVE); URINE PROTEIN 100 mg/dL (<30 mg/dL); URINE UROBILINOGEN 0.2 E.U./dL (<1 E.U./dL)
[2018-02-25 18:24] LABS: URINE APPEARANCE SL CLOUDY (CLEAR); URINE COLOR YELLOW (YELLOW)
[2018-02-25 18:29] LABS: URINE BACTERIA MOD (NEG)
[2018-02-25] MEDS ORDERED: cefTRIAXone 1 gm 1 GM/100 ML BAG IVPB STA (18:34)
--- NOTE | 2018-02-25 20:46 | ED PDOC ---
Arrival/HPI - General Chief Complaint: Dizziness/Lightheaded Time Seen by Provider: 02/25/18 15:24 Historian: Patient - History of Present Illness Narrative History of Present Illness (Text): 02/25/18 16:40 A 78 year old female, whose past medical history includes hypertension and diabetes, presents to the emergency department from [facility] complaining of generalized weakness for the past couple of days. Patient reported to have low blood pressure of 90/60 at [facility]. Patient denies any pain, cough, shortness of breath, chest pain or any other complaints at this time. PMD: Dr. Harris Symptom Onset: Sudden Symptom Course: Unchanged Activities at Onset: Rest Context: Other ([facility]) Past Medical History - Provider Review Nursing Documentation Reviewed: Yes - Infectious Disease Hx of Infectious Diseases: None - Cardiac Hx Cardiac Disorders: Yes Hx Hypertension: Yes - Pulmonary Hx Respiratory Disorders: Yes (USED TO SMOKE CIGARETTES. PK TO PK /2 QUIT) - Neurological Hx Neurological Disorder: No - HEENT Hx HEENT Disorder: Yes (eyeglasses) - Renal Hx Renal Disorder: No Hx Renal Failure: No - Endocrine/Metabolic Hx Diabetes Mellitus Type 2: Yes - Hematological/Oncological Hx Blood Disorders: Yes Hx AIDS: No Hx Anemia: Yes (blood transfusions) - Integumentary Hx Dermatological Disorder: Yes Hx Psoriasis: Yes Other/Comment: 02-10-18 BILATERAL CELLULITIS.RIGHT HEEL INFECTION,+ OSTEOMYELITIS. - Musculoskeletal/Rheumatological Hx Musculoskeletal Disorders: Yes Hx Falls: Yes Hx Osteomyelitis: Yes (RIGHT HEEL 02-10-18) - Gastrointestinal Hx Gastrointestinal Disorders: Yes Hx Gastroesophageal Reflux: Yes - Genitourinary/Gynecological Hx Genitourinary Disorders: No - Psychiatric Hx Psychophysiologic Disorder: No Hx Substance Use: No - Surgical History Hx Cardiac Catheterization: Yes Hx Cholecystectomy: Yes - Anesthesia Hx Anesthesia: Yes Hx Anesthesia Reactions: No Hx Malignant Hyperthermia: No - Suicidal Assessment Feels Threatened In Home Enviroment: No Family/Social History - Physician Review Nursing Documentation Reviewed: Yes Family/Social History: No Known Family HX Smoking Status: Former Smoker Hx Alcohol Use: No Hx Substance Use: No Allergies/Home Meds Allergies/Adverse Reactions: Allergies No Known Allergies Allergy (Verified 02/10/18 17:00) Home Medications: Home Meds Medication Instructions Recorded Confirmed Furosemide [Lasix] 40 mg PO DAILY 12/25/17 02/25/18 Pantoprazole [Protonix EC Tab] 40 mg PO DAILY 12/25/17 02/25/18 Potassium Chloride [K-Dur 20] 20 meq PO BID 12/25/17 02/25/18 Review of Systems - Physician Review All systems were reviewed & negative as marked: Yes - Review of Systems Constitutional: Other (generalized weakness) Respiratory: absent: SOB, Cough Cardiovascular: absent: Chest Pain Gastrointestinal: absent: Abdominal Pain Physical Exam Vital Signs Reviewed: Yes Vital Signs Temp Pulse Pulse Resp BP Pulse Ox 02/25/18 21:17 98.2 F 103 H 18 148/79 99 02/25/18 20:49 105 H 105 H 18 136/87 02/25/18 16:01 98.2 F 105 H 18 136/87 100 Temperature: Afebrile Blood Pressure: Normal Pulse: Regular Respiratory Rate: Normal Appearance: Positive for: Well-Appearing, Non-Toxic, Comfortable Pain Distress: None Mental Status: Positive for: Alert and Oriented X 3 - Systems Exam Head: Present: Atraumatic, Normocephalic Pupils: Present: PERRL Extroacular Muscles: Present: EOMI Conjunctiva: Present: Normal Mouth: Present: Moist Mucous Membranes Neck: Present: Normal Range of Motion Respiratory/Chest: Present: Clear to Auscultation, Good Air Exchange. No: Respiratory Distress, Accessory Muscle Use Cardiovascular: Present: Murmurs (systolic) Abdomen: No: Tenderness, Distention, Peritoneal Signs Back: Present: Normal Inspection Upper Extremity: Present: Normal Inspection. No: Cyanosis, Edema Lower Extremity: Present: Other (dressing on b/l ankles and feet). No: Edema Neurological: Present: GCS=15, CN II-XII Intact, Speech Normal Skin: Present: Warm, Dry, Normal Color. No: Rashes Psychiatric: Present: Alert, Oriented x 3, Normal Insight, Normal Concentration Medical Decision Making ED Course and Treatment: 02/25/18 16:40 Impression: A 78 year old female with generalized weakness. Plan: -- CT head -- EKG -- Chest X-ray -- labs -- IV fluids -- Urinalysis -- Reassess and disposition Prior Visits: Notes and results from previous visits were reviewed. Patient was last seen in the emergency department on 02/10/18 for evaluation of foot ulcer for new heel Osteomylitis. Progress Notes: EKG: Ordered, reviewed, and independently interpreted the EKG. Rate : 101 BPM Rhythm : sinus tachycardia Interpretation : normal intervals. 02/25/18 16:56 CT HEAD WITHOUT CONTRAST Creator : Nestor Reed MD FINDINGS: HEMORRHAGE: No intracranial hemorrhage. BRAIN: No mass effect or edema. No atrophy or chronic microvascular ischemic changes. VENTRICLES: Unremarkable. No hydrocephalus. CALVARIUM: Unremarkable. PARANASAL SINUSES: Minimal sphenoid mucoperiosteal thickening. MASTOID AIR CELLS: Unremarkable as visualized. No inflammatory changes. IMPRESSION: No intracranial hemorrhage. Minimal chronic sphenoid sinusitis. Otherwise unremarkable examination. Chest X-ray- No active disease, as read by me. Spoke with Dr. Harris, patient will be admitted for UTI, dehydration and elevated Troponin. Denies any chest pain. Patient will be admitted to Telemetry. - Lab Interpretations Lab Results: 02/25/18 15:50 02/25/18 15:50 Lab Results 02/25/18 18:10: Urine Color Yellow, Urine Appearance Sl cloudy, Urine pH 6.0, Ur Specific [place]gl[place] 1.025, Urine Protein 100 H, Urine Glucose (UA) Negative, Urine Ketones Trace H, Urine Blood Moderate H, Urine Nitrate Negative, Urine Bilirubin Negative, Urine Urobilinogen 0.2, Ur Leukocyte Esterase Negative, Urine RBC 2 - 5, Urine WBC 5 - 10, Ur Epithelial Cells 4 - 5, Urine Bacteria Mod , Urine Other Uyeast 02/25/18 15:50: Sodium 138, Potassium 3.9, Chloride 101, Carbon Dioxide 20 L, Anion Gap 21 H, BUN 25 H, Creatinine 2.8 H, Est GFR ( Amer) 20, Est GFR ( Non-Af Amer) 16, Random Glucose 101, Calcium 9.6, Magnesium 1.0 L*, Total Bilirubin 0.5, AST 47 H, ALT 28, Alkaline Phosphatase 66, Lactate Dehydrogenase 551, Total Creatine Kinase 47, Troponin I 0.13 H*, Total Protein 7.5, Albumin 3.5, Globulin 4.0, Albumin/Globulin Ratio 0.9 L 02/25/18 15:50: WBC 12.4 H D, RBC 3.49 L, Hgb 9.5 L, Hct 29.0 L, MCV 83.1, MCH 27.2, MCHC 32.8, RDW 14.5, Plt Count 468 H, MPV 8.8, Gran % 69.3 H, Lymph % ( Auto) 12.0 L, [place] % (Auto) 7.4 H, Eos % (Auto) 11.1 H, Baso % (Auto) 0.2, Gran # 8.56 H, Lymph # (Auto) 1.5, [place] # (Auto) 0.9 H, Eos # (Auto) 1.4 H, Baso # ( Auto) 0.03 I have reviewed the lab results: Yes - RAD Interpretation Radiology Orders: 02/25/18 15:45 HEAD W/O CONTRAST [CT] Stat CHEST PORTABLE [RAD] Stat - EKG Interpretation Interpreted by ED Physician: Yes Type: 12 lead EKG - Medication Orders Current Medication Orders: Pantoprazole Sodium (Protonix Ec Tab) 40 mg PO DAILY HEBER Potassium Chloride (K-Dur 20 Meq Er Tab) 20 meq PO BID HEBER Discontinued Medications Sodium Chloride (Sodium Chloride 0.9%) 1,000 mls @ 100 mls/hr IV .Q10H HEBER Last Admin: 02/25/18 16:01 Dose: 100 mls/hr eMAR Start Stop Document 02/25/18 16:01 LA (Rec: 02/25/18 16:01 ALBERTO [id number]) Intravenous Solution Start Date 02/25/18 Start Time 16:01 Magnesium Sulfate 2 gm/ Sodium (Chloride) 104 mls @ 102 mls/hr IVPB ONCE ONE Stop: 02/25/18 17:47 Last Admin: 02/25/18 17:02 Dose: 102 mls/hr eMAR Start Stop Document 02/25/18 17:02 SZA (Rec: 02/25/18 17:03 [id number]) Intravenous Solution Start Date 02/25/18 Start Time 17:02 End Date 02/25/18 End time 18:02 Total Infusion Time 60 Ceftriaxone Sodium (Rocephin 1 Gram Ivpb) 1 gm in 100 mls @ 100 mls/hr IVPB STAT STA PRN Reason: Protocol Stop: 02/25/18 19:33 Last Admin: 02/25/18 19:51 Dose: 100 mls/hr eMAR Start Stop Document 02/25/18 19:51 ALBERTO (Rec: 02/25/18 19:[address] [id number]) Intravenous Solution Start Date 02/25/18 Start Time 19:52 End Date 02/25/18 End time 20:52 Total Infusion Time 60 Pneumococcal Polyvalent Vaccine (Pneumovax 23 Vaccine) 0.5 ml IM .ONCE ONE Stop: 02/25/18 21:08 - Scribe Statement The provider has reviewed the documentation as recorded by the Ganeshibdelmy Monique Provider Scribe Attestation: All medical record entries made by the Scribe were at my direction and personally dictated by me. I have reviewed the chart and agree that the record accurately reflects my personal performance of the history, physical exam, medical decision making, and the department course for this patient. I have also personally directed, reviewed, and agree with the discharge instructions and disposition. Disposition/Present on Arrival - Present on Arrival Any Indicators Present on Arrival: No History of DVT/PE: No History of Uncontrolled Diabetes: No Urinary Catheter: No History of Decub. Ulcer: No History Surgical Site Infection Following: None - Disposition Have Diagnosis and Disposition been Completed?: Yes Diagnosis: Weakness, Hypomagnesemia, Elevated troponin Disposition: HOSPITALIZED Disposition Time: 16:50 Patient Problems: Current Active Problems Problem Status Onset Elevated troponin Acute Hypomagnesemia Acute Weakness Acute Condition: GUARDED
[2018-02-25 21:07] VITALS: BMI 22.0
[2018-02-25] MEDS ORDERED: Pneumococcal 23-Valent Vaccine IM ONE (21:07)
[2018-02-25 21:31] VITALS: O2SAT 100
--- NOTE | 2018-02-26 06:21 | HP ---
HISTORY OF PRESENT ILLNESS: I know Meche very well from hospital from the custodial. She was in [facility]. She went to see Dr. Samson today and our office to evaluate her feet for chronic osteomyelitis and she had low blood pressure of 90/60 and she was kind of fallen asleep in the doctor's office and she was sent to the emergency room. PAST MEDICAL HISTORY: She has a past medical history of hypertension, diabetes, chronic osteomyelitis of the legs, psoriasis, hypertension, she wears glasses, she had multiple blood transfusions for anemia, bilateral cellulitis of the heels, on IV antibiotics for the past 3-4 years, multiple falls, gastric reflux. PAST SURGICAL HISTORY: She had cholecystectomy, cardiac catheterization. FAMILY HISTORY: No known family history. SOCIAL HISTORY: She is a former smoker. No alcohol. No drugs. ALLERGIES: No known drug allergies. MEDICATIONS: Listed Lasix, Protonix and potassium, but I know she is on a lot more. From the custodial to track down her medication list. REVIEW OF SYSTEMS: No acute vision changes. No hearing changes. No sore throat, but she is very tired and weak and has been sleepy. No shortness of breath or cough. No chest pain or palpitations. No abdominal pain. No nausea, vomiting, constipation, diarrhea. No pain anywhere. She can move all 4 extremities, but she is weak. Both legs are bandaged on the feet and the heels due to osteomyelitis and ulcers. She had recent surgeries of the heels about [address] Samson. PHYSICAL EXAMINATION: VITAL SIGNS: She has a 98.2 temp, 105 pulse, 18 respiratory rate, 136/87 blood pressure, 100% O2 sat on room air. HEENT: Head is atraumatic, normocephalic. Extraocular muscles are intact. Pupils equal, reactive to light. Throat is moist. GENERAL: She is alert and oriented x3. Well appearing, nontoxic, quite comfortable. No pains from nothing. Feels great she tells me. NECK: Supple. HEART: Regular rate. There is a systolic murmur present, 2/6. LUNGS: Decreased breath sounds, but clear to auscultation. ABDOMEN: Soft, nontender. Positive bowel sounds. No guarding, no rebound, no CVA tenderness. EXTREMITIES: Have trace edema if any. Both feet are bandaged due to osteomyelitis and ulcers. NEUROLOGIC: GCS is 15. Cranial nerves II through XII grossly intact. SKIN: Warm and dry. Severe psoriasis on entire body with cellulitis and ulcers of the heels of both feet. PSYCHIATRIC: Alert and oriented x3. LYMPHATICS: Thyroid midline. No appreciable lymphadenopathy. DIAGNOSTICS DATA: She had multiple tests done. She had CAT scan of her head. It showed no intracranial hemorrhage, mild sphenoid sinusitis. She had 138 sodium, potassium 3.9, BUN 25, creatinine 2.8, which is much higher than she was. We will give her IV fluids. Sugar is 101, calcium is 9.6, magnesium is 1. We replaced the magnesium. Total bili is 0.5, AST is 47, ALT is 28, alkaline phos 66, lactate dehydrogenase is 551, total creatine kinase is 47. Troponin I is elevated at 0.13. Not sure if that is related to the kidneys. Total protein 7.5, albumin is 3.5. Urine is moderate blood and moderate bacteria. 12.4 white count, elevated; 9.5 hemoglobin; 29 hematocrit with 468 platelets. IMPRESSION: She will have consults with Podiatry for the feet, Infectious Disease for IV antibiotics, Cardiology for elevated troponin and Renal for the elevated BUN and creatinine. She will be on IV fluids, IV antibiotics and medications. Replacement of magnesium and potassium. We will check her labs tomorrow. Hopefully, she will improve. We will check her troponins two more time every 8 hours. She is here for possible [id number] myocardial infarction, acute kidney injury, chronic osteomyelitis. She did have low blood pressure, now it is fine with the fluids. We will watch her quite closely as she has chronic osteomyelitis. Otis Harris DO
[2018-02-26 06:47] LABS: HEMOGLOBIN 8.3 g/dL (12.0-16.0); MEAN CELL VOLUME 82.9 fl (80.0-105.0); MEAN CORPUSCULAR HEMOGLOBIN 27.3 pg (25.0-35.0); MEAN CORPUSCULAR HGB CONC 32.9 g/dl (31.0-37.0); RBC 3.04 10^6/uL (3.5-6.1); RED CELL DISTRIBUTION WIDTH 14.7 % (11.5-14.5); WHITE BLOOD COUNT 10.2 10^3/ul (4.5-11.0)
[2018-02-26 07:23] LABS: ALB/GLOB RATIO 0.8 (1.1-1.8); ALBUMIN 2.9 g/dL (3.0-4.8); CALCIUM 9.2 mg/dL (8.4-10.5); TROPONIN I 0.15 ng/mL
--- NOTE | 2018-02-26 08:57 | RAD ---
HISTORY: r/o infiltrate COMPARISON: 02/10/2018 FINDINGS: LUNGS: Calcified granuloma in the right lower lobe. No evidence of infiltrate PLEURA: No significant pleural effusion identified, no pneumothorax apparent. CARDIOVASCULAR: Normal. OSSEOUS STRUCTURES: No significant abnormalities. VISUALIZED UPPER ABDOMEN: Normal. OTHER FINDINGS: None. IMPRESSION: No active disease.
--- NOTE | 2018-02-26 09:17 | CARD ---
APPROVED REPORT EKG Measurement Heart [id number] <Conclusion> Sinus tachycardia Otherwise normal ECG
--- NOTE | 2018-02-26 09:25 | CP.PCM.CON ---
History of Present Illness - History of Present Illness History of Present Illness: RENAL CONSULT 77 year old female with PMH of severe PAD, HTN, psoriasis was [place] [facility] [place]. SHe was found to have MDR infection and started on colistin and merrem and sent to rehab. She went to see her facility practice specialist yesterday and there was concern that it was looking worse so she was sent in. Reportedly she was hypotensive as well to a bp of 90's systolic. It appears that she was receiving colistin and merrem. She denies n/v. She denies any fever or chills. ROS: a full detailed ROS is negative except as in my HPI pmh: pad, htn, psoriasis all: nkda famhx: no esrd sochx: no active smoking etoh ivdu labs and imaging reviewed pe:vs as below gen: nad sclera: anicteric op: clear neck: supple no appreciable thyromegaly cv: +s1+s2 lungs: cta b/l abd: soft nt no organomegaly ext: no edema, chronic venosu changes, dressing on b/l feet neuro: follows commands a+ox3 psych: nml affect skin: chronic changes b/l le, b/l upper extremity rash imp: ARF/ Osteomyelitis/ Anemia/ Hypomagnesemia/ Hypertension plan: ALDO seems consistent w/ ATN from colistin. Recc hold colistin at this point. Discussed w/ RN RADIOLOGY. Discuss abx options w/ ID. F/u podiatry Mag repleted bp acceptable at this point will start gentle fluids and check renal us. Past Patient History - Infectious Disease Hx of Infectious Diseases: None - Past Medical History & Family History Past Medical History?: Yes - Past Social History Smoking Status: Former Smoker - CARDIAC Hx Cardiac Disorders: Yes Hx Hypertension: Yes - PULMONARY Hx Respiratory Disorders: Yes (USED TO SMOKE CIGARETTES. PK TO PK 1/2 QUIT) - NEUROLOGICAL Hx Neurological Disorder: No - HEENT Hx HEENT Problems: Yes (eyeglasses) - RENAL Hx Chronic Kidney Disease: No Hx Renal Failure: No - ENDOCRINE/METABOLIC Hx Diabetes Mellitus Type 2: Yes - HEMATOLOGICAL/ONCOLOGICAL Hx Blood Disorders: Yes Hx AIDS: No Hx Anemia: Yes (blood transfusions) - INTEGUMENTARY Hx Dermatological Problems: Yes Hx Psoriasis: Yes Other/Comment: 02-10-18 BILATERAL CELLULITIS.RIGHT HEEL INFECTION,+ OSTEOMYELITIS. - MUSCULOSKELETAL/RHEUMATOLOGICAL Hx Musculoskeletal Disorders: Yes Hx Falls: Yes Hx Osteomyelitis: Yes (RIGHT HEEL 02-10-18) - GASTROINTESTINAL Hx Gastrointestinal Disorders: Yes Hx Gastroesophageal Reflux: Yes - GENITOURINARY/GYNECOLOGICAL Hx Genitourinary Disorders: No - PSYCHIATRIC Hx Psychophysiologic Disorder: No Hx Substance Use: No - SURGICAL HISTORY Hx Cardiac Catheterization: Yes Hx Cholecystectomy: Yes - ANESTHESIA Hx Anesthesia: Yes Hx Anesthesia Reactions: No Hx Malignant Hyperthermia: No Meds Allergies/Adverse Reactions: Allergies Allergy/AdvReac Type Severity Reaction Status Date / Time No Known Allergies Allergy Verified 02/10/18 17:00 - Medications Medications: Current Medications Pantoprazole Sodium (Protonix Ec Tab) 40 mg PO DAILY HEBER Potassium Chloride (K-Dur 20 Meq Er Tab) 20 meq PO BID HEBER Results - Vital Signs Recent Vital Signs: Last Vital Signs Temp 97.9 F 02/26/18 06:00 Pulse 104 H 02/26/18 06:00 Resp 20 02/26/18 06:00 BP 144/76 02/26/18 06:00 Pulse Ox 100 02/26/18 06:00 - Labs Result Diagrams: 02/26/18 06:30 02/26/18 06:30 Labs: Laboratory Results - last 24 hr 02/25/18 02/26/18 02/26/18 22:46 06:30 06:30 WBC 10.2 RBC 3.04 L Hgb 8.3 L Hct 25.2 L MCV 82.9 MCH 27.3 MCHC 32.9 RDW 14.7 H Plt Count 455 H MPV 9.0 Sodium 139 Potassium 3.9 Chloride 104 Carbon Dioxide 21 Anion Gap 18 BUN 25 H Creatinine 2.8 H Est GFR ( Amer) 20 Est GFR (Non-Af Amer) 16 Random Glucose 64 L Calcium 9.2 Magnesium 1.6 L Total Bilirubin 0.3 AST 48 H ALT 22 Alkaline Phosphatase 58 Troponin I 0.15 H* 0.15 H* NT-Pro-B Natriuret Pep 631 H Total Protein 6.5 Albumin 2.9 L Globulin 3.6 Albumin/Globulin Ratio 0.8 L
[2018-02-26] MEDS: Sodium Chloride 0.9% 500 ML IV SCH ×2 (10:00→18:21)
--- NOTE | 2018-02-26 10:34 | CON ---
DATE: 02/26/2018 CARDIOLOGY CONSULTATION HISTORY: The patient is a 78-year-old woman, who presents with weakness. The patient has been in [facility] or subacute rehab since. She has been treated for severe peripheral vascular disease. In addition, the patient's past medical history includes PTCA and stent 7 years ago at [facility]. She suffers from PVD. In reviewing her laboratories, she has developed compromise of her kidneys since last year. In addition, her troponins were slightly elevated consistent with a non-STEMI. She denies chest pain, denies shortness of breath. She is markedly weak and debilitated. SOCIAL HISTORY: The patient does not smoke. REVIEW OF SYSTEMS: Fourteen-point review of systems is reviewed in detail. No cardiac symptoms are noted. PHYSICAL EXAMINATION: VITAL SIGNS: Blood pressure is 144/76, the heart rate is 100, normal sinus rhythm. NECK: Negative JVD. LUNGS: Decreased breath sounds without rales. HEART: Reveals S1, S2. EXTREMITIES: Marked ischemic areas in lower extremities. SKIN: Her skin has diffuse psoriatic lesions. LABORATORY DATA: EKG shows normal sinus rhythm with nonspecific ST-T changes. Echocardiogram performed in 10/2017 revealed normal LV function. Her troponins were 0.13 up to 0.15 with a creatinine that has jumped from normal to 2.8. Her hemoglobin is 8.3. IMPRESSION: 1. Diffuse weakness. 2. Ehj-SL-plzyjsolw myocardial infarction. 3. Progressive renal insufficiency. 4. Severe peripheral vascular disease. 5. History of percutaneous transluminal coronary angioplasty and stent of her coronary arteries. 6. Anemia. 7. Diffuse psoriasis. PLAN: Given these findings, we will treat her non-STEMI medically. We will add aspirin as well as beta blockers. Anticoagulation would be appropriate. Nestor Toledo MD
[2018-02-26] MEDS: Pantoprazole 40 mg EC Tab PO SCH (10:45)
[2018-02-26] MEDS: Potassium Chloride 20 mEq ER Tab PO SCH ×2 (10:45→17:23)
[2018-02-26] MEDS: Magnesium Oxide 400 mg Tab UD PO SCH (10:45)
--- NOTE | 2018-02-26 13:06 | US ---
PROCEDURE: Ultrasound of the Kidneys HISTORY: arf COMPARISON: None available. TECHNIQUE: Sonogram of the kidneys. FINDINGS: RIGHT KIDNEY: Measures: 11.0 cm. Normal in size, contour and echogenicity. No stone, solid mass lesion or hydronephrosis visualized. LEFT KIDNEY: Measures: 9.4 cm. Normal in size, contour and echogenicity. No stone, solid mass lesion or hydronephrosis visualized. OTHER FINDINGS: None. IMPRESSION: Unremarkable renal sonogram.
--- NOTE | 2018-02-26 13:49 | PN ---
DATE: 02/26/2018 SUBJECTIVE: I saw Meche last night and admitted to [facility] for , positive troponin, elevated kidney function. She has chronic osteomyelitis and UTI, sent in from Dr. Samson's office. She is currently on potassium replacement. She had magnesium replacement. She is on pantoprazole. I am waiting for Infectious Disease to come in and start her back up on IV antibiotics. She got a dose of Rocephin last night. OBJECTIVE: VITAL SIGNS: She has a 97.9 temperature, 104 pulse, 144/76 blood pressure, 20 respiratory rate, 100% O2 saturation on room air. GENERAL: She is alert and comfortable, doing better. She tells me, not weak anymore. HEART: Regular rate. LUNGS: Decreased breath sounds, but clear. ABDOMEN: Soft. EXTREMITIES: Wrapped up. SKIN: Very red and inflamed from psoriasis and she has chronic osteo of the heel and ulcers of the feet. LABORATORY DATA: She has a 10.2 white count, 8.3 hemoglobin, 25.2 hematocrit with 455 platelets. Sodium 139, potassium 3.9, BUN 25, creatinine 2.8 and has not IV fluids, awaiting Renal to take a look. GFR is 16, sugar is 64, calcium is 9.2, magnesium is up to 1.6 and better, total bili is 0.3, AST is 48, ALT is 22, alkaline phosphatase 58. Troponin 0.13, 0.15 and 0.15 and BNP is 631, I will see the income tax preparer to say about the elevated BNP. She has UTI, was given Rocephin last night, I am waiting Infectious Disease for IV antibiotics, Renal for the elevated BUN and creatinine and Cardiology for the elevated troponins and physical therapy ordered. We will try to get her out of bed to chair and hopefully, we can get her to improve soon. Otis Harris DO [email or web address]
--- NOTE | 2018-02-27 00:32 | CON ---
DATE: 02/26/2018 LOCATION: Patient is in room 269, bed 1. CHIEF COMPLAINT: Right foot infection times several weeks. 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 The bone cultures were positive for resistant Pseudomonas and so was the pathology, positive for osteomyelitis. Patient was discharged on colistin and received antibiotics prior to that and now is admitted with acute kidney injury. Infectious Disease consultation is requested. At this point, patient has no fevers and no chills; no chest pain, no abdominal pain, no diarrhea. She does have pain in the foot. REVIEW OF SYSTEM: Twelve-point review systems is performed. PAST MEDICAL HISTORY: Significant for psoriasis, coronary artery disease, high cholesterol, hypertension, dyslipidemia. PAST SURGICAL HISTORY: Significant for cholecystectomy and cardiac cath with stent placement. SOCIAL HISTORY: Patient is a long-time smoker. ALLERGIES: PATIENT HAS NO KNOWN ALLERGIES. MEDICATIONS: Included colistin. PHYSICAL EXAMINATION: VITAL SIGNS: Patient is in bed with a temperature of 98, respiratory rate of 20, heart rate of 104, blood pressure is 140/70. HEENT: Unremarkable. NECK: Supple. LUNGS: Have decreased breath sounds. HEART: Normal S1, S2. ABDOMEN: Soft, nontender. No rebound or guarding. LABORATORY EXAMINATION: Reveals a white count of 12,400, hemoglobin of 9, and platelets of 468. Patient's creatinine is 2.8; it was at 1.5. Troponin is elevated. Urinalysis is noted with 5 to 10 wbc's. Microbiology: Reviewed. Examination of the heel reveals the graft is present. It is not warm to touch; it is not erythematous. It appears to be clean. ASSESSMENT AND PLAN: This is a 78-year-old female with psoriasis, coronary artery disease, high cholesterol, hypertension, dyslipidemia, systemic inflammatory response syndrome with a right heel and foot multidrug-resistant Pseudomonas osteomyelitis status post debridement and graft placement, postprocedure day number 15, now with acute kidney injury. Had been on colistin most likely from that. Hesitant to use this drug. I discussed the case with Dr. Samson. Patient has had adequate antibiotic therapy at this point. May need further antibiotics; would consider Zerbaxa, would recommended testing of the Pseudomonas against Zerbaxa disk although it is resistant to amikacin and maybe sensitive to Zerbaxa and hesitant to use amikacin and/or colistin in a patient with significant acute kidney injury on top of chronic kidney injury. At this point, the case was discussed with Dr. Samson. No antibiotics and local wound care. Close followup. Renal followup workup in progress. We will follow with you. No antibiotics at this point. Vlaente Oshea MD
[2018-02-27] MEDS: Sodium Chloride 0.9% 500 ML IV SCH ×3 (01:33→18:50)
[2018-02-27 06:35] LABS: HEMOGLOBIN 8.1 g/dL (12.0-16.0); MEAN CELL VOLUME 82.7 fl (80.0-105.0); MEAN CORPUSCULAR HEMOGLOBIN 27.5 pg (25.0-35.0); MEAN CORPUSCULAR HGB CONC 33.2 g/dl (31.0-37.0); MEAN PLATELET VOLUME 8.7 fl (7.0-11.0); RBC 2.95 10^6/uL (3.5-6.1); RED CELL DISTRIBUTION WIDTH 14.6 % (11.5-14.5); WHITE BLOOD COUNT 11.2 10^3/ul (4.5-11.0)
[2018-02-27 06:55] LABS: ALB/GLOB RATIO 0.8 (1.1-1.8); ALBUMIN 2.8 g/dL (3.0-4.8); CALCIUM 9.1 mg/dL (8.4-10.5)
--- NOTE | 2018-02-27 08:17 | CP.PCM.PN ---
Subjective - Date & Time of Evaluation Date of Evaluation: 02/27/18 Time of Evaluation: 08:14 - Subjective Subjective: RENAL FOLLOW UP S: seen and examined, appetite reduced renal us reviewed pe:vs as below gen: nad sclera: anicteric EOMI op: clear neck: supple no appreciable thyromegaly cv: +s1+s2 lungs: cta b/l abd: soft nt no organomegaly ext: no edema, chronic venous changes, dressing on b/l feet w/ ulcerations neuro: follows commands a+ox3 psych: flat affect skin: chronic changes b/l le, b/l upper extremity rash imp: ARF/ Osteomyelitis/ Anemia/ Hypomagnesemia/ Hypertension plan: ALDO seems consistent w/ ATN from colistin. Reviewed ID notes - holding colistin and aminoglycosides awaiting to see if sensitive to zerbaxa f/u w/ ID F/u podiatry on mag ox, repeat level ordrered bp acceptable at this point will reduce kdur to once daily to avoid over supplementation - monitor k on gentle hydration Objective - Vital Signs/Intake and Output Vital Signs (last 24 hours): Temp Pulse Resp BP Pulse Ox 97.6 F 89 19 144/63 100 02/27/18 06:00 02/27/18 06:00 02/27/18 06:00 02/27/18 06:00 02/27/18 06:00 Intake and Output: 02/27/18 02/27/18 06:59 18:59 Intake Total 1320 Output Total 800 Balance 520 - Medications Medications: Current Medications Aspirin (Aspirin Chewable) 81 mg PO DAILY [facility] Sodium Chloride (Sodium Chloride 0.9%) 500 mls @ 60 mls/hr IV .Q8H20M [facility] Last Admin: 02/27/18 01:33 Dose: 60 mls/hr Magnesium Oxide (Mag-Ox) 400 mg PO DAILY [facility] Last Admin: 02/26/18 10:45 Dose: 400 mg Metoprolol Tartrate (Lopressor) 12.5 mg PO BID [facility] Last Admin: 02/26/18 17:23 Dose: 12.5 mg Pantoprazole Sodium (Protonix Ec Tab) 40 mg PO DAILY [facility] Last Admin: 02/26/18 10:45 Dose: 40 mg Potassium Chloride (K-Dur 20 Meq Er Tab) 20 meq PO BID [facility] Last Admin: 02/26/18 17:23 Dose: 20 meq - Labs Labs: 02/27/18 06:00 02/27/18 06:00
[2018-02-27] MEDS: Pantoprazole 40 mg EC Tab PO SCH (09:34)
[2018-02-27] MEDS: Potassium Chloride 20 mEq ER Tab PO SCH (09:34)
[2018-02-27] MEDS: Magnesium Oxide 400 mg Tab UD PO SCH (09:35)
--- NOTE | 2018-02-27 11:29 | PN ---
DATE: 02/27/2018 SUBJECTIVE: I saw Meche resting comfortably in bed. She slept well last night. She is feeling well. She is on IV antibiotics. She is on aspirin, potassium, Lopressor, magnesium, Protonix, IV fluids. VITAL SIGNS: She has 97.6 temp, 89 pulse, 144/63 blood pressure, 19 respiratory rate, 100% O2 sat on room air. LABORATORY DATA: She has 11.2 white count, 8.1 hemoglobin, 24.4 hematocrit with 450 platelets. Sodium 141, potassium 4.2, BUN 26, creatinine 2.9, GFR is 16, sugar is 75, calcium 9.1, total bili is 0.4, AST is 45, ALT is 46, alkaline phosphatase 59. Troponins are all elevated at 0.13, 0.15, 0.15 and 6.5 protein. ASSESSMENT AND PLAN: She has a positive urinary tract infection. She was seen by Cardiology, Renal and Infectious Disease. She has diffuse weakness and [id number] myocardial infarction, progressive renal insufficiency, severe peripheral vascular disease, history of stents placement, anemia, diffuse psoriasis, acute kidney injury. Infectious Disease feels at this time that she had adequate antibiotic therapy. They are thinking about putting her on Zobuxa. So if that is the case, we are going to try and see if we can get her out of here if Cardiology is not going to do anything and Infectious Disease is not going to do anything and see what Renal has to say. We are doing gentle IV fluids, so when I get the okay from Renal, I will try and get her to be discharged. She has 11.2 white count, 8.1 hemoglobin. I will watch her hemoglobin. Sodium 141, potassium 4.2, BUN 26, creatinine 2.9, which they feel is about her baseline and I will get Case Management to work on hospital-safe discharge to home. There is one more treatment going to be given, it is of gentle fluids. She was here for elevated troponins x3 and a [id number] myocardial infarction. She had a low blood pressure in the 90s, acute kidney injury, chronic osteomyelitis and we will see what we could do to help her. Otis Harris DO
--- NOTE | 2018-02-27 11:32 | PN ---
DATE: 02/27/2018 CARDIOLOGY FOLLOWUP SUBJECTIVE: The patient is asymptomatic. No chest pain. No shortness of breath. PHYSICAL EXAMINATION VITAL SIGNS: Stable, heart rate is in the 80s, normal sinus rhythm. NECK: Negative JVD. LUNGS: Without rales. HEART: Reveals S1 and S2. EXTREMITIES: Without edema. LABORATORY DATA: Hemoglobin is 8.1. Chemistries: BUN and creatinine is 26 and 2.9. IMPRESSION: 1. Weakness. 2. Non-ST elevation myocardial infarction. 3. Renal insufficiency. 4. Coronary artery disease. 5. Anemia. PLAN: Given these findings, the patient's CAD will be treated medically. The patient is hemodynamically stable. We will discontinue telemetry. We will continue her on aspirin and low-dose beta blockers. Netsor Toledo MD
--- NOTE | 2018-02-27 16:33 | CP.PCM.CON ---
<Gareth Lyles - Last Filed: 02/27/18 21:20> History of Present Illness - History of Present Illness History of Present Illness: Podiatry Consult Note- Dr. Samson/Dr. Diaz 78 female with PMHx of HTN, HLD, PAD and psoriasis seen and evaluated at bedside for bilaterally LE ulcerations 2/2 psorias. Patient is known to Dr. Samson/Dr. Diaz service. Was seen in the wound care center and appeared pallor and was sent to the ED for evaluation. Patient s/p bilateral heel debridement of wounds with right heel application of graft. Patient is seen resting comfortably in bed, in NAD, and AA0x3. Reports pain to the lower extremity. Reports that she feels slightly better, however still tired. Patient reports nausea earlier today, denies fever, chills, shortness of breath or chest pain. No new pedal complaints Past Patient History - Infectious Disease Hx of Infectious Diseases: None - Past Medical History & Family History Past Medical History?: Yes - Past Social History Smoking Status: Former Smoker - CARDIAC Hx Hypertension: Yes - PULMONARY Hx Respiratory Disorders: Yes (USED TO SMOKE CIGARETTES. PK TO PK /2 QUIT) - NEUROLOGICAL Hx Neurological Disorder: No - HEENT Hx HEENT Problems: Yes (eyeglasses) - RENAL Hx Chronic Kidney Disease: No Hx Renal Failure: No - ENDOCRINE/METABOLIC Hx Diabetes Mellitus Type 2: Yes - HEMATOLOGICAL/ONCOLOGICAL Hx Blood Disorders: Yes Hx AIDS: No Hx Anemia: Yes (blood transfusions) - INTEGUMENTARY Hx Dermatological Problems: Yes Hx Psoriasis: Yes Other/Comment: 02-10-18 BILATERAL CELLULITIS.RIGHT HEEL INFECTION,+ OSTEOMYELITIS. - MUSCULOSKELETAL/RHEUMATOLOGICAL Hx Musculoskeletal Disorders: Yes Hx Falls: Yes Hx Osteomyelitis: Yes (RIGHT HEEL 02-10-18) - GASTROINTESTINAL Hx Gastrointestinal Disorders: Yes Hx Gastroesophageal Reflux: Yes - GENITOURINARY/GYNECOLOGICAL Hx Genitourinary Disorders: No - PSYCHIATRIC Hx Psychophysiologic Disorder: No Hx Substance Use: No - SURGICAL HISTORY Hx Cardiac Catheterization: Yes Hx Cholecystectomy: Yes - ANESTHESIA Hx Anesthesia: Yes Hx Anesthesia Reactions: No Hx Malignant Hyperthermia: No Meds Allergies/Adverse Reactions: Allergies Allergy/AdvReac Type Severity Reaction Status Date / Time No Known Allergies Allergy Verified 02/10/18 17:00 - Medications Medications: Current Medications Aspirin (Aspirin Chewable) 81 mg PO DAILY [facility] Last Admin: 02/27/18 09:34 Dose: 81 mg Sodium Chloride (Sodium Chloride 0.9%) 500 mls @ 60 mls/hr IV .Q8H20M [facility] Last Admin: 02/27/18 10:30 Dose: Not Given Magnesium Oxide (Mag-Ox) 400 mg PO DAILY [facility] Last Admin: 02/27/18 09:35 Dose: 400 mg Metoprolol Tartrate (Lopressor) 12.5 mg PO BID [facility] Last Admin: 02/27/18 09:35 Dose: 12.5 mg Pantoprazole Sodium (Protonix Ec Tab) 40 mg PO DAILY [facility] Last Admin: 02/27/18 09:34 Dose: 40 mg Potassium Chloride (K-Dur 20 Meq Er Tab) 20 meq PO DAILY [facility] Last Admin: 02/27/18 09:34 Dose: 20 meq Physical Exam - Constitutional Appears: Non-toxic, No Acute Distress - Extremities Exam Extremities exam: Negative for: calf tenderness Additional comments: VASC: DP and PT pulses non-palpable. CFT WNL. Temperature gradient cool to cool from proximal to distal. +2 pitting edema noted to B/L lower extremities NEURO: Protective sensation grossly intact DERM: Diffuse psoriatic plaques and scaling noted to bilateral lower extremities distal to tibial tuberosity. Right heel ulceration measuring approximately 5cm x 4 cm x 0.2 cm noted with graft in place, no erythema, no drainage, no streaking, no purulence noted. Left posterior heel exhibits open ulceration approx 5cm x 4cm x 0.3cm with mixture of fibrous granular wound base , with distal wound base exhibiting fibrotic tissue. Mild serosanguinous drainage noted on inner dressing, no fluctuance, no malodor, probe to bone ORTHO: mild pain with palpation surrounding ulceration sites, right > left - Neurological Exam Neurological exam: Alert, Oriented x3 Results - Vital Signs Recent Vital Signs: Last Vital Signs Temp 98.2 F 02/27/18 14:00 Pulse 80 02/27/18 14:00 Resp 20 02/27/18 14:00 BP 146/58 L 02/27/18 14:00 Pulse Ox 100 02/27/18 14:00 - Labs Result Diagrams: 02/27/18 06:00 02/27/18 06:00 Labs: Laboratory Results - last 24 hr 02/26/18 02/27/18 02/27/18 22:02 06:00 06:00 WBC 11.2 H RBC 2.95 L Hgb 8.1 L Hct 24.4 L MCV 82.7 MCH 27.5 MCHC 33.2 RDW 14.6 H Plt Count 450 MPV 8.7 Sodium 141 Potassium 4.2 Chloride 106 Carbon Dioxide 21 Anion Gap 19 BUN 26 H Creatinine 2.9 H Est GFR ( Amer) 19 Est GFR (Non-Af Amer) 16 POC Glucose (mg/dL) 78 Random Glucose 75 Calcium 9.1 Magnesium Total Bilirubin 0.4 AST 45 H ALT 26 Alkaline Phosphatase 59 Total Protein 6.5 Albumin 2.8 L Globulin 3.7 Albumin/Globulin Ratio 0.8 L 02/27/18 06:00 WBC RBC Hgb Hct MCV MCH MCHC RDW Plt Count MPV Sodium Potassium Chloride Carbon Dioxide Anion Gap BUN Creatinine Est GFR ( Amer) Est GFR (Non-Af Amer) POC Glucose (mg/dL) Random Glucose Calcium Magnesium 1.5 L Total Bilirubin AST ALT Alkaline Phosphatase Total Protein Albumin Globulin Albumin/Globulin Ratio Assessment & Plan - Assessment and Plan (Free Text) Assessment: 77 y/o female s/p bilateral heel wound debridement with exposed right calcaneal bone and right heel Integra graft application. Plan: Patient examined and evaluated Discussed plan in detail with attending Dr. Diaz Ulceration cleansed with saline solution, Integra graft on right posterior heel left intact, dressed with xeroform, dsd, ABD, and kerlix WBC= 11.2 (increased from yesterday) Wound culture left leg on 02/25/18- MRSA Multipodus boots should be worn at all times Thank you for allowing us to take part in patient's care <Yo Diaz - Last Filed: 02/28/18 08:41> Meds - Medications Medications: Current Medications Aspirin (Aspirin Chewable) 81 mg PO DAILY [facility] Last Admin: 02/27/18 09:34 Dose: 81 mg Sodium Chloride (Sodium Chloride 0.9%) 500 mls @ 60 mls/hr IV .Q8H20M [facility] Last Admin: 02/28/18 03:55 Dose: 60 mls/hr Magnesium Oxide (Mag-Ox) 400 mg PO DAILY [facility] Last Admin: 02/27/18 09:35 Dose: 400 mg Metoprolol Tartrate (Lopressor) 12.5 mg PO BID [facility] Last Admin: 02/27/18 18:39 Dose: 12.5 mg Pantoprazole Sodium (Protonix Ec Tab) 40 mg PO DAILY [facility] Last Admin: 02/27/18 09:34 Dose: 40 mg Potassium Chloride (K-Dur 20 Meq Er Tab) 20 meq PO DAILY [facility] Last Admin: 02/27/18 09:34 Dose: 20 meq Results - Vital Signs Recent Vital Signs: Last Vital Signs Temp 98.7 F 02/27/18 22:10 Pulse 90 02/27/18 22:10 Resp 20 02/27/18 22:10 BP 138/65 02/27/18 22:10 Pulse Ox 100 02/27/18 22:10 - Labs Result Diagrams: 02/28/18 06:30 02/28/18 06:30 Labs: Laboratory Results - last 24 hr 02/27/18 02/28/18 02/28/18 06:00 06:30 06:30 WBC 10.6 RBC 2.74 L Hgb 7.6 L Hct 22.7 L MCV 82.8 MCH 27.7 MCHC 33.5 RDW 14.7 H Plt Count 483 H MPV 9.1 Sodium 141 Potassium 3.9 Chloride 110 H Carbon Dioxide 21 Anion Gap 15 BUN 22 H Creatinine 2.5 H Est GFR ( Amer) 22 Est GFR (Non-Af Amer) 19 Random Glucose 57 L Calcium 8.8 Magnesium 1.5 L Total Bilirubin 0.3 AST 39 H ALT 24 Alkaline Phosphatase 54 Total Protein 6.0 Albumin 2.6 L Globulin 3.4 Albumin/Globulin Ratio 0.8 L Attending/Attestation - Attestation I have personally seen and examined this patient.: Yes I have fully participated in the care of the patient.: Yes I have reviewed all pertinent clinical information: Yes
--- NOTE | 2018-02-27 16:56 | CP.PCM.PN ---
Subjective - Date & Time of Evaluation Date of Evaluation: 02/27/18 Time of Evaluation: 09:55 - Subjective Subjective: No fevers, not in distress, no nausea, less pain in the feet. Objective - Vital Signs/Intake and Output Vital Signs (last 24 hours): Temp Pulse Resp BP Pulse Ox 97.6 F 89 19 144/63 100 02/27/18 06:00 02/27/18 06:00 02/27/18 06:00 02/27/18 06:00 02/27/18 06:00 Intake and Output: 02/27/18 02/27/18 06:59 18:59 Intake Total 1320 Output Total 800 Balance 520 - Medications Medications: Current Medications Aspirin (Aspirin Chewable) 81 mg PO DAILY [facility] Sodium Chloride (Sodium Chloride 0.9%) 500 mls @ 60 mls/hr IV .Q8H20M [facility] Last Admin: 02/27/18 01:33 Dose: 60 mls/hr Magnesium Oxide (Mag-Ox) 400 mg PO DAILY [facility] Last Admin: 02/26/18 10:45 Dose: 400 mg Metoprolol Tartrate (Lopressor) 12.5 mg PO BID [facility] Last Admin: 02/26/18 17:23 Dose: 12.5 mg Pantoprazole Sodium (Protonix Ec Tab) 40 mg PO DAILY [facility] Last Admin: 02/26/18 10:45 Dose: 40 mg Potassium Chloride (K-Dur 20 Meq Er Tab) 20 meq PO DAILY [facility] - Labs Labs: 02/27/18 06:00 02/27/18 06:00 - Constitutional Appears: Non-toxic, Chronically Ill - Head Exam Head Exam: NORMAL INSPECTION - Neck Exam Neck Exam: absent: Meningismus - Respiratory Exam Respiratory Exam: Decreased Breath Sounds - Cardiovascular Exam Cardiovascular Exam: +S1, +S2 - GI/Abdominal Exam GI & Abdominal Exam: Soft. absent: Tenderness Assessment and Plan - Assessment and Plan (Free Text) Plan: Assessment right foot heel osteomyelitis and bilateral feet skin and skin structure infection S/P debridement and graft placement, growing multidrug resistant Pseudomonas from the bone - developed acute renal failure from Colistin history of sepsis with left lower extremity myositis, cellulitis, tenosynovitis , gangrene and probable osteomyelitis, grew Pseudomonas history of bilateral lower extremity cellulitis with no evidence of osteomyelitis, growing Citrobacter, Serratia and Group B Strep severe PVD psoriasis GERD HTN dyslipidemia CAD Plan will monitor off antibiotics - hesitant to use Aminoglycosides because of renal failure - will continue to hold Colistin - we have called the lab and they will see if they can test susceptibilities for Zerbaxa will monitor clinically prognosis is poor for the foot
[2018-02-28] MEDS: Sodium Chloride 0.9% 500 ML IV SCH (03:55)
[2018-02-28 06:53] LABS: HEMOGLOBIN 7.6 g/dL (12.0-16.0); MEAN CELL VOLUME 82.8 fl (80.0-105.0); MEAN CORPUSCULAR HEMOGLOBIN 27.7 pg (25.0-35.0); MEAN CORPUSCULAR HGB CONC 33.5 g/dl (31.0-37.0); MEAN PLATELET VOLUME 9.1 fl (7.0-11.0); RBC 2.74 10^6/uL (3.5-6.1); RED CELL DISTRIBUTION WIDTH 14.7 % (11.5-14.5); WHITE BLOOD COUNT 10.6 10^3/ul (4.5-11.0)
[2018-02-28 07:11] LABS: ALB/GLOB RATIO 0.8 (1.1-1.8); ALBUMIN 2.6 g/dL (3.0-4.8); CALCIUM 8.8 mg/dL (8.4-10.5)
[2018-02-28] MEDS: Pantoprazole 40 mg EC Tab PO SCH (09:58)
[2018-02-28] MEDS: Potassium Chloride 20 mEq ER Tab PO SCH (09:58)
[2018-02-28] MEDS: Magnesium Oxide 400 mg Tab UD PO SCH (09:58)
--- NOTE | 2018-02-28 11:27 | CP.PCM.PN ---
<KevinLorenzo - Last Filed: 02/28/18 11:23> Subjective - Date & Time of Evaluation Date of Evaluation: 02/28/18 Time of Evaluation: 11:23 - Subjective Subjective: Podiatry Progress Note for Dr. Diaz 78F with b/l LE heel ulcerations secondary to severe psoriasis with biological graft of right heel seen at bedside. Patient is AAO x 3 and NAD. Denies any acute overnight events or any new pedal complaints. Denies any recent N/V/F/C/CP /SOB/D Objective - Vital Signs/Intake and Output Vital Signs (last 24 hours): Temp Pulse Resp BP Pulse Ox 98.0 F 89 20 153/66 H 100 02/28/18 06:00 02/28/18 06:00 02/28/18 06:00 02/28/18 06:00 02/28/18 06:00 Intake and Output: 02/28/18 02/28/18 06:59 18:59 Intake Total 600 300 Balance 600 300 - Medications Medications: Current Medications Aspirin (Aspirin Chewable) 81 mg PO DAILY [facility] Last Admin: 02/28/18 09:58 Dose: 81 mg Sodium Chloride (Sodium Chloride 0.9%) 500 mls @ 60 mls/hr IV .Q8H20M [facility] Last Admin: 02/28/18 03:55 Dose: 60 mls/hr Magnesium Oxide (Mag-Ox) 400 mg PO DAILY [facility] Last Admin: 02/28/18 09:58 Dose: 400 mg Metoprolol Tartrate (Lopressor) 12.5 mg PO BID [facility] Last Admin: 02/28/18 09:57 Dose: 12.5 mg Pantoprazole Sodium (Protonix Ec Tab) 40 mg PO DAILY [facility] Last Admin: 02/28/18 09:58 Dose: 40 mg Potassium Chloride (K-Dur 20 Meq Er Tab) 20 meq PO DAILY [facility] Last Admin: 02/28/18 09:58 Dose: 20 meq - Labs Labs: 02/28/18 06:30 02/28/18 06:30 - Constitutional Appears: Well, Non-toxic, No Acute Distress - Head Exam Head Exam: ATRAUMATIC, NORMOCEPHALIC - Extremities Exam Additional comments: LE focused exam: VASC: DP and PT pulses non-palpable. CFT WNL. Temperature gradient cool to cool from proximal to distal. +2 pitting edema noted to B/L lower extremities NEURO: Protective sensation grossly intact DERM: Diffuse psoriatic plaques and scaling noted to bilateral lower extremities distal to tibial tuberosity. Right heel ulceration measuring approximately 5cm x 4 cm x 0.2 cm noted with graft in place, no erythema, no drainage, no streaking, no purulence noted. Left posterior heel exhibits open ulceration approx 5cm x 4cm x 0.3cm with mixture of fibrous granular wound base , with distal wound base exhibiting fibrotic tissue. Minimal serosanguinous drainage noted on inner dressing, no fluctuance, no malodor, probe to bone, no other clinical signs of infection appreciated ORTHO: mild pain with palpation surrounding ulceration sites, right > left. No other gross deformities noted - Neurological Exam Neurological Exam: Alert, Awake, Oriented x3 - Psychiatric Exam Psychiatric exam: Normal Affect, Normal Mood Assessment and Plan - Assessment and Plan (Free Text) Assessment: 78F with b/l LE heel ulcerations secondary to severe psoriasis with biological graft of right heel seen at bedside Plan: Patient seen and evaluated with attending Dr. Diaz Afebrile WBC 10.6 from 11.2 yesterday R leg wound graft left in place, dressed with steristrips, ABD, DSD, multipodus boot L leg wound dressed with xeroform, ABD, DSD, multipodus boot No plan for surgical intervention at this time Podiatry will continue to follow while patient in house Upon discharge from hospital patient will continue to follow up with Dr. Diaz and Dr. Samson in wound care center <Yo Diaz - Last Filed: 03/03/18 11:26> Objective - Vital Signs/Intake and Output Vital Signs (last 24 hours): Temp Pulse Resp BP Pulse Ox 98.0 F 90 18 159/83 H 100 02/28/18 17:04 02/28/18 17:04 02/28/18 17:04 02/28/18 17:04 02/28/18 14:00 - Labs Labs: 02/28/18 06:30 02/28/18 06:30 Attending/Attestation - Attestation I have personally seen and examined this patient.: Yes I have fully participated in the care of the patient.: Yes I have reviewed all pertinent clinical information, including history, physical exam and plan: Yes
[2018-02-28 14:03] VITALS: RESP 18
[2018-02-28 17:12] VITALS: BP 159/83; PULSE 90; TEMP 98
--- NOTE | 2018-02-28 21:16 | PN ---
DATE: 02/28/2018 SUBJECTIVE: The patient seen earlier today in 565, bed 1. No fevers, no chills. Chronically ill, debilitated and weak. PHYSICAL EXAMINATION: VITAL SIGNS: Temperature is 97, blood pressure is 140/70, respiratory rate 16. HEENT: Unremarkable. NECK: Supple. LUNGS: Have decreased breath sounds. HEART: Normal S1, S2. ABDOMEN: Soft, nontender. LABORATORY EXAMINATION: Reveals a white count of 10,000, hemoglobin of 7, platelets are 483. Chemistries reveals a BUN of 22, creatinine of 2.5. Urinalysis is noted.. Microbiology is noted. ASSESSMENT AND PLAN: A 78-year-old female with a right foot heel osteomyelitis bilaterally reveals skin and skin structure infection, status debridement and graft placement growing multidrug resistant Pseudomonas from the bone. Developed acute renal failure from colistin with a history of sepsis with a left lower extremity myositis and cellulitis, tenosynovitis in a patient with gastroesophageal reflux disease, psoriasis, peripheral vascular disease, coronary artery disease and hypertension. Currently off of antibiotics, hesitant to use renal failure and continue to hold the colistin and waiting for the lab for sensitivity for Zerbaxa, which is another option for resistant Pseudomonas, if it is sensitive in face of being resistant to Avycaz from the bone culture of the Pseudomonas. The superficial culture is showing methicillin-resistant Staphylococcus aureus. We will treat the patient off of antibiotics and the patient's creatinine appears to be somewhat improving, where creatinine of 2.8, is down to 2.5. Initially, it was 0.6. We will continue to monitor the patient off of antibiotics. Overall prognosis is quite poor for this patient with so many comorbidities. Valente Oshea MD
== END 2018-02-28 18:00 | disposition home or self-care (01) | DRG 280 ==
LOC: ED 15:07 → ERH 18:34 → 2RNO 21:40 → 5RNO 02-27 11:17
PROVIDERS: ADMIT Family Medicine; ATTEND Family Medicine
DX: I21.4 Non-ST elevation (NSTEMI) myocardial infarction (principal); N17.0 Acute kidney failure with tubular necrosis; M86.669 Other chronic osteomyelitis, unspecified tibia and fibula; L03.115 Cellulitis of right lower limb; L03.116 Cellulitis of left lower limb; N39.0 Urinary tract infection, site not specified; L97.429 Non-pressure chronic ulcer of left heel and midfoot with unspecified severity; L97.419 Non-pressure chronic ulcer of right heel and midfoot with unspecified severity; L40.9 Psoriasis, unspecified; E83.42 Hypomagnesemia; N14.1 Nephropathy induced by other drugs, medicaments and biological substances; T36.8X5A Adverse effect of other systemic antibiotics, initial encounter; E11.69 Type 2 diabetes mellitus with other specified complication; K21.9 Gastro-esophageal reflux disease without esophagitis; I10 Essential (primary) hypertension; D64.9 Anemia, unspecified; I25.10 Atherosclerotic heart disease of native coronary artery without angina pectoris; E11.51 Type 2 diabetes mellitus with diabetic peripheral angiopathy without gangrene; E86.0 Dehydration; I95.9 Hypotension, unspecified; F17.200 Nicotine dependence, unspecified, uncomplicated; E78.5 Hyperlipidemia, unspecified; E78.00 Pure hypercholesterolemia, unspecified; R29.6 Repeated falls; M60.9 Myositis, unspecified; Z95.5 Presence of coronary angioplasty implant and graft; Z79.82 Long term (current) use of aspirin

== ENCOUNTER 2018-08-10 14:41 | Emergency (ER) | payer MEDICARE, OTHER ==
[2018-08-10 14:52] VITALS: BMI 22.8
[2018-08-10 16:39] LABS: BASO # 0.03 K/mm3 (0.0-2.0); BASO % 0.5 % (0.0-3.0); EOS # 0.1 (0.0-0.7); EOS % 1.5 % (1.5-5.0); GRAN # 3.86 (1.4-6.5); GRAN % 65.7 % (50.0-68.0); HEMOGLOBIN 12.5 g/dL (12.0-16.0); LYMPH # 1.4 (1.2-3.4); LYMPH % 24.1 % (22.0-35.0); MEAN CELL VOLUME 86.3 fl (80.0-105.0); MEAN CORPUSCULAR HEMOGLOBIN 28.5 pg (25.0-35.0); MEAN CORPUSCULAR HGB CONC 33.1 g/dl (31.0-37.0); MEAN PLATELET VOLUME 9.3 fl (7.0-11.0); MONO # 0.5 (0.1-0.6); MONO % 8.2 % (1.0-6.0); RBC 4.38 10^6/uL (3.5-6.1); RED CELL DISTRIBUTION WIDTH 15.2 % (11.5-14.5); WHITE BLOOD COUNT 5.9 10^3/uL (4.5-11.0)
[2018-08-10 16:48] LABS: INR 1.09; PARTIAL THROMBOPLASTIN TIME 33.8 Seconds (25.1-36.5); PROTHROMBIN TIME 12.4 SECONDS (9.4-12.5)
[2018-08-10] MEDS ORDERED: Potassium Chloride 20 mEq ER Tab PO STA ×2 (16:56→17:48)
[2018-08-10 17:00] LABS: TROPONIN I < 0.01 ng/mL
[2018-08-10 17:23] LABS: ALB/GLOB RATIO 0.9 (1.1-1.8); ALBUMIN 4.6 g/dL (3.0-4.8); ALT/SGPT 15 U/L (7-56); AST/SGOT 27 U/L (14-36); BLOOD UREA NITROGEN 18 mg/dL (7-21); GFR NON-AFRICAN AMERICAN > 60
[2018-08-10 17:37] LABS: PH,URINE 6.5 (4.7-8.0); URINE APPEARANCE CLEAR (CLEAR); URINE BILIRUBIN NEGATIVE (NEGATIVE); URINE BLOOD TRACE-LYSED (NEGATIVE); URINE COLOR COLORLESS (YELLOW); URINE GLUCOSE (UA) NEGATIVE (NEGATIVE); URINE LEUKOCYTE ESTERASE NEGATIVE Leu/uL (NEGATIVE); URINE PROTEIN NEGATIVE mg/dL (<30 mg/dL); URINE UROBILINOGEN 0.2 E.U./dL (<1 E.U./dL)
[2018-08-10 17:46] LABS: URINE EPITHELIAL CELLS 0 - 2 /hpf (0-5); URINE RBC 0 - 2 /hpf (0-2); URINE WBC NEGATIVE /hpf (0-6)
[2018-08-10] MEDS ORDERED: Pantoprazole 40 mg EC Tab PO PRN (17:46)
--- NOTE | 2018-08-10 18:11 | ED PDOC ---
Arrival/HPI - General Chief Complaint: High Blood Pressure Time Seen by Provider: 08/10/18 16:09 Historian: Patient - History of Present Illness Narrative History of Present Illness (Text): 08/10/18 18:05 78yo female with past medical history of chronic lower leg wound who was referred to Emergency department from the wound center for elevated BP. Patient notes that she went to the wound center for her routine scheduled wound care. While there her BP was elevated. States she was on antihypertensive years ago and it was stopped when her BP normalized. She denies any chest pain, shortness of breath, headache, dizziness, focal weakness, slurred speech, visual changes, nausea, vomiting, abdominal pain, any other complaint. Past Medical History - Provider Review Nursing Documentation Reviewed: Yes - Infectious Disease Hx of Infectious Diseases: None - Reproductive Menopause: Yes - Cardiac Hx Cardiac Disorders: No Hx Pacemaker: No - Pulmonary Hx Respiratory Disorders: Yes (USED TO SMOKE CIGARETTES. PK TO PK 10/07 QUIT) - Neurological Hx Paralysis: No - HEENT Hx HEENT Disorder: Yes (eyeglasses) - Renal Hx Renal Disorder: No Hx Renal Failure: No - Endocrine/Metabolic Hx Diabetes Mellitus Type 2: Yes - Hematological/Oncological Hx Blood Transfusions: Yes (11/2017) Hx Blood Transfusion Reaction: No - Integumentary Hx Dermatological Disorder: Yes Hx Psoriasis: Yes Other/Comment: 02-10-18 BILATERAL CELLULITIS.RIGHT HEEL INFECTION,+ OSTEOMYELITIS. - Musculoskeletal/Rheumatological Hx Musculoskeletal Disorders: Yes - Gastrointestinal Hx Gastrointestinal Disorders: Yes Hx Gastroesophageal Reflux: Yes - Genitourinary/Gynecological Hx Genitourinary Disorders: No - Psychiatric Hx Emotional Abuse: No Hx Physical Abuse: No Hx Substance Use: No - Surgical History Hx Cardiac Catheterization: Yes Hx Cholecystectomy: Yes - Anesthesia Hx Anesthesia Reactions: No Hx Malignant Hyperthermia: No - Suicidal Assessment Feels Threatened In Home Enviroment: No Family/Social History - Physician Review Nursing Documentation Reviewed: Yes Family/Social History: Unknown Family HX Smoking Status: Former Smoker Hx Alcohol Use: No Hx Substance Use: No Allergies/Home Meds Allergies/Adverse Reactions: Allergies No Known Allergies Allergy (Verified 02/10/18 17:00) Home Medications: Home Meds Medication Instructions Recorded Confirmed RX: Furosemide [Lasix] 40 mg PO DAILY 12/25/17 06/10/18 RX: Pantoprazole [Protonix EC Tab] 40 mg PO DAILY PRN 12/25/17 06/10/18 RX: Potassium Chloride [K-Dur 20 20 meq PO BID 12/25/17 06/10/18 mEq ER Tab] Acetaminophen [Tylenol Extra 500 mg PO PRN PRN 06/02/18 06/10/18 Strength] RX: traMADol [Ultram] 50 mg PO TID PRN 06/02/18 06/10/18 Review of Systems - Physician Review All systems were reviewed & negative as marked: Yes - Review of Systems Constitutional: Other (Elevated BP) Eyes: Normal ENT: Normal Respiratory: Normal Cardiovascular: Normal Gastrointestinal: Normal Genitourinary Female: Normal Musculoskeletal: Normal Skin: Normal Neurological: Normal Endocrine: Normal Hemo/Lymphatic: Normal Psychiatric: Normal Physical Exam Vital Signs Reviewed: Yes Vital Signs Temp Pulse Resp BP Pulse Ox 08/10/18 17:44 77 226/85 H 08/10/18 15:19 63 18 220/93 H 98 08/10/18 14:52 98.0 F 69 18 213/77 H 98 Temperature: Afebrile Blood Pressure: Hypertensive Pulse: Regular Respiratory Rate: Normal Appearance: Positive for: Well-Appearing, Non-Toxic, Comfortable Pain Distress: None Mental Status: Positive for: Alert and Oriented X 3 - Systems Exam Head: Present: Atraumatic, Normocephalic Pupils: Present: PERRL Extroacular Muscles: Present: EOMI Conjunctiva: Present: Normal Mouth: Present: Moist Mucous Membranes Neck: Present: Normal Range of Motion Respiratory/Chest: Present: Clear to Auscultation, Good Air Exchange. No: Respiratory Distress, Accessory Muscle Use Cardiovascular: Present: Regular Rate and Rhythm, Normal S1, S2. No: Murmurs Abdomen: No: Tenderness, Distention, Peritoneal Signs Back: Present: Normal Inspection Upper Extremity: Present: Normal Inspection. No: Cyanosis, Edema Lower Extremity: Present: Normal Inspection. No: Edema Neurological: Present: GCS=15, CN II-XII Intact, Speech Normal, Motor Func Grossly Intact, Normal Sensory Function, Normal Cerebellar Funct, Memory Normal Skin: Present: Warm, Dry, Normal Color. No: Rashes Psychiatric: Present: Alert, Oriented x 3, Normal Insight, Normal Concentration Medical Decision Making ED Course and Treatment: 08/11/18 01:46 PT presented to Emergency department for stated history. She denied any somatic complaint in Emergency department. She however is not hypertensive. Labs Chest X-ray Urinalysis Hydralazine All labs was reviewed and unremarkable Her BP remained elevated after antihypertensive was given in Emergency department PT was also seen in Emergency department by her PMD Dr. Harris. He recommends admission for further evaluation and she was admitted to his service. - Lab Interpretations Lab Results: 08/10/18 16:20 08/10/18 16:20 Lab Results 08/10/18 17:11: Urine Color Colorless, Urine Appearance Clear, Urine pH 6.5, Ur Specific [place] 1.010, Urine Protein Negative, Urine Glucose (UA) Negative, Urine Ketones Negative, Urine Blood Trace-lysed H, Urine Nitrate Negative, Urine Bilirubin Negative, Urine Urobilinogen 0.2, Ur Leukocyte Esterase Negative, Urine RBC 0 - 2, Urine WBC Negative, Ur Epithelial Cells 0 - 2, Urine Bacteria None 08/10/18 16:20: Sodium 143, Potassium 3.3 L, Chloride 106, Carbon Dioxide 28, Anion Gap 12, BUN 18, Creatinine 0.9, Est GFR ( Amer) > 60, Est GFR (Non- Af Amer) > 60, Random Glucose 92, Calcium 10.0, Magnesium 1.8, Total Bilirubin 0.5, AST 27, ALT 15, Alkaline Phosphatase 80, Lactate Dehydrogenase 474, Total Creatine Kinase 103, Troponin I < 0.01 D, Total Protein 9.8 H, Albumin 4.6, Globulin 5.2, Albumin/Globulin Ratio 0.9 L 08/10/18 16:20: PT 12.4, INR 1.09, APTT 33.8 08/10/18 16:20: WBC 5.9, RBC 4.38, Hgb 12.5 D, Hct 37.8, MCV 86.3 D, MCH 28.5, MCHC 33.1, RDW 15.2 H, Plt Count 303, MPV 9.3, Gran % 65.7, Lymph % (Auto) 24.1, Bay % (Auto) 8.2 H, Eos % (Auto) 1.5, Baso % (Auto) 0.5, Gran # 3.86, Lymph # (Auto) 1.4, Bay # (Auto) 0.5, Eos # (Auto) 0.1, Baso # (Auto) 0.03 - RAD Interpretation Radiology Orders: 08/10/18 17:05 CHEST PORTABLE [RAD] Stat - Medication Orders Current Medication Orders: Furosemide (Lasix) 40 mg IVP DAILY HEBER Hydralazine HCl (Apresoline) 10 mg IVP Q8H HEBER Pantoprazole Sodium (Protonix Ec Tab) 40 mg PO DAILY PRN PRN Reason: GI distress Potassium Chloride (K-Dur 20 Meq Er Tab) 20 meq PO BID HEBER Tramadol HCl (Ultram) 50 mg PO TID PRN PRN Reason: Pain, severe (8-10) Discontinued Medications Hydralazine HCl (Apresoline) 10 mg IVP STAT STA Stop: 08/10/18 16:25 Last Admin: 08/10/18 17:44 Dose: 10 mg IVP Administration Document 08/10/18 17:44 [facility] (Rec: 08/10/18 17:45 [facility] [id number]) Charges for Administration # of IVP Administrations 1 MAR Pulse and Blood Pressure Document 08/10/18 17:44 [facility] (Rec: 08/10/18 17:45 [facility] [id number]) Pulse Pulse Rate (60-90 beats/min) 77 Blood Pressure Blood Pressure (100/60-150/90 mm Hg) 226/85 Potassium Chloride (K-Dur 20 Meq Er Tab) 40 meq PO STAT STA Stop: 08/10/18 16:57 Last Admin: 08/10/18 17:41 Dose: 40 meq Potassium Chloride (K-Dur 20 Meq Er Tab) 20 meq PO STAT STA Stop: 08/10/18 17:49 Disposition/Present on Arrival - Present on Arrival Any Indicators Present on Arrival: No History of DVT/PE: No History of Uncontrolled Diabetes: No Urinary Catheter: No History of Decub. Ulcer: No History Surgical Site Infection Following: None - Disposition Have Diagnosis and Disposition been Completed?: Yes Diagnosis: Hypertensive emergency Disposition: HOSPITALIZED Disposition Time: 17:45 Patient Plan: Admission Patient Problems: Current Active Problems Problem Status Onset Hypertensive emergency Acute Condition: FAIR
[2018-08-10] MEDS: Potassium Chloride 20 mEq ER Tab PO SCH (20:11)
[2018-08-10 20:36] VITALS: TEMP 97.9
--- NOTE | 2018-08-11 04:52 | HP ---
DATE OF EXAM: <> HISTORY OF PRESENT ILLNESS: I was called down to the emergency room to see Meche. She was sent down after being seen in the wound care center with an elevated blood pressure like 230/120, when I saw her in the emergency room, it was 228/105. They are going to give her some hydralazine. I am going to put her in the hospital for overnight to see if we can get her blood pressure under control and call in Cardiology. PAST MEDICAL HISTORY: She has a past medical history of hypertension, diabetes, psoriasis, chronic leg ulcers being seen by Podiatry with cellulitis history, in and out of the hospital for a longtime. She used to smoke, but quit. No real alcohol. No drugs. She has diabetes. She has anemia and psoriasis. She has bilateral cellulitis of the leg, right heel infection, had osteomyelitis history, falls, osteomyelitis of the right heel in February 2018. She has GERD, cardiac catheterization, cholecystectomy also. FAMILY HISTORY: Hypertension in the family. SOCIAL HISTORY: Former smoker. No alcohol. No drugs. ALLERGIES: NO KNOWN DRUG ALLERGIES. MEDICATIONS: She is on Ultram, potassium, Protonix, Lasix and Tylenol. REVIEW OF SYSTEMS No acute vision changes. No hearing changes. No headache. No sore throat. No neck pain. No chest pain. No palpitations. No shortness of breath or cough. No abdominal pain, nausea, vomiting, constipation, or diarrhea. Both legs are bandaged from Podiatry. She has ulcers and psoriasis and cellulitis down there. She is not anxious at this time, does not want to stay but she needs to stay with this elevated blood pressure, presently its 226/85, 77 pulse, 98 temperature, 18 respiratory rate, 98% sat on room air. PHYSICAL EXAMINATION: HEENT: Head is atraumatic, normocephalic. Extraocular muscles are intact. Pupils equal and reactive to light and accommodation. Throat is moist. NECK: Supple. HEART: Regular rate. Normal S1, S2. She does have a systolic murmur. LUNGS: Decreased breath sounds, but clear to auscultation. ABDOMEN: Soft, nontender with positive bowel sounds. No guarding, no rebound, no CVA tenderness. EXTREMITIES: Wrapped up. She has swelling, +2/4 pitting edema with redness and psoriasis and multiple skin ulcers. NEUROLOGIC: GCS is 15. Speech is normal. Alert and oriented x3. Cranial nerves II-XII grossly intact. LABORATORY DATA: She had a 5.9 white count, 12.5 hemoglobin, 37.8 hematocrit with 303 platelets. INR is 1.09. Sodium 143, potassium 3.3, we will replace potassium. BUN 18, creatinine 0.9, GFR greater than 60, sugar is 92, calcium is 10, magnesium 1.8, total bili is 0.5, AST is 27, ALT is 15, alk phos is 80. Lactate dehydrogenase is 474. Total creatine kinase is 103. Troponin I is less than 0.01. Total protein is 9.8, albumin is 4.6. Urine is trace. Chest x-ray and EKG are pending. She is to have a consult with Cardiology. She will be on Apresoline, potassium replacement, Lasix IV, Protonix and Ultram for pain. Hopefully, she will do well. We will call in. We will check her labs tomorrow. We will watch her blood pressure overnight. Hopefully, she will do well. She will be on observation telemetry. Otis Harris DO MTDHomero
[2018-08-11 05:13] VITALS: O2SAT 99
[2018-08-11 06:52] VITALS: PULSE 80; RESP 18
[2018-08-11 07:08] LABS: HEMOGLOBIN 10.9 g/dL (12.0-16.0); MEAN CELL VOLUME 85.1 fl (80.0-105.0); MEAN CORPUSCULAR HEMOGLOBIN 27.9 pg (25.0-35.0); MEAN CORPUSCULAR HGB CONC 32.8 g/dl (31.0-37.0); MEAN PLATELET VOLUME 9.3 fl (7.0-11.0); RBC 3.9 10^6/uL (3.5-6.1); RED CELL DISTRIBUTION WIDTH 15.4 % (11.5-14.5); WHITE BLOOD COUNT 5.9 10^3/uL (4.5-11.0)
[2018-08-11 07:18] LABS: ALB/GLOB RATIO 0.9 (1.1-1.8); ALBUMIN 3.9 g/dL (3.0-4.8); ALT/SGPT 16 U/L (7-56); AST/SGOT 21 U/L (14-36); BLOOD UREA NITROGEN 21 mg/dL (7-21); CALCIUM 9.6 mg/dL (8.4-10.5); GFR NON-AFRICAN AMERICAN 53
--- NOTE | 2018-08-11 08:31 | CARD ---
APPROVED REPORT Date of service: 08/10/2018 EKG Measurement Heart [id number] <Conclusion> Normal sinus rhythm Septal infarct, age undetermined Abnormal ECG
--- NOTE | 2018-08-11 08:32 | RAD ---
Date of service: 08/10/2018 HISTORY: admission COMPARISON: CT 09/10/2016 and portable chest 02/25/2018 FINDINGS: LUNGS: There is a 12 mm calcified granuloma in the right lower lobe. The lungs are otherwise clear PLEURA: No significant pleural effusion identified, no pneumothorax apparent. CARDIOVASCULAR: Aortic calcifications Normal cardiac size. No pulmonary vascular congestion. OSSEOUS STRUCTURES: No significant abnormalities. VISUALIZED UPPER ABDOMEN: Normal. OTHER FINDINGS: None. IMPRESSION: No active disease.
[2018-08-11] MEDS: Potassium Chloride 20 mEq ER Tab PO SCH (09:09)
[2018-08-11 10:18] VITALS: BP 136/67
--- NOTE | 2018-08-11 21:22 | DS ---
HISTORY OF PRESENT ILLNESS: I saw her in the emergency room last night with very elevated blood pressure. We put her on some hydralazine, which made a big difference when I changed it to tablets today. She is also going to be on some potassium, Lasix, Protonix, Ultram, and she will be discharged today. She was seen in the Podiatry with Dr. Samson who sent her to the emergency room because her blood pressure was very high. Hopefully, she will improve. We will do a house call on her on . PHYSICAL EXAMINATION: VITAL SIGNS: She has a 97.9 temperature; 59 pulse; 140/90 blood pressure, 133/70 blood pressure; 18 respiratory rate; 99% O2 sat on room air. HEENT: Head is atraumatic, normocephalic. HEART: Regular rate. LUNGS: Decreased breath sounds, but clear. ABDOMEN: Soft. EXTREMITIES: Wrapped from psoriasis, ulcers and cellulitis of lower extremities. LABORATORY DATA: She has 141 sodium, potassium 3.6, BUN 21, creatinine 1, GFR is greater than 60, sugar is 85, calcium is 9.6. Total bili is 0.4, AST is 21, ALT is 16, alk phos 52. Troponin I was less than 0.01. Total protein is 8.1. White count is 5.9, hemoglobin 10.9, hematocrit 32.2, platelets of 295. Chest x-ray was clear. EKG was normal sinus rhythm. ASSESSMENT/PLAN: She will be discharged today to follow up on the outpatient. We will do a house call on her on . Hopefully, she will improve. Continue with low blood pressure and follow up in the outpatient with Dr. Samson, the log operations coordinator. Otis Harris DO
== END 2018-08-11 19:32 | disposition home or self-care (01) ==
LOC: ED 14:41 → UNDOADMOB 18:01 → ERH 18:01 → UNDODISOB 08-11 13:02 → ED 08-11 19:32
DX: I16.1 Hypertensive emergency (principal); E11.9 Type 2 diabetes mellitus without complications; Z87.891 Personal history of nicotine dependence; L40.9 Psoriasis, unspecified
CPT/HCPCS: 71045; 80053; 81001; 82550; 83615; 83735; 84484; 85025; 85027; 85610; 85730; 93005; 96374; 96375; 96376; 99285; J0360; J1940; J2405

== ENCOUNTER 2018-09-07 10:56 | Inpatient (IN) | payer MEDICARE, OTHER ==
[2018-09-07] MEDS ORDERED: MEROPENEM 500 MG in NS 500 MG/50 ML BAG IVPB STA (11:46)
[2018-09-07 11:56] VITALS: BMI 22.0
[2018-09-07 12:33] LABS: BASO # 0.02 K/mm3 (0.0-2.0); BASO % 0.3 % (0.0-3.0); EOS # 0.1 (0.0-0.7); EOS % 1.3 % (1.5-5.0); GRAN # 5.13 (1.4-6.5); GRAN % 73.3 % (50.0-68.0); HEMOGLOBIN 12.2 g/dL (12.0-16.0); LYMPH # 1.4 (1.2-3.4); LYMPH % 20.1 % (22.0-35.0); MEAN CELL VOLUME 86.8 fl (80.0-105.0); MEAN CORPUSCULAR HEMOGLOBIN 28.8 pg (25.0-35.0); MEAN CORPUSCULAR HGB CONC 33.2 g/dl (31.0-37.0); MEAN PLATELET VOLUME 9.1 fl (7.0-11.0); MONO # 0.4 (0.1-0.6); RBC 4.24 10^6/uL (3.5-6.1); RED CELL DISTRIBUTION WIDTH 14.2 % (11.5-14.5)
[2018-09-07 12:41] LABS: INR 1.09; PARTIAL THROMBOPLASTIN TIME 29.5 Seconds (25.1-36.5); PROTHROMBIN TIME 12.5 SECONDS (9.4-12.5)
--- NOTE | 2018-09-07 12:41 | ED PDOC ---
Arrival/HPI - General Chief Complaint: Abnormal Skin Integrity Time Seen by Provider: 09/07/18 11:10 Historian: Patient - History of Present Illness Narrative History of Present Illness (Text): 09/07/18 11:34 78 year old female, with past medical history of MSSA cellulitis, CAD s/p 1 stent, HTN, HLD, GERD and psoriasis, was referred to the Emergency department by Dr. Samson for IV antibiotics for left heal ulcer today. Patient informs bilateral heal ulcer for which she has been following up with Dr. Samson, however, left foot ulcer has not been healing appropriately. Patient informed associated mild drainage and discomfort to the area to Dr. Samson, who subsequently referred patient to the ED for medical evaluation. Patient denies any other associated somatic complaints. Patient denies any fevers, chills, headache, dizziness, chest pain, shortness of breath, dyspnea on exertion, cough, abdominal pain, nausea, vomiting, diarrhea, back pain, neck pain, or any other complaints. PMD: Dr. Calhoun Symptom Onset: Gradual Symptom Course: Unchanged Activities at Onset: Light Context: Other (Referred by Dr. Samson) Past Medical History - Provider Review Nursing Documentation Reviewed: Yes - Infectious Disease Hx of Infectious Diseases: None - Cardiac Hx Cardiac Disorders: Yes Hx Hypertension: Yes Hx Pacemaker: No - Pulmonary Hx Respiratory Disorders: Yes (USED TO SMOKE CIGARETTES. PK TO PK 10/07 QUIT) - Neurological Hx Paralysis: No - HEENT Hx HEENT Disorder: Yes (eyeglasses) - Renal Hx Renal Disorder: No Hx Renal Failure: No - Endocrine/Metabolic Hx Diabetes Mellitus Type 2: Yes - Hematological/Oncological Hx Blood Transfusions: Yes (11/2017) Hx Blood Transfusion Reaction: No - Integumentary Hx Dermatological Disorder: Yes Hx Psoriasis: Yes Other/Comment: 02-10-18 BILATERAL CELLULITIS.RIGHT HEEL INFECTION,+ OSTEOMYELITIS. - Musculoskeletal/Rheumatological Hx Musculoskeletal Disorders: Yes - Gastrointestinal Hx Gastrointestinal Disorders: Yes Hx Gastroesophageal Reflux: Yes - Genitourinary/Gynecological Hx Genitourinary Disorders: No - Psychiatric Hx Emotional Abuse: No Hx Physical Abuse: No Hx Substance Use: No - Surgical History Hx Cardiac Catheterization: Yes Hx Cholecystectomy: Yes - Anesthesia Hx Anesthesia Reactions: No Hx Malignant Hyperthermia: No - Suicidal Assessment Feels Threatened In Home Enviroment: No Family/Social History - Physician Review Nursing Documentation Reviewed: Yes Family/Social History: Unknown Family HX Smoking Status: Former Smoker Hx Alcohol Use: No Hx Substance Use: No Allergies/Home Meds Allergies/Adverse Reactions: Allergies No Known Allergies Allergy (Verified 02/10/18 17:00) Home Medications: Home Meds Medication Instructions Recorded Confirmed RX: Pantoprazole [Protonix EC Tab] 40 mg PO DAILY PRN 12/25/17 06/10/18 RX: Acetaminophen [Tylenol Extra 500 mg PO PRN PRN 06/02/18 06/10/18 Strength] Review of Systems - Physician Review All systems were reviewed & negative as marked: Yes - Review of Systems Constitutional: absent: Fevers Respiratory: absent: SOB, Cough Cardiovascular: absent: Chest Pain Gastrointestinal: absent: Abdominal Pain, Diarrhea, Nausea, Vomiting Genitourinary Female: absent: Dysuria, Urine Output Changes Musculoskeletal: absent: Back Pain Skin: Ulcer (left heal ) Neurological: absent: Headache, Dizziness Physical Exam Vital Signs Reviewed: Yes Vital Signs Temp Pulse Resp BP Pulse Ox 09/07/18 11:20 98.5 F 73 18 142/97 H 100 Temperature: Afebrile Blood Pressure: Normal Pulse: Regular Respiratory Rate: Normal Appearance: Positive for: Well-Appearing, Non-Toxic, Comfortable Pain Distress: None Mental Status: Positive for: Alert and Oriented X 3 - Systems Exam Head: Present: Atraumatic, Normocephalic Pupils: Present: PERRL Extroacular Muscles: Present: EOMI Conjunctiva: Present: Normal Respiratory/Chest: Present: Clear to Auscultation, Good Air Exchange. No: Respiratory Distress, Accessory Muscle Use Cardiovascular: Present: Regular Rate and Rhythm, Normal S1, S2. No: Murmurs Abdomen: No: Tenderness, Distention, Peritoneal Signs Upper Extremity: Present: Normal Inspection. No: Cyanosis, Edema Lower Extremity: Present: Other (3 cm x 2 cm ulcer noted to left heal with purulent discharge. ) Neurological: Present: GCS=15, CN II-XII Intact, Speech Normal Skin: Present: Warm, Dry, Normal Color. No: Rashes Psychiatric: Present: Alert, Oriented x 3, Normal Insight, Normal Concentration Medical Decision Making ED Course and Treatment: 09/07/18 11:46 Impression: 78 year old female presents to the Emergency department for evaluation of left heal ulcer. ro osteo. Plan: -- Labs -- Meropenem -- Blood Culture -- Urine Culture -- X-ray of Left Ankle -- Urinalysis -- Reassess and disposition Prior Visits: Notes and results from previous visits were reviewed. Progress Notes: 09/07/18 15:18 X-ray of left ankle reviewed by radiologist, shows negative findings. 09/07/18 16:[address] calhoun. - RAD Interpretation Radiology Orders: 09/07/18 11:47 ANKLE LEFT 3 VIEWS ROUTINE [RAD] Stat [employer] Lender: Radiologist - Medication Orders Current Medication Orders: Discontinued Medications Meropenem/Sodium Chloride (Merrem Iv 500 Mg/Ns 50 Ml) 500 mg in 50 mls @ 100 mls/hr IVPB STAT STA; Protocol Stop: 09/07/18 12:15 Last Admin: 09/07/18 12:31 Dose: 100 mls/hr eMAR Start Stop Document 09/07/18 12:31 MR (Rec: 09/07/18 12:31 MR [id number]) Intravenous Solution Start Date 09/07/18 Start Time 12:31 End Date 09/07/18 End time 13:01 Total Infusion Time 30 - Scribe Statement The provider has reviewed the documentation as recorded by the Scribe Cheryl Mireles. All medical record entries made by the Scribe were at my direction and personally dictated by me. I have reviewed the chart and agree that the record accurately reflects my personal performance of the history, physical exam, medical decision making, and the department course for this patient. I have also personally directed, reviewed, and agree with the discharge instructions and disposition. Disposition/Present on Arrival - Present on Arrival Any Indicators Present on Arrival: No History of DVT/PE: No History of Uncontrolled Diabetes: No Urinary Catheter: No History of Decub. Ulcer: No History Surgical Site Infection Following: None - Disposition Have Diagnosis and Disposition been Completed?: Yes Diagnosis: Osteomyelitis, Foot ulcer, Cellulitis Disposition: HOSPITALIZED Disposition Time: 14:20 Condition: STABLE
[2018-09-07 12:54] LABS: ALB/GLOB RATIO 0.9 (1.1-1.8); ALBUMIN 4.3 g/dL (3.0-4.8); ALT/SGPT 15 U/L (7-56); AST/SGOT 21 U/L (14-36); BLOOD UREA NITROGEN 27 mg/dL (7-21); CALCIUM 9.9 mg/dL (8.4-10.5); GFR NON-AFRICAN AMERICAN 53
--- NOTE | 2018-09-07 14:43 | RAD ---
Date of service: 09/07/2018 PROCEDURE: Left Ankle Radiographs. HISTORY: ulcer COMPARISON: None available. FINDINGS: BONES: Normal. No fracture. JOINTS: Normal. No osteoarthritis. Ankle mortise maintained. Talar dome intact SOFT TISSUES: Normal. OTHER FINDINGS: None. IMPRESSION: Negative study
[2018-09-07] MEDS ORDERED: Pantoprazole 40 mg EC Tab PO PRN (16:56)
[2018-09-07] MEDS: Potassium Chloride 20 mEq ER Tab PO SCH (17:55)
--- NOTE | 2018-09-07 20:54 | CP.PCM.CON ---
History of Present Illness - History of Present Illness History of Present Illness: 78 year old female with PMH of severe PVD, psoriasis, GERD, HTN, dyslipidemia, CAD, history of left lower extremity gangrene and osteomyelitis was recently treated for right foot heel osteomyelitis and she healed well. She was being see n regularly by Dr. Samson at the wound care center and today she was seen there and her left heel area has a poorly-healing wound with exposed bone of the left heel. Deep cultures have been taken which are showing Enterobacter. She is now admitted for further management. Infectious Diseases consult has been requested to further evaluate and manage. She denies fever or chills, no nausea or vomitin g, no chest pain, no SOB, no headache or dizziness, no abdominal pain, no diarrhea, no dysuria. Review of Systems - Review of Systems All systems: reviewed and no additional remarkable complaints except (as per HPI) Past Patient History - Infectious Disease Hx of Infectious Diseases: None - Past Medical History & Family History Past Medical History?: Yes - Past Social History Smoking Status: Former Smoker - CARDIAC Hx Cardiac Disorders: Yes Hx Hypertension: Yes Hx Pacemaker: No - PULMONARY Hx Respiratory Disorders: Yes (USED TO SMOKE CIGARETTES. PK TO PK 10/07 QUIT) - NEUROLOGICAL Hx Paralysis: No - HEENT Hx HEENT Problems: Yes (eyeglasses) - RENAL Hx Chronic Kidney Disease: No Hx Renal Failure: No - ENDOCRINE/METABOLIC Hx Diabetes Mellitus Type 2: Yes - HEMATOLOGICAL/ONCOLOGICAL Hx Blood Transfusions: Yes (11/2017) Hx Blood Transfusion Reaction: No - INTEGUMENTARY Hx Dermatological Problems: Yes Hx Psoriasis: Yes Other/Comment: 02-10-18 BILATERAL CELLULITIS.RIGHT HEEL INFECTION,+ OSTEOMYELITIS. - MUSCULOSKELETAL/RHEUMATOLOGICAL Hx Musculoskeletal Disorders: Yes - GASTROINTESTINAL Hx Gastrointestinal Disorders: Yes Hx Gastroesophageal Reflux: Yes - GENITOURINARY/GYNECOLOGICAL Hx Genitourinary Disorders: No - PSYCHIATRIC Hx Emotional Abuse: No Hx Physical Abuse: No Hx Substance Use: No - SURGICAL HISTORY Hx Cardiac Catheterization: Yes Hx Cholecystectomy: Yes - ANESTHESIA Hx Anesthesia Reactions: No Hx Malignant Hyperthermia: No Meds Allergies/Adverse Reactions: Allergies Allergy/AdvReac Type Severity Reaction Status Date / Time No Known Allergies Allergy Verified 02/10/18 17:00 - Medications Medications: Current Medications Furosemide (Lasix) 20 mg IVP DAILY [facility] Meropenem (Merrem Iv 1 Gm Premix) 1 gm in 50 mls @ 100 mls/hr IVPB Q12 [facility]; Protocol Stop: 09/14/18 22:01 Pantoprazole Sodium (Protonix Ec Tab) 40 mg PO DAILY PRN PRN Reason: GI distress Potassium Chloride (K-Dur 20 Meq Er Tab) 20 meq PO DAILY [facility] Tramadol HCl (Ultram) 50 mg PO TID PRN PRN Reason: Pain, severe (8-10) Physical Exam - Constitutional Appears: Chronically Ill - Head Exam Head Exam: NORMAL INSPECTION - Respiratory Exam Respiratory Exam: Decreased Breath Sounds - Cardiovascular Exam Cardiovascular Exam: +S1, +S2 - GI/Abdominal Exam GI & Abdominal Exam: Soft. absent: Tenderness - Extremities Exam Additional comments: left heel area with wound over the Achilles tendon, up to the calcaneal area Results - Vital Signs Recent Vital Signs: Last Vital Signs Temp 98.5 F 09/07/18 11:20 Pulse 68 09/07/18 14:28 Resp 18 09/07/18 14:28 BP 138/82 09/07/18 14:28 Pulse Ox 100 09/07/18 14:28 - Labs Result Diagrams: 09/07/18 12:20 09/07/18 12:20 Labs: Laboratory Results - last 24 hr 09/07/18 09/07/18 09/07/18 12:20 12:20 12:20 WBC 7.0 RBC 4.24 Hgb 12.2 Hct 36.8 MCV 86.8 MCH 28.8 MCHC 33.2 RDW 14.2 Plt Count 309 MPV 9.1 Gran % 73.3 H Lymph % (Auto) 20.1 L Hettinger % (Auto) 5.0 Eos % (Auto) 1.3 L Baso % (Auto) 0.3 Gran # 5.13 Lymph # (Auto) 1.4 Hettinger # (Auto) 0.4 Eos # (Auto) 0.1 Baso # (Auto) 0.02 ESR 87 H PT 12.5 INR 1.09 APTT 29.5 Sodium 140 Potassium 4.1 Chloride 105 Carbon Dioxide 26 Anion Gap 13 BUN 27 H Creatinine 1.0 Est GFR ( Amer) > 60 Est GFR (Non-Af Amer) 53 Random Glucose 91 Calcium 9.9 Total Bilirubin 0.4 AST 21 ALT 15 Alkaline Phosphatase 75 Total Protein 8.9 H Albumin 4.3 Globulin 4.7 Albumin/Globulin Ratio 0.9 L Assessment & Plan - Assessment and Plan (Free Text) Plan: Assessment left heel skin and skin structure infection with probable calcaneal osteomyelitis, growing Enterobacter S/P right foot heel osteomyelitis and bilateral feet skin and skin structure infection S/P debridement and graft placement, growing multidrug resistant Pseudomonas from the bone - developed acute renal failure from Colistin history of sepsis with left lower extremity myositis, cellulitis, tenosynovitis, gangrene and probable osteomyelitis, grew Pseudomonas history of bilateral lower extremity cellulitis with no evidence of osteomyelitis, growing Citrobacter, Serratia and Group B Strep severe PVD psoriasis GERD HTN dyslipidemia CAD Plan will start Merrem as discussed with Dr. Samson and can switch to Ertapenem for convenience of administration will need at least 4-6 weeks of antibiotics with weekly ESR, CRP, CBC, CMP to be followed and monitored at the wound care center
--- NOTE | 2018-09-07 21:02 | HP ---
DATE OF EXAM: 09/07/2018 HISTORY OF PRESENT ILLNESS: I was called down to the emergency room because Dr. Samson, the fax machine repairer, sent her to the emergency room. She feels that the left heel ulcer is worse and she feels that might be an osteomyelitis at this time and she put her in for IV antibiotics, Infectious Disease evaluation. This is a 78-year-old female who I know very well from house calls and multiple hospital evaluations for heel ulcers, presents with a left heel ulcer which has gotten worse down to the bone and feels like it is an osteomyelitis. PAST MEDICAL HISTORY: MRSA, cellulitis, CAD, status post one stent, hypertension, high cholesterol, GERD, psoriasis. She has diabetes history. She has bilateral cellulitis of the right heel infection, osteomyelitis in the past. She has reflux, cardiac catheterization, cholecystectomy. SOCIAL HISTORY: She used to smoke cigarettes, but she quit. She wears eye glasses. Former smoker. No alcohol. No drugs. FAMILY HISTORY: Hypertension in the family. ALLERGIES: NO KNOWN DRUG ALLERGIES. MEDICATIONS: She is on Protonix, Tylenol, Lasix. I put her on basic medications that she was on at home. REVIEW OF SYSTEMS: No acute vision changes. No hearing changes. No sore throat. No neck pain. No chest pain or palpitations. No shortness of breath or cough. No wheezing. No nausea, vomiting, constipation, diarrhea. No abdominal pain. Left heel has an ulcer, nonhealing. No headache, no dizziness. PHYSICAL EXAMINATION: GENERAL: She is alert and oriented x3. VITAL SIGNS: She has 98.5 temp, 70 pulse, 18 respiratory rate, 142/97 blood pressure, 100% O2 sat on room air. I will make sure she gets blood pressure medications if it persists high. HEENT: Head is atraumatic, normocephalic. Extraocular muscles are intact. Pupils equal and reactive to light and accommodation. Throat is moist. NECK: Supple. HEART: Regular rate. Normal S1, S2. LUNGS: Decreased breath sounds bilaterally, but clear to auscultation. No wheezing. No rhonchi. No rales. ABDOMEN: Soft, nontender. Positive bowel sounds. EXTREMITIES: There is trace edema. There is some left heel with purulent discharge 2 cm x 3 cm ulcer. NEUROLOGIC: Cranial nerves II-XII grossly intact. Normal speech. GCS is 15. Alert and oriented x3. SKIN: Warm and dry with scaling from psoriasis and the left heel has a large ulcer down to the bone. LYMPHS: Thyroid midline. No palpable appreciable lymphadenopathy. LABORATORY DATA: She had multiple tests done. She had an ankle x-ray, which is okay. She has 140 sodium, potassium 4.1, BUN 27, creatinine 1, GFR greater than 60, sugar is 91,calcium is 9.9. Total bili is 0.4, AST is 21, ALT is 15, alk phos 75. Total protein is 8.9, albumin is 4.3 and globulin 4.7. INR is 1.09, PT is 12.5 and aPTT is 49.5. White count 7, hemoglobin 12.2, hematocrit 36.8, platelets of 309. IMPRESSION AND PLAN: She is going to have consult with Infectious Disease for IV antibiotics and Dr. Samson for continued treatment of the left heel ulcer. She has got physical therapy. She should be on the potassium and Lasix 20 IV daily. I will put her on Merrem until Dr. Oshea will take a look at her. Protonix and tramadol for pain, heart healthy diet, physical therapy. Hopefully, she will improve and we will see how long she is 332 IV antibiotics for. She might need to go to for extended period of time if needed for antibiotics. We will continue with aggressive treatment and care. Dr. Samson sent her in, and if her blood sugars go up, I will add coverage and presently blood pressure is 138/82 and I will put her on Lasix 20 IV daily. Otis Harris DO MTDD
[2018-09-07] MEDS ORDERED: MEROPENEM 500 MG in NS 500 MG/50 ML BAG IVPB SCH (22:00)
[2018-09-07] MEDS: Meropenem IV 1 gm in NS 1 GM/50 ML BAG IVPB SCH (22:01)
[2018-09-07] MEDS ORDERED: Influenza Vaccine 60 mcg/0.5 mL SYR (4YR UP) IM ONE (22:35)
[2018-09-07] MEDS ORDERED: Pneumococcal 23-Valent Vaccine IM ONE (22:35)
[2018-09-08 08:09] LABS: HEMOGLOBIN 11.7 g/dL (12.0-16.0); MEAN CELL VOLUME 87.1 fl (80.0-105.0); MEAN CORPUSCULAR HEMOGLOBIN 28.4 pg (25.0-35.0); MEAN CORPUSCULAR HGB CONC 32.6 g/dl (31.0-37.0); RBC 4.12 10^6/uL (3.5-6.1); RED CELL DISTRIBUTION WIDTH 14.2 % (11.5-14.5)
[2018-09-08 08:10] LABS: MEAN PLATELET VOLUME 9.1 fl (7.0-11.0)
[2018-09-08 08:17] LABS: B-TYPE NATRIURETIC PEPTIDE 146 pg/mL (0-450)
[2018-09-08 08:35] LABS: ALB/GLOB RATIO 0.9 (1.1-1.8); ALBUMIN 3.8 g/dL (3.0-4.8); ALT/SGPT 13 U/L (7-56); AST/SGOT 23 U/L (14-36); BLOOD UREA NITROGEN 21 mg/dL (7-21); CALCIUM 9.7 mg/dL (8.4-10.5); GFR NON-AFRICAN AMERICAN 53
[2018-09-08] MEDS: Meropenem IV 1 gm in NS 1 GM/50 ML BAG IVPB SCH ×2 (10:15→22:40)
[2018-09-08] MEDS: Potassium Chloride 20 mEq ER Tab PO SCH (10:16)
--- NOTE | 2018-09-08 11:09 | PN ---
DATE: 09/08/2018 SUBJECTIVE: She is resting comfortably in bed, slept fairly well last night. The left heel has not bothered her in a few hours which is good. Saw bandaged up. She is here for an exposed bone, failed outpatient healing. She has been on IV Merrem IV antibiotic for 6 weeks as per Infectious Disease, wait for Podiatry's input into the case. PHYSICAL EXAMINATION: GENERAL: She is alert, comfortable, eating. VITAL SIGNS: She has 98 temperature, 68 pulse, 120/60 blood pressure, 18 respiratory rate, 96% sat on room air. HEENT: Head atraumatic, normocephalic. HEART: Regular rate. LUNGS: Decreased breath sounds but clear. ABDOMEN: Soft. EXTREMITIES: The left and right heels are bandaged. The left heel has the exposed bone. MEDICATIONS: She is currently on potassium, Lasix, Merrem, Protonix and Ultram. LABORATORY DATA: She has 140 sodium, potassium 4.1, BUN 27, creatinine 1, GFR is 53, sugar is 91, calcium 9.9, total bili is 0.4, AST is 21, ALT is 15, alk phos 75, total protein is 8.9. INR is 1.09. She has 140 sodium, potassium 4.1, BUN 27, creatinine 1, AST is 21, ALT is 50, alk phos 75, total protein is 8.9. ASSESSMENT AND PLAN: Continue with intravenous antibiotics. She will need a peripherally inserted central catheter line and further care by Dr. Samson, the cripple worker, and we will see the length of time from Infectious Disease, he put 6 weeks in his notes and case management where we can send her try to do home intravenous or will also send her to [facility] or [facility] for intravenous antibiotics there at a subacute rehab. The patient is here for osteomyelitis of her left heel as per Podiatry. Otis Harris DO MTDD
--- NOTE | 2018-09-08 13:14 | CP.PCM.CON ---
<Belén Cacereser - Last Filed: 09/08/18 12:37> History of Present Illness - History of Present Illness History of Present Illness: Podiatry Consult Note- Dr. Diaz 78 y/o F patient with PMH of HTN, HLD, and psoriasis seen and evaluated at bedside for bilateral lower extremity ulcerations secondary to psoriasis. Patient is known to podiatry service. Patient was seen on 09/08/18 in the wound care center where she was sent to be admitted for IV abx, Patient states that she is treated from psoriasis since long time, She states that she is having b/l foot and ankle ulcers for which she went under multiple surgeries and long course of treatment. She states that her left leg ulcer is painful and it drain fluid. She denies any other pedal complaint at this time. She denies n/v/sob/cp/f or d. PMH: psoriasis, HTN, HLD PSH: gallbladder removed, stent placement. debridement of foot ulcers, grafting of ulcers Allergies: NKDA Social Hx: former smoker, 30 year smoker- 1 ppd, socially drinks beer, denies illicit drug use Review of Systems - Review of Systems Review of Systems: As per HPI - Constitutional Constitutional: As Per HPI Past Patient History - Infectious Disease Hx of Infectious Diseases: None - Past Medical History & Family History Past Medical History?: Yes - Past Social History Smoking Status: Former Smoker - CARDIAC Hx Cardiac Disorders: Yes Hx Cardia Arrhythmia: Yes Hx Hypercholesterolemia: Yes Hx Hypertension: Yes Hx Pacemaker: No Hx Peripheral Edema: Yes (ble +1 pitting) Hx Peripheral Vascular Disease: Yes Other/Comment: cellulitis, circulation problems, angio/stent r leg - PULMONARY Hx Respiratory Disorders: Yes (USED TO SMOKE CIGARETTES. PK TO PK 1/2 QUIT) - NEUROLOGICAL Hx Neurological Disorder: No - HEENT Hx HEENT Problems: Yes (eyeglasses) - RENAL Hx Chronic Kidney Disease: No Hx Renal Failure: No - ENDOCRINE/METABOLIC Hx Diabetes Mellitus Type 2: Yes - HEMATOLOGICAL/ONCOLOGICAL Hx Blood Disorders: Yes Hx AIDS: No Hx Anemia: Yes (blood transfusions 11/2017) - INTEGUMENTARY Hx Dermatological Problems: Yes Hx Psoriasis: Yes Other/Comment: 02-10-18 BILATERAL CELLULITIS.RIGHT HEEL INFECTION,+ OSTEOMYELITIS, mrsa left foot heel wound 08/31/2018, cellulitis ble, thick dry toenails both feeet, multiple skin discolorations ble +1 pitting edema, feet are dry carl skin covered with dressing done by dr rendon bot have diaz cell to heel wounds, pt requesting dressings not be removed dressings were done by dr rendon today, both wounds draining ss scant fluid, pt has psoriasis over her body - MUSCULOSKELETAL/RHEUMATOLOGICAL Hx Musculoskeletal Disorders: Yes Hx Falls: Yes (past) Hx Unsteady Gait: Yes (walker w/ch) Other/Comment: pt uses b/l surgi shoes - GASTROINTESTINAL Hx Gastrointestinal Disorders: Yes Hx Gastroesophageal Reflux: Yes - GENITOURINARY/GYNECOLOGICAL Hx Genitourinary Disorders: No - PSYCHIATRIC Hx Emotional Abuse: No Hx Physical Abuse: No Hx Substance Use: No - SURGICAL HISTORY Hx Surgeries: Yes Hx Cardiac Catheterization: Yes Hx Cholecystectomy: Yes Hx Coronary Stent: Yes Other/Comment: left heel debridement 10/13/17 - ANESTHESIA Hx Anesthesia Reactions: No Hx Malignant Hyperthermia: No Meds Allergies/Adverse Reactions: Allergies Allergy/AdvReac Type Severity Reaction Status Date / Time No Known Allergies Allergy Verified 02/10/18 17:00 - Medications Medications: Current Medications Furosemide (Lasix) 20 mg IVP DAILY [facility] Last Admin: 09/08/18 10:16 Dose: 20 mg Meropenem (Merrem Iv 1 Gm Premix) 1 gm in 50 mls @ 100 mls/hr IVPB Q12 [facility]; Protocol Stop: 09/14/18 22:01 Last Admin: 09/08/18 10:15 Dose: 100 mls/hr Pantoprazole Sodium (Protonix Ec Tab) 40 mg PO DAILY PRN PRN Reason: GI distress Potassium Chloride (K-Dur 20 Meq Er Tab) 20 meq PO DAILY [facility] Last Admin: 09/08/18 10:16 Dose: 20 meq Tramadol HCl (Ultram) 50 mg PO TID PRN PRN Reason: Pain, severe (8-10) Physical Exam - Constitutional Appears: Well, Non-toxic, No Acute Distress - Head Exam Head Exam: ATRAUMATIC, NORMOCEPHALIC - Extremities Exam Additional comments: Lower extremity focused exam Vasc: DP/PT pulses are non-palpable, likely to LE edema, CFT < 3 seconds to all ten digits. Skin temperature warm to warm from proximal to distal, mild edema noted to the LE bilaterally Neuro: Gross and protective sensation are intact Derm: Multiple, psoriatic plaques noted to b/l legs and feet. Plaques are lifting from the anterior aspect of the voss. Nails are thickened, and discolored 1-5 b/l. Both feet are shiny red with skin changes due to psoriasis. R: R heel ulceration measuring approximately 1 cm x 0.9 cm x 0.1 cm . Wound edge is fibrous. Wound base is 30% granular, 70% fibrous. No drainage, No malodor, no tunneling noted, no abscess, No probe to bone noted. L:Large ulceration noted to the posterior aspect of the left lower extremity measuring approximately 7 cm x 5.6 cm x 0.2 cm . Wound base is 70% granular, 30% fibrous. Mild serous drainage, No malodor, no tunneling noted, no abscess, No probe to bone noted. Ortho:Pain on palpating the posterior wounds on the left leg. Muscle power intact 5/5 to all groups b/l. Dissuse arthritis changes to foot and ankle joints b/l. - Neurological Exam Neurological exam: Alert, Oriented x3 - Psychiatric Exam Psychiatric exam: Normal Affect, Normal Mood Results - Vital Signs Recent Vital Signs: Last Vital Signs Temp 98 F 09/08/18 06:00 Pulse 73 09/08/18 06:00 Resp 18 09/08/18 06:00 BP 108/60 09/08/18 10:16 Pulse Ox 97 09/08/18 06:00 - Labs Result Diagrams: 09/08/18 07:45 09/08/18 07:45 Labs: Laboratory Results - last 24 hr 09/07/18 09/07/18 09/07/18 12:20 12:20 12:20 WBC RBC Hgb Hct MCV MCH MCHC RDW Plt Count MPV ESR 87 H PT 12.5 INR 1.09 APTT 29.5 Sodium 140 Potassium 4.1 Chloride 105 Carbon Dioxide 26 Anion Gap 13 BUN 27 H Creatinine 1.0 Est GFR ( Amer) > 60 Est GFR (Non-Af Amer) 53 Random Glucose 91 Calcium 9.9 Total Bilirubin 0.4 AST 21 ALT 15 Alkaline Phosphatase 75 NT-Pro-B Natriuret Pep Total Protein 8.9 H Albumin 4.3 Globulin 4.7 Albumin/Globulin Ratio 0.9 L 09/08/18 09/08/18 07:45 07:45 WBC 7.0 RBC 4.12 Hgb 11.7 L Hct 35.9 L MCV 87.1 MCH 28.4 MCHC 32.6 RDW 14.2 Plt Count 285 MPV 9.1 ESR 90 H PT INR APTT Sodium 140 Potassium 4.3 Chloride 106 Carbon Dioxide 27 Anion Gap 11 BUN 21 Creatinine 1.0 Est GFR ( Amer) > 60 Est GFR (Non-Af Amer) 53 Random Glucose 83 Calcium 9.7 Total Bilirubin 0.6 AST 23 ALT 13 Alkaline Phosphatase 70 NT-Pro-B Natriuret Pep 146 Total Protein 7.9 Albumin 3.8 Globulin 4.1 Albumin/Globulin Ratio 0.9 L Assessment & Plan - Assessment and Plan (Free Text) Assessment: 78 year old female patient seen and evaluated at the bedside for wounds to bilateral lower extremity secondary to psoriasis Plan: Patient examined and evaluated at bedside with Dr. Diaz. Labs, charts, vitals reviewed: Afebrile, No leukocytosis Discussed plan in detail with attending Dr. Diaz Ordered MRI of left lower extremity- to r/o OM Ordered PICC line insertion Ordered multipodus boots- to be applied at all times while in bed Lower extremities dressed with Silvercell, dsd, abd, and kerlix ID on board, recommendations appreciated C/w abx per ID Wound culture left foot (08/31/18); Enterobacter cloacae Ssp Cloac and MRSA Podiatry will continue to follow up the patient while in house Thank you for the consult - Date & Time Date: 09/08/18 Time: 12:38 <Yo Diaz - Last Filed: 09/08/18 16:00> Meds - Medications Medications: Current Medications Furosemide (Lasix) 20 mg IVP DAILY [facility] Last Admin: 09/08/18 10:16 Dose: 20 mg Meropenem (Merrem Iv 1 Gm Premix) 1 gm in 50 mls @ 100 mls/hr IVPB Q12 [facility]; Protocol Stop: 09/14/18 22:01 Last Admin: 09/08/18 10:15 Dose: 100 mls/hr Pantoprazole Sodium (Protonix Ec Tab) 40 mg PO DAILY PRN PRN Reason: GI distress Potassium Chloride (K-Dur 20 Meq Er Tab) 20 meq PO DAILY [facility] Last Admin: 09/08/18 10:16 Dose: 20 meq Tramadol HCl (Ultram) 50 mg PO TID PRN PRN Reason: Pain, severe (8-10) Results - Vital Signs Recent Vital Signs: Last Vital Signs Temp 97.9 F 09/08/18 14:00 Pulse 80 09/08/18 14:00 Resp 20 09/08/18 14:00 BP 141/81 09/08/18 14:00 Pulse Ox 100 09/08/18 14:00 - Labs Result Diagrams: 09/08/18 07:45 09/08/18 07:45 Labs: Laboratory Results - last 24 hr 09/08/18 09/08/18 09/08/18 07:45 07:45 07:45 WBC 7.0 RBC 4.12 Hgb 11.7 L Hct 35.9 L MCV 87.1 MCH 28.4 MCHC 32.6 RDW 14.2 Plt Count 285 MPV 9.1 ESR 90 H Sodium 140 Potassium 4.3 Chloride 106 Carbon Dioxide 27 Anion Gap 11 BUN 21 Creatinine 1.0 Est GFR ( Amer) > 60 Est GFR (Non-Af Amer) 53 Random Glucose 83 Calcium 9.7 Total Bilirubin 0.6 AST 23 ALT 13 Alkaline Phosphatase 70 C-React Prot High Sens 6.81 H NT-Pro-B Natriuret Pep 146 Total Protein 7.9 Albumin 3.8 Globulin 4.1 Albumin/Globulin Ratio 0.9 L Attending/Attestation - Attestation I have personally seen and examined this patient.: Yes I have fully participated in the care of the patient.: Yes I have reviewed all pertinent clinical information: Yes
--- NOTE | 2018-09-08 23:16 | PN ---
DATE: 09/08/2018 SUBJECTIVE: The patient seen earlier in the day in 571, bed 2. No fevers and no chills. PHYSICAL EXAMINATION: VITAL SIGNS: Temperature of 98, blood pressure is 140/80, respiratory rate 20, heart rate of 80. HEENT: Unremarkable. NECK: Supple. LUNGS: Have decreased breath sounds. HEART: Normal S1, S2. ABDOMEN: Soft. LABORATORY EXAMINATION: Reveals the patient's white count is 70, hemoglobin of 12, platelets of 285 and coagulation is noted. Chemistries reveal BUN of 21, creatinine of 1. C-reactive protein is 6.8. Blood cultures are negative. Urine cultures are negative. ASSESSMENT AND PLAN: This is a 78-year-old female with history of severe peripheral vascular disease, psoriasis, gastroesophageal reflux disease, hypertension, dyslipidemia, coronary artery disease, history of left lower extremity gangrene, osteomyelitis, recently treated for right heel osteomyelitis and is followed by Dr. Samson, status post debridement and graft placement and developed acute renal failure from colistin initiated. On meropenem. Will need 4-6 weeks of antibiotics, may use ertapenem for her convenience, with recommended sed rate, C-reactive protein, complete blood count, chemistries once weekly. Review of the orders, it appears the meropenem to be active. Blood cultures are negative. Urine cultures are negative. The patient had methicillin-resistant Staphylococcus aureus and Enterobacter cloacae. The patient has no known allergies. That is from the culture of 08/31. Would add vancomycin because of methicillin-resistant Staphylococcus aureus in addition to the Enterobacter. The patient does have a history of multidrug resistant Pseudomonas. We will add vancomycin for the methicillin-resistant Staphylococcus aureus, to the meropenem. The patient does have a glomerular filtration rate of 53. Concerned about the use of vanco with the patient's creatinine 2.9. Unable to use Zyvox because of tramadol. She will have vanco levels. Because of the patient's age, may be able to use vancomycin once daily. Valente Oshea MD
[2018-09-08] MEDS: Vancomycin 1gm in NS 250ml 1 GM/250 ML BAG IVPB SCH (23:55)
[2018-09-09 07:28] LABS: HEMOGLOBIN 11.3 g/dL (12.0-16.0); MEAN CELL VOLUME 86.5 fl (80.0-105.0); MEAN CORPUSCULAR HEMOGLOBIN 28.2 pg (25.0-35.0); MEAN CORPUSCULAR HGB CONC 32.6 g/dl (31.0-37.0); MEAN PLATELET VOLUME 8.7 fl (7.0-11.0); RBC 4.01 10^6/uL (3.5-6.1); RED CELL DISTRIBUTION WIDTH 14.1 % (11.5-14.5); WHITE BLOOD COUNT 7.7 10^3/uL (4.5-11.0)
[2018-09-09 07:39] LABS: ALB/GLOB RATIO 0.9 (1.1-1.8); ALBUMIN 3.4 g/dL (3.0-4.8); ALT/SGPT 13 U/L (7-56); AST/SGOT 22 U/L (14-36); BLOOD UREA NITROGEN 23 mg/dL (7-21); CALCIUM 9.3 mg/dL (8.4-10.5); GFR NON-AFRICAN AMERICAN 53
[2018-09-09] MEDS: Meropenem IV 1 gm in NS 1 GM/50 ML BAG IVPB SCH ×2 (10:45→21:45)
[2018-09-09] MEDS: Potassium Chloride 20 mEq ER Tab PO SCH (10:45)
[2018-09-09] MEDS: Vancomycin 1gm in NS 250ml 1 GM/250 ML BAG IVPB SCH (10:45)
--- NOTE | 2018-09-09 12:16 | DS ---
HISTORY OF PRESENT ILLNESS: I found out today that she could be discharged on Invanz daily for her osteomyelitis of the heel, so potassium, Lasix, Merrem, Protonix, Ultram and vancomycin, but the Merrem and vancomycin will be changed to Invanz daily so come back and forth through the hospital for 6 weeks, she is comfortable with that idea, she likes the idea of going home. PHYSICAL EXAMINATION: VITAL SIGNS: She has a 98.8 temperature, 74 pulse, 109/58 blood pressure, 18 respiratory rate and 90% O2 sat on room air. HEENT: Head is atraumatic, normocephalic. HEART: Regular rate. LUNGS: Clear to auscultation. ABDOMEN: Soft. EXTREMITIES: Wrapped up. She is in good spirits. LABORATORY DATA: She has a 137 sodium, potassium 4.3, BUN 23, creatinine 1, GFR is greater than 60, sugar is 97, calcium is 9.3, total bilirubin is 0.3, AST is 22, ALT is 13, alkaline phosphatase is 56. C-reactive protein as high as 6.81, total protein is 7.3. INR is 1.19. White count 7.7, hemoglobin 11.3, hematocrit 34.7, platelets of 282. PLAN: So, the plan is for her to be discharged after calling case management to help , ordered a PICC line and then outpatient IV Invanz daily for 6 weeks. The patient understands the plan, hope this could be happening today. We will see her for an osteomyelitis of the hip. Otis Harris DO MTDD
--- NOTE | 2018-09-09 12:38 | MRI ---
Date of service: 09/09/2018 PROCEDURE: MRI of the left ankle without contrast HISTORY: R/O OM left lower leg and ankle COMPARISON: X-rays 09/07/2018 TECHNIQUE: MRI of the left ankle was performed in multiple planes using multiple pulse sequences. FINDINGS: There is a small bone infarct in the posterior aspect of the calcaneus measuring 7 x 12 mm. There also an area of osteonecrosis adjacent to the articular surface of the distal tibia measuring 6 x 13 mm. A bone infarct is also seen in the distal shaft of the tibia. There is no evidence of osteomyelitis. The Achilles tendon is intact. The plantar fascia is unremarkable. The sinus tarsi is unremarkable. 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
--- NOTE | 2018-09-09 12:39 | CP.PCM.PN ---
<Meir Caceres - Last Filed: 09/09/18 12:23> Subjective - Date & Time of Evaluation Date of Evaluation: 09/09/18 Time of Evaluation: 12:23 - Subjective Subjective: Podiatry Progress Note for Dr. Samson 78 y/o F patient seen and evaluated at bedside for bilateral lower extremity ulcerations secondary to psoriasis.Patient states that she still have mild pain when anyone touches her left heel. She denies any overnight acute events. She denies any other pedal complaint at this time. She denies any overnight n/v/sob/cp/f or d. Objective - Vital Signs/Intake and Output Vital Signs (last 24 hours): Temp Pulse Resp BP Pulse Ox 98.8 F 74 18 109/55 L 93 L 09/09/18 06:00 09/09/18 06:00 09/09/18 06:00 09/09/18 10:45 09/09/18 06:00 Intake and Output: 09/09/18 09/09/18 06:59 18:59 Intake Total 420 Balance 420 - Medications Medications: Current Medications Furosemide (Lasix) 20 mg IVP DAILY HEBER Last Admin: 09/09/18 10:45 Dose: 20 mg Meropenem (Merrem Iv 1 Gm Premix) 1 gm in 50 mls @ 100 mls/hr IVPB Q12 HEBER; Protocol Stop: 09/14/18 22:01 Last Admin: 09/09/18 10:45 Dose: 100 mls/hr Vancomycin HCl (Vancomycin 1gm) 1 gm in 250 mls @ 167 mls/hr IVPB DAILY HEBER; Protocol Stop: 09/17/18 21:20 Last Admin: 09/09/18 10:45 Dose: 167 mls/hr Pantoprazole Sodium (Protonix Ec Tab) 40 mg PO DAILY PRN PRN Reason: GI distress Potassium Chloride (K-Dur 20 Meq Er Tab) 20 meq PO DAILY HEBER Last Admin: 09/09/18 10:45 Dose: 20 meq Tramadol HCl (Ultram) 50 mg PO TID PRN PRN Reason: Pain, severe (8-10) - Labs Labs: 09/09/18 07:00 09/09/18 07:00 PT 12.5 SECONDS (9.4-12.5) 09/07/18 12:20 INR 1.09 09/07/18 12:20 APTT 29.5 Seconds (25.1-36.5) 09/07/18 12:20 - Constitutional Appears: Well, Non-toxic, No Acute Distress - Head Exam Head Exam: ATRAUMATIC, NORMOCEPHALIC - Extremities Exam Additional comments: Lower extremity focused exam Vasc: DP/PT pulses are non-palpable, likely to LE edema, CFT < 3 seconds to all ten digits. Skin temperature warm to warm from proximal to distal, mild edema noted to the LE bilaterally Neuro: Gross and protective sensation are intact Derm: Multiple, psoriatic plaques noted to b/l legs and feet. Plaques are lifting from the anterior aspect of the voss. Nails are thickened, and discolored 1-5 b/l. Both feet are shiny red with skin changes due to psoriasis. R: R heel ulceration measuring approximately 1 cm x 0.9 cm x 0.1 cm . Wound edge is fibrous. Wound base is 30% granular, 70% fibrous. No drainage, No malodor, no tunneling noted, no abscess, No probe to bone noted. L:Large ulceration noted to the posterior aspect of the left lower extremity measuring approximately 7 cm x 5.6 cm x 0.2 cm . Wound base is 70% granular, 30% fibrous. Mild serous drainage, No malodor, no tunneling noted, no abscess, No probe to bone noted. Ortho:Pain on palpating the posterior wounds on the left leg. Muscle power intact 5/5 to all groups b/l. Dissuse arthritis changes to foot and ankle joints b/l. - Neurological Exam Neurological Exam: Alert, Awake, Oriented x3 - Psychiatric Exam Psychiatric exam: Normal Affect, Normal Mood Assessment and Plan - Assessment and Plan (Free Text) Assessment: 78 year old female patient seen and evaluated at the bedside for wounds to isabel ateral lower extremity secondary to psoriasis Plan: Patient examined and evaluated at bedside with Dr. Samson Labs, charts, vitals reviewed: Afebrile, No leukocytosis Discussed plan in detail with attending Dr. Samson MRI of left lower extremity; Pending official report Ordered PICC line insertion Multipodus boots- to be applied at all times while in bed Lower extremities dressed with Maxorb, dsd, abd, and kerlix ID on board, recommendations appreciated C/w abx per ID Wound culture left foot (08/31/18); Enterobacter cloacae Ssp Cloac and MRSA Podiatry will continue to follow up the patient while in house <Cherise Samson - Last Filed: 09/11/18 15:08> Objective - Vital Signs/Intake and Output Vital Signs (last 24 hours): Temp Pulse Resp BP Pulse Ox 98.3 F 75 20 129/69 100 09/10/18 14:00 09/10/18 14:00 09/10/18 14:00 09/10/18 14:00 09/10/18 14:00 - Labs Labs: 09/09/18 07:00 09/09/18 07:00 PT 12.5 SECONDS (9.4-12.5) 09/07/18 12:20 INR 1.09 09/07/18 12:20 APTT 29.5 Seconds (25.1-36.5) 09/07/18 12:20 Attending/Attestation - Attestation I have personally seen and examined this patient.: Yes I have fully participated in the care of the patient.: Yes I have reviewed all pertinent clinical information, including history, physical exam and plan: Yes Notes (Text): 09/11/18 15:06 pt with OM of the left calcaneous; discuss at length with pt and with the case management team; unfortunately pt cannot do outpatient IV antibiotics as planned because she has a $300 a day co-pay for the medication; thus she would have to go to the subacute rehab; pt is not happy about the plan but understands; she will need PICC; IV antibiotics as per ID
--- NOTE | 2018-09-09 19:45 | CP.PCM.PN ---
Subjective - Date & Time of Evaluation Date of Evaluation: 09/09/18 Time of Evaluation: 09:25 - Subjective Subjective: Comfortable, afebrile. Objective - Vital Signs/Intake and Output Vital Signs (last 24 hours): Temp Pulse Resp BP Pulse Ox 98.5 F 84 18 115/61 100 09/09/18 14:00 09/09/18 14:00 09/09/18 14:00 09/09/18 14:00 09/09/18 14:00 - Medications Medications: Current Medications Furosemide (Lasix) 20 mg IVP DAILY HEBER Last Admin: 09/09/18 10:45 Dose: 20 mg Meropenem (Merrem Iv 1 Gm Premix) 1 gm in 50 mls @ 100 mls/hr IVPB Q12 HE[facility]; Protocol Stop: 09/14/18 22:01 Last Admin: 09/09/18 10:45 Dose: 100 mls/hr Vancomycin HCl (Vancomycin 1gm) 1 gm in 250 mls @ 167 mls/hr IVPB DAILY HEBER; Protocol Stop: 09/17/18 21:20 Last Admin: 09/09/18 10:45 Dose: 167 mls/hr Pantoprazole Sodium (Protonix Ec Tab) 40 mg PO DAILY PRN PRN Reason: GI distress Potassium Chloride (K-Dur 20 Meq Er Tab) 20 meq PO DAILY HEBER Last Admin: 09/09/18 10:45 Dose: 20 meq Tramadol HCl (Ultram) 50 mg PO TID PRN PRN Reason: Pain, severe (8-10) - Labs Labs: 09/09/18 07:00 09/09/18 07:00 PT 12.5 SECONDS (9.4-12.5) 09/07/18 12:20 INR 1.09 09/07/18 12:20 APTT 29.5 Seconds (25.1-36.5) 09/07/18 12:20 - Constitutional Appears: Chronically Ill - Head Exam Head Exam: NORMAL INSPECTION - Respiratory Exam Respiratory Exam: Decreased Breath Sounds - Cardiovascular Exam Cardiovascular Exam: +S1, +S2 - GI/Abdominal Exam GI & Abdominal Exam: Soft. 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, growing Enterobacter and MRSA S/P right foot heel osteomyelitis and bilateral feet skin and skin structure infection S/P debridement and graft placement, growing multidrug resistant Pseudomonas from the bone - developed acute renal failure from [place] history of sepsis with left lower extremity myositis, cellulitis, tenosynovitis, gangrene and probable osteomyelitis, grew Pseudomonas history of bilateral lower extremity cellulitis with no evidence of osteomyelitis, growing Citrobacter, Serratia and Group B Strep severe PVD psoriasis GERD HTN dyslipidemia CAD Plan on Vancomycin and Merrem as discussed with Dr. Samson and can switch to Ertapenem fand Zyvox or convenience of administration will need at least 4 weeks of antibiotics with weekly ESR, CRP, CBC, CMP to be followed and monitored at the wound care center
--- NOTE | 2018-09-10 09:08 | RAD ---
Date of service: 09/09/2018 HISTORY: picc placement COMPARISON: No prior. FINDINGS: LUNGS: Interval left PICC insertion identified in the interval terminating at the distal superior vena cava in good apparent position. No active pulmonary disease. Calcified granuloma reiterated at the inferior right lung zone best shown in prior chest CT 09/10/2016. Additional granulomata significantly smaller at the mid to inferior left lung zone again evident as well. PLEURA: No significant pleural effusion identified, no pneumothorax apparent. CARDIOVASCULAR: Calcific atherosclerotic changes are seen related to the thoracic aorta. Normal cardiac size. No pulmonary vascular congestion. OSSEOUS STRUCTURES: No significant abnormalities. VISUALIZED UPPER ABDOMEN: Normal. OTHER FINDINGS: None. IMPRESSION: No interval acute cardiopulmonary disease appreciated. Partially calcified granulomatous changes reiterated. PICC insertion in good apparent position.
--- NOTE | 2018-09-10 09:41 | DS ---
Today is the third overnight. She needs to be on 4 to 6 weeks of IV antibiotics for left heel ulcer and osteomyelitis. She is currently on potassium, Lasix, Merrem, Protonix, Ultram and vancomycin. [facility] today. We could not arrange for outpatient IV antibiotics therefore the plan will be to go to [facility] that she has been in before. PHYSICAL EXAMINATION: VITAL SIGNS: She has 98.3 temperature, 99 pulse, 123/70 blood pressure, 18 respiratory rate, 99% O2 sat on room air. HEENT: Head is atraumatic, normocephalic. HEART: Regular rate. LUNGS: Clear to auscultation. ABDOMEN: Soft. EXTREMITIES: No edema of the extremities and the heels are bandaged. She has a left heel osteomyelitis and ulcers. She needs to go for 4 to 6 weeks of IV antibiotics as per Infectious Disease and Podiatry. LABORATORY DATA: She has a 7.7 white count, 11.3 hemoglobin, 34.7 hematocrit, 282 platelets. She has 137 sodium; potassium 4.3; BUN 23; creatinine 1, better. GFR is 53, sugar is 97, calcium 9.3, total bili is 0.3, AST is 22, ALT is 13, alk phos 66, total protein 7.3. IMPRESSION AND PLAN: She is being seen by Infectious Disease and Podiatry. She will be on vancomycin and Merrem. I will switch to ertapenem and Zyvox. Four weeks of antibiotics. Weekly ESR, CRP, CBC, CMP we are going to follow the wound. We will continue with aggressive treatment and care. Hopefully she [facility] today. Rashard Harris DO RD
[2018-09-10] MEDS: Potassium Chloride 20 mEq ER Tab PO SCH (10:18)
[2018-09-10] MEDS: Meropenem IV 1 gm in NS 1 GM/50 ML BAG IVPB SCH (10:19)
[2018-09-10] MEDS: Vancomycin 1gm in NS 250ml 1 GM/250 ML BAG IVPB SCH (10:19)
[2018-09-10 14:44] VITALS: BP 129/69; PULSE 75; RESP 20; TEMP 98.3; O2SAT 100
--- NOTE | 2018-09-10 15:24 | CP.PCM.PN ---
<Meir Caceres - Last Filed: 09/10/18 15:20> Subjective - Date & Time of Evaluation Date of Evaluation: 09/10/18 Time of Evaluation: 15:21 - Subjective Subjective: Podiatry Progress Note for Dr. Samson 78 y/o F patient seen and evaluated at bedside for bilateral lower extremity ulcerations secondary to psoriasis.Patient states that she still having mild pain when anyone touches her left heel. She denies any overnight acute events. She denies any other pedal complaint at this time. She denies any overnight n/v/sob/cp/f or d. Objective - Vital Signs/Intake and Output Vital Signs (last 24 hours): Temp Pulse Resp BP Pulse Ox 98.3 F 75 20 129/69 100 09/10/18 14:00 09/10/18 14:00 09/10/18 14:00 09/10/18 14:00 09/10/18 14:00 Intake and Output: 09/10/18 09/10/18 06:59 18:59 Intake Total 420 Balance 420 - Medications Medications: Current Medications Furosemide (Lasix) 20 mg IVP DAILY HEBER Last Admin: 09/10/18 10:19 Dose: 20 mg Meropenem (Merrem Iv 1 Gm Premix) 1 gm in 50 mls @ 100 mls/hr IVPB Q12 HEBER; Protocol Stop: 09/14/18 22:01 Last Admin: 09/10/18 10:19 Dose: 100 mls/hr Vancomycin HCl (Vancomycin 1gm) 1 gm in 250 mls @ 167 mls/hr IVPB DAILY HEBER; Protocol Stop: 09/17/18 21:20 Last Admin: 09/10/18 10:19 Dose: 167 mls/hr Pantoprazole Sodium (Protonix Ec Tab) 40 mg PO DAILY PRN PRN Reason: GI distress Potassium Chloride (K-Dur 20 Meq Er Tab) 20 meq PO DAILY HEBER Last Admin: 09/10/18 10:18 Dose: 20 meq Tramadol HCl (Ultram) 50 mg PO TID PRN PRN Reason: Pain, severe (8-10) - Labs Labs: 09/09/18 07:00 09/09/18 07:00 PT 12.5 SECONDS (9.4-12.5) 09/07/18 12:20 INR 1.09 09/07/18 12:20 APTT 29.5 Seconds (25.1-36.5) 09/07/18 12:20 - Constitutional Appears: Well, Non-toxic, No Acute Distress - Head Exam Head Exam: ATRAUMATIC, NORMOCEPHALIC - Extremities Exam Additional comments: Lower extremity focused exam Vasc: DP/PT pulses are non-palpable, likely to LE edema, CFT < 3 seconds to all ten digits. Skin temperature warm to warm from proximal to distal, mild edema noted to the LE bilaterally Neuro: Gross and protective sensation are intact Derm: Multiple, psoriatic plaques noted to b/l legs and feet. Plaques are lifting from the anterior aspect of the voss. Nails are thickened, and discolored 1-5 b/l. Both feet are shiny red with skin changes due to psoriasis. R: R heel ulceration measuring approximately 1 cm x 0.9 cm x 0.1 cm . Wound edge is fibrous. Wound base is 30% granular, 70% fibrous. No drainage, No malodor, no tunneling noted, no abscess, No probe to bone noted. L:Large ulceration noted to the posterior aspect of the left lower extremity measuring approximately 7 cm x 5.6 cm x 0.2 cm . Wound base is 70% granular, 30% fibrous. Mild serous drainage, No malodor, no tunneling noted, no abscess, No probe to bone noted. MSK:Pain on palpating the posterior wounds on the left leg. Muscle power intact 5/5 to all groups b/l. Dissuse arthritis changes to foot and ankle joints b/l. - Neurological Exam Neurological Exam: Alert, Awake, Oriented x3 - Psychiatric Exam Psychiatric exam: Normal Affect, Normal Mood Assessment and Plan - Assessment and Plan (Free Text) Assessment: 78 year old female patient seen and evaluated at the bedside for infected wounds to bilateral lower extremity secondary to psoriasis and possibly left calcaneous and lower tibia OM Plan: Patient examined and evaluated at bedside with Dr. Samson Labs, charts, vitals reviewed: Afebrile, No leukocytosis Discussed plan in detail with attending Dr. Samson MRI of left lower extremity; Small focal areas of osteonecrosis in the posterior calcaneous articular surface and posterior tibial shaft. Wound culture left foot (08/31/18); Enterobacter cloacae Ssp Cloac and MRSA Ordered PICC line insertion Multipodus boots- to be applied at all times while in bed Lower extremities dressed with Maxorb, dsd, abd, and kerlix ID on board, recommendations appreciated C/w abx per ID Patient will need 4 weeks of IV Abx Patient will need weekly transportation for the wound care center upon discharge to subacute rehab. Podiatry will continue to follow up the patient while in house <Cherise Samson - Last Filed: 09/11/18 14:37> Objective - Vital Signs/Intake and Output Vital Signs (last 24 hours): Temp Pulse Resp BP Pulse Ox 98.3 F 75 20 129/69 100 09/10/18 14:00 09/10/18 14:00 09/10/18 14:00 09/10/18 14:00 09/10/18 14:00 - Labs Labs: 09/09/18 07:00 09/09/18 07:00 PT 12.5 SECONDS (9.4-12.5) 09/07/18 12:20 INR 1.09 09/07/18 12:20 APTT 29.5 Seconds (25.1-36.5) 09/07/18 12:20 Attending/Attestation - Attestation I have personally seen and examined this patient.: Yes I have fully participated in the care of the patient.: Yes I have reviewed all pertinent clinical information, including history, physical exam and plan: Yes
--- NOTE | 2018-09-10 22:43 | PN ---
DATE: 09/10/2018 SUBJECTIVE: The patient seen in bed, no acute distress, who was seen earlier today in 571, bed 2. PHYSICAL EXAMINATION: VITAL SIGNS: Temperature of 98, blood pressure is 129/60, respiratory rate of 18. HEENT: Unremarkable. NECK: Supple. LUNGS: Have decreased breath sounds. HEART: Normal S1, S2. ABDOMEN: Soft. LABORATORY EXAMINATION: Reveals a white count of 7.7, hemoglobin of 11, sed rate is 90. Coagulation is noted. Chemistries reveal a BUN of 23, creatinine of 1. Microbiology reveals blood cultures are negative. Urine cultures are negative. ASSESSMENT AND PLAN: A 78-year-old with a left heel skin and skin structure infection, probable calcaneal osteomyelitis and osteonecrosis, growing Enterobacter methicillin-resistant Staphylococcus aureus with status post right foot heel osteomyelitis and bilateral heat skin and soft tissue infection in a patient with psoriasis, severe peripheral vascular disease, hypertension, dyslipidemia, on vancomycin and meropenem, and may be able to switch to Zyvox and ertapenem for convenience, and the patient will need 4 weeks of antibiotics with a weekly CBC, SMA-18, sedimentation rate, C-reactive protein. Review of orders reveals the meropenem and vancomycin are active. We will follow closely with you. Valente Oshea MD
== END 2018-09-10 17:02 | DRG 638 ==
LOC: ED 10:56 → ERH 13:06 → 5RSO 15:15
PROVIDERS: ADMIT Family Medicine; ATTEND Family Medicine
PROC: 02HV33Z Insertion of Infusion Device into Superior Vena Cava, Percutaneous Approach (ICD-10-PCS; principal; 2018-09-09)
DX: E11.621 Type 2 diabetes mellitus with foot ulcer (principal); L97.429 Non-pressure chronic ulcer of left heel and midfoot with unspecified severity; L97.919 Non-pressure chronic ulcer of unspecified part of right lower leg with unspecified severity; M86.172 Other acute osteomyelitis, left ankle and foot; M87.9 Osteonecrosis, unspecified; K21.9 Gastro-esophageal reflux disease without esophagitis; I25.10 Atherosclerotic heart disease of native coronary artery without angina pectoris; I10 Essential (primary) hypertension; E11.69 Type 2 diabetes mellitus with other specified complication; L40.9 Psoriasis, unspecified; E11.51 Type 2 diabetes mellitus with diabetic peripheral angiopathy without gangrene; Z87.891 Personal history of nicotine dependence; E11.622 Type 2 diabetes mellitus with other skin ulcer; E78.00 Pure hypercholesterolemia, unspecified; E78.5 Hyperlipidemia, unspecified; M60.9 Myositis, unspecified; N17.9 Acute kidney failure, unspecified; Z16.24 Resistance to multiple antibiotics; Z82.49 Family history of ischemic heart disease and other diseases of the circulatory system; Z86.14 Personal history of Methicillin resistant Staphylococcus aureus infection; Z86.19 Personal history of other infectious and parasitic diseases; Z90.49 Acquired absence of other specified parts of digestive tract; Z95.5 Presence of coronary angioplasty implant and graft

== ENCOUNTER → 2019-02-09 | Outpatient (CLI) | payer MEDICARE | LOC: RAD 13:21 ==

== ENCOUNTER 2019-03-02 08:59 | Outpatient (CLI) | payer MEDICARE | END 2019-03-02 09:00 | disposition home or self-care (01) | LOC: RAD 08:59 | DX: I70.242 Atherosclerosis of native arteries of left leg with ulceration of calf (principal) ==